=== PATIENT | female | born 1950 | race Caucasian/White ===

== ENCOUNTER → 2021-04-01 12:15 | Outpatient (BNVA) | payer MEDICARE, SELFPAY | PROVIDERS: PCP Pediatrics; Referring Provider Pediatrics; Visit Provider Internal Medicine | DX: I10 Essential (primary) hypertension (principal); I49.3 Ventricular premature depolarization; F17.200 Nicotine dependence, unspecified, uncomplicated | CPT/HCPCS: 93005; 99202 ==

== ENCOUNTER → 2021-05-06 08:03 | Outpatient (REF) | payer MEDICARE, SELFPAY ==
--- NOTE | ~2021-05-06 | NM_ITS ---
Myocardial perfusion study Indication: Cardiac arrhythmias to evaluate for myocardial ischemia Technique: The patient was brought in for a Lexiscan perfusion study on 05/06/2021. Patient performed low-level exercise and was injected 0.4 mg of Lexiscan intravenously. Within a minute of injection, 25 mCi of sestamibi was given intravenously. Images were obtained using the SPECT gamma camera interlaced with the gating device. Images were obtained in supine position. Resting perfusion study was performed on 05/07/2021. Patient was administered 25 mCi of sestamibi intravenously at rest. Images were then obtained in supine position. Images obtained with and without CT attenuation. Total DLP 98 mGy-cm. Images were processed with the software and compared side to side in short axis, horizontal long axis and vertical long axis views. Findings: The stress perfusion study showed nonattenuated images show normal uptake of radiotracer in all segments of LV myocardium. Images show mildly reduced uptake in the distal anterior and apex of the LV myocardium. The gated study shows normal LV systolic function with calculated LVEF of 65%. LV cavity is normal in size. The gated study shows normal systolic wall thickening and contraction of segments. Resting study shows no change in perfusion pattern compared to stress perfusion study. Gating at rest reveals normal systolic wall motion with ejection fraction at 63%. The findings are consistent with normal myocardial perfusion. NM/NM haris perf SPECT rest & str Impression: 1. Myocardial perfusion imaging study shows normal myocardial perfusion 2. Gated LVEF is 65% 3. Transient ischemic dilatation not present EKG is nondiagnostic for ischemia
--- NOTE | 2021-05-06 08:11 | CA_ITS ---
Transthoracic Echocardiogram Patient (Last, First, Middle): Lauren Houston, Gender: Female Date of : 1950 Age: 71 Procedure Date: 05/06/2021 Procedure Type: Transthoracic Echocardiogram Location: OP Height: 172.72 cm Weight: 77.57 kg BSA: 1.91 m2 Heart Rate: bpm BP: 162 / 80 mmHg Streetcar Starter: MADELINE Referring MD: Lex Burk MD Symptoms: I10 - Essential (primary) hypertension Study Quality: Fair ECG Rhythm: Sinus Conclusions: - The left ventricular systolic function is normal. The calculated ejection fraction is 58% by biplane method. - Grade 1-2 diastolic dysfunction. - There is moderate mitral annular calcification. There is mild mitral valve regurgitation. - There is mild to moderate tricuspid valve regurgitation. - Mild pulmonary hypertension is present. - Small plaque is seen in the sinuses of Valsalva. Findings Left Ventricle Normal left ventricular cavity size. There is mildly increased left ventricular wall thickness. The left ventricular systolic function is normal. The calculated ejection fraction is 58% by biplane method. E/E prime ratio is >15, consistent with elevated filling pressures. Grade 1-2 diastolic dysfunction. Right Ventricle Normal right ventricular cavity size and systolic function. Atria Both atria are normal in size. Aortic Valve There is a normal trileaflet aortic valve. There is no aortic valve stenosis. There is no aortic valve regurgitation. Mitral Valve There is moderate mitral annular calcification. There is mild mitral valve regurgitation. There is no mitral valve stenosis. Pulmonic Valve The pulmonic valve was not well visualized. Tricuspid Valve Normal tricuspid valve structure. There is mild to moderate tricuspid valve regurgitation. The right ventricular systolic pressure is 38 mmHg. Mild pulmonary hypertension is present. Great Vessels The aortic annulus, sinuses of valsalva, and asc aorta are normal in size. Small plaque is seen in the sinuses of Valsalva. Venous The inferior vena cava is normal in size and collapses greater than 50% with inspiration. Pericardium/Pleural There is no evidence of pericardial effusion. Prior Study Comparison No significant change compared to prior study dated: 10/28/2018. Measurements 2D Linear Measurements IVSd: 1.14 0.6-0.9/0.6-1.0 cm LVIDd: 4.74 3.9-5.3/4.2-5.9 cm LVIDd Index: 2.48 2.4-3.2/2.2-3.1 cm/m2 LVIDs: 3.31 2.0-3.6 cm LVPWd: 1.26 0.7-1.1 cm Ao Root: 2.20 2.1-3.5 cm LA Diam: 5.10 2.7-3.8/3.0-4.0 cm LAIDs Index: 2.67 1.5-2.3 cm/m2 LV Mass: 267.80 67-162/88-224 g LV Mass Index: 140.21 43-95/49-115 g/m2 LVOT Diam: 1.90 3.0+(-)1.3 cm 2D Systolic Function EF 4C: 58.50 >55% EF 2C: 53.10 >55% EF BiP: 58.20 >55% Mitral Valve MV Pk E: 1.33 MV PK A: 1.40 MV Decel Time: 187.00 E/A: 1.00 E'Lateral: 5.66 E'Medial: 6.20 E/E' Med: 21.50 E/E' Lat: 23.50 PHT: 55.00 MVA PHT: 4.00 Decel Garvin: 7.12 Aortic Valve AoV Pk Vik: 1.68 AoV Pk Grad: 11.00 LVOT LVOT Pk Vik: 1.12 LVOT Mn Vik: 0.75 LVOT VTI: 0.25 LVOT Pk Grad: 5.00 LVOT Mn Grad: 3.00 LVOT Diam: 1.90 LVOT Area: 2.84 Diastolic Function MV Pk E: 1.33 MV Pk A: 1.40 E/A: 1.00 E'Medial: 6.20 E/E' Med: 21.50 E' Laterial: 5.66 E/E' Lat: 23.50 Right Ventricle TAPSE (mm): 2.17 Tricuspid Valve TR Pk Vik: 2.97 TR Pk Grad: 35.00 RA Press: 3.00 RVSP: 38.00 Great Vessels Aorta Ao Root-2D: 2.20 2.0-3.7 cm Ao Asc: 3.10 2.1-3.4 cm Updated in Other Vendor System with Status of Final Lex Burk MD electronically signed on 05/06/2021 12:06:31 PM with status of Final
--- NOTE | 2021-05-06 08:11 | CA_ITS ---
Acquisition Time: 2021-05-06 09:35:53 Total Exercise Time: 00:02:00 Test Indications: PVC'S Medications: SEE CHART Protocol: LEXISCAN Max HR: 102 BPM 68% of Pred: 148 BPM Max BP: 182/078 mmHG Max Work Load: 1.0 METS Pharmacological stress test with Lexiscan injection, while sitting and kicking her legs, without anginal symptoms, with frequent isolated PVC and one ventricular cuplet, with elevated BP at baseline and further elevation post Lexiscan to peak 182/78, with nondiagnostic EKG for ischemia. In recovery she reported feeling strange . She was treated with aminophylline 75mg IVP with resolution of symptom. BP at test end 176/76, asymptomatic. Pt reports taking all of her BP meds this am.Nuclear images pending. Test reviewed with Dr Burk. Referred By: Lex Burk Overread By: KANDIS CANTU
== END ==
LOC: HO.CARD 08:03
PROVIDERS: PCP Pediatrics; Visit Provider Internal Medicine
DX: I10 Essential (primary) hypertension (principal)
CPT/HCPCS: 78452; 93017; 93306; A9500; J0280; J2785

== ENCOUNTER → 2021-05-20 13:53 | Outpatient (BNVA) | payer MEDICARE, SELFPAY | PROVIDERS: PCP Pediatrics; Referring Provider Pediatrics; Visit Provider Nurse Practitioner Family | DX: I10 Essential (primary) hypertension (principal); F17.200 Nicotine dependence, unspecified, uncomplicated | CPT/HCPCS: 99212 ==

== ENCOUNTER 2021-06-18 07:51 | Outpatient (REF) | payer MEDICARE, SELFPAY ==
--- NOTE | ~2021-06-18 | US_ITS ---
EXAMINATION: RENAL ULTRASOUND AND RENAL DOPPLER EXAM CLINICAL INFORMATION: Essential primary hypertension. COMPARISON: None. Images from CT of the abdomen and pelvis January 2012 are not available at this time. TECHNIQUE: Grayscale color and Doppler imaging of the kidneys including waveform spectral analysis of the renal arteries and renal veins. Exam is limited. FINDINGS: The kidneys are normal in contour and symmetric in size with the right kidney measuring 12.4 x 4.1 x 5.2 cm the left kidney measuring 11.9 x 6.1 x 5.4 cm. Renal cortical thickness and echogenicity is normal. There is a 6 x 6 x 5 mm echogenic density in the cortex of the upper pole of the left kidney. Appearance is questionable for cortical calcification, stone or angiomyolipoma. Unfortunately, comparison CT from 2011 is not available. There is a 4 mm echogenic density with twinkle artifact in the upper pole suggestive of a stone. Vascular: The visualized abdominal aorta is normal in caliber. Peak systolic velocity in the midabdominal aorta is elevated measuring 116 cm/s. This makes calculation of renal artery to aorta ratio inaccurate. The right proximal and mid renal artery is visualized. Right proximal renal artery peak systolic velocity measures 88 cm/s and mid 197 cm/s. The distal right renal artery is not visualized. Resistive indices in the right kidney measuring 0.7. The right renal vein is patent. Left renal artery peak systolic velocities measure 88 cm/s proximally, 128 cm/s the midportion and 54 cm/s distally. Left renal resistive indices are slightly elevated measuring 0.8. The bilateral renal veins are patent. US/US renal doppler IMPRESSION: Very limited exam. Normal-appearing right kidney. Probable left upper pole renal stone. Echogenic 6 mm cortical density in the upper pole the left kidney questionable for cortical calcification, stone or angiomyolipoma. Renal Doppler exam is very limited. The right distal renal artery is not visualized. There is increased peak systolic velocity in the right mid renal artery questionable for stenosis. Left renal artery velocities are normal.
== END 2021-06-18 07:52 | disposition home or self-care (01) ==
LOC: HO.US 07:51
PROVIDERS: PCP Pediatrics; Visit Provider Nurse Practitioner Family
DX: I10 Essential (primary) hypertension (principal); F17.200 Nicotine dependence, unspecified, uncomplicated
CPT/HCPCS: 93975

== ENCOUNTER → 2021-07-01 10:07 | Outpatient (BNVA) | payer MEDICARE, SELFPAY | PROVIDERS: PCP Pediatrics; Referring Provider Pediatrics; Visit Provider Internal Medicine | DX: I10 Essential (primary) hypertension (principal); I49.3 Ventricular premature depolarization; I70.1 Atherosclerosis of renal artery; F17.210 Nicotine dependence, cigarettes, uncomplicated | CPT/HCPCS: 99212 ==

== ENCOUNTER 2021-08-06 10:33 | Outpatient (REF) | payer MEDICARE, SELFPAY ==
[2021-08-06 13:07] LABS: Anion Gap 8 (12-20); Carbon Dioxide 29 mmol/L (22-29); Chloride 108 mmol/L (96-108); Cholesterol 152 mg/dL; Estimated Glomerular Filt Rate > 60; Glucose Random 110 mg/dL (60-115); HDL Cholesterol 35 mg/dL; LDL Cholesterol Calculated 81 mg/dl; Potassium 4.3 mmol/L (3.3-5.1); Sodium 141 mmol/L (135-145); Triglycerides 181 mg/dL
[2021-08-06 15:45] LABS: Blood Urea Nitrogen 18 mg/dL (9-16); Calcium 8.7 mg/dL (8.4-10.2)
== END 2021-08-06 10:34 | disposition home or self-care (01) ==
LOC: HO.LAB 10:33
PROVIDERS: PCP Pediatrics; Visit Provider Nurse Practitioner Family
DX: I10 Essential (primary) hypertension (principal); F17.200 Nicotine dependence, unspecified, uncomplicated
CPT/HCPCS: 36415; 80048; 80061

== ENCOUNTER 2021-08-08 10:26 | Outpatient (REF) | payer MEDICARE, SELFPAY ==
--- NOTE | ~2021-08-08 | CT_ITS ---
STUDY PERFORMED: CTA ABDOMEN WITHOUT AND WITH CONTRAST HISTORY: Atherosclerosis renal artery. DESCRIPTION: Routine abdomen CTA protocol with contrast was performed. 80 mL of Omnipaque 350 was administered. 3D POSTPROCESSING: Multiple MIPS in multiple projections were processed from the initial data set by the tomography technologist at the modality workstation under concurrent physician supervision. DOSE LOWERING TECHNIQUES: This CT examination was performed using dose optimization techniques as appropriate, variously including the following: - Automated exposure control - Adjustment of mA and/or kV according to patient size (this includes techniques or standardized protocols for targeted exams where dose is matched to indication/reason for exam; i.e. extremities or head) - Use of iterative reconstruction technique DLP: 333 mGycm. COMPARISON: Renal ultrasound 06/18/2021, CT abdomen pelvis 02/16/2012. FINDINGS: VASCULAR: ABDOMINAL AORTA: Minimal atherosclerotic plaque without evidence of aneurysm, dissection or flow-limiting stenosis. RIGHT LOWER EXTREMITY: The visualized right iliac vessels are patent and unremarkable. LEFT LOWER EXTREMITY: The visualized left iliac vessels are patent and unremarkable. CELIOMESENTERIC ARTERIES: The celiac axis is widely patent. Noncalcified narrowing at the origin of the superior mesenteric artery with a 70% stenosis approximated. The branches of the superior mesenteric artery maintain normal contrast opacification. The inferior mesenteric artery is patent. RENAL ARTERIES: There are 2 right renal arteries present, both of which are widely patent. There is a single widely patent left renal artery. The arteries are smooth without luminal irregularity. Symmetric nephrograms and symmetric renal size. NONVASCULAR: Lung Bases: Motion degrades the images. Cardiomegaly. Bibasilar atelectasis. Liver, Gallbladder and Biliary Tree: Cirrhotic nodular surface contour of the liver. Coarse calcifications at the hepatic dome and other punctate calcifications are also seen. Relative hypertrophy of the left hepatic lobe with respect to the right. Limited assessment of the hepatic parenchyma on arterial phase imaging only. No definite focal liver lesions are seen. No intrahepatic biliary dilatation. The gallbladder is unremarkable with no evidence of radiopaque gallstones, gallbladder wall thickening, or obvious pericholecystic inflammatory changes. Pancreas: Unremarkable. Spleen: Unremarkable. Adrenal Glands: Unremarkable. Kidneys and Ureters: There is a vague area of hypodensity involving the anterior cortex of the interpolar right kidney measuring approximately 1.5 cm, not seen on the prior study from 2011 nor on the ultrasound from May 2021. No evidence of hydronephrosis or perinephric stranding bilaterally. The kidneys are normal in size and shape. Ureters unremarkable as far as they are visualized. Gastrointestinal Tract: The partially imaged colon and small bowel show no signs of obstruction. Appendix unremarkable. Abdominal Wall: No significant abdominal wall hernia. Lymph Nodes: No lymphadenopathy within the abdomen or pelvis by CT criteria. Osseous Structures: No acute or suspicious osseous abnormality. Bilateral pars defects at L5 with spondylolisthesis L5 on S1. CT/CT angio abdomen IMPRESSION: 1. The renal arteries are patent without evidence of renal artery stenosis or luminal irregularity to suggest a vasculitis. Note is made of 2 right-sided renal arteries with a smaller, inferior pole accessory artery. 2. Liver cirrhosis. 3. Indeterminate hypodensity involving the interpolar right kidney cortex. Suggest targeted renal ultrasound for further assessment, reserving MRI for problem solving. 4. 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
[2021-08-08] MEDS: iohexoL 350 MG/ML 100 ML INFUS..BTL IV (12:00)
== END 2021-08-08 10:27 | disposition home or self-care (01) ==
LOC: HO.CT 10:26
PROVIDERS: Visit Provider Internal Medicine
DX: I70.1 Atherosclerosis of renal artery (principal)
CPT/HCPCS: 74175; Q9967

== ENCOUNTER → 2021-08-26 10:34 | Outpatient (BNVA) | payer MEDICARE, SELFPAY | PROVIDERS: PCP Pediatrics; Visit Provider Internal Medicine | DX: J44.9 Chronic obstructive pulmonary disease, unspecified (principal); F17.210 Nicotine dependence, cigarettes, uncomplicated; Z71.6 Tobacco abuse counseling | CPT/HCPCS: 99212 ==

== ENCOUNTER → 2021-08-28 08:00 | Outpatient (BNVA) | payer MEDICARE, SELFPAY | PROVIDERS: PCP Pediatrics; Referring Provider Pediatrics; Visit Provider Internal Medicine | DX: I49.3 Ventricular premature depolarization (principal); I10 Essential (primary) hypertension; K74.60 Unspecified cirrhosis of liver; F17.210 Nicotine dependence, cigarettes, uncomplicated | CPT/HCPCS: 99212 ==

== ENCOUNTER 2021-10-27 09:49 | Outpatient (REF) | payer OTHER, SELFPAY ==
--- NOTE | 2021-10-27 11:43 | PFT_ITS ---
FLOWS: FEV1 61% of predicted at 1.25 L. FVC 56% of predicted at 1.49 L. FEV1 to FVC ratio of 0.84. No bronchodilator response. LUNG VOLUMES: Total lung capacity 62% of predicted at 2.97 L. Residual volume 72% of predicted at 1.55 L. Slow vital capacity 54% of predicted at 1.42 L. Expiratory reserve volume 18% of predicted at 0.10 L. Diffusion capacity is moderately decreased, diffusion capacity corrects to normal after adjustment for alveolar ventilation. In comparison to pulmonary function test performed in August of 2018, TLC and ERV have been without significant changes; FEV1 has decreased by 0.19 L; FVC has decreased by 0.7 L; residual volume has increased by 0.21 L; slow vital capacity has decreased by 0.31 L; diffusion capacity has increased by 0.49 mL/minute per mmHg. IMPRESSION: Moderate restrictive ventilatory defect with no bronchodilator response. Decreased expiratory reserve volume suggests extrathoracic restriction, likely secondary to abdominal obesity. MD CARLEY [place]/[facility] / [id number]
== END 2021-10-27 09:50 | disposition home or self-care (01) ==
LOC: HO.RESP 09:49
PROVIDERS: PCP Pediatrics; Visit Provider Internal Medicine
DX: J44.9 Chronic obstructive pulmonary disease, unspecified (principal); R06.00 Dyspnea, unspecified; F17.210 Nicotine dependence, cigarettes, uncomplicated; Z79.899 Other long term (current) drug therapy
CPT/HCPCS: 94060; 94727; 94729

== ENCOUNTER → 2021-11-12 10:50 | Outpatient (BNVA) | payer OTHER, SELFPAY | PROVIDERS: PCP Pediatrics; Visit Provider Internal Medicine | DX: J98.4 Other disorders of lung (principal); J45.909 Unspecified asthma, uncomplicated; R06.00 Dyspnea, unspecified; F17.210 Nicotine dependence, cigarettes, uncomplicated | CPT/HCPCS: 99212 ==

== ENCOUNTER → 2022-03-05 10:09 | Outpatient (BNVA) | payer OTHER, SELFPAY | PROVIDERS: PCP Pediatrics; Referring Provider Pediatrics; Visit Provider Internal Medicine | DX: I10 Essential (primary) hypertension (principal); I49.3 Ventricular premature depolarization; K74.60 Unspecified cirrhosis of liver; F17.210 Nicotine dependence, cigarettes, uncomplicated; Z79.899 Other long term (current) drug therapy | CPT/HCPCS: 93005; 99212 ==

== ENCOUNTER 2022-03-30 09:49 | Outpatient (REF) | payer OTHER, SELFPAY ==
[2022-03-30 12:04] LABS: INTERNATIONAL NORM RATIO 1.1 (0.9-1.1); Prothrombin Time 12.6 SEC (10.0-13.1)
[2022-03-30 12:16] LABS: Estimated Average Glucose 105 mg/dL; Hemoglobin A1c % 5.3 %
[2022-03-30 12:40] LABS: Alanine Aminotransferase 26 U/L (0-31); Albumin Level 2.7 g/dL (3.5-5.0); Alkaline Phosphatase 149 U/L (39-117); Anion Gap 11 (12-20); Aspartate Amino Transferase 35 U/L (5-31); Bilirubin Total 0.8 mg/dL (0.0-1.0); Blood Urea Nitrogen 21 mg/dL (9-16); Calcium 8.6 mg/dL (8.4-10.2); Carbon Dioxide 27 mmol/L (22-29); Chloride 107 mmol/L (96-108); Cholesterol 166 mg/dL; Estimated Glomerular Filt Rate > 60; Glucose Random 87 mg/dL (60-115); HDL Cholesterol 39 mg/dL; LDL Cholesterol Calculated 89 mg/dl; Sodium 141 mmol/L (135-145); Total Protein 7.6 g/dL (6.5-8.0); Triglycerides 194 mg/dL
[2022-03-31 09:51] LABS: HBS Num1 1.18 mIU/mL (0-7.99); HBc Num1 0.13 S/CO (0.00-0.79); HBsAGNum1 0.17 S/CO (0.00-0.99); Hepatitis B Core Antibody Nonreactive (Nonreactive); Hepatitis B Surface Antigen Negative (Negative); ~HepC Num1 0.42 S/CO (0.00-0.79); ~Hepatitis B Surface Antibody NONREACTIVE (Nonreactive); ~Hepatitis C Antibody Nonreactive (Nonreactive)
[2022-04-01 08:15] LABS: Hepatitis A Antibody IgG REACTIVE (Nonreactive); ~Hepatitis A Antibody IgG 6.45 S/CO (0.00-0.99)
== END 2022-03-30 09:50 | disposition home or self-care (01) ==
LOC: HO.LAB 09:49
PROVIDERS: PCP Pediatrics; Visit Provider Internal Medicine
DX: K74.60 Unspecified cirrhosis of liver (principal)
CPT/HCPCS: 36415; 80053; 80061; 83036; 85610; 86704; 86706; 86708; 86803; 87340; 99202

== ENCOUNTER 2022-05-01 10:30 | Outpatient (REF) | payer OTHER, SELFPAY ==
--- NOTE | ~2022-05-01 | US_ITS ---
EXAMINATION: US ABDOMEN COMPLETE CLINICAL INFORMATION: Unspecified cirrhosis of liver. COMPARISON: CTA abdomen 08/08/2021. Ultrasound renal Doppler 06/18/2021. Ultrasound abdomen 11/20/2015. TECHNIQUE: Real-time imaging of the abdominal viscera. FINDINGS: PANCREAS: The head and the body the pancreas is homogeneous in echotexture. The tail is obscured by overlying gas. ABDOMINAL AORTA: The proximal and mid abdominal aorta is of normal caliber. The distal segment is not visualized. INFERIOR VENA CAVA: Visualized portions are normal. LIVER: The liver is normal size with lobulated contour and slight increased density. Findings are suspicious for cirrhotic appearance. No focal hepatic lesion. There is no intrahepatic biliary duct dilatation seen. GALLBLADDER: Gallbladder wall thickness is 0.3 cm. The gallbladder is physiologically distended without evidence of stones, sludge or pericholecystic fluid. COMMON BILE DUCT: Normal in caliber measuring 0.3 cm in diameter. RIGHT KIDNEY: Normal. No hydronephrosis. No renal calculi or focal parenchymal lesions. The kidney measures 13.0 cm in maximum dimension. LEFT KIDNEY: There is an echogenic lesion in the upper pole measuring 0.7 x 0.4 x 0.4 cm. No hydronephrosis or renal calculi. The kidney measures 11.9 cm in maximum dimension. SPLEEN: Normal. The spleen measures 11.0 cm in maximum dimension. FREE FLUID: None. US/US abdomen complete IMPRESSION: 1. Cirrhotic liver without focal lesion. 2. Small echogenic lesion upper pole left kidney, likely angiomyolipoma. 3. Rest of the abdominal ultrasound is unremarkable.
== END 2022-05-01 10:31 | disposition home or self-care (01) ==
LOC: HO.US 10:30
PROVIDERS: Visit Provider Internal Medicine
DX: K74.60 Unspecified cirrhosis of liver (principal)
CPT/HCPCS: 76700

== ENCOUNTER → 2022-05-13 09:44 | Outpatient (BNVA) | payer OTHER, SELFPAY | PROVIDERS: PCP Pediatrics; Visit Provider Internal Medicine | DX: J98.4 Other disorders of lung (principal); J45.909 Unspecified asthma, uncomplicated; F17.210 Nicotine dependence, cigarettes, uncomplicated | CPT/HCPCS: 99212 ==

== ENCOUNTER 2022-06-09 10:06 | Inpatient (IN) | payer OTHER, SELFPAY ==
[2022-06-09] VITALS (10 sets, daily range): BP systolic 129–211; BP diastolic 56–92; PULSE 62–100; RESP 16–20; TEMP 36.5–36.9; O2SAT 94–96; BMI 32.9
--- NOTE | ~2022-06-09 | XR_ITS ---
EXAMINATION: XR CHEST CLINICAL INFORMATION: Encephalopathy. COMPARISON: Chest 06/09/2022. TECHNIQUE: Frontal view of the chest was obtained. FINDINGS: The lungs are well-expanded without acute pneumonic process. There is elevation of left hemidiaphragm new since 06/09/2022. Heart size and pulmonary vascularity is normal. No gross bony abnormality seen except for mild DJD bilateral AC joints. XR/XR chest 1V IMPRESSION: 1. No acute cardiopulmonary process seen. 2. There is elevation of left hemidiaphragm new since 06/09/2022.
--- NOTE | ~2022-06-09 | XR_ITS ---
EXAMINATION: XR CHEST CLINICAL INFORMATION: Shortness of breath COMPARISON: Previous chest x-ray most recent May 2015 TECHNIQUE: 2 views of the chest were obtained. FINDINGS: The cardiac silhouette is enlarged. There is pulmonary venous redistribution and. Bronchial cuffing. Findings are questionable for mild pulmonary edema versus airways disease. There is subsegmental atelectasis at the right lung base. The lungs are otherwise clear. There is no pleural effusion or pneumothorax. There are degenerative changes of the spine. XR/XR chest 2V IMPRESSION: Enlarged cardiac silhouette. Increased central hilar markings questionable for pulmonary venous redistribution/mild pulmonary edema versus airways disease. Clinical correlation recommended. Subsegmental atelectasis at the right lung base.
--- NOTE | ~2022-06-09 | CT_ITS ---
EXAMINATION: CT HEAD WITHOUT CONTRAST CLINICAL INFORMATION: Encephalopathy COMPARISON: None TECHNIQUE: Contiguous axial imaging was performed from the skull base to vertex without intravenous administration of contrast. This CT examination was performed using dose optimization techniques as appropriate, variously including the following: *Automated exposure control *Adjustment of mA and/or kV according to patient size (this includes techniques or standardized protocols for targeted exams where dose is matched to indication/reason for exam; i.e. extremities or head) *Use of iterative reconstruction technique DLP: 549 mGy-cm FINDINGS: There is no evidence of acute intracranial hemorrhage or territorial infarction. No abnormal mass effect or midline shift is seen. Méndez to white matter differentiation is well preserved. No extra-axial fluid collections are identified. No significant volume loss. No hydrocephalus. Patchy periventricular and subcortical white matter hypodensity is seen consistent with chronic microvascular white matter ischemic changes. The osseous structures and soft tissues are normal. The mastoid air cells and visualized portions of the paranasal sinuses are well aerated. CT/CT head/brain wo IV con IMPRESSION: No acute intracranial pathology.
--- NOTE | 2022-06-09 10:13 | ECG_ITS ---
Test Reason : SOB Blood Pressure : / mmHG Vent. Rate : 090 BPM Atrial Rate : 090 BPM P-R Int : 160 ms QRS Dur : 082 ms QT Int : 348 ms P-R-T Axes : 072 -01 114 degrees QTc Int : 425 ms Sinus rhythm with occasional Premature ventricular complexes ST & T wave abnormality, consider lateral ischemia Abnormal ECG When compared to the previous EKG of 17 jun 2015, Premature ventricular complexes present Referred By: Generic ED Physician Electronically Signed By:AKILAH HARMON
[2022-06-09 10:51] LABS: Basophils Absolute Auto 0.1 X10*3/uL (0.0-0.2); Basophils Percent Auto 0.9 % (0-2); Eosinophils Absolute Auto 0.1 X10*3/uL (0.0-0.4); Eosinophils Percent Auto 1.9 % (0-4); Hematocrit 43.1 % (37.0-47.0); Hemoglobin 13.9 g/dl (12.0-16.0); Imm Gran Abs Auto 0.02 X10*3/uL (0.00-0.03); Imm Gran Pct Auto 0.3 % (0.0-0.4); Lymphocytes Percent Auto 17.1 % (20-40); MANUAL DIFF FLAG SCAN; Mean Corpuscular HGB Conc 32.3 g/dl (31.0-35.0); Mean Corpuscular Hemoglobin 32.8 pg (27.0-33.0); Mean Corpuscular Volume 101.7 fL (80.0-98.0); Mean Platelet Volume 13.8 fL (9.4-12.3); Monocytes Absolute Auto 0.7 X10*3/uL (0.1-1.2); Monocytes Percent Auto 11.7 % (2-11); Neutrophils Absolute Auto 3.9 x10*3/uL (2.0-8.3); Neutrophils Percent Auto 68.1 % (45-73); PLT CLUMP 1; Red Blood Count 4.24 X10*6/uL (4.20-5.50); Red Cell Distribution Width 15.7 % (11.0-16.0); SCAN SMEAR FLAG 1
[2022-06-09 10:52] LABS: Platelet Count 60 X10*3/uL (160-400); White Blood Count 5.8 X10*3/uL (4.8-10.8)
[2022-06-09 11:11] LABS: Anion Gap 9 (12-20); Blood Urea Nitrogen 18 mg/dL (9-16); Calcium 8.1 mg/dL (8.4-10.2); Carbon Dioxide 27 mmol/L (22-29); Chloride 108 mmol/L (96-108); Creatinine Clr Calc Pharmacy 67.9; Estimated Glomerular Filt Rate > 60; Glucose Random 100 mg/dL (60-115); Potassium 4.3 mmol/L (3.3-5.1); Sodium 140 mmol/L (135-145)
[2022-06-09 11:14] LABS: COVID-19 Test Negative (Negative); IDNOW Serial# 16C4AD1C
[2022-06-09 11:38] LABS: SLIDE REVIEW VERIFIED
--- NOTE | 2022-06-09 11:45 | ED.URI ---
HPI - URI/Sore Throat General Chief Complaint: Upper Respiratory Symptoms Stated Complaint: Diff Breathing Time Seen by Provider: 06/09/22 11:04 Source: patient Mode of arrival: ambulatory History of Present Illness HPI Narrative: 72-year-old female with a past medical history of asthma, COPD, restrictive lung disease, diabetes, presenting to the ED complaining of productive cough, SOB, chest discomfort when coughing, and left shoulder pain worsening over the past couple weeks. Also reports chronic pedal edema. Has been using inhaler and neb machine without relief. Denies fever, chills, abdominal pain, nausea, vomiting, recent travel, sick contacts. Denies taking her blood pressure medications this morning MD elicited complaint: cough Pertinent past history: COPD and asthma Related Data Home Medications Medication Instructions Recorded Confirmed albuterol sulfate 90 mcg/actuation 2 puff inhalation Q6H PRN 04/01/21 06/09/22 aerosol inhaler (ProAir HFA) Shortness Of Breath Or Wheezing ammonium lactate 12 % topical cream 1 appl topical DAILY PRN Dry Skin 04/01/21 06/09/22 atorvastatin 20 mg tablet (Lipitor) 20 mg PO DAILY 04/01/21 06/09/22 cholecalciferol (vitamin D3) 50 50 mcg PO DAILY 04/01/21 06/09/22 mcg (2,000 unit) capsule citalopram 40 mg tablet 40 mg PO DAILY 04/01/21 06/09/22 hydralazine 100 mg tablet 100 mg PO TID 04/01/21 06/09/22 hydrochlorothiazide 50 mg tablet 50 mg PO DAILY 04/01/21 06/09/22 irbesartan 300 mg tablet 300 mg PO DAILY 04/01/21 06/09/22 lidocaine-prilocaine 2.5 %-2.5 % topical 04/01/21 03/30/22 topical cream meloxicam 7.5 mg tablet 7.5 mg PO DAILY PRN Pain, Moderate 04/01/21 06/09/22 trazodone 150 mg tablet 150 mg PO DAILY 04/01/21 06/09/22 clonidine HCl 0.2 mg tablet 1 tab PO BEDTIME 06/09/22 06/09/22 metformin 1,000 mg tablet 1 tab PO BID 06/09/22 06/09/22 Previous Rx's Medication Instructions Recorded carvedilol 3.125 mg tablet 3.125 mg PO BID #180 tabs 01/22/22 felodipine 10 mg tablet,extended 10 mg PO DAILY #30 tabs 03/06/22 release 24 hr spironolactone 25 mg tablet 25 mg PO DAILY #30 tabs 05/14/22 Allergies Allergy/AdvReac Type Severity Reaction Status Date / Time aspirin [ASPIRIN] Allergy Intermediate HIVES/ANXIE Verified 05/13/22 10:26 TY enalapril Allergy Unknown unknown Verified 05/13/22 10:26 verapamil Allergy Unknown unknown Verified 05/13/22 10:26 acetaminophen [From Percocet] AdvReac low blood Verified 05/13/22 10:26 pressure oxycodone [From Percocet] AdvReac low blood Verified 05/13/22 10:26 pressure Review of Systems Review of Systems: Constitutional: No Fever, No Chills, No Fatigue, No Malaise ENT/Mouth: No Ear Pain, No Nasal Congestion, No sore throat, No Rhinorrhea, No Swallowing Difficulty Eyes: No Eye Pain, No Swelling, No Redness, No Vision Changes Cardiovascular: + Chest Pain, + SOB, No Dyspnea on Exertion, No Orthopnea, + Edema, No Palpitations Respiratory: + Cough, + Sputum, + Wheezing, + Dyspnea Gastrointestinal: No Nausea, No Vomiting, No Diarrhea, No Constipation, No Abdominal pain Genitourinary: No Dysuria, No Urinary Frequency, No Hematuria, No Urinary Incontinence/retention,No Flank Pain Musculoskeletal: No joint pain, No Myalgias, No Joint Swelling Skin: No Skin Lesions, No rash Neuro: No Weakness, No Dizziness, No Headache Yes all other systems are reviewed and are negative Constitutional: Constitutional: Reports as per [facility] Past Medical History Attestation statement: The following information was validated with the patient. Medical History Asthma COPD (chronic obstructive pulmonary disease) Dyspnea on exertion Restrictive lung disease Smoking Type 2 diabetes mellitus with unspecified complications Uncontrolled hypertension Surgical History H/O colonoscopy Hx of abdominoplasty Family History Family History Mother HTN (hypertension) Diabetes Throat cancer Father Throat cancer Sister Blind Breast cancer Brother Blind Lung cancer Son Blind Daughter Lupus Father Throat cancer Social History Social History Alcohol intake: never Patient Tobacco Use Status: Current everyday Tobacco user Cigarettes Per Day: 4 Years Smoked: 40 +/- Smoked in Last 30 Days: Yes Use of substances other than those prescribed or required for medical reasons: No Advance Directives: No Physical Exam Vital Signs: Vital Signs: Last Vital Signs Temp 97.7 F 06/09/22 16:00 Pulse 76 06/09/22 16:00 Resp 18 06/09/22 16:00 BP 162/75 H 06/09/22 16:00 Pulse Ox 96 06/09/22 16:00 O2 Del Method 06/09/22 16:00 BMI result Body Mass Index 32.9 Const: General: cooperative, healthy appearing and no acute distress Orientation/consciousness: patient oriented x3 Limitations: no limitations HEENT: Head: Yes normal to inspection and Yes atraumatic Ears: hearing grossly normal bilaterally General nose exam: Normal external nose present Face and sinus: Yes normal facial exam Eyes: General: appearance normal, both eyes and all related structures EOM: EOMs intact bilaterally Neck: Neck: Yes normal visual inspection and Yes no meningeal signs Resp: Effort & Inspection: normal respiratory effort and no respiratory distress Auscultation: wheezes expiratory wheezes and throughout and diminished lung sounds diffuse Cardio: Rate: regular rate Heart sounds: S1 normal heart sound present and S2 normal heart sound present GI: Inspection: Yes normal to inspection Palpation (GI): Soft to palpation, nontender, no guarding and not rigid : General: Yes no CVA tenderness Back/Spine/Pelvis: Back: no CVA tenderness Skin: Rashes: no rashes Wounds: no wounds Neuro: General: patient oriented x3, tone normal and no meningeal signs Gait exam (Neuro): Normal gait present Extrem: Other: + bilateral LE pitting edema. No calf tenderness General: Yes normal to inspection and Yes edema Course Course Course Narrative: -no leukocytosis. Bilirubin mildly elevated, AST chronically elevated, alk-phos chronically elevated. Chronic hypoalbuminemia. Labs otherwise reassuring -initial troponin 15 > will obtain 3 hour repeat XR chest 2V IMPRESSION: Enlarged cardiac silhouette. Increased central hilar markings questionable for pulmonary venous redistribution/mild pulmonary edema versus airways disease. Clinical correlation recommended. Subsegmental atelectasis at the right lung base. >> IV Lasix ordered -BNP elevated to 797 -1410--on re-evaluation patient is still with diffuse extra daniel wheeze and diminished lung sounds. Will give magnesium, additional DuoNeb and plan for admission Medications Administered Generic Name Dose Route Start Last Admin Trade Name Freq PRN Reason Stop Dose Admin Albuterol/Ipratropium 3 ml 06/09/22 16:00 06/09/22 16:01 Albuterol/Iprat 2.5/0.5mg 3 Ml Ampul.Neb INHALE Not Given RQ4H WHILE AWAKE ANGELINA Sodium Chloride 3 ml 06/09/22 16:00 06/09/22 16:25 0.9 % Sodium Chloride Flush 3 Ml Syringe IVFLUSH 3 ml QSHIFT ANGELINA Administration Discontinued Medications Generic Name Dose Route Start Last Admin Trade Name Freq PRN Reason Stop Dose Admin Albuterol Sulfate 5 mg/ 7.5 mg 06/09/22 12:01 06/09/22 12:25 Albuterol Sulfate 2.5 mg INHALE 06/09/22 12:02 7.5 mg ONCE ONE Administration Albuterol Sulfate 2.5 mg/ 5 mg 06/09/22 14:09 06/09/22 15:02 Albuterol Sulfate 2.5 mg INHALE 06/09/22 14:10 5 mg ONCE ONE Administration Albuterol/Ipratropium 3 ml 06/09/22 12:01 06/09/22 12:26 Albuterol/Iprat 2.5/0.5mg 3 Ml Ampul.Neb INHALE 06/09/22 12:02 3 ml ONCE ONE Administration Albuterol/Ipratropium 3 ml 06/09/22 13:28 06/09/22 13:39 Albuterol/Iprat 2.5/0.5mg 3 Ml Ampul.Neb INHALE 06/09/22 13:29 3 ml ONCE ONE Administration Carvedilol 3.125 mg 06/09/22 12:12 06/09/22 12:37 Carvedilol 3.125 Mg Tablet PO 06/09/22 12:13 3.125 mg ONCE ONE Administration Protocol Furosemide 40 mg 06/09/22 12:12 06/09/22 12:37 Furosemide 40 Mg/4 Ml Vial IVPUSH 06/09/22 12:13 40 mg STAT STA Administration Protocol Hydralazine HCl 100 mg 06/09/22 12:14 06/09/22 12:37 Hydralazine Hcl 50 Mg Tablet PO 06/09/22 12:15 100 mg ONCE ONE Administration Protocol Hydrochlorothiazide 50 mg 06/09/22 12:12 06/09/22 13:24 Hydrochlorothiazide 50 Mg Tablet PO 06/09/22 12:13 50 mg ONCE ONE Administration Protocol Magnesium Sulfate 2 gm in 50 mls @ 25 mls/hr 06/09/22 14:09 06/09/22 15:41 Magnesium Sulfate/H2o IV 06/09/22 16:08 Infused ONCE ONE Infusion Methylprednisolone Sodium Succinate 125 mg 06/09/22 12:01 06/09/22 12:37 Methylprednisolone Sod Succ 125 Mg/2 Ml Vial IVPUSH 06/09/22 12:02 125 mg ONCE ONE Administration Medical Decision Making Medical Decision Making [facility] Narrative: 72-year-old female with a past medical history of asthma, COPD, restrictive lung disease, diabetes, presenting to the ED complaining of productive cough, SOB, chest discomfort when coughing, and left shoulder pain worsening over the past couple weeks. On exam hypertensive, satting 94% on RA, diffuse expiratory wheeze and decreased lung sounds throughout. Bilateral LE pitting edema. Concern for COPD/asthma exacerbation vs CHF vs viral illness or pneumonia. Lower suspicion for ACS/PE Plan: EKG, labs, CXR, COVID 19/influenza/RSV testing, IV Solu-Medrol, DuoNebs Differential Diagnosis Differential Diagnoses: The differential diagnosis associated with the presentation includes Admission/Observation Consideration of admission/observation: Escalation of care including admission/observation considered Lab Data [facility] Lab Attestation statement: I reviewed the patient's lab results. Result Diagrams: 06/09/22 10:32 06/09/22 10:32 Labs: Lab Results 06/09/22 06/09/22 06/09/22 Range/Units 10:32 10:32 10:32 WBC 5.8 (4.8-10.8) X10*3/uL RBC 4.24 (4.20-5.50) X10*6/uL Hgb 13.9 (12.0-16.0) g/dl Hct 43.1 (37.0-47.0) % MCV 101.7 H (80.0-98.0) fL MCH 32.8 (27.0-33.0) pg MCHC 32.3 (31.0-35.0) g/dl RDW 15.7 (11.0-16.0) % Plt Count 60 L (160-400) X10*3/uL MPV 13.8 H (9.4-12.3) fL Immature Gran % (Auto) 0.3 (0.0-0.4) % Neut % (Auto) 68.1 (45-73) % Lymph % (Auto) 17.1 L (20-40) % Rock % (Auto) 11.7 H (2-11) % Eos % (Auto) 1.9 (0-4) % Baso % (Auto) 0.9 (0-2) % Lymph # (Auto) 1.0 L (1.2-4.9) X10*3/uL Rock # (Auto) 0.7 (0.1-1.2) X10*3/uL Eos # (Auto) 0.1 (0.0-0.4) X10*3/uL Baso # (Auto) 0.1 (0.0-0.2) X10*3/uL Abs Immat Gran (auto) 0.02 (0.00-0.03) X10*3/uL Absolute Neuts (auto) 3.9 (2.0-8.3) x10*3/uL Absolute Nucleated RBC 0.000 (0.0-0.012) X10*3/uL Nucleated RBC % (auto) 0.0 (0.0-0.2) /100WBC Smear Tech's Comments VERIFIED Sodium 140 (135-145) mmol/L Potassium 4.3 (3.3-5.1) mmol/L Chloride 108 (96-108) mmol/L Carbon Dioxide 27 (22-29) mmol/L Anion Gap 9 L (12-20) BUN 18 H (9-16) mg/dL Creatinine 0.73 (0.5-1.4) mg/dL Estim Creat Clear Calc 67.9 Estimated GFR > 60 Random Glucose 100 (60-115) mg/dL Calcium 8.1 L (8.4-10.2) mg/dL Magnesium 1.6 (1.6-2.6) mg/dL Total Bilirubin 1.8 H (0.0-1.0) mg/dL Direct Bilirubin 0.8 H (0.0-0.5) mg/dL AST 40 H (5-31) U/L ALT 24 (0-31) U/L Alkaline Phosphatase 142 H (39-117) U/L Troponin I High Sens 15.0 (<3.5-17.0) ng/L B-Natriuretic Peptide (<100) pg/mL Total Protein 7.3 (6.5-8.0) g/dL Albumin 2.4 L (3.5-5.0) g/dL Vitamin B12 (200-900) pg/mL Folate (> or = 4.0) ng/mL COVID-19 (NATE) (Negative) COVID-19 Clin Com Influenza Type A (PCR) (Negative) Influenza Type B (PCR) (Negative) RSV RNA Qual (PCR) (Negative) SARS-CoV-2 RNA (RT-PCR) (Negative) 06/09/22 06/09/22 06/09/22 Range/Units 10:32 10:32 10:32 WBC (4.8-10.8) X10*3/uL RBC (4.20-5.50) X10*6/uL Hgb (12.0-16.0) g/dl Hct (37.0-47.0) % MCV (80.0-98.0) fL MCH (27.0-33.0) pg MCHC (31.0-35.0) g/dl RDW (11.0-16.0) % Plt Count (160-400) X10*3/uL MPV (9.4-12.3) fL Immature Gran % (Auto) (0.0-0.4) % Neut % (Auto) (45-73) % Lymph % (Auto) (20-40) % Rock % (Auto) (2-11) % Eos % (Auto) (0-4) % Baso % (Auto) (0-2) % Lymph # (Auto) (1.2-4.9) X10*3/uL Rock # (Auto) (0.1-1.2) X10*3/uL Eos # (Auto) (0.0-0.4) X10*3/uL Baso # (Auto) (0.0-0.2) X10*3/uL Abs Immat Gran (auto) (0.00-0.03) X10*3/uL Absolute Neuts (auto) (2.0-8.3) x10*3/uL Absolute Nucleated RBC (0.0-0.012) X10*3/uL Nucleated RBC % (auto) (0.0-0.2) /100WBC Smear Tech's Comments Sodium (135-145) mmol/L Potassium (3.3-5.1) mmol/L Chloride (96-108) mmol/L Carbon Dioxide (22-29) mmol/L Anion Gap (12-20) BUN (9-16) mg/dL Creatinine (0.5-1.4) mg/dL Estim Creat Clear Calc Estimated GFR Random Glucose (60-115) mg/dL Calcium (8.4-10.2) mg/dL Magnesium (1.6-2.6) mg/dL Total Bilirubin (0.0-1.0) mg/dL Direct Bilirubin (0.0-0.5) mg/dL AST (5-31) U/L ALT (0-31) U/L Alkaline Phosphatase (39-117) U/L Troponin I High Sens (<3.5-17.0) ng/L B-Natriuretic Peptide 797 H (<100) pg/mL Total Protein (6.5-8.0) g/dL Albumin (3.5-5.0) g/dL Vitamin B12 901 H (200-900) pg/mL Folate 18.7 (> or = 4.0) ng/mL COVID-19 (NATE) Negative (Negative) COVID-19 Clin Com See Note Influenza Type A (PCR) (Negative) Influenza Type B (PCR) (Negative) RSV RNA Qual (PCR) (Negative) SARS-CoV-2 RNA (RT-PCR) (Negative) 06/09/22 Range/Units 11:58 WBC (4.8-10.8) X10*3/uL RBC (4.20-5.50) X10*6/uL Hgb (12.0-16.0) g/dl Hct (37.0-47.0) % MCV (80.0-98.0) fL MCH (27.0-33.0) pg MCHC (31.0-35.0) g/dl RDW (11.0-16.0) % Plt Count (160-400) X10*3/uL MPV (9.4-12.3) fL Immature Gran % (Auto) (0.0-0.4) % Neut % (Auto) (45-73) % Lymph % (Auto) (20-40) % Rock % (Auto) (2-11) % Eos % (Auto) (0-4) % Baso % (Auto) (0-2) % Lymph # (Auto) (1.2-4.9) X10*3/uL Rock # (Auto) (0.1-1.2) X10*3/uL Eos # (Auto) (0.0-0.4) X10*3/uL Baso # (Auto) (0.0-0.2) X10*3/uL Abs Immat Gran (auto) (0.00-0.03) X10*3/uL Absolute Neuts (auto) (2.0-8.3) x10*3/uL Absolute Nucleated RBC (0.0-0.012) X10*3/uL Nucleated RBC % (auto) (0.0-0.2) /100WBC Smear Tech's Comments Sodium (135-145) mmol/L Potassium (3.3-5.1) mmol/L Chloride (96-108) mmol/L Carbon Dioxide (22-29) mmol/L Anion Gap (12-20) BUN (9-16) mg/dL Creatinine (0.5-1.4) mg/dL Estim Creat Clear Calc Estimated GFR Random Glucose (60-115) mg/dL Calcium (8.4-10.2) mg/dL Magnesium (1.6-2.6) mg/dL Total Bilirubin (0.0-1.0) mg/dL Direct Bilirubin (0.0-0.5) mg/dL AST (5-31) U/L ALT (0-31) U/L Alkaline Phosphatase (39-117) U/L Troponin I High Sens (<3.5-17.0) ng/L B-Natriuretic Peptide (<100) pg/mL Total Protein (6.5-8.0) g/dL Albumin (3.5-5.0) g/dL Vitamin B12 (200-900) pg/mL Folate (> or = 4.0) ng/mL COVID-19 (NATE) (Negative) COVID-19 Clin Com Influenza Type A (PCR) NEGATIVE (Negative) Influenza Type B (PCR) NEGATIVE (Negative) RSV RNA Qual (PCR) NEGATIVE (Negative) SARS-CoV-2 RNA (RT-PCR) NEGATIVE (Negative) Independent Interpretation I performed an independent interpretation of an: EKG and Plain X-Ray Radiology Impression Discussion of test interpretation with radiology: I have reviewed the radiologist's reading. Independent Historian Clinical information obtained from an independent historian. History obtained from or confirmed by: Other (family) External Record Review External record reviewed: Office record, Outpatient record, Prior outpatient labs, Prior outpatient radiology and Primary care record Discharge Plan Discharge Clinical Impression: Congestive heart failure, COPD (chronic obstructive pulmonary disease)
--- NOTE | 2022-06-09 11:48 | PC.NURSE ---
pt a&ox3, hypertensive - pt reports that she did not take her medication this morning, other vss, pt denies any pain at this time.
[2022-06-09 12:22] LABS: Alanine Aminotransferase 24 U/L (0-31); Albumin Level 2.4 g/dL (3.5-5.0); Alkaline Phosphatase 142 U/L (39-117); Aspartate Amino Transferase 40 U/L (5-31); Bilirubin Direct 0.8 mg/dL (0.0-0.5); Bilirubin Total 1.8 mg/dL (0.0-1.0); Magnesium 1.6 mg/dL (1.6-2.6); Total Protein 7.3 g/dL (6.5-8.0)
[2022-06-09] MEDS: Albuterol Sulfate 5 MG, Albuterol Sulfate (0.083%) 2.5 MG 7.5 MG INHALE (12:25)
[2022-06-09] MEDS: Albuterol/Iprat 2.5/0.5MG 3 ML AMPUL.NEB INHALE ×3 (12:26→20:02)
[2022-06-09] MEDS: methylPREDNISolone Sod Succ 125 MG/2 ML VIAL IVPUSH (12:37)
[2022-06-09] MEDS: carvediloL 3.125 MG TABLET PO ×2 (12:37→21:06)
[2022-06-09] MEDS: hydrALAZINE HCl 50 MG TABLET 100 MG PO ×2 (12:37→21:06)
[2022-06-09] MEDS: Furosemide 40 MG/4 ML VIAL IVPUSH ×2 (12:37→18:17)
--- NOTE | 2022-06-09 12:44 | PC.NURSE ---
pt medicated per provider order, pharmacy contacted for remaining medication not loaded in pyxis.
[2022-06-09 13:04] LABS: Influenza A PCR NEGATIVE (Negative); Influenza B PCR NEGATIVE (Negative); Resp Syncy Virus RNA Qual PCR NEGATIVE (Negative); SARS COV2 PCR INHOUSE NEGATIVE (Negative)
[2022-06-09] MEDS: hydroCHLOROthiazide 50 MG TABLET PO (13:24)
--- NOTE | 2022-06-09 13:24 | PC.NURSE ---
pt medicated per provider order.
[2022-06-09 14:06] LABS: B Type Natriuretic Peptide 797 pg/mL (<100)
--- NOTE | 2022-06-09 14:18 | P.HPHOSP_ITS ---
History of Present Illness Date of Service: 06/09/22 Attending physician on admission: Armen Wright Chief Complaint: SOB, dyspnea Pt is a 72-year-old female with a PMH significant for asthma, COPD, restrictive lung disease, ljg-cbzuyed-hrneagoze diabetes, HTN, HLD, and cirrhosis who presen ts to the ED today for 2 weeks of worsening SOB, productive cough, and edema. During this time patient has had progressively difficult time with walking until today when she could barely walk to the bathroom without having to rest. Patient also notes that she has had to sleep with more pillows behind her back. Patient has had chronic lower leg edema but notes that it has grown much worse over the past few weeks and now includes her knees, thighs, and belly. Patient also complains of cough, productive of thick yellow and dark brown phlegm. Patient also complains of right shoulder pain, particularly when breathing. In the ED patient was given multiple DuoNebs, Mag sulfate, and Solu-Medrol with some relief. Labs were significant for an MCV of 101.7, mild hypocalcemia of 8.1, and no leukocytosis. Chronic hyperbilirubinemia of 1.8, direct bilirubin of 0.8, AST 40, and alk phos of 142, all likely secondary to chirrosis. BNP was elevated at 797, and chronic hypoalbuminemia at 2.4. Chest x-ray showed increased central hilar markings questionable for pulmonary venous redistribution/mild pulmonary edema versus airways disease. Of note patient had an echocardiogram on 05/06/2021 that showed an EF of 50% with diastolic dysfunction, mitral annular calcification, mitral and tricuspid valve regurgitation. Patient be admitted the hospital for treatment for COPD and CHF. Review of Systems Review of Systems: Shortness of breath at rest and with exertion Worsening leg and thigh edema bilaterally Productive cough No chest pain or discomfort Yes all other systems are reviewed and are negative [facility] Medical History Asthma COPD (chronic obstructive pulmonary disease) Dyspnea on exertion Restrictive lung disease Smoking Type 2 diabetes mellitus with unspecified complications Uncontrolled hypertension Family History Mother HTN (hypertension) Diabetes Throat cancer Father Throat cancer Sister Blind Breast cancer Brother Blind Lung cancer Son Blind Daughter Lupus Father Throat cancer Surgical History H/O colonoscopy Hx of abdominoplasty Social History Alcohol intake: never Patient Tobacco Use Status: Current everyday Tobacco user Cigarettes Per Day: 4 Years Smoked: 40 +/- Smoked in Last 30 Days: Yes Use of substances other than those prescribed or required for medical reasons: No Advance Directives: No Meds Allergies Allergy/AdvReac Type Severity Reaction Status Date / Time aspirin [ASPIRIN] Allergy Intermediate HIVES/ANXIE Verified 05/13/22 10:26 TY enalapril Allergy Unknown unknown Verified 05/13/22 10:26 verapamil Allergy Unknown unknown Verified 05/13/22 10:26 acetaminophen [From Percocet] AdvReac low blood Verified 05/13/22 10:26 pressure oxycodone [From Percocet] AdvReac low blood Verified 05/13/22 10:26 pressure Active Medications: Current Medications Magnesium Sulfate (Magnesium Sulfate/H2o) 2 gm in 50 mls @ 25 mls/hr IV ONCE ONE Stop: 06/09/22 16:08 Home Medications Medication Instructions Recorded Confirmed Last Taken Type albuterol sulfate 90 mcg/actuation 2 puff inhalation Q6H PRN 04/01/21 06/09/22 Unknown History aerosol inhaler (ProAir HFA) Shortness Of Breath Or Wheezing ammonium lactate 12 % topical cream 1 appl topical DAILY PRN Dry Skin 04/01/21 06/09/22 Unknown History atorvastatin 20 mg tablet (Lipitor) 20 mg PO DAILY 04/01/21 06/09/22 Unknown History cholecalciferol (vitamin D3) 50 50 mcg PO DAILY 04/01/21 06/09/22 Unknown History mcg (2,000 unit) capsule citalopram 40 mg tablet 40 mg PO DAILY 04/01/21 06/09/22 Unknown History hydralazine 100 mg tablet 100 mg PO TID 04/01/21 06/09/22 Unknown History hydrochlorothiazide 50 mg tablet 50 mg PO DAILY 04/01/21 06/09/22 Unknown History irbesartan 300 mg tablet 300 mg PO DAILY 04/01/21 06/09/22 Unknown History lidocaine-prilocaine 2.5 %-2.5 % topical 04/01/21 03/30/22 Unknown History topical cream meloxicam 7.5 mg tablet 7.5 mg PO DAILY PRN Pain, Moderate 04/01/21 06/09/22 Unknown History trazodone 150 mg tablet 150 mg PO DAILY 04/01/21 06/09/22 Unknown History clonidine HCl 0.2 mg tablet 1 tab PO BEDTIME 06/09/22 06/09/22 Unknown History metformin 1,000 mg tablet 1 tab PO BID 06/09/22 06/09/22 Unknown History Physical Exam Vital Signs and Narrative: Vital Signs: Last Vital Signs Temp 98.0 F 06/09/22 14:04 Pulse 79 06/09/22 14:04 Resp 18 06/09/22 14:04 BP 129/57 L 06/09/22 14:04 Pulse Ox 94 06/09/22 14:04 O2 Del Method 06/09/22 14:04 BMI result Body Mass Index 32.9 Constitutional: Alert, in no acute distress. Mental Status: Oriented to person, place and time. Eyes: Pupils are equal, round, and reactive to light. Ear, Nose, and Throat: Oropharynx clear, mucous membranes moist. Ears and nose without deformities. Trachea midline. Respiratory: Diffuse expiratory wheezing, diminished lung sounds at bases. Cardiovascular: S1, S2 regular. 2/6 holosystolic systolic murmur heard best at sternal border Gastrointestinal: Abdomen soft, non-tender, non-distended. NOrmal bowel sounds. Neurologic: Cranial nerves II-XI are grossly intact. NO focal neurological deficits. Moves all extremities spontaneously. Skin: No rashes of lesions. Musculoskeletal: No cyanosis or clubbing. Extremities: 2+ pitting edema bilaterally. Psychiatric: Normal mood and affect. Results Labs CBC and Chem 7: 06/09/22 10:32 06/09/22 10:32 Labs: Laboratory Results - last 24 hr 06/09/22 06/09/22 06/09/22 10:32 10:32 10:32 MCV 101.7 H MCH 32.8 MCHC 32.3 RDW 15.7 Plt Count 60 L MPV 13.8 H Immature Gran % (Auto) 0.3 Neut % (Auto) 68.1 Lymph % (Auto) 17.1 L Meagher % (Auto) 11.7 H Eos % (Auto) 1.9 Baso % (Auto) 0.9 Lymph # (Auto) 1.0 L Meagher # (Auto) 0.7 Eos # (Auto) 0.1 Baso # (Auto) 0.1 Abs Immat Gran (auto) 0.02 Absolute Neuts (auto) 3.9 Absolute Nucleated RBC 0.000 Nucleated RBC % (auto) 0.0 Smear Tech's Comments VERIFIED Anion Gap 9 L Estim Creat Clear Calc 67.9 Estimated GFR > 60 Random Glucose 100 Calcium 8.1 L Magnesium 1.6 Total Bilirubin 1.8 H Direct Bilirubin 0.8 H AST 40 H ALT 24 Alkaline Phosphatase 142 H Troponin I High Sens 15.0 B-Natriuretic Peptide Total Protein 7.3 Albumin 2.4 L COVID-19 (NATE) COVID-19 Clin Com Influenza Type A (PCR) Influenza Type B (PCR) RSV RNA Qual (PCR) SARS-CoV-2 RNA (RT-PCR) 06/09/22 06/09/22 06/09/22 10:32 10:32 11:58 MCV MCH MCHC RDW Plt Count MPV Immature Gran % (Auto) Neut % (Auto) Lymph % (Auto) Meagher % (Auto) Eos % (Auto) Baso % (Auto) Lymph # (Auto) Meagher # (Auto) Eos # (Auto) Baso # (Auto) Abs Immat Gran (auto) Absolute Neuts (auto) Absolute Nucleated RBC Nucleated RBC % (auto) Smear Tech's Comments Anion Gap Estim Creat Clear Calc Estimated GFR Random Glucose Calcium Magnesium Total Bilirubin Direct Bilirubin AST ALT Alkaline Phosphatase Troponin I High Sens B-Natriuretic Peptide 797 H Total Protein Albumin COVID-19 (NATE) Negative COVID-19 Clin Com See Note Influenza Type A (PCR) NEGATIVE Influenza Type B (PCR) NEGATIVE RSV RNA Qual (PCR) NEGATIVE SARS-CoV-2 RNA (RT-PCR) NEGATIVE Imaging Radiologist's Impressions: Impressions Chest X-Ray 06/09/22 10:38 IMPRESSION: Enlarged cardiac silhouette. Increased central hilar markings questionable for pulmonary venous redistribution/mild pulmonary edema versus airways disease. Clinical correlation recommended. Subsegmental atelectasis at the right lung base. Assessment and Plan (1) Congestive heart failure: Status: Acute (2) COPD (chronic obstructive pulmonary disease): Status: Acute Plan Pt is a 72-year-old female with a PMH significant for asthma, COPD, restrictive lung disease, llk-sfvrurp-cqazikeaf diabetes, HTN, HLD, and cirrhosis who presents to the ED today for 2 weeks of worsening SOB, productive cough, and edema. Pt was admitted to the hospital for treatment of COPD and CHF. # CHF -- etiology unclear, possibly secondary to COPD exacerbation -- worsening peripheral and central edema for the past 2 weeks -- CXR shows possible pulmonary venous redistribution/mild pulmonary edema -- furosemide 40 mg IV b.i.d. -- continue spironolactone -- follow lytes, mg, I/O -- echocargiogram -- cardiology consult # COPD exacerbation -- no clear infectious source, no leukocytosis -- patient given Solu-Medrol and DuoNebs with some relief of SOB -- Solu-Medrol IV 40 mg q8 -- DuoNeb 3ml q4h while awake and prn -- continue home maintenance inhalers # macrocytic anemia -- MCV elevated 101.7 -- check folate, B12 # non-insulin diabetes -- hold metformin -- ssi # HTN -- continue home meds # HLD -- continue home meds Full code Attending: Dr. Wright DVT prophylaxis: Lovenox Due to the pt's need for COPD treatment and IV lasix for CHF, pt will require a hospital stay of at least two nights. Time Spent With Patient Time: Total time managing care of this patient today ____ minutes. Quality Stroke Does the patient have a stroke diagnosis?: No VTE Prior VTE?: No VTE Risk Level:: Medical - moderate - high VTE Device Contraindication: Treatment Not Indicated VTE Drug Contraindication: N/A - Med Ordered
[2022-06-09] MEDS: Magnesium Sulfate/H2O 2 GM/50 ML PIGGYBACK IV (14:23)
[2022-06-09] MEDS: Albuterol Sulfate 2.5 MG, Albuterol Sulfate (0.083%) 2.5 MG 5 MG INHALE (15:02)
[2022-06-09] MEDS: 0.9 % Sodium Chloride Flush 3 ML SYRINGE IVFLUSH (16:25)
[2022-06-09 17:27] LABS: Folate 18.7 ng/mL (> or = 4.0); Vitamin B12 901 pg/mL (200-900)
[2022-06-09] MEDS: Enoxaparin Sodium 40 MG/0.4 ML SYRINGE SUBCUT (18:17)
[2022-06-09 18:24] LABS: Glucose, Whole Blood 132 mg/dL (60-115)
--- NOTE | 2022-06-09 20:12 | PC.NURSE ---
nursing report give to Jen GILES at [facility] [place]
[2022-06-09 20:40] LABS: Glucose, Whole Blood 366 mg/dL (60-115)
[2022-06-09] MEDS: methylPREDNISolone Sod Succ 125 MG/2 ML VIAL 40 MG IVPUSH (21:05)
[2022-06-09] MEDS: cloNIDine HCL 0.2 MG TABLET PO (21:06)
[2022-06-09] MEDS: Insulin Lispro 100 UNIT/ML 3 ML VIAL SUBCUT (21:07)
[2022-06-10] VITALS (11 sets, daily range): BP systolic 107–163; BP diastolic 44–97; PULSE 61–88; RESP 15–20; TEMP 36.5–37.1; O2SAT 92–96; BMI 34.4
[2022-06-10] MEDS: 0.9 % Sodium Chloride Flush 3 ML SYRINGE IVFLUSH ×3 (00:03→18:05)
[2022-06-10] MEDS: methylPREDNISolone Sod Succ 125 MG/2 ML VIAL 40 MG IVPUSH ×3 (03:28→19:51)
--- NOTE | 2022-06-10 07:00 | CA_ITS ---
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 The calculated ejection fraction is 65% by biplane method. - Evidence suggests grade II (moderate) diastolic dysfunction. - Mildly increased right ventricular cavity size. - Severe biatrial enlargement. - There is mild mitral valve regurgitation. - There is moderate to severe tricuspid valve regurgitation. - Moderate pulmonary hypertension is present. Findings Left Ventricle Normal left ventricular cavity size. There is normal left ventricular wall thickness. The left ventricular systolic function is normal. The calculated ejection fraction is 65% by biplane method. There is no evidence of regional wall motion abnormalities. E/E prime ratio is >15, consistent with elevated filling pressures. Evidence suggests grade II (moderate) diastolic dysfunction. Right Ventricle Mildly increased right ventricular cavity size. There is normal right ventricular systolic function. Atria Severe biatrial enlargement. Aortic Valve There is a normal trileaflet aortic valve. There is mild aortic valve stenosis. There is no aortic valve regurgitation. Mitral Valve There is moderate mitral annular calcification. There is mild mitral valve regurgitation. There is no mitral valve stenosis. Pulmonic Valve The pulmonic valve is likely normal. Tricuspid Valve There is moderate to severe tricuspid valve regurgitation. The right ventricular systolic pressure is 56 mmHg. Moderate pulmonary hypertension is present. Possible septal leaflet restriction. Great Vessels The asc aorta is normal in size. Venous The inferior vena cava is mildly dilated and collapses greater than 50% with inspiration. Pericardium/Pleural There is no evidence of pericardial effusion. Prior Study Comparison Changes noted compared to prior study dated: 05/12/2021. Progression of tricuspid regurgitation and pulmonary hypertension. Measurements 2D Linear Measurements IVSd: 0.97 0.6-0.9/0.6-1.0 cm LVIDd: 5.37 3.9-5.3/4.2-5.9 cm LVIDd Index: 2.93 2.4-3.2/2.2-3.1 cm/m2 LVIDs: 3.01 2.0-3.6 cm LVPWd: 1.15 0.7-1.1 cm Ao Root: 2.30 2.1-3.5 cm LA Diam: 5.00 2.7-3.8/3.0-4.0 cm LAIDs Index: 2.73 1.5-2.3 cm/m2 LV Mass: 275.95 67-162/88-224 g LV Mass Index: 150.79 43-95/49-115 g/m2 LVOT Diam: 2.00 3.0+(-)1.3 cm 2D Systolic Function EF 4C: 62.00 >55% EF 2C: 67.20 >55% EF BiP: 64.60 >55% Mitral Valve MV Pk E: 1.16 MV PK A: 0.80 MV Decel Time: 371.00 E/A: 1.40 E'Lateral: 10.20 E'Medial: 5.33 E/E' Med: 21.80 E/E' Lat: 11.40 PHT: 109.00 MVA PHT: 2.02 Decel Campbell: 3.13 Aortic Valve AoV Pk Vik: 2.18 AoV Mn Vik: 1.48 AoV VTI: 0.54 AoV Pk Grad: 19.00 Aov Mn Grad: 10.00 BRENDA Cont.VTI: 1.75 LVOT LVOT Pk Vik: 1.25 LVOT Mn Vik: 0.79 LVOT VTI: 0.30 LVOT Pk Grad: 6.00 LVOT Mn Grad: 3.00 LVOT Diam: 2.00 LVOT Area: 3.14 Diastolic Function MV Pk E: 1.16 MV Pk A: 0.80 E/A: 1.40 E'Medial: 5.33 E/E' Med: 21.80 E' Laterial: 10.20 E/E' Lat: 11.40 Right Ventricle TAPSE (mm): 32.00 Tricuspid Valve TR Pk Vik: 3.21 TR Pk Grad: 41.00 RA Press: 15.00 RVSP: 56.00 Great Vessels Aorta Ao Root-2D: 2.30 2.0-3.7 cm Ao Asc: 2.70 2.1-3.4 cm Pulmonary Valve PV Pk Vik: 1.40 Peak PV Grad: 8.00 Updated in Other Vendor System with Status of Final Lex Burk MD electronically signed on 06/11/2022 9:07:44 AM with status of Final
[2022-06-10 07:09] LABS: Hematocrit 35.7 % (37.0-47.0); Hemoglobin 12.1 g/dl (12.0-16.0); Mean Corpuscular HGB Conc 33.9 g/dl (31.0-35.0); Mean Corpuscular Hemoglobin 33.2 pg (27.0-33.0); Mean Corpuscular Volume 98.1 fL (80.0-98.0); PLT CLUMP 1; Red Blood Count 3.64 X10*6/uL (4.20-5.50); Red Cell Distribution Width 15.5 % (11.0-16.0)
[2022-06-10 07:11] LABS: White Blood Count 6.5 X10*3/uL (4.8-10.8)
[2022-06-10 07:14] LABS: Glucose, Whole Blood 119 mg/dL (60-115)
[2022-06-10] MEDS: Valsartan 160 MG TABLET PO (07:33)
[2022-06-10] MEDS: hydrALAZINE HCl 50 MG TABLET 100 MG PO ×3 (07:34→20:04)
[2022-06-10] MEDS: Atorvastatin Calcium 20 MG TABLET PO (07:34)
[2022-06-10] MEDS: carvediloL 3.125 MG TABLET PO ×2 (07:34→20:04)
[2022-06-10] MEDS: Cholecalciferol (Vitamin D3) 25 MCG TABLET 50 MCG PO (07:34)
[2022-06-10] MEDS: Albuterol/Iprat 2.5/0.5MG 3 ML AMPUL.NEB INHALE ×4 (07:34→20:21)
[2022-06-10] MEDS: traZODone HCL 50 MG TABLET 150 MG PO (07:35)
[2022-06-10] MEDS: Escitalopram Oxalate 20 MG TABLET PO (07:35)
[2022-06-10] MEDS: Spironolactone 25 MG TABLET PO (07:36)
[2022-06-10 07:37] LABS: Anion Gap 12 (12-20); Blood Urea Nitrogen 27 mg/dL (9-16); Calcium 7.5 mg/dL (8.4-10.2); Carbon Dioxide 24 mmol/L (22-29); Chloride 106 mmol/L (96-108); Creatinine Clr Calc Pharmacy 56.4; Estimated Glomerular Filt Rate > 60; Glucose Random 115 mg/dL (60-115); Potassium 3.5 mmol/L (3.3-5.1); Sodium 138 mmol/L (135-145)
[2022-06-10 07:53] LABS: Platelet Count 83 X10*3/uL (160-400)
[2022-06-10 07:54] LABS: Mean Platelet Volume 13.4 fL (9.4-12.3)
[2022-06-10] MEDS: Furosemide 40 MG/4 ML VIAL IVPUSH ×2 (07:58→18:11)
[2022-06-10] MEDS: amLODIPine Besylate 10 MG TABLET PO (07:58)
--- NOTE | 2022-06-10 09:41 | P.CDIC_ITS ---
CDI Concurrent Query Documentation Clarification: PHYSICIAN'S DOCUMENTATION REQUEST Date of Query: 06/10/22 0941 Patient Name: Lauren Houston Admit Date: 06/09/22 Dear Doctor, A review of the medical record indicates additional documentation may be needed. Please review below and update the documentation accordingly. Clinical Indicators: Risk Factors/Clinical Indicators/Treatments Non-Insulin dependent Diabetes LABS: POC glucose - 132 366 H 119 Hold Insulin Please clarify the following regarding Diabetes Mellitus (DM): * Hyperglycemia, Resolved, poa etc. * No complications of DM * Other complication ? please specify * Unable to determine Use of terms such as suspected, likely, concern for, or probable (associated with a specific diagnosis that is being evaluated, monitored, or treated as if it exists) are acceptable and can be coded in the inpatient setting, when documented at the time of discharge. Thank you, Isabel Kendall [facility], CDIS Extension: [phone] Please use your independent medical judgment in providing your response. THIS QUERY IS PART OF THE PERMANENT MEDICAL RECORD Provider Response: Other (Hyperglycemia, resolved) Other Diagnosis: Hyperglycemia, resolved
--- NOTE | 2022-06-10 09:42 | HO.PM.IMPN ---
Subjective Subjective Date of Service: 06/10/22 <RAMAN Galarza - Last Filed: 06/10/22 10:02> 06/24/22 <Toribio Nichols MD - Last Filed: 06/24/22 11:17> Interval History: Pt seen for f/u for COPD exacerbation and new onset CHF Interval history: Patient does not report any acute concerns overnight. Patient reports she is feeling better than yesterday, less SOB, edema, and cough. Patient has been out of bed and ambulating on her own without issue. No dizziness or lightheadedness. Denies chest pain/pressure, palpitations. Patient does note that she has had muscle cramps in her fingers for the past few weeks where her fingers lock up she cannot move them, can last for 20 or more minutes at a time. She has not experienced symptoms since she has been admitted. <RAMAN Galarza - Last Filed: 06/10/22 10:02> Review of Systems SOB, improved since yesterday Productive cough, improved since yesterday Lower leg edema bilaterally, improved since yesterday Denies chest pain/pressure No abdominal pain <RAMAN Galarza - Last Filed: 06/10/22 10:02> Review of Systems: Yes all other systems are reviewed and are negative <RAMAN Galarza - Last Filed: 06/10/22 10:02> Physical Exam Vital Signs: Vital Signs: Last Vital Signs Temp 98.8 F 06/10/22 06:00 Pulse 82 06/10/22 07:36 Resp 18 06/10/22 07:36 BP 163/97 H 06/10/22 07:25 Pulse Ox 92 06/10/22 07:25 O2 Del Method 06/10/22 07:25 BMI result Body Mass Index 32.9 <RAMAN Galarza - Last Filed: 06/10/22 10:02> General: AOx3, no acute distress Resp: Diffuse expiratory wheezes bilaterally CVS: S1, S2, RRR GI: +BS, NT, no distention Skin: No rash Extremities: 1+ pitting LLE bilaterally, improved since yesterday Neuro: Motor grossly intact Psych: Appropriate affect <RAMAN Galarza Last Filed: 06/10/22 10:02> Objective Data Active Medications Albuterol/Ipratropium (Albuterol/Iprat 2.5/0.5mg 3 Ml Ampul.Neb) 3 ml INHALE RQ4H WHILE AWAKE [facility] Last Admin: 06/10/22 07:34 Dose: 3 ml Documented By: SALOME Albuterol/Ipratropium (Albuterol/Iprat 2.5/0.5mg 3 Ml Ampul.Neb) 3 ml INHALE Q4H PRN PRN Reason: Shortness of Breath Amlodipine Besylate (Amlodipine Besylate 10 Mg Tablet) 10 mg PO DAILY [facility] Last Admin: 06/10/22 07:58 Dose: 10 mg Documented By: LUCAS Atorvastatin Calcium (Atorvastatin Calcium 20 Mg Tablet) 20 mg PO DAILY [facility] Last Admin: 06/10/22 07:34 Dose: 20 mg Documented By: LUCAS Carvedilol (Carvedilol 3.125 Mg Tablet) 3.125 mg PO BID [facility]; Protocol Last Admin: 06/10/22 07:34 Dose: 3.125 mg Documented By: LUCAS Clonidine HCl (Clonidine Hcl 0.2 Mg Tablet) 0.2 mg PO BEDTIME [facility]; Protocol Last Admin: 06/09/22 21:06 Dose: 0.2 mg Documented By: OMAR Dextrose (Dextrose 50 % 25 Gm/50 Ml Syringe) 25 gm IVPUSH Q15M PRN; Protocol PRN Reason: per Hypoglycemia Standing Ord. Docusate Sodium (Docusate Sodium 100 Mg Capsule) 100 mg PO DAILY PRN PRN Reason: Constipation Enoxaparin Sodium (Enoxaparin Sodium 40 Mg/0.4 Ml Syringe) 40 mg SUBCUT Q24H [facility] Last Admin: 06/09/22 18:17 Dose: 40 mg Documented By: KAREN Escitalopram Oxalate (Escitalopram Oxalate 20 Mg Tablet) 20 mg PO DAILY [facility] Last Admin: 06/10/22 07:35 Dose: 20 mg Documented By: LUCAS Furosemide (Furosemide 40 Mg/4 Ml Vial) 40 mg IVPUSH BID@0900,1800 [facility]; Protocol Last Admin: 06/10/22 07:58 Dose: 40 mg Documented By: LUCAS Glucose (Glucose Gel 15 Gm Gel..Gram.) 15 gm PO Q15M PRN; Protocol PRN Reason: per Hypoglycemia Standing Ord. Hydralazine HCl (Hydralazine Hcl 50 Mg Tablet) 100 mg PO TID [facility]; Protocol Last Admin: 06/10/22 07:34 Dose: 100 mg Documented By: LUCAS Insulin Human Lispro (Insulin Lispro 100 Unit/Ml 3 Ml Vial) 0 unit SUBCUT QIDACHS [facility]; Protocol Last Admin: 06/10/22 07:24 Dose: Not Given Documented By: ULCAS Non-Admin Reason: No Insulin Coverage Methylprednisolone Sodium Succinate (Methylprednisolone Sod Succ 125 Mg/2 Ml Vial) 40 mg IVPUSH Q8H [facility] Last Admin: 06/10/22 03:28 Dose: 40 mg Documented By: UMA Pharmacy Consult (Consult Rx Perform Med Rec) 1 each MISCELLANE ONCE PRN PRN Reason: Consult order Sodium Chloride (0.9 % Sodium Chloride Flush 3 Ml Syringe) 3 ml IVFLUSH QSHIFT [facility] Last Admin: 06/10/22 07:44 Dose: 3 ml Documented By: LUCAS Spironolactone (Spironolactone 25 Mg Tablet) 25 mg PO DAILY [facility]; Protocol Last Admin: 06/10/22 07:36 Dose: 25 mg Documented By: LUCAS Trazodone HCl (Trazodone Hcl 50 Mg Tablet) 150 mg PO DAILY [facility] Last Admin: 06/10/22 07:35 Dose: 150 mg Documented By: LUCAS Valsartan (Valsartan 160 Mg Tablet) 160 mg PO DAILY [facility] Last Admin: 06/10/22 07:33 Dose: 160 mg Documented By: LUCAS Vitamin D (Cholecalciferol (Vitamin D3) 25 Mcg Tablet) 50 mcg PO DAILY [facility] Last Admin: 06/10/22 07:34 Dose: 50 mcg Documented By: LUCAS <RAMAN Galarza - Last Filed: 06/10/22 10:02> Labs CBC & Chem 7: : 06/24/22 05:54 06/24/22 05:54 <RAMAN Galarza - Last Filed: 06/10/22 10:02> Labs: Laboratory Results - last 24 hr 06/09/22 06/09/22 06/09/22 10:32 10:32 10:32 MCV 101.7 H MCH 32.8 MCHC 32.3 RDW 15.7 Plt Count 60 L MPV 13.8 H Immature Gran % (Auto) 0.3 Neut % (Auto) 68.1 Lymph % (Auto) 17.1 L Wallace % (Auto) 11.7 H Eos % (Auto) 1.9 Baso % (Auto) 0.9 Lymph # (Auto) 1.0 L Wallace # (Auto) 0.7 Eos # (Auto) 0.1 Baso # (Auto) 0.1 Abs Immat Gran (auto) 0.02 Absolute Neuts (auto) 3.9 Absolute Nucleated RBC 0.000 Nucleated RBC % (auto) 0.0 Smear Tech's Comments VERIFIED Anion Gap 9 L Estim Creat Clear Calc 67.9 Estimated GFR > 60 POC Glucose Random Glucose 100 Calcium 8.1 L Magnesium 1.6 Total Bilirubin 1.8 H Direct Bilirubin 0.8 H AST 40 H ALT 24 Alkaline Phosphatase 142 H Troponin I High Sens 15.0 B-Natriuretic Peptide Total Protein 7.3 Albumin 2.4 L Vitamin B12 Folate COVID-19 (NATE) COVID-19 Clin Com Influenza Type A (PCR) Influenza Type B (PCR) RSV RNA Qual (PCR) SARS-CoV-2 RNA (RT-PCR) 06/09/22 06/09/22 06/09/22 10:32 10:32 10:32 MCV MCH MCHC RDW Plt Count MPV Immature Gran % (Auto) Neut % (Auto) Lymph % (Auto) Wallace % (Auto) Eos % (Auto) Baso % (Auto) Lymph # (Auto) Wallace # (Auto) Eos # (Auto) Baso # (Auto) Abs Immat Gran (auto) Absolute Neuts (auto) Absolute Nucleated RBC Nucleated RBC % (auto) Smear Tech's Comments Anion Gap Estim Creat Clear Calc Estimated GFR POC Glucose Random Glucose Calcium Magnesium Total Bilirubin Direct Bilirubin AST ALT Alkaline Phosphatase Troponin I High Sens B-Natriuretic Peptide 797 H Total Protein Albumin Vitamin B12 901 H Folate 18.7 COVID-19 (NATE) Negative COVID-19 Clin Com See Note Influenza Type A (PCR) Influenza Type B (PCR) RSV RNA Qual (PCR) SARS-CoV-2 RNA (RT-PCR) 06/09/22 06/09/22 06/09/22 11:58 18:15 20:35 MCV MCH MCHC RDW Plt Count MPV Immature Gran % (Auto) Neut % (Auto) Lymph % (Auto) Wallace % (Auto) Eos % (Auto) Baso % (Auto) Lymph # (Auto) Wallace # (Auto) Eos # (Auto) Baso # (Auto) Abs Immat Gran (auto) Absolute Neuts (auto) Absolute Nucleated RBC Nucleated RBC % (auto) Smear Tech's Comments Anion Gap Estim Creat Clear Calc Estimated GFR POC Glucose 132 H 366 H* Random Glucose Calcium Magnesium Total Bilirubin Direct Bilirubin AST ALT Alkaline Phosphatase Troponin I High Sens B-Natriuretic Peptide Total Protein Albumin Vitamin B12 Folate COVID-19 (NATE) COVID-19 Clin Com Influenza Type A (PCR) NEGATIVE Influenza Type B (PCR) NEGATIVE RSV RNA Qual (PCR) NEGATIVE SARS-CoV-2 RNA (RT-PCR) NEGATIVE 06/10/22 06/10/22 06/10/22 05:46 05:46 07:08 MCV 98.1 H MCH 33.2 H MCHC 33.9 RDW 15.5 Plt Count 83 L D MPV 13.4 H Immature Gran % (Auto) Neut % (Auto) Lymph % (Auto) Wallace % (Auto) Eos % (Auto) Baso % (Auto) Lymph # (Auto) Wallace # (Auto) Eos # (Auto) Baso # (Auto) Abs Immat Gran (auto) Absolute Neuts (auto) Absolute Nucleated RBC 0.000 Nucleated RBC % (auto) 0.0 Smear Tech's Comments Anion Gap 12 Estim Creat Clear Calc 56.4 Estimated GFR > 60 POC Glucose 119 H Random Glucose 115 Calcium 7.5 L D Magnesium Total Bilirubin Direct Bilirubin AST ALT Alkaline Phosphatase Troponin I High Sens B-Natriuretic Peptide Total Protein Albumin Vitamin B12 Folate COVID-19 (NATE) COVID-19 Clin Com Influenza Type A (PCR) Influenza Type B (PCR) RSV RNA Qual (PCR) SARS-CoV-2 RNA (RT-PCR) <RAMAN Galarza - Last Filed: 06/10/22 10:02> Assessment and Plan (1) Congestive heart failure: Status: Acute <RAMAN Galarza - Last Filed: 06/10/22 10:02> (2) COPD (chronic obstructive pulmonary disease): Status: Acute <RAMAN Galarza - Last Filed: 06/10/22 10:02> Assessment and Plan: Pt is a 72-year-old female with a PMH significant for asthma, COPD, restrictive lung disease, [id number] diabetes, HTN, HLD, and cirrhosis who presents to the ED today for 2 weeks of worsening SOB, productive cough, and edema. Pt was admitted to the hospital for treatment of COPD and new onset CHF. # CHF -- etiology unclear, possibly secondary to COPD exacerbation -- worsening peripheral and central edema for the past 2 weeks -- CXR shows possible pulmonary venous redistribution/mild pulmonary edema -- patient feeling better today, less SOB, edema -- furosemide 40 mg IV b.i.d. -- continue spironolactone -- follow lytes, mg, I/O -- echocargiogram -- cardiology consult # COPD exacerbation -- no clear infectious source, no leukocytosis -- patient continues to get relief from nebulizer treatments -- Solu-Medrol IV 40 mg q8 -- DuoNeb 3ml q4h while awake and prn -- continue home maintenance inhalers # macrocytic anemia -- MCV elevated 101.7, repeat 98.1 -- folate, B12 WNL # non-insulin diabetes -- hold metformin -- ssi # calcium -- labs show low calcium of 7.4, but corrected calcium is 8.8 and WNL # tetany of hands -- magnesium 1.6 at admission -- follow Mg -- consider Mg supplementation at discharge # HTN -- continue home meds # HLD -- continue home meds Full code Attending: Dr. Wright DVT prophylaxis: Lovenox Due to the pt's need for COPD treatment and IV lasix for CHF, pt will require continued hospitalization <RAMAN Galarza - Last Filed: 06/10/22 10:02> Time Spent With Patient Time: Total time managing care of this patient today ____ minutes. <RAMAN Galarza - Last Filed: 06/10/22 10:02> Quality Stroke Does the patient have a stroke diagnosis?: No <RAMAN Galarza - Last Filed: 06/10/22 10:02> VTE Prior VTE?: No <RAMAN Galarza - Last Filed: 06/10/22 10:02> VTE Risk Level:: Medical - moderate - high <RAMAN Galarza - Last Filed: 06/10/22 10:02> VTE Device Contraindication: Treatment Not Indicated <RAMAN Galarza - Last Filed: 06/10/22 10:02> VTE Drug Contraindication: N/A - Med Ordered <RAMAN Galarza - Last Filed: 06/10/22 10:02>
[2022-06-10 10:06] LABS: Magnesium 1.8 mg/dL (1.6-2.6)
--- NOTE | 2022-06-10 11:27 | MHC.CM.PN ---
This writer producer meet with patient and hotel desk clerk at bedside. 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 Uses a cane and walker @ baseline. Vax'd and boosted for covid. HCP completed with patient. Open to [facility] if needed. D/C plan- home no services. Family to transport home.
[2022-06-10 12:36] LABS: Glucose, Whole Blood 134 mg/dL (60-115)
--- NOTE | 2022-06-10 16:59 | P.CONCA_ITS ---
History of Present Illness History of Present Illness Date of Service: 06/10/22 Chief complaint: Diff Breathing Narrative: This is a cardiology consultation regarding congestive heart failure. Patient is seen in the clinic regarding uncontrolled hypertension. Current admission is regarding symptoms of shortness of breath for the last few weeks. Some cough. Leg swelling. She is being treated for COPD exacerbation as well as congestive heart failure. Additionally, she also has a history of cirrhosis. We have been asked to see her for further evaluation. She has a long history of smoking and continues to smoke. Otherwise, no clear anginal-type symptoms. Shortness of breath and cough is the main issue. Patient was evaluated using clinical trainer. Review of Systems Review of Systems: Yes all other systems are reviewed and are negative Constitutional: Constitutional: Reports as per HPI Eyes: Eyes: Reports as per HPI ENT: Reports as per HPI Cardiovascular: Cardiovascular: Reports as per HPI, Denies acrocyanosis, Denies cool extremities, Denies chest pain, Reports leg edema, Denies lightheadedness, Denies palpitations, Reports dyspnea and Reports dyspnea on exertion Respiratory: Respiratory: Reports as per HPI, Reports no additional respir atory complaints, Reports cough, Reports dyspnea and Reports dyspnea on exertion Gastrointestinal: Gastrointestinal: Reports as per HPI and Reports no additional gastrointestinal complaints Genitourinary: Genitourinary: Reports as per HPI Musculoskeletal: Musculoskeletal: Reports no additional musculoskeletal complaints and Reports as per HPI Integumentary/Breasts: Skin/Breast: Reports system reviewed and no additional complaints, except as docu Neurologic: Reports system reviewed and no additional complaints, except as documented and Reports as per HPI Psychiatric: Psychiatric: Reports no additional psychiatric complaints and Reports as per HPI Endocrine: Endocrine: Reports no additional endocrine complaints, Reports as per HPI and Denies palpitations Hematologic/Lymphatic: Hematologic/Lymphatic: Reports no additional hematologic/lymphatic complaints and Reports as per HPI Allergic/Immunologic: Allergic/Immunologic: Reports no additional allergic/immunologic complaints and Reports as per HPI [facility] Past Medical History Medical History Asthma COPD (chronic obstructive pulmonary disease) Dyspnea on exertion Restrictive lung disease Smoking Type 2 diabetes mellitus with unspecified complications Uncontrolled hypertension Family History Family History Mother HTN (hypertension) Diabetes Throat cancer Father Throat cancer Sister Blind Breast cancer Brother Blind Lung cancer Son Blind Daughter Lupus Father Throat cancer Surgical History Surgical History H/O colonoscopy Hx of abdominoplasty Social History Social History Alcohol intake: never Patient Tobacco Use Status: Current everyday Tobacco user Cigarettes Per Day: 4 Years Smoked: 40 +/- Smoked in Last 30 Days: Yes Use of substances other than those prescribed or required for medical reasons: No Advance Directives: No service: No Current occupational status: retired [employer] Allergies Allergy/AdvReac Type Severity Reaction Status Date / Time aspirin [ASPIRIN] Allergy Intermediate HIVES/ANXIE Verified 05/13/22 10:26 TY enalapril Allergy Unknown unknown Verified 05/13/22 10:26 verapamil Allergy Unknown unknown Verified 05/13/22 10:26 acetaminophen [From Percocet] AdvReac low blood Verified 05/13/22 10:26 pressure oxycodone [From Percocet] AdvReac low blood Verified 05/13/22 10:26 pressure Active Medications: Current Medications Albuterol/Ipratropium (Albuterol/Iprat 2.5/0.5mg 3 Ml Ampul.Neb) 3 ml INHALE RQ4H WHILE AWAKE [facility] Last Admin: 06/10/22 14:41 Dose: 3 ml Albuterol/Ipratropium (Albuterol/Iprat 2.5/0.5mg 3 Ml Ampul.Neb) 3 ml INHALE Q4H PRN PRN Reason: Shortness of Breath Amlodipine Besylate (Amlodipine Besylate 10 Mg Tablet) 10 mg PO DAILY [facility] Last Admin: 06/10/22 07:58 Dose: 10 mg Atorvastatin Calcium (Atorvastatin Calcium 20 Mg Tablet) 20 mg PO DAILY [facility] Last Admin: 06/10/22 07:34 Dose: 20 mg Carvedilol (Carvedilol 3.125 Mg Tablet) 3.125 mg PO BID [facility]; Protocol Last Admin: 06/10/22 07:34 Dose: 3.125 mg Clonidine HCl (Clonidine Hcl 0.2 Mg Tablet) 0.2 mg PO BEDTIME [facility]; Protocol Last Admin: 06/09/22 21:06 Dose: 0.2 mg Dextrose (Dextrose 50 % 25 Gm/50 Ml Syringe) 25 gm IVPUSH Q15M PRN; Protocol PRN Reason: per Hypoglycemia Standing Ord. Docusate Sodium (Docusate Sodium 100 Mg Capsule) 100 mg PO DAILY PRN PRN Reason: Constipation Enoxaparin Sodium (Enoxaparin Sodium 40 Mg/0.4 Ml Syringe) 40 mg SUBCUT Q24H [facility] Last Admin: 06/09/22 18:17 Dose: 40 mg Escitalopram Oxalate (Escitalopram Oxalate 20 Mg Tablet) 20 mg PO DAILY [facility] Last Admin: 06/10/22 07:35 Dose: 20 mg Furosemide (Furosemide 40 Mg/4 Ml Vial) 40 mg IVPUSH BID@0900,1800 [facility]; Protocol Last Admin: 06/10/22 07:58 Dose: 40 mg Glucose (Glucose Gel 15 Gm Gel..Gram.) 15 gm PO Q15M PRN; Protocol PRN Reason: per Hypoglycemia Standing Ord. Hydralazine HCl (Hydralazine Hcl 50 Mg Tablet) 100 mg PO TID [facility]; Protocol Last Admin: 06/10/22 15:32 Dose: 100 mg Insulin Human Lispro (Insulin Lispro 100 Unit/Ml 3 Ml Vial) 0 unit SUBCUT QIDACHS [facility]; Protocol Last Admin: 06/10/22 14:24 Dose: Not Given Methylprednisolone Sodium Succinate (Methylprednisolone Sod Succ 125 Mg/2 Ml Vial) 40 mg IVPUSH Q8H [facility] Last Admin: 06/10/22 14:06 Dose: 40 mg Pharmacy Consult (Consult Rx Perform Med Rec) 1 each MISCELLANE ONCE PRN PRN Reason: Consult order Sodium Chloride (0.9 % Sodium Chloride Flush 3 Ml Syringe) 3 ml IVFLUSH QSHIFT [facility] Last Admin: 06/10/22 07:44 Dose: 3 ml Spironolactone (Spironolactone 25 Mg Tablet) 25 mg PO DAILY [facility]; Protocol Last Admin: 06/10/22 07:36 Dose: 25 mg Trazodone HCl (Trazodone Hcl 50 Mg Tablet) 150 mg PO DAILY [facility] Last Admin: 06/10/22 07:35 Dose: 150 mg Valsartan (Valsartan 160 Mg Tablet) 160 mg PO DAILY [facility] Last Admin: 06/10/22 07:33 Dose: 160 mg Vitamin D (Cholecalciferol (Vitamin D3) 25 Mcg Tablet) 50 mcg PO DAILY [facility] Last Admin: 06/10/22 07:34 Dose: 50 mcg Home Medications Medication Instructions Recorded Confirmed Last Taken Type albuterol sulfate 90 mcg/actuation 2 puff inhalation Q6H PRN 04/01/21 06/09/22 Unknown History aerosol inhaler (ProAir HFA) Shortness Of Breath Or Wheezing ammonium lactate 12 % topical cream 1 appl topical DAILY PRN Dry Skin 04/01/21 06/09/22 Unknown History atorvastatin 20 mg tablet (Lipitor) 20 mg PO DAILY 04/01/21 06/09/22 Unknown History cholecalciferol (vitamin D3) 50 50 mcg PO DAILY 04/01/21 06/09/22 Unknown History mcg (2,000 unit) capsule citalopram 40 mg tablet 40 mg PO DAILY 04/01/21 06/09/22 Unknown History hydralazine 100 mg tablet 100 mg PO TID 04/01/21 06/09/22 Unknown History hydrochlorothiazide 50 mg tablet 50 mg PO DAILY 04/01/21 06/09/22 Unknown History irbesartan 300 mg tablet 300 mg PO DAILY 04/01/21 06/09/22 Unknown History lidocaine-prilocaine 2.5 %-2.5 % topical 04/01/21 03/30/22 Unknown History topical cream meloxicam 7.5 mg tablet 7.5 mg PO DAILY PRN Pain, Moderate 04/01/21 06/09/22 Unknown History trazodone 150 mg tablet 150 mg PO DAILY 04/01/21 06/09/22 Unknown History clonidine HCl 0.2 mg tablet 1 tab PO BEDTIME 06/09/22 06/09/22 Unknown History metformin 1,000 mg tablet 1 tab PO BID 06/09/22 06/09/22 Unknown History Physical Exam Vital Signs: Vital Signs: Last Vital Signs Temp 98.0 F 06/10/22 16:00 Pulse 61 06/10/22 16:00 Resp 15 06/10/22 16:00 BP 110/44 L 06/10/22 16:00 Pulse Ox 93 06/10/22 16:00 O2 Del Method 06/10/22 16:00 BMI result Body Mass Index 32.9 Const: General: comfortable and no acute distress Orientatio n/consciousness: patient oriented x3 HEENT: Other: Unremarkable Head: Yes normal to inspection Neck: Neck: Yes normal visual inspection Chest: Chest palpation & inspection: normal inspection of the chest Resp: Auscultation: wheezes and diminished lung sounds Cardio: Palpation: normal PMI Heart sounds: S1 normal heart sound present, S2 normal heart sound present, no gallops, no murmurs and no rubs GI: Palpation (GI): Soft to palpation Back/Spine/Pelvis: Other: unremarkable Skin: General skin exam: no rashes or lesions noted Neuro: General: patient oriented x3 Extrem: General: Yes pedal edema (1-2+) Psych: Mental Status: mental status grossly normal Objective Labs and Meds Result diagrams: 06/10/22 05:46 06/10/22 05:46 Lab results: Laboratory Results - last 24 hr 06/09/22 06/09/22 06/09/22 10:32 18:15 20:35 WBC RBC Hgb Hct MCV MCH MCHC RDW Plt Count MPV Absolute Nucleated RBC Nucleated RBC % (auto) Sodium Potassium Chloride Carbon Dioxide Anion Gap BUN Creatinine Estim Creat Clear Calc Estimated GFR POC Glucose 132 H 366 H* Random Glucose Calcium Magnesium Vitamin B12 901 H Folate 18.7 06/10/22 06/10/22 06/10/22 05:46 05:46 07:08 WBC 6.5 RBC 3.64 L Hgb 12.1 Hct 35.7 L MCV 98.1 H MCH 33.2 H MCHC 33.9 RDW 15.5 Plt Count 83 L D MPV 13.4 H Absolute Nucleated RBC 0.000 Nucleated RBC % (auto) 0.0 Sodium 138 Potassium 3.5 Chloride 106 Carbon Dioxide 24 Anion Gap 12 BUN 27 H Creatinine 0.88 Estim Creat Clear Calc 56.4 Estimated GFR > 60 POC Glucose 119 H Random Glucose 115 Calcium 7.5 L D Magnesium 1.8 Vitamin B12 Folate 06/10/22 12:33 WBC RBC Hgb Hct MCV MCH MCHC RDW Plt Count MPV Absolute Nucleated RBC Nucleated RBC % (auto) Sodium Potassium Chloride Carbon Dioxide Anion Gap BUN Creatinine Estim Creat Clear Calc Estimated GFR POC Glucose 134 H Random Glucose Calcium Magnesium Vitamin B12 Folate ECG Interpretation: EKG with sinus rhythm at 90/Min; premature ventricular complexes; nonspecific changes lateral leads Assessment and Plan (1) Acute on chronic right heart failure: Status: Acute (2) COPD (chronic obstructive pulmonary disease): Status: Acute (3) Cirrhosis: Status: Acute (4) Uncontrolled hypertension: Status: Acute Plan Overall, she does appear volume overloaded. Could be related to cor pulmonale from chronic lung issues. She unfortunately continues to smoke. At this time, continue IV diuretics as you already are doing. Some of the leg swelling could also be from cirrhosis as albumin is only 2.4. Otherwise, with regard to blood pressure, as much as 211/92 mm Hg but currently on the lower side at 110/44 mm Hg. Resume all home medications and we will up titrate accordingly. There is a prior history of intolerance to higher dose of Coreg. Other meds from last office note include irbesartan, spironolactone and possibly felodipine. Time Spent With Patient Time: Total time managing care of this patient today ____ minutes. Procedures Date of Service Date of Service: 06/10/22
[2022-06-10 17:56] LABS: Glucose, Whole Blood 129 mg/dL (60-115)
[2022-06-10] MEDS: Enoxaparin Sodium 40 MG/0.4 ML SYRINGE SUBCUT (18:08)
[2022-06-10 19:37] LABS: Glucose, Whole Blood 231 mg/dL (60-115)
[2022-06-10] MEDS: cloNIDine HCL 0.2 MG TABLET PO (20:04)
[2022-06-10 21:44] LABS: Glucose, Whole Blood 141 mg/dL (60-115)
[2022-06-11] VITALS (8 sets, daily range): BP systolic 104–144; BP diastolic 45–56; PULSE 61–70; RESP 16–18; TEMP 20.4–36.6; O2SAT 91–95
[2022-06-11] MEDS: 0.9 % Sodium Chloride Flush 3 ML SYRINGE IVFLUSH ×3 (01:08→21:55)
[2022-06-11] MEDS: methylPREDNISolone Sod Succ 125 MG/2 ML VIAL 40 MG IVPUSH ×3 (04:30→21:59)
[2022-06-11 06:24] LABS: Anion Gap 13 (12-20); Blood Urea Nitrogen 42 mg/dL (9-16); Calcium 7.8 mg/dL (8.4-10.2); Carbon Dioxide 26 mmol/L (22-29); Chloride 102 mmol/L (96-108); Creatinine Clr Calc Pharmacy 47.4; Estimated Glomerular Filt Rate 50; Glucose Random 128 mg/dL (60-115); Potassium 3.7 mmol/L (3.3-5.1); Sodium 137 mmol/L (135-145)
[2022-06-11 07:47] LABS: Glucose, Whole Blood 126 mg/dL (60-115)
[2022-06-11] MEDS: Albuterol/Iprat 2.5/0.5MG 3 ML AMPUL.NEB INHALE ×4 (08:00→19:41)
[2022-06-11] MEDS: carvediloL 3.125 MG TABLET PO ×2 (08:52→21:54)
[2022-06-11] MEDS: Furosemide 40 MG/4 ML VIAL IVPUSH (08:52)
[2022-06-11] MEDS: Valsartan 160 MG TABLET PO (08:52)
[2022-06-11] MEDS: traZODone HCL 50 MG TABLET 150 MG PO (08:53)
[2022-06-11] MEDS: Spironolactone 25 MG TABLET PO (08:53)
[2022-06-11] MEDS: hydrALAZINE HCl 50 MG TABLET 100 MG PO ×3 (08:53→21:53)
[2022-06-11] MEDS: Escitalopram Oxalate 20 MG TABLET PO (08:53)
[2022-06-11] MEDS: Cholecalciferol (Vitamin D3) 25 MCG TABLET 50 MCG PO (08:53)
[2022-06-11] MEDS: Atorvastatin Calcium 20 MG TABLET PO (08:53)
[2022-06-11] MEDS: amLODIPine Besylate 10 MG TABLET PO (08:53)
[2022-06-11 11:31] LABS: Glucose, Whole Blood 137 mg/dL (60-115)
--- NOTE | 2022-06-11 12:26 | MHC.CLN ---
NUTRITION DIET CHANGED FROM REGULAR TO CARDIAC DUE TO CHF AND TAKES DIURETIC.
--- NOTE | 2022-06-11 13:22 | P.PNCA_ITS ---
Subjective Subjective Date of Service: 06/11/22 Interval history: She states she is feeling better. Leg swelling seems improved. Shortness of breath still present but improved. Evaluated patient using medical accounts receivable specialist. Review of Systems Review of Systems Yes all other systems are reviewed and are negative Constitutional: Reports as per HPI Eyes: Reports as per HPI Reports as per HPI Cardiovascular: Reports as per HPI, Denies acrocyanosis, Denies cool extremities, Denies chest pain, Reports leg edema, Denies lightheadedness, Denies palpitations, Reports dyspnea and Reports dyspnea on exertion Respiratory: Reports as per HPI, Reports no additional respiratory complaints, Reports cough, Reports dyspnea and Reports dyspnea on exertion Gastrointestinal: Reports as per HPI and Reports no additional gastrointestinal complaints Musculoskeletal: Reports no additional musculoskeletal complaints and Reports as per HPI Skin/Breast: Reports system reviewed and no additional complaints, except as docu Reports system reviewed and no additional complaints, except as documented and Reports as per HPI Psychiatric: Reports no additional psychiatric complaints and Reports as per HPI Endocrine: Reports no additional endocrine complaints, Reports as per HPI and Denies palpitations Hematologic/Lymphatic: Reports no additional hematologic/lymphatic complaints and Reports as per HPI Allergic/Immunologic: Reports no additional allergic/immunologic complaints and Reports as per HPI Physical Exam Vital Signs: Last Vital Signs Temp 97.3 F 06/11/22 07:41 Pulse 63 06/11/22 11:25 Resp 18 06/11/22 11:25 BP 144/53 H 06/11/22 07:41 Pulse Ox 95 06/11/22 07:41 O2 Del Method 06/11/22 07:41 BMI result Body Mass Index 34.4 Const General: comfortable and no acute distress Orientation/consciousness: patient oriented x3 HEENT Other: Unremarkable Head: Yes normal to inspection Neck Neck: Yes normal visual inspection Chest Chest palpation & inspection: normal inspection of the chest Resp Auscultation: wheezes and diminished lung sounds Cardio Palpation: normal PMI Heart sounds: S1 normal heart sound present, S2 normal heart sound present, no gallops, no murmurs and no rubs GI Palpation (GI): Soft to palpation Back/Spine/Pelvis Other: unremarkable Skin General skin exam: no rashes or lesions noted Neuro General: patient oriented x3 Extrem General: Yes pedal edema (1+) Psych Mental Status: mental status grossly normal Objective Labs and Meds Result diagrams: 06/10/22 05:46 06/11/22 05:20 Lab results: Laboratory Results - last 24 hr 06/10/22 06/10/22 06/10/22 17:53 19:32 21:40 Sodium Potassium Chloride Carbon Dioxide Anion Gap BUN Creatinine Estim Creat Clear Calc Estimated GFR POC Glucose 129 H 231 H 141 H Random Glucose Calcium Magnesium 06/11/22 06/11/22 06/11/22 05:20 07:40 11:25 Sodium 137 Potassium 3.7 Chloride 102 Carbon Dioxide 26 Anion Gap 13 BUN 42 H Creatinine 1.07 Estim Creat Clear Calc 47.4 Estimated GFR 50 POC Glucose 126 H 137 H Random Glucose 128 H Calcium 7.8 L Magnesium 2.0 Progress Note: A&P Assessment and plan (1) Acute on chronic right heart failure: Status: Acute (2) Nonrheumatic tricuspid (valve) insufficiency: Status: Acute (3) Pulmonary hypertension: Status: Acute (4) COPD (chronic obstructive pulmonary disease): Status: Acute (5) Cirrhosis: Status: Acute (6) Uncontrolled hypertension: Status: Acute Plan Echocardiogram reviewed. Shows preserved LVEF and moderate diastolic dysfunction. There is significant biatrial enlargement. Moderate to severe tricuspid regurgitation and evidence of moderate pulmonary hypertension. Clinically, she is still volume overloaded but seems improved from the previous day. Can switch from IV to oral diuretics another day or so. Otherwise, cirrhosis also plays a role in her edema as the albumin level is quite low. With regard to blood pressures, seem better than before. It had been as much as 211/92 mm Hg but currently much better. Continue all the home medications. Also discussed implications of continued smoking-including myocardial infarction, stroke, . She states she will try to quit. Discussed with son at the bedside. Time Spent With Patient Time: Total time managing care of this patient today 35 minutes. Progress Note: Quality Stroke Does the patient have a stroke diagnosis?: No Procedures Date of Service Date of Service: 06/11/22
--- NOTE | 2022-06-11 13:57 | HO.PM.IMPN ---
Subjective Subjective Date of Service: 06/11/22 Interval History: chf execerebation Review of Systems sob somewhat imprving,still sob with minimum excersion Denies any chest pain or abdominal pain or nausea or vomiting. Physical Exam Vital Signs: Vital Signs: Last Vital Signs Temp 97.3 F 06/11/22 07:41 Pulse 63 06/11/22 11:25 Resp 18 06/11/22 11:25 BP 144/53 H 06/11/22 07:41 Pulse Ox 95 06/11/22 07:41 O2 Del Method 06/11/22 07:41 BMI result Body Mass Index 34.4 Appearance: Alert.? Oriented X3.? cvs: rrr, [id number] , no murmur res: air entry diminshed at bases ,has wheezin abd: no rebound or guarding ,nt, bs present. ext pulses present , no cyanosis,edema 1+ neuro: axo3 , nonfocal. Objective Data Active Medications Albuterol/Ipratropium (Albuterol/Iprat 2.5/0.5mg 3 Ml Ampul.Neb) 3 ml INHALE RQ4H WHILE AWAKE [facility] Last Admin: 06/11/22 11:23 Dose: 3 ml Documented By: KETAN Albuterol/Ipratropium (Albuterol/Iprat 2.5/0.5mg 3 Ml Ampul.Neb) 3 ml INHALE Q4H PRN PRN Reason: Shortness of Breath Amlodipine Besylate (Amlodipine Besylate 10 Mg Tablet) 10 mg PO DAILY [facility] Last Admin: 06/11/22 08:53 Dose: 10 mg Documented By: CLARISSA Atorvastatin Calcium (Atorvastatin Calcium 20 Mg Tablet) 20 mg PO DAILY [facility] Last Admin: 06/11/22 08:53 Dose: 20 mg Documented By: CLARISSA Carvedilol (Carvedilol 3.125 Mg Tablet) 3.125 mg PO BID [facility]; Protocol Last Admin: 06/11/22 08:52 Dose: 3.125 mg Documented By: CLARISSA Clonidine HCl (Clonidine Hcl 0.2 Mg Tablet) 0.2 mg PO BEDTIME [facility]; Protocol Last Admin: 06/10/22 20:04 Dose: 0.2 mg Documented By: MALIHA Dextrose (Dextrose 50 % 25 Gm/50 Ml Syringe) 25 gm IVPUSH Q15M PRN; Protocol PRN Reason: per Hypoglycemia Standing Ord. Docusate Sodium (Docusate Sodium 100 Mg Capsule) 100 mg PO DAILY PRN PRN Reason: Constipation Enoxaparin Sodium (Enoxaparin Sodium 40 Mg/0.4 Ml Syringe) 40 mg SUBCUT Q24H [facility] Last Admin: 06/10/22 18:08 Dose: 40 mg Documented By: FRANCISCA Escitalopram Oxalate (Escitalopram Oxalate 20 Mg Tablet) 20 mg PO DAILY [facility] Last Admin: 06/11/22 08:53 Dose: 20 mg Documented By: CLARISSA Furosemide (Furosemide 40 Mg/4 Ml Vial) 40 mg IVPUSH BID@0900,1800 [facility]; Protocol Last Admin: 06/11/22 08:52 Dose: 40 mg Documented By: CLARISSA Glucose (Glucose Gel 15 Gm Gel..Gram.) 15 gm PO Q15M PRN; Protocol PRN Reason: per Hypoglycemia Standing Ord. Hydralazine HCl (Hydralazine Hcl 50 Mg Tablet) 100 mg PO TID [facility]; Protocol Last Admin: 06/11/22 08:53 Dose: 100 mg Documented By: CLARISSA Insulin Human Lispro (Insulin Lispro 100 Unit/Ml 3 Ml Vial) 0 unit SUBCUT QIDACHS [facility]; Protocol Last Admin: 06/11/22 11:34 Dose: Not Given Documented By: CLARISSA Non-Admin Reason: No Insulin Coverage Methylprednisolone Sodium Succinate (Methylprednisolone Sod Succ 125 Mg/2 Ml Vial) 40 mg IVPUSH BID [facility] Last Admin: 06/11/22 08:52 Dose: 40 mg Documented By: CLARISSA Pharmacy Consult (Consult Rx Perform Med Rec) 1 each MISCELLANE ONCE PRN PRN Reason: Consult order Sodium Chloride (0.9 % Sodium Chloride Flush 3 Ml Syringe) 3 ml IVFLUSH QSHIFT [facility] Last Admin: 06/11/22 08:53 Dose: 3 ml Documented By: CLARISSA Spironolactone (Spironolactone 25 Mg Tablet) 25 mg PO DAILY [facility]; Protocol Last Admin: 06/11/22 08:53 Dose: 25 mg Documented By: CLARISSA Trazodone HCl (Trazodone Hcl 50 Mg Tablet) 150 mg PO DAILY [facility] Last Admin: 06/11/22 08:53 Dose: 150 mg Documented By: CLARISSA Valsartan (Valsartan 160 Mg Tablet) 160 mg PO DAILY [facility] Last Admin: 06/11/22 08:52 Dose: 160 mg Documented By: CLARISSA Vitamin D (Cholecalciferol (Vitamin D3) 25 Mcg Tablet) 50 mcg PO DAILY [facility] Last Admin: 06/11/22 08:53 Dose: 50 mcg Documented By: CLARISSA Labs CBC & Chem 7: 06/10/22 05:46 06/11/22 05:20 Labs: Laboratory Results - last 24 hr 06/10/22 06/10/22 06/10/22 17:53 19:32 21:40 Anion Gap Estim Creat Clear Calc Estimated GFR POC Glucose 129 H 231 H 141 H Random Glucose Calcium Magnesium 06/11/22 06/11/22 06/11/22 05:20 07:40 11:25 Anion Gap 13 Estim Creat Clear Calc 47.4 Estimated GFR 50 POC Glucose 126 H 137 H Random Glucose 128 H Calcium 7.8 L Magnesium 2.0 Assessment and Plan (1) Acute on chronic right heart failure: Status: Acute (2) Pulmonary hypertension: Status: Acute (3) Cirrhosis: Status: Acute (4) COPD (chronic obstructive pulmonary disease): Status: Acute Plan 72-year-old female with a PMH significant for asthma, COPD, restrictive lung disease, [id number]-ohowzbfap diabetes, HTN, HLD, and cirrhosis who presents to the ED today for 2 weeks of worsening SOB, productive cough, and edema. Pt was admitted to the hospital for treatment of COPD and new onset CHF. # CHF-- etiology unclear, possibly secondary to COPD exacerbation worsening peripheral and central edema for the past 2 weeks CXR shows possible pulmonary venous redistribution/mild pulmonary edema patient feeling better today, less SOB, edema cardiology consultnoted-Echocardiogram reviewed.? Shows preserved LVEF and moderate diastolic dysfunction continue furosemide 40 mg IV b.i.d.,spironolactone. follow lytes, mg, I/O. # COPD exacerbation -- no clear infectious source, no leukocytosis -- patient continues to get relief from nebulizer treatments -- Solu-Medrol IV 40 mg q12 -- DuoNeb 3ml q4h while awake and prn -- continue home maintenance inhalers # macrocytic anemia -- MCV elevated 101.7, repeat 98.1 -- folate, B12 WNL # non-insulin diabetes -- hold metformin -- ssi Unspecified cirrhosis of liver: mild elevated lft's ,low albumin added albumin # HTN-- continue home meds # HLD-- continue home meds Full code Attending: Dr. Wright DVT prophylaxis: Lovenox inpatient need: COPD treatment and IV lasix for CHF-moniter tele, renal function/electrolytes Time Spent With Patient Time: Total time managing care of this patient today ____ minutes. Quality Stroke Does the patient have a stroke diagnosis?: No VTE Prior VTE?: No VTE Risk Level:: Medical - moderate - high VTE Device Contraindication: Treatment Not Indicated VTE Drug Contraindication: N/A - Med Ordered
[2022-06-11 14:56] LABS: Alanine Aminotransferase 23 U/L (0-31); Albumin Level 2.2 g/dL (3.5-5.0); Alkaline Phosphatase 111 U/L (39-117); Aspartate Amino Transferase 36 U/L (5-31); Bilirubin Total 0.6 mg/dL (0.0-1.0); Total Protein 6.6 g/dL (6.5-8.0)
[2022-06-11 15:32] LABS: Bilirubin Direct 0.3 mg/dL (0.0-0.5)
[2022-06-11] MEDS: Albumin Human 25 % 50 ML 100 ML IV ×4 (15:56→17:50)
[2022-06-11 16:25] LABS: Glucose, Whole Blood 154 mg/dL (60-115)
[2022-06-11] MEDS: Insulin Lispro 100 UNIT/ML 3 ML VIAL SUBCUT ×2 (16:39→21:55)
[2022-06-11] MEDS: Enoxaparin Sodium 40 MG/0.4 ML SYRINGE SUBCUT (16:39)
[2022-06-11 20:30] LABS: Glucose, Whole Blood 183 mg/dL (60-115)
[2022-06-11] MEDS: cloNIDine HCL 0.2 MG TABLET PO (21:54)
[2022-06-12] VITALS (9 sets, daily range): BP systolic 107–149; BP diastolic 51–62; PULSE 61–83; RESP 16–18; TEMP 36.2–37.4; O2SAT 92–96
[2022-06-12 07:30] LABS: Anion Gap 14 (12-20); Blood Urea Nitrogen 78 mg/dL (9-16); Calcium 7.5 mg/dL (8.4-10.2); Carbon Dioxide 26 mmol/L (22-29); Chloride 102 mmol/L (96-108); Creatinine Clr Calc Pharmacy 40.6; Estimated Glomerular Filt Rate 42; Glucose Random 144 mg/dL (60-115); Potassium 3.7 mmol/L (3.3-5.1); Sodium 138 mmol/L (135-145)
[2022-06-12] MEDS: Albuterol/Iprat 2.5/0.5MG 3 ML AMPUL.NEB INHALE ×4 (07:42→19:38)
[2022-06-12 07:47] LABS: Glucose, Whole Blood 133 mg/dL (60-115)
[2022-06-12] MEDS: traZODone HCL 50 MG TABLET 150 MG PO (09:34)
[2022-06-12] MEDS: methylPREDNISolone Sod Succ 125 MG/2 ML VIAL 40 MG IVPUSH ×2 (09:34→20:39)
[2022-06-12] MEDS: hydrALAZINE HCl 50 MG TABLET 100 MG PO ×3 (09:34→20:40)
[2022-06-12] MEDS: amLODIPine Besylate 10 MG TABLET PO (09:35)
[2022-06-12] MEDS: carvediloL 3.125 MG TABLET PO ×2 (09:35→20:39)
[2022-06-12] MEDS: Cholecalciferol (Vitamin D3) 25 MCG TABLET 50 MCG PO (09:35)
[2022-06-12] MEDS: Spironolactone 25 MG TABLET PO (09:35)
[2022-06-12] MEDS: Atorvastatin Calcium 20 MG TABLET PO (09:35)
[2022-06-12] MEDS: Escitalopram Oxalate 20 MG TABLET PO (09:35)
[2022-06-12] MEDS: Furosemide 40 MG TABLET PO (09:35)
[2022-06-12] MEDS: 0.9 % Sodium Chloride Flush 3 ML SYRINGE IVFLUSH ×3 (09:38→20:39)
[2022-06-12 11:38] LABS: Glucose, Whole Blood 221 mg/dL (60-115)
[2022-06-12] MEDS: Insulin Lispro 100 UNIT/ML 3 ML VIAL SUBCUT ×3 (12:24→20:39)
--- NOTE | 2022-06-12 12:49 | P.PNIM_ITS ---
Subjective Subjective Date of Service: 06/12/22 Interval History: chf execerebation Review of Systems sob somewhat imprving,still sob with minimum excersion Denies any chest pain or abdominal pain or nausea or vomiting. Physical Exam Vital Signs: Vital Signs: Last Vital Signs Temp 99.3 F 06/12/22 07:17 Pulse 83 06/12/22 11:13 Resp 18 06/12/22 11:13 BP 116/56 L 06/12/22 07:17 Pulse Ox 92 06/12/22 07:17 O2 Del Method 06/12/22 07:17 BMI result Body Mass Index 34.4 Appearance: Alert.? Oriented X3.? cvs: rrr, [id number] , no murmur res: air entry diminshed at bases ,has wheezin abd: no rebound or guarding ,nt, bs present. ext pulses present , no cyanosis,edema 1+ neuro: axo3 , nonfocal. Objective Data Active Medications Albuterol/Ipratropium (Albuterol/Iprat 2.5/0.5mg 3 Ml Ampul.Neb) 3 ml INHALE RQ4H WHILE AWAKE [facility] Last Admin: 06/12/22 11:12 Dose: 3 ml Documented By: TIM Albuterol/Ipratropium (Albuterol/Iprat 2.5/0.5mg 3 Ml Ampul.Neb) 3 ml INHALE Q4H PRN PRN Reason: Shortness of Breath Amlodipine Besylate (Amlodipine Besylate 10 Mg Tablet) 10 mg PO DAILY [facility] Last Admin: 06/12/22 09:35 Dose: 10 mg Documented By: TRACY Atorvastatin Calcium (Atorvastatin Calcium 20 Mg Tablet) 20 mg PO DAILY [facility] Last Admin: 06/12/22 09:35 Dose: 20 mg Documented By: TRACY Carvedilol (Carvedilol 3.125 Mg Tablet) 3.125 mg PO BID [facility]; Protocol Last Admin: 06/12/22 09:35 Dose: 3.125 mg Documented By: TRACY Clonidine HCl (Clonidine Hcl 0.2 Mg Tablet) 0.2 mg PO BEDTIME [facility]; Protocol Last Admin: 06/11/22 21:54 Dose: 0.2 mg Documented By: FREDRINJaneth Dextrose (Dextrose 50 % 25 Gm/50 Ml Syringe) 25 gm IVPUSH Q15M PRN; Protocol PRN Reason: per Hypoglycemia Standing Ord. Docusate Sodium (Docusate Sodium 100 Mg Capsule) 100 mg PO DAILY PRN PRN Reason: Constipation Enoxaparin Sodium (Enoxaparin Sodium 40 Mg/0.4 Ml Syringe) 40 mg SUBCUT Q24H [facility] Last Admin: 06/11/22 16:39 Dose: 40 mg Documented By: CLARISSA Escitalopram Oxalate (Escitalopram Oxalate 20 Mg Tablet) 20 mg PO DAILY [facility] Last Admin: 06/12/22 09:35 Dose: 20 mg Documented By: TRACY Furosemide (Furosemide 40 Mg Tablet) 40 mg PO DAILY [facility]; Protocol Last Admin: 06/12/22 09:35 Dose: 40 mg Documented By: TRACY Glucose (Glucose Gel 15 Gm Gel..Gram.) 15 gm PO Q15M PRN; Protocol PRN Reason: per Hypoglycemia Standing Ord. Hydralazine HCl (Hydralazine Hcl 50 Mg Tablet) 100 mg PO TID [facility]; Protocol Last Admin: 06/12/22 09:34 Dose: 100 mg Documented By: TRACY Insulin Human Lispro (Insulin Lispro 100 Unit/Ml 3 Ml Vial) 0 unit SUBCUT QIDACHS [facility]; Protocol Last Admin: 06/12/22 12:24 Dose: 4 unit Documented By: CLARISSA Methylprednisolone Sodium Succinate (Methylprednisolone Sod Succ 125 Mg/2 Ml Vial) 40 mg IVPUSH BID [facility] Last Admin: 06/12/22 09:34 Dose: 40 mg Documented By: TRACY Pharmacy Consult (Consult Rx Perform Med Rec) 1 each MISCELLANE ONCE PRN PRN Reason: Consult order Sodium Chloride (0.9 % Sodium Chloride Flush 3 Ml Syringe) 3 ml IVFLUSH QSHIFT [facility] Last Admin: 06/12/22 09:38 Dose: 3 ml Documented By: TRACY Spironolactone (Spironolactone 25 Mg Tablet) 25 mg PO DAILY [facility]; Protocol Last Admin: 06/12/22 09:35 Dose: 25 mg Documented By: TRACY Trazodone HCl (Trazodone Hcl 50 Mg Tablet) 150 mg PO DAILY [facility] Last Admin: 06/12/22 09:34 Dose: 150 mg Documented By: TRACY Valsartan (Valsartan 160 Mg Tablet) 160 mg PO DAILY [facility] Last Admin: 06/11/22 08:52 Dose: 160 mg Documented By: CLARISSA Vitamin D (Cholecalciferol (Vitamin D3) 25 Mcg Tablet) 50 mcg PO DAILY [facility] Last Admin: 06/12/22 09:35 Dose: 50 mcg Documented By: TRACY Labs CBC & Chem 7: 06/10/22 05:46 06/12/22 05:42 Labs: Laboratory Results - last 24 hr 06/11/22 06/11/22 06/11/22 05:20 16:20 20:23 Anion Gap Estim Creat Clear Calc Estimated GFR POC Glucose 154 H 183 H Random Glucose Calcium Total Bilirubin 0.6 Direct Bilirubin 0.3 AST 36 H ALT 23 Alkaline Phosphatase 111 Total Protein 6.6 Albumin 2.2 L 06/12/22 06/12/22 06/12/22 05:42 07:21 11:31 Anion Gap 14 Estim Creat Clear Calc 40.6 Estimated GFR 42 POC Glucose 133 H 221 H Random Glucose 144 H Calcium 7.5 L Total Bilirubin Direct Bilirubin AST ALT Alkaline Phosphatase Total Protein Albumin Assessment and Plan (1) Acute on chronic right heart failure: Status: Acute (2) Pulmonary hypertension: Status: Acute (3) Cirrhosis: Status: Acute (4) COPD (chronic obstructive pulmonary disease): Status: Acute Plan 72-year-old female with a PMH significant for asthma, COPD, restrictive lung disease, iop-[id number] diabetes, HTN, HLD, and cirrhosis who presents to the ED today for 2 weeks of worsening SOB, productive cough, and edema. Pt was admitted to the hospital for treatment of COPD and new onset CHF. # CHF-- etiology unclear, possibly secondary to COPD exacerbation worsening peripheral and central edema for the past 2 weeks CXR shows possible pulmonary venous redistribution/mild pulmonary edema patient feeling better today, less SOB, edema cardiology consultnoted-Echocardiogram reviewed.? Shows preserved LVEF and moderate diastolic dysfunction continue furosemide 40 mg IV b.i.d.,spironolactone. follow lytes, mg, I/O. # COPD exacerbation -- no clear infectious source, no leukocytosis -- patient continues to get relief from nebulizer treatments -- Solu-Medrol IV 40 mg q12 -- DuoNeb 3ml q4h while awake and prn -- continue home maintenance inhalers # macrocytic anemia -- MCV elevated 101.7, repeat 98.1 -- folate, B12 WNL # non-insulin diabetes -- hold metformin -- ssi Unspecified cirrhosis of liver: mild elevated lft's ,low albumin added albumin # HTN-- continue home meds # HLD-- continue home meds Full code Attending: Dr. Wright DVT prophylaxis: Lovenox inpatient need: COPD treatment and IV lasix for CHF-moniter tele, renal f unction/electrolytes Time Spent With Patient Time: Total time managing care of this patient today ____ minutes. Quality Stroke Does the patient have a stroke diagnosis?: No VTE Prior VTE?: No VTE Risk Level:: Medical - moderate - high VTE Device Contraindication: Treatment Not Indicated VTE Drug Contraindication: N/A - Med Ordered
--- NOTE | 2022-06-12 13:02 | MHC.CM.PN ---
Per MD rounds no dc today. A PT eval was performed today. PT recommends home with services. Met with patient and her son for discharge planning. Homecare preference obtained. A referral has been sent to [facility]. [facility] home with services SN and PT. Family will provide transportation home.
[2022-06-12 15:42] LABS: Glucose, Whole Blood 185 mg/dL (60-115)
[2022-06-12] MEDS: Enoxaparin Sodium 40 MG/0.4 ML SYRINGE SUBCUT (16:55)
[2022-06-12 20:31] LABS: Glucose, Whole Blood 171 mg/dL (60-115)
[2022-06-12] MEDS: cloNIDine HCL 0.2 MG TABLET PO (20:40)
[2022-06-13] VITALS (8 sets, daily range): BP systolic 110–122; BP diastolic 52–60; PULSE 61–85; RESP 16–20; TEMP 36.7–37.1; O2SAT 91–96
[2022-06-13 07:27] LABS: Glucose, Whole Blood 152 mg/dL (60-115)
[2022-06-13] MEDS: 0.9 % Sodium Chloride Flush 3 ML SYRINGE IVFLUSH ×3 (07:38→20:14)
[2022-06-13] MEDS: Insulin Lispro 100 UNIT/ML 3 ML VIAL SUBCUT ×4 (07:38→20:15)
[2022-06-13] MEDS: methylPREDNISolone Sod Succ 125 MG/2 ML VIAL 40 MG IVPUSH (07:38)
[2022-06-13] MEDS: traZODone HCL 50 MG TABLET 150 MG PO (07:39)
[2022-06-13] MEDS: hydrALAZINE HCl 50 MG TABLET 100 MG PO ×3 (07:39→20:12)
[2022-06-13] MEDS: Cholecalciferol (Vitamin D3) 25 MCG TABLET 50 MCG PO (07:39)
[2022-06-13] MEDS: amLODIPine Besylate 10 MG TABLET PO (07:39)
[2022-06-13] MEDS: carvediloL 3.125 MG TABLET PO ×2 (07:39→20:13)
[2022-06-13] MEDS: Escitalopram Oxalate 20 MG TABLET PO (07:40)
[2022-06-13] MEDS: Spironolactone 25 MG TABLET PO (07:40)
[2022-06-13] MEDS: Furosemide 40 MG TABLET PO (07:40)
[2022-06-13] MEDS: Atorvastatin Calcium 20 MG TABLET PO (07:40)
[2022-06-13] MEDS: Albuterol/Iprat 2.5/0.5MG 3 ML AMPUL.NEB INHALE ×4 (07:58→19:41)
--- NOTE | 2022-06-13 10:46 | HO.PM.IMPN ---
Subjective Subjective Date of Service: 06/13/22 Interval History: chf,copd Review of Systems renal function somewhat worsen sob seems improved denies any chest pain or abd pain Physical Exam Vital Signs: Vital Signs: Last Vital Signs Temp 98.3 F 06/13/22 07:10 Pulse 79 06/13/22 07:58 Resp 18 06/13/22 07:58 BP 110/56 L 06/13/22 07:10 Pulse Ox 95 06/13/22 07:10 O2 Del Method 06/13/22 07:10 BMI result Body Mass Index 34.4 Appearance: Alert.? Oriented X3.? cvs: rrr, [id number] , no murmur res: air entry diminshed at bases ,has wheezin abd: no rebound or guarding ,nt, bs present. ext pulses present , no cyanosis,edema trace. neuro: axo3 , nonfocal. Objective Data Active Medications Albuterol/Ipratropium (Albuterol/Iprat 2.5/0.5mg 3 Ml Ampul.Neb) 3 ml INHALE RQ4H WHILE AWAKE [facility] Last Admin: 06/13/22 07:58 Dose: 3 ml Documented By: SALOME Albuterol/Ipratropium (Albuterol/Iprat 2.5/0.5mg 3 Ml Ampul.Neb) 3 ml INHALE Q4H PRN PRN Reason: Shortness of Breath Amlodipine Besylate (Amlodipine Besylate 10 Mg Tablet) 10 mg PO DAILY [facility] Last Admin: 06/13/22 07:39 Dose: 10 mg Documented By: KYRA Atorvastatin Calcium (Atorvastatin Calcium 20 Mg Tablet) 20 mg PO DAILY [facility] Last Admin: 06/13/22 07:40 Dose: 20 mg Documented By: KYRA Carvedilol (Carvedilol 3.125 Mg Tablet) 3.125 mg PO BID [facility]; Protocol Last Admin: 06/13/22 07:39 Dose: 3.125 mg Documented By: KYRA Clonidine HCl (Clonidine Hcl 0.2 Mg Tablet) 0.2 mg PO BEDTIME [facility]; Protocol Last Admin: 06/12/22 20:40 Dose: 0.2 mg Documented By: CAITLYN Comments: BP 149/62 H 69 Dextrose (Dextrose 50 % 25 Gm/50 Ml Syringe) 25 gm IVPUSH Q15M PRN; Protocol PRN Reason: per Hypoglycemia Standing Ord. Docusate Sodium (Docusate Sodium 100 Mg Capsule) 100 mg PO DAILY PRN PRN Reason: Constipation Enoxaparin Sodium (Enoxaparin Sodium 40 Mg/0.4 Ml Syringe) 40 mg SUBCUT Q24H [facility] Last Admin: 06/12/22 16:55 Dose: 40 mg Documented By: CLARISSA Escitalopram Oxalate (Escitalopram Oxalate 20 Mg Tablet) 20 mg PO DAILY [facility] Last Admin: 06/13/22 07:40 Dose: 20 mg Documented By: COTHARIKA Furosemide (Furosemide 40 Mg Tablet) 40 mg PO DAILY [facility]; Protocol Last Admin: 06/13/22 07:40 Dose: 40 mg Documented By: SONAMEMA Glucose (Glucose Gel 15 Gm Gel..Gram.) 15 gm PO Q15M PRN; Protocol PRN Reason: per Hypoglycemia Standing Ord. Hydralazine HCl (Hydralazine Hcl 50 Mg Tablet) 100 mg PO TID [facility]; Protocol Last Admin: 06/13/22 07:39 Dose: 100 mg Documented By: KYRA Insulin Human Lispro (Insulin Lispro 100 Unit/Ml 3 Ml Vial) 0 unit SUBCUT QIDACHS [facility]; Protocol Last Admin: 06/13/22 07:38 Dose: 2 unit Documented By: KYRA Pharmacy Consult (Consult Rx Perform Med Rec) 1 each MISCELLANE ONCE PRN PRN Reason: Consult order Prednisone (Prednisone 20 Mg Tablet) 40 mg PO DAILY [facility] Last Admin: 06/13/22 07:51 Dose: Not Given Documented By: KYRA Non-Admin Reason: Previously Administered Sodium Chloride (0.9 % Sodium Chloride Flush 3 Ml Syringe) 3 ml IVFLUSH QSHIFT [facility] Last Admin: 06/13/22 07:38 Dose: 3 ml Documented By: KYRA Spironolactone (Spironolactone 25 Mg Tablet) 25 mg PO DAILY [facility]; Protocol Last Admin: 06/13/22 07:40 Dose: 25 mg Documented By: SONAMEMA Trazodone HCl (Trazodone Hcl 50 Mg Tablet) 150 mg PO DAILY [facility] Last Admin: 06/13/22 07:39 Dose: 150 mg Documented By: SONAMEMA Valsartan (Valsartan 160 Mg Tablet) 160 mg PO DAILY [facility] Last Admin: 06/11/22 08:52 Dose: 160 mg Documented By: CLARISSA Vitamin D (Cholecalciferol (Vitamin D3) 25 Mcg Tablet) 50 mcg PO DAILY [facility] Last Admin: 06/13/22 07:39 Dose: 50 mcg Documented By: KYRA Labs CBC & Chem 7: 06/10/22 05:46 06/12/22 05:42 Labs: Laboratory Results - last 24 hr 06/12/22 06/12/22 06/12/22 11:31 15:24 20:16 POC Glucose 221 H 185 H 171 H 06/13/22 07:17 POC Glucose 152 H Assessment and Plan (1) Acute on chronic right heart failure: Status: Acute (2) Pulmonary hypertension: Status: Acute (3) Cirrhosis: Status: Acute (4) COPD (chronic obstructive pulmonary disease): Status: Acute (5) HOANG (acute kidney injury): Status: Acute Plan 72-year-old female with a PMH significant for asthma, COPD, restrictive lung disease, pac-xqumwsy-sbgnwpxdw diabetes, HTN, HLD, and cirrhosis who presents to the ED today for 2 weeks of worsening SOB, productive cough, and edema. Pt was admitted to the hospital for treatment of COPD and new onset CHF. # CHF-- etiology unclear, possibly secondary to COPD exacerbation worsening peripheral and central edema for the past 2 weeks CXR shows possible pulmonary venous redistribution/mild pulmonary edema patient feeling better today, less SOB, edema cardiology consultnoted-Echocardiogram reviewed.? Shows preserved LVEF and moderate diastolic dysfunction continue furosemide 40 mg IV b.i.d.,spironolactone. follow lytes, mg, I/O. # COPD exacerbation -- no clear infectious source, no leukocytosis -- patient continues to get relief from nebulizer treatments -- Solu-Medrol IV 40 mg q12 -- DuoNeb 3ml q4h while awake and prn -- continue home maintenance inhalers # macrocytic anemia -- MCV elevated 101.7, repeat 98.1 -- folate, B12 WNL # non-insulin diabetes -- hold metformin -- ssi Unspecified cirrhosis of liver: mild elevated lft's ,low albumin added albumin # HTN-- continue home meds # HLD-- continue home meds Prerenal azotemia vs mild hoang-Due to overdiursis/steriods taper steriods,hold lasix moniter bmp overweight: encouraged to lose weight. Full code Attending: Dr. Wright DVT prophylaxis: Lovenox inpatient need: COPD treatment and IV lasix for CHF,Prerenal azotemia vs mild hoang off lasix now -Due to overdiursis/steriods-moniter tele, renal function/electrolytes Time Spent With Patient Time: Total time managing care of this patient today ____ minutes. Quality Stroke Does the patient have a stroke diagnosis?: No VTE Prior VTE?: No VTE Risk Level:: Medical - moderate - high VTE Device Contraindication: Treatment Not Indicated VTE Drug Contraindication: N/A - Med Ordered
[2022-06-13 11:16] LABS: Glucose, Whole Blood 167 mg/dL (60-115)
[2022-06-13 15:47] LABS: Glucose, Whole Blood 186 mg/dL (60-115)
[2022-06-13] MEDS: Enoxaparin Sodium 40 MG/0.4 ML SYRINGE SUBCUT (17:21)
[2022-06-13 19:46] LABS: Glucose, Whole Blood 158 mg/dL (60-115)
[2022-06-13] MEDS: cloNIDine HCL 0.2 MG TABLET PO (20:13)
[2022-06-14] VITALS (13 sets, daily range): BP systolic 99–155; BP diastolic 35–67; PULSE 61–82; RESP 12–20; TEMP 36–37; O2SAT 91–97
--- NOTE | 2022-06-14 04:49 | PC.NURSE ---
Pt was in the [place] when she had sudden bouts of bright red vomiting in moderate amount, and also she had a black BM, vitals are WNL, pt reports being dizzy after, assisted pt back to bed, Dr. Payne was updated.
--- NOTE | 2022-06-14 05:42 | PM.EVENT ---
Event Note Date of Service: 06/14/22 Event Note: pt had an episode of hematemesis and back tarry stool will obtain stat cbc. will start on pantoprazole and obtain gi consult Time Spent With Patient Time: Total time managing care of this patient today ____ minutes.
[2022-06-14] MEDS: Pantoprazole Sodium 40 MG/10 ML VIAL IVPUSH (05:50)
[2022-06-14 06:13] LABS: Basophils Percent Auto 0.1 % (0-2); Eosinophils Percent Auto 0.1 % (0-4); Hematocrit 25.3 % (37.0-47.0); Hemoglobin 8.2 g/dl (12.0-16.0); Imm Gran Abs Auto 0.09 X10*3/uL (0.00-0.03); Imm Gran Pct Auto 0.8 % (0.0-0.4); Lymphocytes Absolute Auto 1.5 X10*3/uL (1.2-4.9); Lymphocytes Percent Auto 13.9 % (20-40); MANUAL DIFF FLAG SCAN; Mean Corpuscular HGB Conc 32.4 g/dl (31.0-35.0); Mean Corpuscular Hemoglobin 32.7 pg (27.0-33.0); Mean Corpuscular Volume 100.8 fL (80.0-98.0); Mean Platelet Volume 13.4 fL (9.4-12.3); Monocytes Absolute Auto 1.7 X10*3/uL (0.1-1.2); Monocytes Percent Auto 15.2 % (2-11); Neutrophils Absolute Auto 7.6 x10*3/uL (2.0-8.3); Neutrophils Percent Auto 69.9 % (45-73); Platelet Count 93 X10*3/uL (160-400); Red Blood Count 2.51 X10*6/uL (4.20-5.50); Red Cell Distribution Width 15.5 % (11.0-16.0); SCAN SMEAR FLAG 1; White Blood Count 10.9 X10*3/uL (4.8-10.8)
[2022-06-14 06:35] LABS: SLIDE REVIEW VERIFIED
--- NOTE | 2022-06-14 06:43 | P.CNGI_ITS ---
History of Present Illness Data of Consult Service Date: 06/14/22 Requesting physician: Luis Antonio Slade Primary Care Provider: Sherry Lucas MD HPI Reason for consult: melena/coffee ground emesis 72-year-old female with past medical history of diabetes, resistant hypertension, obesity, diastolic heart failure, mild pulmonary hypertension, who I am seeing for assessment for melena and hematemesis She was initially admitted 06/09/22 with 2 weeks of SOB, cough, and sputum with exertional dyspnea and worsening lower leg edema. She was treated as CHF and COPD exacerbation. She seemed to be making slow progress and was being treated with diuretics, duo nebs and solu medrol Today at around 4 AM she had an episode of coffee ground emesis and then another one at around 10 AM. She also had dark tarry stools and noted incontinence. She denies abdominal pain, or chest pain, just feels miserable. Not been taking aspirin or nsaids. HGB: dropped from 12 g/dl to 8 g/dl. plts low, no recent INR available. 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 .? Review of Systems Review of Systems: Constitutional : No Weight loss, No Fever, No Chills ENT/Mouth : No sore throat, No Rhinorrhea Eyes: No Swelling, No Redness Cardiovascular : No Chest Pain, + SOB, + Edema Respiratory : + Cough, + Sputum, No Wheezing Gastrointestinal : see HPI Genitourinary : NO Dysuria, No Urinary Frequency, No Hematuria, No Urgency Musculoskeletal : No joint pain, No Myalgias, No Joint Swelling Skin : No Skin Lesions, No rash Neuro : + Weakness, No Numbness, No Dizziness, No Headache Psych : No Anxiety/Panic, No Depression Heme/Lymph: No Bruising, No Lymphadenopathy Endocrine : No Polyuria, No Polydipsia All other systems reviewed and are negative. [facility] Past Medical History Medical History Asthma COPD (chronic obstructive pulmonary disease) Dyspnea on exertion Restrictive lung disease Smoking Type 2 diabetes mellitus with unspecified complications Uncontrolled hypertension Family History Family History Mother HTN (hypertension) Diabetes Throat cancer Father Throat cancer Sister Blind Breast cancer Brother Blind Lung cancer Son Blind Daughter Lupus Father Throat cancer Surgical History Surgical History H/O colonoscopy Hx of abdominoplasty Social History Social History Household Members: None Housing: Apartment Do you presently have visiting nurse or other home services: Yes ([employer] FOR 15 HOURS A WEEK) Alcohol intake: never Patient Tobacco Use Status: Former Tobacco user Quit Date: PT STATED 5 YEARS AGO Tobacco use type: Cigarette Cigarettes Per Day: 4 Years Smoked: 40 +/- Second Hand Smoke Exposure: No service: No Current occupational status: retired [employer] Allergies Allergy/AdvReac Type Severity Reaction Status Date / Time aspirin [ASPIRIN] Allergy Intermediate HIVES/ANXIE Verified 05/13/22 10:26 TY enalapril Allergy Unknown unknown Verified 05/13/22 10:26 verapamil Allergy Unknown unknown Verified 05/13/22 10:26 acetaminophen [From Percocet] AdvReac low blood Verified 05/13/22 10:26 pressure oxycodone [From Percocet] AdvReac low blood Verified 05/13/22 10:26 pressure Active Medications: Current Medications Albuterol/Ipratropium (Albuterol/Iprat 2.5/0.5mg 3 Ml Ampul.Neb) 3 ml INHALE RQ4H WHILE AWAKE [facility] Last Admin: 06/13/22 19:41 Dose: 3 ml Albuterol/Ipratropium (Albuterol/Iprat 2.5/0.5mg 3 Ml Ampul.Neb) 3 ml INHALE Q4H PRN PRN Reason: Shortness of Breath Amlodipine Besylate (Amlodipine Besylate 10 Mg Tablet) 10 mg PO DAILY [facility] Last Admin: 06/13/22 07:39 Dose: 10 mg Atorvastatin Calcium (Atorvastatin Calcium 20 Mg Tablet) 20 mg PO DAILY [facility] Last Admin: 06/13/22 07:40 Dose: 20 mg Carvedilol (Carvedilol 3.125 Mg Tablet) 3.125 mg PO BID [facility]; Protocol Last Admin: 06/13/22 20:13 Dose: 3.125 mg Clonidine HCl (Clonidine Hcl 0.2 Mg Tablet) 0.2 mg PO BEDTIME [facility]; Protocol Last Admin: 06/13/22 20:13 Dose: 0.2 mg Dextrose (Dextrose 50 % 25 Gm/50 Ml Syringe) 25 gm IVPUSH Q15M PRN; Protocol PRN Reason: per Hypoglycemia Standing Ord. Docusate Sodium (Docusate Sodium 100 Mg Capsule) 100 mg PO DAILY PRN PRN Reason: Constipation Escitalopram Oxalate (Escitalopram Oxalate 20 Mg Tablet) 20 mg PO DAILY [facility] Last Admin: 06/13/22 07:40 Dose: 20 mg Furosemide (Furosemide 40 Mg Tablet) 40 mg PO DAILY [facility]; Protocol Last Admin: 06/13/22 07:40 Dose: 40 mg Glucose (Glucose Gel 15 Gm Gel..Gram.) 15 gm PO Q15M PRN; Protocol PRN Reason: per Hypoglycemia Standing Ord. Hydralazine HCl (Hydralazine Hcl 50 Mg Tablet) 100 mg PO TID [facility]; Protocol Last Admin: 06/13/22 20:12 Dose: 100 mg Insulin Human Lispro (Insulin Lispro 100 Unit/Ml 3 Ml Vial) 0 unit SUBCUT QIDACHS [facility]; Protocol Last Admin: 06/13/22 20:15 Dose: 2 unit Pantoprazole Sodium (Pantoprazole Sodium 40 Mg/10 Ml Vial) 40 mg IVPUSH BID@0630,1630 [facility] Last Admin: 06/14/22 05:50 Dose: 40 mg Pharmacy Consult (Consult Rx Perform Med Rec) 1 each MISCELLANE ONCE PRN PRN Reason: Consult order Prednisone (Prednisone 20 Mg Tablet) 20 mg PO DAILY [facility] Sodium Chloride (0.9 % Sodium Chloride Flush 3 Ml Syringe) 3 ml IVFLUSH QSHIFT [facility] Last Admin: 06/13/22 20:14 Dose: 3 ml Spironolactone (Spironolactone 25 Mg Tablet) 25 mg PO DAILY [facility]; Protocol Last Admin: 06/13/22 07:40 Dose: 25 mg Trazodone HCl (Trazodone Hcl 50 Mg Tablet) 150 mg PO DAILY [facility] Last Admin: 06/13/22 07:39 Dose: 150 mg Valsartan (Valsartan 160 Mg Tablet) 160 mg PO DAILY [facility] Last Admin: 06/11/22 08:52 Dose: 160 mg Vitamin D (Cholecalciferol (Vitamin D3) 25 Mcg Tablet) 50 mcg PO DAILY [facility] Last Admin: 06/13/22 07:39 Dose: 50 mcg Home Medications Medication Instructions Recorded Confirmed Last Taken Type albuterol sulfate 90 mcg/actuation 2 puff inhalation Q6H PRN 04/01/21 06/09/22 Unknown History aerosol inhaler (ProAir HFA) Shortness Of Breath Or Wheezing ammonium lactate 12 % topical cream 1 appl topical DAILY PRN Dry Skin 04/01/21 06/09/22 Unknown History atorvastatin 20 mg tablet (Lipitor) 20 mg PO DAILY 04/01/21 06/09/22 Unknown History cholecalciferol (vitamin D3) 50 50 mcg PO DAILY 04/01/21 06/09/22 Unknown History mcg (2,000 unit) capsule citalopram 40 mg tablet 40 mg PO DAILY 04/01/21 06/09/22 Unknown History hydralazine 100 mg tablet 100 mg PO TID 04/01/21 06/09/22 Unknown History hydrochlorothiazide 50 mg tablet 50 mg PO DAILY 04/01/21 06/09/22 Unknown History irbesartan 300 mg tablet 300 mg PO DAILY 04/01/21 06/09/22 Unknown History lidocaine-prilocaine 2.5 %-2.5 % topical 04/01/21 03/30/22 Unknown History topical cream meloxicam 7.5 mg tablet 7.5 mg PO DAILY PRN Pain, Moderate 04/01/21 06/09/22 Unknown History trazodone 150 mg tablet 150 mg PO DAILY 04/01/21 06/09/22 Unknown History clonidine HCl 0.2 mg tablet 1 tab PO BEDTIME 06/09/22 06/09/22 Unknown History metformin 1,000 mg tablet 1 tab PO BID 06/09/22 06/09/22 Unknown History Physical Exam Vital Signs: Vital Signs: Last Vital Signs Temp 97.3 F 06/14/22 04:00 Pulse 73 06/14/22 04:00 Resp 18 06/14/22 04:00 BP 133/60 06/14/22 04:00 Pulse Ox 95 06/14/22 04:00 O2 Del Method 06/14/22 04:00 BMI result Body Mass Index 34.4 EXAM: GENERAL: The patient is frail appearing, she vomited few blood clots during the exam VITAL SIGNS:see workflow HEENT: Nonicteric sclerae, PERRLA, EOMI. Oropharynx clear. Moist mucous membranes. Conjunctivae appear pale. No thyroid mass. CHEST: Chest wall is nontender. HEART: Regular rate and rhythm without murmurs. LUNGS: Crackles at bases, with reduced BS b/l ABDOMEN: Soft, positive bowel sounds, nontender, no organomegaly.no flank tenderness SKIN: No rash, no excessive bruising, petechiae, or purpura. NEUROLOGIC: Cranial nerves II-XII intact without motor/sensory deficit. MS: normal Results Labs CBC & Chem 7: 06/14/22 07:50 06/14/22 05:19 Labs: Short CBC 06/14/22 Range/Units 06:03 WBC 10.9 H (4.8-10.8) X10*3/uL Hgb 8.2 L D (12.0-16.0) g/dl Hct 25.3 L D (37.0-47.0) % Plt Count 93 L (160-400) X10*3/uL Assessment and Plan (1) Acute on chronic blood loss anemia: Status: Acute Plan 1/ Acute blood loss anemia, ddx: variceal bleed, stress ulceration, or gastritis, esophagitis, dieulafoy PLAN: 1/ NPO 2/ x 2 large bore IV access 3/ transfuse aiming for HGB 9 g/dl due to cardiac issues 4/ IV PPI and octreotide 5/ ceftriaxone 1 g for bacterial prophylaxis due to high risk of bacterial translocation 6/ possible EGD today for further assessment, also will order erythromycin 500 mg IV Time Spent With Patient Time: Total time managing care of this patient today ____ minutes. Procedures Date of Service Date of Service: 06/14/22
[2022-06-14 06:46] LABS: Anion Gap 14 (12-20); Blood Urea Nitrogen 101 mg/dL (9-16); Calcium 7.3 mg/dL (8.4-10.2); Carbon Dioxide 27 mmol/L (22-29); Chloride 108 mmol/L (96-108); Creatinine Clr Calc Pharmacy 36.3; Estimated Glomerular Filt Rate 37; Glucose Random 167 mg/dL (60-115); Potassium 3.8 mmol/L (3.3-5.1); Sodium 145 mmol/L (135-145)
[2022-06-14 07:29] LABS: Glucose, Whole Blood 146 mg/dL (60-115)
[2022-06-14] MEDS: 0.9 % Sodium Chloride Flush 3 ML SYRINGE IVFLUSH ×2 (07:57→18:13)
[2022-06-14] MEDS: Atorvastatin Calcium 20 MG TABLET PO (07:58)
[2022-06-14] MEDS: Escitalopram Oxalate 20 MG TABLET PO (07:58)
[2022-06-14] MEDS: traZODone HCL 50 MG TABLET 150 MG PO (07:58)
[2022-06-14] MEDS: amLODIPine Besylate 10 MG TABLET PO (07:58)
[2022-06-14] MEDS: Cholecalciferol (Vitamin D3) 25 MCG TABLET 50 MCG PO (07:58)
[2022-06-14] MEDS: carvediloL 3.125 MG TABLET PO (07:58)
[2022-06-14 08:04] LABS: Hematocrit 25.4 % (37.0-47.0); Hemoglobin 8.3 g/dl (12.0-16.0)
[2022-06-14 10:21] LABS: Alanine Aminotransferase 19 U/L (0-31); Albumin Level 2.1 g/dL (3.5-5.0); Alkaline Phosphatase 60 U/L (39-117); Aspartate Amino Transferase 18 U/L (5-31); Bilirubin Direct 0.3 mg/dL (0.0-0.5); Bilirubin Total 0.6 mg/dL (0.0-1.0); Total Protein 4.7 g/dL (6.5-8.0)
[2022-06-14] MEDS: Phytonadione (Vit K1) 10 MG in 0.9 % Sodium Chloride 50 ML 51 MG IV (11:00)
[2022-06-14] MEDS: Octreotide Acetate 500 MCG in 0.9 % Sodium Chloride 500 ML 50.1 MCG IVCONT ×2 (11:02→21:43)
[2022-06-14 11:24] LABS: Glucose, Whole Blood 173 mg/dL (60-115)
--- NOTE | 2022-06-14 12:09 | MHC.SHP ---
Pre-Procedural Eval Section A Date of Service: 06/14/22 The patient is an INPATIENT: Yes The History & Physical has been completed within 30 days and I have reviewed it.: Yes Section B Chief Complaint: Diff Breathing Allergies: Allergies Allergy/AdvReac Type Severity Reaction Status Date / Time aspirin [ASPIRIN] Allergy Intermediate HIVES/ANXIE Verified 05/13/22 10:26 TY enalapril Allergy Unknown unknown Verified 05/13/22 10:26 verapamil Allergy Unknown unknown Verified 05/13/22 10:26 acetaminophen [From Percocet] AdvReac low blood Verified 05/13/22 10:26 pressure oxycodone [From Percocet] AdvReac low blood Verified 05/13/22 10:26 pressure Plan Diagnosis/Plan: Unchanged I have reviewed the history and physical and performed a pertinent physical examination on my patient. No changes have occurred unless specified. Time Spent With Patient Time: Total time managing care of this patient today ____ minutes.
--- NOTE | 2022-06-14 12:39 | P.CONAN_ITS ---
HPI - Anesthesia Eval Consult details Narrative: acute on chronic anemia [facility] Active Problems Active Problems: All Active Problems (Updated 06/14/22 @ 11:55 by Amberly Aguilar MD) Acute on chronic blood loss anemia (Acute) HOANG (acute kidney injury) (Acute) Pulmonary hypertension (Acute) Nonrheumatic tricuspid (valve) insufficiency (Acute) Acute on chronic right heart failure (Acute) Congestive heart failure (Acute) COPD (chronic obstructive pulmonary disease) (Acute) Asthma (Acute) Restrictive lung disease (Acute) Dyspnea on exertion (Acute) Cirrhosis (Acute) COPD (chronic obstructive pulmonary disease) (Acute) Renal artery stenosis (Acute) Smoking (Acute) PVC (premature ventricular contraction) (Acute) Uncontrolled hypertension (Acute) Past Medical History Medical History Asthma COPD (chronic obstructive pulmonary disease) Dyspnea on exertion Restrictive lung disease Smoking Type 2 diabetes mellitus with unspecified complications Uncontrolled hypertension Family History Family History Mother HTN (hypertension) Diabetes Throat cancer Father Throat cancer Sister Blind Breast cancer Brother Blind Lung cancer Son Blind Daughter Lupus Father Throat cancer Family history of problems with anesthesia: No Surgical History Surgical History H/O colonoscopy Hx of abdominoplasty History of Problems with Anesthesia: No Social History Social History Household Members: None Housing: Apartment Do you presently have visiting nurse or other home services: Yes ([employer] FOR 15 HOURS A WEEK) Alcohol intake: never Patient Tobacco Use Status: Former Tobacco user Quit Date: PT STATED 5 YEARS AGO Tobacco use type: Cigarette Cigarettes Per Day: 4 Years Smoked: 40 +/- Second Hand Smoke Exposure: No service: No Current occupational status: retired Meds Allergies Allergy/AdvReac Type Severity Reaction Status Date / Time aspirin [ASPIRIN] Allergy Intermediate HIVES/ANXIE Verified 05/13/22 10:26 TY enalapril Allergy Unknown unknown Verified 05/13/22 10:26 verapamil Allergy Unknown unknown Verified 05/13/22 10:26 acetaminophen [From Percocet] AdvReac low blood Verified 05/13/22 10:26 pressure oxycodone [From Percocet] AdvReac low blood Verified 05/13/22 10:26 pressure Active Medications: Current Medications Albuterol/Ipratropium (Albuterol/Iprat 2.5/0.5mg 3 Ml Ampul.Neb) 3 ml INHALE RQ4H WHILE AWAKE [facility] Last Admin: 06/14/22 12:18 Dose: Not Given Albuterol/Ipratropium (Albuterol/Iprat 2.5/0.5mg 3 Ml Ampul.Neb) 3 ml INHALE Q4H PRN PRN Reason: Shortness of Breath Amlodipine Besylate (Amlodipine Besylate 10 Mg Tablet) 10 mg PO DAILY [facility] Last Admin: 06/14/22 07:58 Dose: 10 mg Atorvastatin Calcium (Atorvastatin Calcium 20 Mg Tablet) 20 mg PO DAILY [facility] Last Admin: 06/14/22 07:58 Dose: 20 mg Carvedilol (Carvedilol 3.125 Mg Tablet) 3.125 mg PO BID [facility]; Protocol Last Admin: 06/14/22 07:58 Dose: 3.125 mg Clonidine HCl (Clonidine Hcl 0.2 Mg Tablet) 0.2 mg PO BEDTIME [facility]; Protocol Last Admin: 06/13/22 20:13 Dose: 0.2 mg Dextrose (Dextrose 50 % 25 Gm/50 Ml Syringe) 25 gm IVPUSH Q15M PRN; Protocol PRN Reason: per Hypoglycemia Standing Ord. Docusate Sodium (Docusate Sodium 100 Mg Capsule) 100 mg PO DAILY PRN PRN Reason: Constipation Escitalopram Oxalate (Escitalopram Oxalate 20 Mg Tablet) 20 mg PO DAILY [facility] Last Admin: 06/14/22 07:58 Dose: 20 mg Furosemide (Furosemide 40 Mg Tablet) 40 mg PO DAILY [facility]; Protocol Last Admin: 06/13/22 07:40 Dose: 40 mg Glucose (Glucose Gel 15 Gm Gel..Gram.) 15 gm PO Q15M PRN; Protocol PRN Reason: per Hypoglycemia Standing Ord. Hydralazine HCl (Hydralazine Hcl 50 Mg Tablet) 100 mg PO TID [facility]GELINA; Protocol Last Admin: 06/13/22 20:12 Dose: 100 mg Octreotide Acetate 500 mcg/ (Sodium Chloride) 501 mls @ 50.1 mls/hr IVCONT .Q10H [facility] Last Admin: 06/14/22 11:02 Dose: 50 mcg/hr, 50.1 mls/hr Pantoprazole Sodium 80 mg/ (Sodium Chloride) 100 mls @ 10 mls/hr IV .Q10H [facility] Erythromycin Lactobionate 500 (mg/ Sodium Chloride) 100 mls @ 100 mls/hr IV ONCE ONE Stop: 06/14/22 13:08 Insulin Human Lispro (Insulin Lispro 100 Unit/Ml 3 Ml Vial) 0 unit SUBCUT QIDACHS [facility]; Protocol Last Admin: 06/14/22 07:31 Dose: Not Given Ondansetron HCl (Ondansetron Hcl 4 Mg/2 Ml Vial) 4 mg IVPUSH Q6H PRN PRN Reason: Nausea and Vomiting Pharmacy Consult (Consult Rx Perform Med Rec) 1 each MISCELLANE ONCE PRN PRN Reason: Consult order Sodium Chloride (0.9 % Sodium Chloride Flush 3 Ml Syringe) 3 ml IVFLUSH QSHIFT [facility] Last Admin: 06/14/22 07:57 Dose: 3 ml Spironolactone (Spironolactone 25 Mg Tablet) 25 mg PO DAILY [facility]; Protocol Last Admin: 06/13/22 07:40 Dose: 25 mg Trazodone HCl (Trazodone Hcl 50 Mg Tablet) 150 mg PO DAILY [facility] Last Admin: 06/14/22 07:58 Dose: 150 mg Valsartan (Valsartan 160 Mg Tablet) 160 mg PO DAILY [facility] Last Admin: 06/11/22 08:52 Dose: 160 mg Vitamin D (Cholecalciferol (Vitamin D3) 25 Mcg Tablet) 50 mcg PO DAILY [facility] Last Admin: 06/14/22 07:58 Dose: 50 mcg Home Medications Medication Instructions Recorded Confirmed Last Taken Type albuterol sulfate 90 mcg/actuation 2 puff inhalation Q6H PRN 04/01/21 06/09/22 Unknown History aerosol inhaler (ProAir HFA) Shortness Of Breath Or Wheezing ammonium lactate 12 % topical cream 1 appl topical DAILY PRN Dry Skin 04/01/21 06/09/22 Unknown History atorvastatin 20 mg tablet (Lipitor) 20 mg PO DAILY 04/01/21 06/09/22 Unknown History cholecalciferol (vitamin D3) 50 50 mcg PO DAILY 04/01/21 06/09/22 Unknown History mcg (2,000 unit) capsule citalopram 40 mg tablet 40 mg PO DAILY 04/01/21 06/09/22 Unknown History hydralazine 100 mg tablet 100 mg PO TID 04/01/21 06/09/22 Unknown History hydrochlorothiazide 50 mg tablet 50 mg PO DAILY 04/01/21 06/09/22 Unknown History irbesartan 300 mg tablet 300 mg PO DAILY 04/01/21 06/09/22 Unknown History lidocaine-prilocaine 2.5 %-2.5 % topical 04/01/21 03/30/22 Unknown History topical cream meloxicam 7.5 mg tablet 7.5 mg PO DAILY PRN Pain, Moderate 04/01/21 06/09/22 Unknown History trazodone 150 mg tablet 150 mg PO DAILY 04/01/21 06/09/22 Unknown History clonidine HCl 0.2 mg tablet 1 tab PO BEDTIME 06/09/22 06/09/22 Unknown History metformin 1,000 mg tablet 1 tab PO BID 06/09/22 06/09/22 Unknown History Exam Exam Date and Time: June 14, 2022 1239 Height,Weight and Vital Signs: Height 5 ft 2 in Weight 85.5 kg Last Vital Signs Temp 98.2 F 06/14/22 11:23 Pulse 67 06/14/22 11:23 Resp 20 06/14/22 11:23 BP 130/60 06/14/22 11:23 Pulse Ox 97 06/14/22 11:23 O2 Del Method 06/14/22 11:23 O2 Flow Rate 2 06/14/22 11:23 Pertinent Lab Results Pertinent Lab Results: Laboratory Tests 06/09/22 06/09/22 06/09/22 10:32 10:32 10:32 WBC 5.8 RBC 4.24 Hgb 13.9 Hct 43.1 MCV 101.7 H MCH 32.8 MCHC 32.3 RDW 15.7 Plt Count 60 L MPV 13.8 H Immature Gran % (Auto) 0.3 Neut % (Auto) 68.1 Lymph % (Auto) 17.1 L [place] % (Auto) 11.7 H Eos % (Auto) 1.9 Baso % (Auto) 0.9 Lymph # (Auto) 1.0 L [place] # (Auto) 0.7 Eos # (Auto) 0.1 Baso # (Auto) 0.1 Abs Immat Gran (auto) 0.02 Absolute Neuts (auto) 3.9 Absolute Nucleated RBC 0.000 Nucleated RBC % (auto) 0.0 Smear Tech's Comments VERIFIED Sodium 140 Potassium 4.3 Chloride 108 Carbon Dioxide 27 Anion Gap 9 L BUN 18 H Creatinine 0.73 Estim Creat Clear Calc 67.9 Estimated GFR > 60 POC Glucose Random Glucose 100 Calcium 8.1 L Magnesium 1.6 Total Bilirubin 1.8 H Direct Bilirubin 0.8 H AST 40 H ALT 24 Alkaline Phosphatase 142 H Troponin I High Sens 15.0 B-Natriuretic Peptide Total Protein 7.3 Albumin 2.4 L Vitamin B12 Folate COVID-19 (NATE) COVID-19 Clin Com Influenza Type A (PCR) Influenza Type B (PCR) RSV RNA Qual (PCR) SARS-CoV-2 RNA (RT-PCR) Blood Type Antibody Screen 06/09/22 06/09/22 06/09/22 10:32 10:32 10:32 WBC RBC Hgb Hct MCV MCH MCHC RDW Plt Count MPV Immature Gran % (Auto) Neut % (Auto) Lymph % (Auto) [place] % (Auto) Eos % (Auto) Baso % (Auto) Lymph # (Auto) [place] # (Auto) Eos # (Auto) Baso # (Auto) Abs Immat Gran (auto) Absolute Neuts (auto) Absolute Nucleated RBC Nucleated RBC % (auto) Smear Tech's Comments Sodium Potassium Chloride Carbon Dioxide Anion Gap BUN Creatinine Estim Creat Clear Calc Estimated GFR POC Glucose Random Glucose Calcium Magnesium Total Bilirubin Direct Bilirubin AST ALT Alkaline Phosphatase Troponin I High Sens B-Natriuretic Peptide 797 H Total Protein Albumin Vitamin B12 901 H Folate 18.7 COVID-19 (NATE) Negative COVID-19 Clin Com See Note Influenza Type A (PCR) Influenza Type B (PCR) RSV RNA Qual (PCR) SARS-CoV-2 RNA (RT-PCR) Blood Type Antibody Screen 06/09/22 06/09/22 06/09/22 11:58 18:15 20:35 WBC RBC Hgb Hct MCV MCH MCHC RDW Plt Count MPV Immature Gran % (Auto) Neut % (Auto) Lymph % (Auto) [place] % (Auto) Eos % (Auto) Baso % (Auto) Lymph # (Auto) [place] # (Auto) Eos # (Auto) Baso # (Auto) Abs Immat Gran (auto) Absolute Neuts (auto) Absolute Nucleated RBC Nucleated RBC % (auto) Smear Tech's Comments Sodium Potassium Chloride Carbon Dioxide Anion Gap BUN Creatinine Estim Creat Clear Calc Estimated GFR POC Glucose 132 H 366 H* Random Glucose Calcium Magnesium Total Bilirubin Direct Bilirubin AST ALT Alkaline Phosphatase Troponin I High Sens B-Natriuretic Peptide Total Protein Albumin Vitamin B12 Folate COVID-19 (NATE) COVID-19 Clin Com Influenza Type A (PCR) NEGATIVE Influenza Type B (PCR) NEGATIVE RSV RNA Qual (PCR) NEGATIVE SARS-CoV-2 RNA (RT-PCR) NEGATIVE Blood Type Antibody Screen 06/10/22 06/10/22 06/10/22 05:46 05:46 07:08 WBC 6.5 RBC 3.64 L Hgb 12.1 Hct 35.7 L MCV 98.1 H MCH 33.2 H MCHC 33.9 RDW 15.5 Plt Count 83 L D MPV 13.4 H Immature Gran % (Auto) Neut % (Auto) Lymph % (Auto) [place] % (Auto) Eos % (Auto) Baso % (Auto) Lymph # (Auto) [place] # (Auto) Eos # (Auto) Baso # (Auto) Abs Immat Gran (auto) Absolute Neuts (auto) Absolute Nucleated RBC 0.000 Nucleated RBC % (auto) 0.0 Smear Tech's Comments Sodium 138 Potassium 3.5 Chloride 106 Carbon Dioxide 24 Anion Gap 12 BUN 27 H Creatinine 0.88 Estim Creat Clear Calc 56.4 Estimated GFR > 60 POC Glucose 119 H Random Glucose 115 Calcium 7.5 L D Magnesium 1.8 Total Bilirubin Direct Bilirubin AST ALT Alkaline Phosphatase Troponin I High Sens B-Natriuretic Peptide Total Protein Albumin Vitamin B12 Folate COVID-19 (NATE) COVID-19 Clin Com Influenza Type A (PCR) Influenza Type B (PCR) RSV RNA Qual (PCR) SARS-CoV-2 RNA (RT-PCR) Blood Type Antibody Screen 06/10/22 06/10/22 06/10/22 12:33 17:53 19:32 WBC RBC Hgb Hct MCV MCH MCHC RDW Plt Count MPV Immature Gran % (Auto) Neut % (Auto) Lymph % (Auto) [place] % (Auto) Eos % (Auto) Baso % (Auto) Lymph # (Auto) [place] # (Auto) Eos # (Auto) Baso # (Auto) Abs Immat Gran (auto) Absolute Neuts (auto) Absolute Nucleated RBC Nucleated RBC % (auto) Smear Tech's Comments Sodium Potassium Chloride Carbon Dioxide Anion Gap BUN Creatinine Estim Creat Clear Calc Estimated GFR POC Glucose 134 H 129 H 231 H Random Glucose Calcium Magnesium Total Bilirubin Direct Bilirubin AST ALT Alkaline Phosphatase Troponin I High Sens B-Natriuretic Peptide Total Protein Albumin Vitamin B12 Folate COVID-19 (NATE) COVID-19 Clin Com Influenza Type A (PCR) Influenza Type B (PCR) RSV RNA Qual (PCR) SARS-CoV-2 RNA (RT-PCR) Blood Type Antibody Screen 06/10/22 06/11/22 06/11/22 21:40 05:20 07:40 WBC RBC Hgb Hct MCV MCH MCHC RDW Plt Count MPV Immature Gran % (Auto) Neut % (Auto) Lymph % (Auto) [place] % (Auto) Eos % (Auto) Baso % (Auto) Lymph # (Auto) [place] # (Auto) Eos # (Auto) Baso # (Auto) Abs Immat Gran (auto) Absolute Neuts (auto) Absolute Nucleated RBC Nucleated RBC % (auto) Smear Tech's Comments Sodium 137 Potassium 3.7 Chloride 102 Carbon Dioxide 26 Anion Gap 13 BUN 42 H Creatinine 1.07 Estim Creat Clear Calc 47.4 Estimated GFR 50 POC Glucose 141 H 126 H Random Glucose 128 H Calcium 7.8 L Magnesium 2.0 Total Bilirubin 0.6 Direct Bilirubin 0.3 AST 36 H ALT 23 Alkaline Phosphatase 111 Troponin I High Sens B-Natriuretic Peptide Total Protein 6.6 Albumin 2.2 L Vitamin B12 Folate COVID-19 (NATE) COVID-19 Clin Com Influenza Type A (PCR) Influenza Type B (PCR) RSV RNA Qual (PCR) SARS-CoV-2 RNA (RT-PCR) Blood Type Antibody Screen 06/11/22 06/11/22 06/11/22 11:25 16:20 20:23 WBC RBC Hgb Hct MCV MCH MCHC RDW Plt Count MPV Immature Gran % (Auto) Neut % (Auto) Lymph % (Auto) [place] % (Auto) Eos % (Auto) Baso % (Auto) Lymph # (Auto) [place] # (Auto) Eos # (Auto) Baso # (Auto) Abs Immat Gran (auto) Absolute Neuts (auto) Absolute Nucleated RBC Nucleated RBC % (auto) Smear Tech's Comments Sodium Potassium Chloride Carbon Dioxide Anion Gap BUN Creatinine Estim Creat Clear Calc Estimated GFR POC Glucose 137 H 154 H 183 H Random Glucose Calcium Magnesium Total Bilirubin Direct Bilirubin AST ALT Alkaline Phosphatase Troponin I High Sens B-Natriuretic Peptide Total Protein Albumin Vitamin B12 Folate COVID-19 (NATE) COVID-19 Clin Com Influenza Type A (PCR) Influenza Type B (PCR) RSV RNA Qual (PCR) SARS-CoV-2 RNA (RT-PCR) Blood Type Antibody Screen 06/12/22 06/12/22 06/12/22 05:42 07:21 11:31 WBC RBC Hgb Hct MCV MCH MCHC RDW Plt Count MPV Immature Gran % (Auto) Neut % (Auto) Lymph % (Auto) [place] % (Auto) Eos % (Auto) Baso % (Auto) Lymph # (Auto) [place] # (Auto) Eos # (Auto) Baso # (Auto) Abs Immat Gran (auto) Absolute Neuts (auto) Absolute Nucleated RBC Nucleated RBC % (auto) Smear Tech's Comments Sodium 138 Potassium 3.7 Chloride 102 Carbon Dioxide 26 Anion Gap 14 BUN 78 H Creatinine 1.25 Estim Creat Clear Calc 40.6 Estimated GFR 42 POC Glucose 133 H 221 H Random Glucose 144 H Calcium 7.5 L Magnesium Total Bilirubin Direct Bilirubin AST ALT Alkaline Phosphatase Troponin I High Sens B-Natriuretic Peptide Total Protein Albumin Vitamin B12 Folate COVID-19 (NATE) COVID-19 Clin Com Influenza Type A (PCR) Influenza Type B (PCR) RSV RNA Qual (PCR) SARS-CoV-2 RNA (RT-PCR) Blood Type Antibody Screen 06/12/22 06/12/22 06/13/22 15:24 20:16 07:17 WBC RBC Hgb Hct MCV MCH MCHC RDW Plt Count MPV Immature Gran % (Auto) Neut % (Auto) Lymph % (Auto) [place] % (Auto) Eos % (Auto) Baso % (Auto) Lymph # (Auto) [place] # (Auto) Eos # (Auto) Baso # (Auto) Abs Immat Gran (auto) Absolute Neuts (auto) Absolute Nucleated RBC Nucleated RBC % (auto) Smear Tech's Comments Sodium Potassium Chloride Carbon Dioxide Anion Gap BUN Creatinine Estim Creat Clear Calc Estimated GFR POC Glucose 185 H 171 H 152 H Random Glucose Calcium Magnesium Total Bilirubin Direct Bilirubin AST ALT Alkaline Phosphatase Troponin I High Sens B-Natriuretic Peptide Total Protein Albumin Vitamin B12 Folate COVID-19 (NATE) COVID-19 Clin Com Influenza Type A (PCR) Influenza Type B (PCR) RSV RNA Qual (PCR) SARS-CoV-2 RNA (RT-PCR) Blood Type Antibody Screen 06/13/22 06/13/22 06/13/22 11:10 15:39 19:18 WBC RBC Hgb Hct MCV MCH MCHC RDW Plt Count MPV Immature Gran % (Auto) Neut % (Auto) Lymph % (Auto) [place] % (Auto) Eos % (Auto) Baso % (Auto) Lymph # (Auto) [place] # (Auto) Eos # (Auto) Baso # (Auto) Abs Immat Gran (auto) Absolute Neuts (auto) Absolute Nucleated RBC Nucleated RBC % (auto) Smear Tech's Comments Sodium Potassium Chloride Carbon Dioxide Anion Gap BUN Creatinine Estim Creat Clear Calc Estimated GFR POC Glucose 167 H 186 H 158 H Random Glucose Calcium Magnesium Total Bilirubin Direct Bilirubin AST ALT Alkaline Phosphatase Troponin I High Sens B-Natriuretic Peptide Total Protein Albumin Vitamin B12 Folate COVID-19 (NATE) COVID-19 Clin Com Influenza Type A (PCR) Influenza Type B (PCR) RSV RNA Qual (PCR) SARS-CoV-2 RNA (RT-PCR) Blood Type Antibody Screen 06/14/22 06/14/22 06/14/22 05:19 06:03 07:20 WBC 10.9 H RBC 2.51 L D Hgb 8.2 L D Hct 25.3 L D MCV 100.8 H MCH 32.7 MCHC 32.4 RDW 15.5 Plt Count 93 L MPV 13.4 H Immature Gran % (Auto) 0.8 H Neut % (Auto) 69.9 Lymph % (Auto) 13.9 L [place] % (Auto) 15.2 H Eos % (Auto) 0.1 Baso % (Auto) 0.1 Lymph # (Auto) 1.5 [place] # (Auto) 1.7 H Eos # (Auto) 0.0 Baso # (Auto) 0.0 Abs Immat Gran (auto) 0.09 H Absolute Neuts (auto) 7.6 Absolute Nucleated RBC 0.000 Nucleated RBC % (auto) 0.0 Smear Tech's Comments VERIFIED Sodium 145 Potassium 3.8 Chloride 108 Carbon Dioxide 27 Anion Gap 14 BUN 101 H Creatinine 1.40 Estim Creat Clear Calc 36.3 Estimated GFR 37 POC Glucose 146 H Random Glucose 167 H Calcium 7.3 L Magnesium Total Bilirubin 0.6 Direct Bilirubin 0.3 AST 18 ALT 19 Alkaline Phosphatase 60 Troponin I High Sens B-Natriuretic Peptide Total Protein 4.7 L Albumin 2.1 L Vitamin B12 Folate COVID-19 (NATE) COVID-19 Clin Com Influenza Type A (PCR) Influenza Type B (PCR) RSV RNA Qual (PCR) SARS-CoV-2 RNA (RT-PCR) Blood Type Antibody Screen 06/14/22 06/14/22 06/14/22 07:50 07:50 11:20 WBC RBC Hgb 8.3 L Hct 25.4 L MCV MCH MCHC RDW Plt Count MPV Immature Gran % (Auto) Neut % (Auto) Lymph % (Auto) [place] % (Auto) Eos % (Auto) Baso % (Auto) Lymph # (Auto) [place] # (Auto) Eos # (Auto) Baso # (Auto) Abs Immat Gran (auto) Absolute Neuts (auto) Absolute Nucleated RBC Nucleated RBC % (auto) Smear Tech's Comments Sodium Potassium Chloride Carbon Dioxide Anion Gap BUN Creatinine Estim Creat Clear Calc Estimated GFR POC Glucose 173 H Random Glucose Calcium Magnesium Total Bilirubin Direct Bilirubin AST ALT Alkaline Phosphatase Troponin I High Sens B-Natriuretic Peptide Total Protein Albumin Vitamin B12 Folate COVID-19 (NATE) COVID-19 Clin Com Influenza Type A (PCR) Influenza Type B (PCR) RSV RNA Qual (PCR) SARS-CoV-2 RNA (RT-PCR) Blood Type A Positive Antibody Screen NEGATIVE Airway Mallampati Class: II TM Dist: >3cm Neck ROM: Full Loose/Missing/Broken Teeth: No Heart: RRR Lungs: CTA Assessment and Plan Assessment Anesthesia Assessment: Anesthesia Plan Discussed and Chart Reviewed Final Anesthetic Review Family History of Problems with Anesthesia: No History of Problems with Anesthesia: No NPO: Yes ASA Class: III and Emergency Final Preanesthetic Review: No Changes in Pt Med Stat, Meds/Allgs Chart Reviewed, Consent Obtained/Reviewed and Anes Risks/Benef Reviewed Patient Risk: High Procedure Risk: Low Anesthetic Plan Anesthetic Plan: MAC: Disposition: Standard PACU
[2022-06-14 12:53] LABS: Hematocrit 24.2 % (37.0-47.0); Hemoglobin 7.9 g/dl (12.0-16.0)
[2022-06-14 12:59] LABS: INTERNATIONAL NORM RATIO 1.6 (0.9-1.1); Prothrombin Time 18.7 SEC (10.0-13.1)
--- NOTE | 2022-06-14 13:11 | P.PNIM_ITS ---
Subjective Subjective Date of Service: 06/14/22 Interval History: Vomited coffee-ground last night, so this morning, also passed a dark bowel movement Review of Systems Denies any chest pain or shortness of breath but feel nauseated and had vomiting as above. Physical Exam Vital Signs: Vital Signs: Last Vital Signs Temp 98.2 F 06/14/22 11:23 Pulse 67 06/14/22 11:23 Resp 20 06/14/22 11:23 BP 130/60 06/14/22 11:23 Pulse Ox 97 06/14/22 11:23 O2 Del Method 06/14/22 11:23 O2 Flow Rate 2 06/14/22 11:23 BMI result Body Mass Index 34.4 ? Appearance: Alert.? Oriented X3.? cvs: rrr, [id number] , no murmur res: air entry improving ,few rhonchii,no rales abd: no rebound or guarding ,nt, bs present. ext pulses present , no cyanosis,edema trace. neuro: axo3 , nonfocal. Objective Data Active Medications Albuterol/Ipratropium (Albuterol/Iprat 2.5/0.5mg 3 Ml Ampul.Neb) 3 ml INHALE RQ4H WHILE AWAKE [facility] Last Admin: 06/14/22 12:18 Dose: Not Given Documented By: SALOME Non-Admin Reason: pt asleep Albuterol/Ipratropium (Albuterol/Iprat 2.5/0.5mg 3 Ml Ampul.Neb) 3 ml INHALE Q4H PRN PRN Reason: Shortness of Breath Amlodipine Besylate (Amlodipine Besylate 10 Mg Tablet) 10 mg PO DAILY [facility] Last Admin: 06/14/22 07:58 Dose: 10 mg Documented By: COTHARIKA Atorvastatin Calcium (Atorvastatin Calcium 20 Mg Tablet) 20 mg PO DAILY [facility] Last Admin: 06/14/22 07:58 Dose: 20 mg Documented By: COTEMA Carvedilol (Carvedilol 3.125 Mg Tablet) 3.125 mg PO BID [facility]; Protocol Last Admin: 06/14/22 07:58 Dose: 3.125 mg Documented By: COTEMA Clonidine HCl (Clonidine Hcl 0.2 Mg Tablet) 0.2 mg PO BEDTIME [facility]; Protocol Last Admin: 06/13/22 20:13 Dose: 0.2 mg Documented By: CAITLYN Comments: bp 122/60 h 64 Dextrose (Dextrose 50 % 25 Gm/50 Ml Syringe) 25 gm IVPUSH Q15M PRN; Protocol PRN Reason: per Hypoglycemia Standing Ord. Docusate Sodium (Docusate Sodium 100 Mg Capsule) 100 mg PO DAILY PRN PRN Reason: Constipation Escitalopram Oxalate (Escitalopram Oxalate 20 Mg Tablet) 20 mg PO DAILY [facility] Last Admin: 06/14/22 07:58 Dose: 20 mg Documented By: COTEMA Furosemide (Furosemide 40 Mg Tablet) 40 mg PO DAILY [facility]; Protocol Last Admin: 06/13/22 07:40 Dose: 40 mg Documented By: COTEMA Glucose (Glucose Gel 15 Gm Gel..Gram.) 15 gm PO Q15M PRN; Protocol PRN Reason: per Hypoglycemia Standing Ord. Hydralazine HCl (Hydralazine Hcl 50 Mg Tablet) 100 mg PO TID [facility]; Protocol Last Admin: 06/13/22 20:12 Dose: 100 mg Documented By: CAITLYN Comments: bp 122/60 h 61 Octreotide Acetate 500 mcg/ (Sodium Chloride) 501 mls @ 50.1 mls/hr IVCONT .Q10H [facility] Last Admin: 06/14/22 11:02 Dose: 50 mcg/hr, 50.1 mls/hr Documented By: KYRA Pantoprazole Sodium 80 mg/ (Sodium Chloride) 100 mls @ 10 mls/hr IV .Q10H [facility] Insulin Human Lispro (Insulin Lispro 100 Unit/Ml 3 Ml Vial) 0 unit SUBCUT Q IDACHS [facility]; Protocol Last Admin: 06/14/22 07:31 Dose: Not Given Documented By: KYRA Non-Admin Reason: No Insulin Coverage Ondansetron HCl (Ondansetron Hcl 4 Mg/2 Ml Vial) 4 mg IVPUSH Q6H PRN PRN Reason: Nausea and Vomiting Pharmacy Consult (Consult Rx Perform Med Rec) 1 each MISCELLANE ONCE PRN PRN Reason: Consult order Sodium Chloride (0.9 % Sodium Chloride Flush 3 Ml Syringe) 3 ml IVFLUSH QSHIFT [facility] Last Admin: 06/14/22 07:57 Dose: 3 ml Documented By: KYAR Spironolactone (Spironolactone 25 Mg Tablet) 25 mg PO DAILY [facility]; Protocol Last Admin: 06/13/22 07:40 Dose: 25 mg Documented By: KYRA Trazodone HCl (Trazodone Hcl 50 Mg Tablet) 150 mg PO DAILY [facility] Last Admin: 06/14/22 07:58 Dose: 150 mg Documented By: KYRA Valsartan (Valsartan 160 Mg Tablet) 160 mg PO DAILY [facility] Last Admin: 06/11/22 08:52 Dose: 160 mg Documented By: CLARISSA Vitamin D (Cholecalciferol (Vitamin D3) 25 Mcg Tablet) 50 mcg PO DAILY [facility] Last Admin: 06/14/22 07:58 Dose: 50 mcg Documented By: KYRA Labs CBC & Chem 7: 06/14/22 12:01 06/14/22 05:19 Labs: Laboratory Results - last 24 hr 06/13/22 06/13/22 06/14/22 15:39 19:18 05:19 MCV MCH MCHC RDW Plt Count MPV Immature Gran % (Auto) Neut % (Auto) Lymph % (Auto) Zapata % (Auto) Eos % (Auto) Baso % (Auto) Lymph # (Auto) Zapata # (Auto) Eos # (Auto) Baso # (Auto) Abs Immat Gran (auto) Absolute Neuts (auto) Absolute Nucleated RBC Nucleated RBC % (auto) Smear Tech's Comments PT INR Anion Gap 14 Estim Creat Clear Calc 36.3 Estimated GFR 37 POC Glucose 186 H 158 H Random Glucose 167 H Calcium 7.3 L Total Bilirubin 0.6 Direct Bilirubin 0.3 AST 18 ALT 19 Alkaline Phosphatase 60 Total Protein 4.7 L Albumin 2.1 L Blood Type Antibody Screen 06/14/22 06/14/22 06/14/22 06:03 07:20 07:50 MCV 100.8 H MCH 32.7 MCHC 32.4 RDW 15.5 Plt Count 93 L MPV 13.4 H Immature Gran % (Auto) 0.8 H Neut % (Auto) 69.9 Lymph % (Auto) 13.9 L Zapata % (Auto) 15.2 H Eos % (Auto) 0.1 Baso % (Auto) 0.1 Lymph # (Auto) 1.5 Zapata # (Auto) 1.7 H Eos # (Auto) 0.0 Baso # (Auto) 0.0 Abs Immat Gran (auto) 0.09 H Absolute Neuts (auto) 7.6 Absolute Nucleated RBC 0.000 Nucleated RBC % (auto) 0.0 Smear Tech's Comments VERIFIED PT INR Anion Gap Estim Creat Clear Calc Estimated GFR POC Glucose 146 H Random Glucose Calcium Total Bilirubin Direct Bilirubin AST ALT Alkaline Phosphatase Total Protein Albumin Blood Type A Positive Antibody Screen NEGATIVE 06/14/22 06/14/22 11:20 12:01 MCV MCH MCHC RDW Plt Count MPV Immature Gran % (Auto) Neut % (Auto) Lymph % (Auto) Zapata % (Auto) Eos % (Auto) Baso % (Auto) Lymph # (Auto) Zapata # (Auto) Eos # (Auto) Baso # (Auto) Abs Immat Gran (auto) Absolute Neuts (auto) Absolute Nucleated RBC Nucleated RBC % (auto) Smear Tech's Comments PT 18.7 H INR 1.6 H Anion Gap Estim Creat Clear Calc Estimated GFR POC Glucose 173 H Random Glucose Calcium Total Bilirubin Direct Bilirubin AST ALT Alkaline Phosphatase Total Protein Albumin Blood Type Antibody Screen Assessment and Plan (1) Acute on chronic right heart failure: Status: Acute (2) Pulmonary hypertension: Status: Acute (3) Cirrhosis: Status: Acute (4) COPD (chronic obstructive pulmonary disease): Status: Acute (5) HOANG (acute kidney injury): Status: Acute Plan 72-year-old female with a PMH significant for asthma, COPD, restrictive lung disease, [id number] diabetes, HTN, HLD, and cirrhosis who presents to the ED today for 2 weeks of worsening SOB, productive cough, and edema. Pt was admitted to the hospital for treatment of COPD and new onset CHF. # CHF-Echocardiogram reviewed.? Shows preserved LVEF and moderate diastolic dysfunction possibly secondary to COPD exacerbation worsening peripheral and central edema for the past 2 weeks CXR shows possible pulmonary venous redistribution/mild pulmonary edema sob seems improved,off oxygen , cardiology consulted -on polasix /sprinolactone(placed on hold due to nausea /vomitin-losing fluids ) follow lytes, mg, I/O. # COPD exacerbation -- no clear infectious source, no leukocytosis -- patient continues to get relief from nebulizer treatments off steriods due to possible Gib -- DuoNeb 3ml q4h while awake and prn -- continue home maintenance inhalers acute blood loss anemia on ch marcocytic anemia: hx of cirrosis,mild elevated lft's h/h drop to 8.3,inr 1.6 ppi,octreotide ,vitmink iv, jose and cross,moniter h/h closely d/w Gi-plan for EGD today # non-insulin diabetes -- hold metformin npo ,continue adjusted ssi. # HTN-- continue home meds # HLD-- continue home meds Prerenal azotemia vs mild hoang-Due to overdiursis/steriods/gib hold steriods,hold lasix moniter bmp overweight: encouraged to lose weight. Full code DVT prophylaxis: Lovenox inpatient need: possible Gib -going for egd ,also need h/h moniterin Time Spent With Patient Time: Total time managing care of this patient today ____ minutes. Quality Stroke Does the patient have a stroke diagnosis?: No VTE Prior VTE?: No VTE Risk Level:: Medical - moderate - high VTE Device Contraindication: Treatment Not Indicated VTE Drug Contraindication: N/A - Med Ordered
[2022-06-14] MEDS: Pantoprazole Sodium 80 MG in 0.9 % Sodium Chloride 80 ML 10 MG IV ×2 (13:14→21:47)
--- NOTE | 2022-06-14 13:56 | P.OP_ITS ---
Operative Note Operative Note Date of Service: 06/14/22 Narrative: Procedure Description: EGD Indication: acute blood loss anemia, hematemesis, melena Anesthesia: GA FLEXIBLE TRANSORAL UPPER GASTROINTESTINAL ENDOSCOPY UPPER ENDOSCOPY Consent: Indications for the procedure and potential complications of bleeding, perforation, reaction to medications and missed diagnosis were discussed with the patient and informed consent was obtained. Instrument: Olympus GIF H 190 J mid size upper endoscope Monitoring: Vital signs and clinical assessment, continuous EKG monitoring, Pulse oximetry, Carbon Dioxide monitoring and blood pressure monitoring were done throughout the procedure. Procedure: The patient was placed in the left lateral decubitis position and pre-procedure medications were administered and a bite block was placed. The endoscope was inserted into the mouth and advanced under direct vision to the third part of duodenum. A careful inspection was made as the upper endoscope was withdrawn including a retroflexed examination of the proximal stomach; Findings and interventions are described below. Findings: Larynx:normal Esophagus: GE junction at 35 cm, diaphragm hiatus at 35 cm, Grade I varices no debi x 3 columns (BP was low so likely underestimate), x 5 bands were applied to the GEJ area Stomach: Pallor noted Grade 2 flap valve on retroflexed examination of the cardia. non bleeding gastric varices noted, with continuation into the lower esophagus consistent with GOV type 1. Visability was reduced due to old bleed, but no active bleeding seen Duodenum: Normal bulb and descending duodenum, Intervention: gastro esophageal varices type I-- esophageal; band ligation Impression/Findings: gastro esophageal varices PLAN: 1/ cont octreotide for 48-72 hrs 2/ cont with PPI 3/ Can add sucralfate 1 g QID for 2 weeks to prevent post banding ulceration 4/NPO today and allow clears tomorrow and advance thereafter 5/ If evidence of re bleeding then transfer to larger center for TIPS
[2022-06-14 15:33] LABS: Glucose, Whole Blood 147 mg/dL (60-115)
[2022-06-14 16:00] LABS: VBG Base Excess 10.7 mmol/L; VBG HCO3 35 mmol/L (22-26); VBG pCO2 52 mmHg; VBG pH 7.44 (7.32-7.43); VBG pO2 188 mmHg
[2022-06-14 16:01] LABS: Venous Blood Gas Refer to POC result
[2022-06-14 17:08] LABS: Glucose, Whole Blood 184 mg/dL (60-115)
[2022-06-14] MEDS: cefTRIAXone sodium 1 GM in 0.9 % Sodium Chloride 50 ML IV (17:55)
[2022-06-14 18:24] LABS: Hematocrit 25.7 % (37.0-47.0); Hemoglobin 8.3 g/dl (12.0-16.0)
[2022-06-14 18:32] LABS: INTERNATIONAL NORM RATIO 1.5 (0.9-1.1); Prothrombin Time 17.7 SEC (10.0-13.1)
[2022-06-14] MEDS: Albuterol/Iprat 2.5/0.5MG 3 ML AMPUL.NEB INHALE (20:01)
[2022-06-14 22:21] LABS: Hematocrit 24.8 % (37.0-47.0); Hemoglobin 8.1 g/dl (12.0-16.0)
[2022-06-14 22:23] LABS: Glucose, Whole Blood 155 mg/dL (60-115)
[2022-06-15] VITALS (10 sets, daily range): BP systolic 120–181; BP diastolic 65–81; PULSE 59–77; RESP 16–20; TEMP 36.6–37.6; O2SAT 90–97
[2022-06-15] MEDS: Octreotide Acetate 500 MCG in 0.9 % Sodium Chloride 500 ML 50.1 MCG IVCONT ×2 (05:56→18:32)
[2022-06-15 06:31] LABS: Hematocrit 28.7 % (37.0-47.0); Hemoglobin 9.2 g/dl (12.0-16.0); Mean Corpuscular HGB Conc 32.1 g/dl (31.0-35.0); Mean Corpuscular Volume 102.9 fL (80.0-98.0); NRBC Pct Auto 0.3 /100WBC (0.0-0.2); Red Blood Count 2.79 X10*6/uL (4.20-5.50); Red Cell Distribution Width 15.7 % (11.0-16.0); White Blood Count 15.9 X10*3/uL (4.8-10.8)
[2022-06-15 07:33] LABS: Platelet Count 80 X10*3/uL (160-400)
[2022-06-15 07:46] LABS: INTERNATIONAL NORM RATIO 1.3 (0.9-1.1); Prothrombin Time 14.7 SEC (10.0-13.1)
--- NOTE | 2022-06-15 07:56 | HO.POSTANES ---
Post Anesthesia Evaluation Post Anesthesia Evaluation Vital Signs: Vital Signs Temp Pulse Resp BP Pulse Ox O2 Del Method O2 Flow Rate 06/15/22 04:00 98.8 F 75 20 164/70 H 95 Nasal Cannula 2 06/14/22 20:00 97.7 F 71 20 155/67 H 95 Nasal Cannula 2 06/14/22 20:04 63 12 Anesthesia: General Endotracheal-GETA Mental Status: Awake Pain Control: Satisfactory Nausea/Vomiting: None Hydration: Adequate Anesthesia-Related Issues: No Anes. Related Issues
[2022-06-15] MEDS: Albuterol/Iprat 2.5/0.5MG 3 ML AMPUL.NEB INHALE ×3 (07:58→19:41)
[2022-06-15 08:10] LABS: Glucose, Whole Blood 136 mg/dL (60-115)
[2022-06-15] MEDS: Pantoprazole Sodium 80 MG in 0.9 % Sodium Chloride 80 ML 10 MG IV ×2 (09:33→19:26)
[2022-06-15] MEDS: Sucralfate Oral Suspension 1 GM/10 ML ORAL.SUSP PO ×4 (09:39→20:57)
[2022-06-15] MEDS: 0.9 % Sodium Chloride Flush 3 ML SYRINGE IVFLUSH (09:39)
[2022-06-15] MEDS: Albuterol Sulfate 7.5 MG, Albuterol Sulfate (0.083%) 2.5 MG 10 MG INHALE (10:46)
[2022-06-15 11:46] LABS: Venous Blood Gas Refer to POC result
[2022-06-15 11:47] LABS: VBG Base Excess 3.2 mmol/L; VBG HCO3 27 mmol/L (22-26); VBG pCO2 39 mmHg; VBG pH 7.44 (7.32-7.43); VBG pO2 68 mmHg
--- NOTE | 2022-06-15 11:49 | HO.PM.IMPN ---
Subjective Subjective Date of Service: 06/15/22 Interval History: chf,copd,GIB Review of Systems seems sleepy but easily aurosable answers most of questions denies any chest pain or abdominal pain or nausea or vomiting or any new GI bleed overnight Has somewhat sob. Physical Exam Vital Signs: Vital Signs: Last Vital Signs Temp 98.2 F 06/15/22 08:00 Pulse 64 06/15/22 10:51 Resp 16 06/15/22 10:51 BP 181/81 H 06/15/22 08:00 Pulse Ox 97 06/15/22 08:00 O2 Del Method 06/15/22 08:00 O2 Flow Rate 1.5 06/15/22 08:00 BMI result Body Mass Index 34.4 Appearance: Alert.? Oriented X3.? cvs: rrr, [id number] , no murmur res: air entry diminshed at bases ,has fe wheezes , no rales. abd: no rebound or guarding ,nt, bs present. ext pulses present , no cyanosis,edema trace. neuro: axo3 , nonfocal. Objective Data Active Medications Albuterol/Ipratropium (Albuterol/Iprat 2.5/0.5mg 3 Ml Ampul.Neb) 3 ml INHALE RQ4H WHILE AWAKE [facility] Last Admin: 06/15/22 10:52 Dose: Not Given Documented By: KETAN Non-Admin Reason: See Note Albuterol/Ipratropium (Albuterol/Iprat 2.5/0.5mg 3 Ml Ampul.Neb) 3 ml INHALE Q4H PRN PRN Reason: Shortness of Breath Amlodipine Besylate (Amlodipine Besylate 10 Mg Tablet) 10 mg PO DAILY [facility] Last Admin: 06/14/22 07:58 Dose: 10 mg Documented By: COTEMA Atorvastatin Calcium (Atorvastatin Calcium 20 Mg Tablet) 20 mg PO DAILY [facility] Last Admin: 06/14/22 07:58 Dose: 20 mg Documented By: COTEMA Carvedilol (Carvedilol 3.125 Mg Tablet) 3.125 mg PO BID [facility]; Protocol Last Admin: 06/14/22 07:58 Dose: 3.125 mg Documented By: COTEMA Clonidine HCl (Clonidine Hcl 0.2 Mg Tablet) 0.2 mg PO BEDTIME [facility]; Protocol Last Admin: 06/13/22 20:13 Dose: 0.2 mg Documented By: CAITLYN Comments: bp 122/60 h 64 Dextrose (Dextrose 50 % 25 Gm/50 Ml Syringe) 25 gm IVPUSH Q15M PRN; Protocol PRN Reason: per Hypoglycemia Standing Ord. Docusate Sodium (Docusate Sodium 100 Mg Capsule) 100 mg PO DAILY PRN PRN Reason: Constipation Escitalopram Oxalate (Escitalopram Oxalate 20 Mg Tablet) 20 mg PO DAILY [facility] Last Admin: 06/14/22 07:58 Dose: 20 mg Documented By: COTEMA Furosemide (Furosemide 40 Mg Tablet) 40 mg PO DAILY [facility]; Protocol Last Admin: 06/13/22 07:40 Dose: 40 mg Documented By: SONAMEMA Glucose (Glucose Gel 15 Gm Gel..Gram.) 15 gm PO Q15M PRN; Protocol PRN Reason: per Hypoglycemia Standing Ord. Hydralazine HCl (Hydralazine Hcl 50 Mg Tablet) 100 mg PO TID [facility]; Protocol Last Admin: 06/13/22 20:12 Dose: 100 mg Documented By: CAITLYN Comments: bp 122/60 h 61 Octreotide Acetate 500 mcg/ (Sodium Chloride) 501 mls @ 50.1 mls/hr IVCONT .Q10H [facility] Last Admin: 06/15/22 05:56 Dose: 50 mcg/hr, 50.1 mls/hr Documented By: ZENAIDA Pantoprazole Sodium 80 mg/ (Sodium Chloride) 100 mls @ 10 mls/hr IV .Q10H [facility] Last Admin: 06/15/22 09:33 Dose: 8 mg/hr, 10 mls/hr Documented By: LEROY Ceftriaxone Sodium 1 gm/ (Sodium Chloride) 50 mls @ 100 mls/hr IV Q24H [facility] Last Infusion: 06/14/22 18:41 Dose: 0 mls/hr Documented By: MURIEL Insulin Human Lispro (Insulin Lispro 100 Unit/Ml 3 Ml Vial) 0 unit SUBCUT QIDACHS [facility]; Protocol Last Admin: 06/15/22 09:18 Dose: Not Given Documented By: LEROY Non-Admin Reason: No Insulin Coverage Ondansetron HCl (Ondansetron Hcl 4 Mg/2 Ml Vial) 4 mg IVPUSH Q6H PRN PRN Reason: Nausea and Vomiting Pharmacy Consult (Consult Rx Perform Med Rec) 1 each MISCELLANE ONCE PRN PRN Reason: Consult order Sodium Chloride (0.9 % Sodium Chloride Flush 3 Ml Syringe) 3 ml IVFLUSH QSHIFT [facility] Last Admin: 06/15/22 09:39 Dose: 3 ml Documented By: LEROY Spironolactone (Spironolactone 25 Mg Tablet) 25 mg PO DAILY [facility]; Protocol Last Admin: 06/13/22 07:40 Dose: 25 mg Documented By: KYRA Sucralfate (Sucralfate Oral Suspension 1 Gm/10 Ml Oral.Susp) 1 gm PO QIDACHS [facility] Last Admin: 06/15/22 09:39 Dose: 1 gm Documented By: LEROY Trazodone HCl (Trazodone Hcl 50 Mg Tablet) 150 mg PO DAILY [facility] Last Admin: 06/14/22 07:58 Dose: 150 mg Documented By: KYRA Valsartan (Valsartan 160 Mg Tablet) 160 mg PO DAILY [facility] Last Admin: 06/11/22 08:52 Dose: 160 mg Documented By: CLARISSA Vitamin D (Cholecalciferol (Vitamin D3) 25 Mcg Tablet) 50 mcg PO DAILY [facility] Last Admin: 06/14/22 07:58 Dose: 50 mcg Documented By: KYRA Labs CBC & Chem 7: 06/15/22 06:08 06/15/22 11:38 Labs: Laboratory Results - last 24 hr 06/14/22 06/14/22 06/14/22 12:01 15:27 15:54 MCV MCH MCHC RDW Plt Count MPV Absolute Nucleated RBC Nucleated RBC % (auto) PT 18.7 H INR 1.6 H VBG pH 7.44 H VBG pCO2 52 VBG pO2 188 VBG HCO3 35 H VBG O2 Saturation 99.0 VBG Base Excess 10.7 POC Glucose 147 H 06/14/22 06/14/22 06/14/22 17:04 18:17 22:20 MCV MCH MCHC RDW Plt Count MPV Absolute Nucleated RBC Nucleated RBC % (auto) PT 17.7 H INR 1.5 H VBG pH VBG pCO2 VBG pO2 VBG HCO3 VBG O2 Saturation VBG Base Excess POC Glucose 184 H 155 H 1206/15/22 06/15/22 06:08 07:28 08:04 MCV 102.9 H MCH 33.0 MCHC 32.1 RDW 15.7 Plt Count 80 L MPV TNP Absolute Nucleated RBC 0.040 H Nucleated RBC % (auto) 0.3 H PT 14.7 H INR 1.3 H VBG pH VBG pCO2 VBG pO2 VBG HCO3 VBG O2 Saturation VBG Base Excess POC Glucose 136 H 06/15/22 11:42 MCV MCH MCHC RDW Plt Count MPV Absolute Nucleated RBC Nucleated RBC % (auto) PT INR VBG pH 7.44 H VBG pCO2 39 VBG pO2 68 VBG HCO3 27 H VBG O2 Saturation 93.0 VBG Base Excess 3.2 POC Glucose Assessment and Plan (1) Acute on chronic blood loss anemia: Status: Acute (2) HOANG (acute kidney injury): Status: Acute (3) Congestive heart failure: Status: Acute (4) COPD (chronic obstructive pulmonary disease): Status: Acute Assessment and Plan: 72-year-old female with a PMH significant for asthma, COPD, restrictive lung disease, isi-dzgbgay-ffablslpy diabetes, HTN, HLD, and cirrhosis who presents to the ED today for 2 weeks of worsening SOB, productive cough, and edema. Pt was admitted to the hospital for treatment of COPD and new onset CHF. # CHF-- etiology unclear, possibly secondary to COPD exacerbation worsening peripheral and central edema for the past 2 weeks ?CXR shows possible pulmonary venous redistribution/mild pulmonary edema patient feeling better today, less SOB, edema cardiology consultnoted-Echocardiogram reviewed.? Shows preserved LVEF and moderate diastolic dysfunction hold lasix spironolactone for today due to gib blood loss ,also decreased po intake and overdiuresis. ?follow lytes, mg, I/O. # COPD exacerbation still somewhat sob -- no clear infectious source, no leukocytosis -- patient continues to get relief from nebulizer treatments -- DuoNeb 3ml q4h while awake and prn-given extra nebs ,magnesium vbg noted -seems fine ,cxr pending -- continue home maintenance inhalers acute blood loss anemia on ch marcocytic anemia: hx of cirrosis,mild elevated lft's h/h drop to 8.3,inr 1.6 ppi,octreotide ,vitmink iv, jose and cross,moniter h/h closely d/w Gi-has egd:no active bleeding,varices banding placed ,sucralfate started. moniter h/h dialy now since no bleed overnigtht. # non-insulin diabetes -- hold metformin -- ssi Unspecified cirrhosis of liver: somewhat sleepy will check lft's ,ammonia ,ct head mild elevated lft's ,low albumin added albumin # HTN-- continue home meds # HLD-- continue home meds Prerenal azotemia vs mild hoang-Due to overdiursis/steriods taper steriods,hold lasix moniter bmp overweight: encouraged to lose weight. Full code DVT prophylaxis: mech devices due to gib inpatient need: COPD treatment -continue nebs ,sats and respiratory monitering Time Spent With Patient Time: Total time managing care of this patient today ____ minutes. Quality Stroke Does the patient have a stroke diagnosis?: No VTE Prior VTE?: No VTE Risk Level:: Medical - moderate - high VTE Device Contraindication: Treatment Not Indicated VTE Drug Contraindication: N/A - Med Ordered
[2022-06-15 11:57] LABS: Ammonia 55 umol/L (13-55)
[2022-06-15 12:05] LABS: Alanine Aminotransferase 23 U/L (0-31); Albumin Level 2.6 g/dL (3.5-5.0); Alkaline Phosphatase 74 U/L (39-117); Anion Gap 11 (12-20); Aspartate Amino Transferase 23 U/L (5-31); Bilirubin Direct 0.4 mg/dL (0.0-0.5); Bilirubin Total 0.9 mg/dL (0.0-1.0); Blood Urea Nitrogen 82 mg/dL (9-16); Calcium 7.7 mg/dL (8.4-10.2); Carbon Dioxide 29 mmol/L (22-29); Chloride 116 mmol/L (96-108); Creatinine Clr Calc Pharmacy 38.2; Estimated Glomerular Filt Rate 39; Glucose Random 153 mg/dL (60-115); Potassium 4.1 mmol/L (3.3-5.1); Sodium 152 mmol/L (135-145); Total Protein 5.6 g/dL (6.5-8.0)
[2022-06-15 12:18] LABS: Glucose, Whole Blood 145 mg/dL (60-115)
[2022-06-15] MEDS: Magnesium Sulfate/D5W 1 GM/100 ML PIGGYBACK IV (13:20)
[2022-06-15 13:29] LABS: B Type Natriuretic Peptide 205 pg/mL (<100)
[2022-06-15] MEDS: Dextrose 5 % 1,000 ML 50 ML IVCONT (14:44)
--- NOTE | 2022-06-15 15:21 | MHC.CM.PN ---
per rounds pt not ready for dc will be ready in 1 to 2,days
[2022-06-15 16:28] LABS: Glucose, Whole Blood 151 mg/dL (60-115)
[2022-06-15] MEDS: cefTRIAXone sodium 1 GM in 0.9 % Sodium Chloride 50 ML IV (17:00)
[2022-06-15 19:43] LABS: Sodium 152 mmol/L (135-145)
[2022-06-15 20:41] LABS: Glucose, Whole Blood 145 mg/dL (60-115)
[2022-06-16] VITALS (7 sets, daily range): BP systolic 141–149; BP diastolic 52–72; PULSE 69–82; RESP 14–20; TEMP 36.6–36.9; O2SAT 89–95
[2022-06-16] MEDS: Octreotide Acetate 500 MCG in 0.9 % Sodium Chloride 500 ML 50.1 MCG IVCONT ×3 (02:25→22:33)
[2022-06-16] MEDS: Pantoprazole Sodium 80 MG in 0.9 % Sodium Chloride 80 ML 10 MG IV ×3 (04:06→22:33)
[2022-06-16] MEDS: Albuterol/Iprat 2.5/0.5MG 3 ML AMPUL.NEB INHALE ×2 (07:54→11:45)
[2022-06-16 07:58] LABS: Glucose, Whole Blood 123 mg/dL (60-115)
[2022-06-16] MEDS: Sucralfate Oral Suspension 1 GM/10 ML ORAL.SUSP PO ×4 (08:13→20:20)
[2022-06-16 11:45] LABS: Glucose, Whole Blood 147 mg/dL (60-115)
--- NOTE | 2022-06-16 15:34 | HO.PM.IMPN ---
Subjective Subjective Date of Service: 06/17/22 Interval History: tolerating clear liquid diet offers no acute complaints, no nausea, no vomiting, no abdominal pain, no recurrent hematemesis or melena, no acute events overnight, no fevers no chills, complaining of cough, no headache, no dizziness. is Review of Systems Review of Systems: Yes all other systems are reviewed and are negative Physical Exam Vital Signs: Vital Signs: Last Vital Signs Temp 98.4 F 06/16/22 07:52 Pulse 69 06/16/22 11:46 Resp 18 06/16/22 11:46 BP 146/72 H 06/16/22 07:52 Pulse Ox 91 L 06/16/22 07:52 O2 Del Method 06/16/22 03:33 O2 Flow Rate 2 06/16/22 07:52 BMI result Body Mass Index 34.4 Const: Other: General resting comfortably in no acute distress. Neck supple no JVD. CVS regular rate rhythm, Respiratory lungs clear to auscultation, no respiratory distress, no wheeze, no rhonchi. Gastrointestinal abdomen soft, nontender, bowel sounds audible, no guarding , no rigidity. Extremities no edema. Neuro nonfocal , speech clear. Skin no rash psych appropriate affect Objective Data Active Medications Albuterol/Ipratropium (Albuterol/Iprat 2.5/0.5mg 3 Ml Ampul.Neb) 3 ml INHALE RQ4H WHILE AWAKE [facility] Last Admin: 06/16/22 11:45 Dose: 3 ml Documented By: FATUMA Albuterol/Ipratropium (Albuterol/Iprat 2.5/0.5mg 3 Ml Ampul.Neb) 3 ml INHALE Q4H PRN PRN Reason: Shortness of Breath Last Admin: 06/16/22 07:54 Dose: 3 ml Documented By: FATUMA Amlodipine Besylate (Amlodipine Besylate 10 Mg Tablet) 10 mg PO DAILY [facility] Last Admin: 06/14/22 07:58 Dose: 10 mg Documented By: COTHARIKA Atorvastatin Calcium (Atorvastatin Calcium 20 Mg Tablet) 20 mg PO DAILY [facility] Last Admin: 06/14/22 07:58 Dose: 20 mg Documented By: COTHARIKA Carvedilol (Carvedilol 3.125 Mg Tablet) 3.125 mg PO BID [facility]; Protocol Last Admin: 06/14/22 07:58 Dose: 3.125 mg Documented By: COTEMA Clonidine HCl (Clonidine Hcl 0.2 Mg Tablet) 0.2 mg PO BEDTIME [facility]; Protocol Last Admin: 06/13/22 20:13 Dose: 0.2 mg Documented By: CAITLYN Comments: bp 122/60 h 64 Dextrose (Dextrose 50 % 25 Gm/50 Ml Syringe) 25 gm IVPUSH Q15M PRN; Protocol PRN Reason: per Hypoglycemia Standing Ord. Docusate Sodium (Docusate Sodium 100 Mg Capsule) 100 mg PO DAILY PRN PRN Reason: Constipation Escitalopram Oxalate (Escitalopram Oxalate 20 Mg Tablet) 20 mg PO DAILY [facility] Last Admin: 06/14/22 07:58 Dose: 20 mg Documented By: COTEMA Furosemide (Furosemide 40 Mg Tablet) 40 mg PO DAILY [facility]; Protocol Last Admin: 06/13/22 07:40 Dose: 40 mg Documented By: COTEMA Glucose (Glucose Gel 15 Gm Gel..Gram.) 15 gm PO Q15M PRN; Protocol PRN Reason: per Hypoglycemia Standing Ord. Hydralazine HCl (Hydralazine Hcl 50 Mg Tablet) 100 mg PO TID [facility]; Protocol Last Admin: 06/13/22 20:12 Dose: 100 mg Documented By: CAITLYN Comments: bp 122/60 h 61 Octreotide Acetate 500 mcg/ (Sodium Chloride) 501 mls @ 50.1 mls/hr IVCONT .Q10H [facility] Last Admin: 06/16/22 11:59 Dose: 50 mcg/hr, 50.1 mls/hr Documented By: REMIGIO-DEJONFA Pantoprazole Sodium 80 mg/ (Sodium Chloride) 100 mls @ 10 mls/hr IV .Q10H [facility] Last Admin: 06/16/22 14:07 Dose: 8 mg/hr, 10 mls/hr Documented By: REMIGIO-ZEYAD Ceftriaxone Sodium 1 gm/ (Sodium Chloride) 50 mls @ 100 mls/hr IV Q24H [facility] Last Infusion: 06/15/22 18:35 Dose: 0 mls/hr Documented By: LEROY Insulin Human Lispro (Insulin Lispro 100 Unit/Ml 3 Ml Vial) 0 unit SUBCUT QIDACHS [facility]; Protocol Last Admin: 06/16/22 11:52 Dose: Not Given Documented By: LINDA Non-Admin Reason: See Note Ondansetron HCl (Ondansetron Hcl 4 Mg/2 Ml Vial) 4 mg IVPUSH Q6H PRN PRN Reason: Nausea and Vomiting Pharmacy Consult (Consult Rx Perform Med Rec) 1 each MISCELLANE ONCE PRN PRN Reason: Consult order Sodium Chloride (0.9 % Sodium Chloride Flush 3 Ml Syringe) 3 ml IVFLUSH QSHIFT [facility] Last Admin: 06/16/22 14:30 Dose: Not Given Documented By: LINDA Non-Admin Reason: See Note Spironolactone (Spironolactone 25 Mg Tablet) 25 mg PO DAILY [facility]; Protocol Last Admin: 06/13/22 07:40 Dose: 25 mg Documented By: KYRA Sucralfate (Sucralfate Oral Suspension 1 Gm/10 Ml Oral.Susp) 1 gm PO QIDACHS [facility] Last Admin: 06/16/22 11:59 Dose: 1 gm Documented By: LINDA Trazodone HCl (Trazodone Hcl 50 Mg Tablet) 150 mg PO DAILY [facility] Last Admin: 06/14/22 07:58 Dose: 150 mg Documented By: KYRA Valsartan (Valsartan 160 Mg Tablet) 160 mg PO DAILY [facility] Last Admin: 06/11/22 08:52 Dose: 160 mg Documented By: CLARISSA Vitamin D (Cholecalciferol (Vitamin D3) 25 Mcg Tablet) 50 mcg PO DAILY [facility] Last Admin: 06/14/22 07:58 Dose: 50 mcg Documented By: KYRA Labs CBC & Chem 7: 06/17/22 08:56 06/17/22 08:56 Labs: Laboratory Results - last 24 hr 06/15/22 06/15/22 06/16/22 15:35 20:36 07:55 POC Glucose 151 H 145 H 123 H 06/16/22 11:28 POC Glucose 147 H Assessment and Plan (1) Acute on chronic blood loss anemia: Status: Acute (2) HOANG (acute kidney injury): Status: Acute (3) Congestive heart failure: Status: Acute (4) COPD (chronic obstructive pulmonary disease): Status: Acute Assessment and Plan: 72-year-old female with a PMH significant for asthma, COPD, restrictive lung disease, [id number] diabetes, HTN, HLD, and cirrhosis who presents to the ED today for 2 weeks of worsening SOB, productive cough, and edema. Pt was admitted to the hospital for treatment of COPD and new onset CHF. # acute CHF with preserved EF no shortness of breath edema resolved, echo showed preserved EF with moderate diastolic dysfunction lasix and spironolactone on hold since appear euvolemic ? follow lytes, mg, I/O. 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 for 2 weeks tolerating clear liquids will advance to regular diet # non-insulin diabetes -- stable blood sugars continue insulin sliding scale, metformin on hold # Unspecified cirrhosis of liver: patient awake alert ammonia within normal range, CT head unremarkable, normal LFTs # HTN-- home meds on hold, will resume Coreg, follow blood pressure and gradually resume other antihypertensives # HLD-- resume statins # overweight: encouraged to lose weight. Full code DVT prophylaxis: mech devices due to gib inpatient need: on clear liquid diet due to acute blood loss anemia will advance diet follow BMP on IV fluid due to mild hypernatremia Time Spent With Patient Time: Total time managing care of this patient today ____ minutes. Quality Stroke Does the patient have a stroke diagnosis?: No VTE Prior VTE?: No VTE Risk Level:: Medical - moderate - high VTE Device Contraindication: Treatment Not Indicated VTE Drug Contraindication: N/A - Med Ordered
[2022-06-16] MEDS: cefTRIAXone sodium 1 GM in 0.9 % Sodium Chloride 50 ML IV (15:57)
[2022-06-16 16:13] LABS: Glucose, Whole Blood 126 mg/dL (60-115)
[2022-06-16] MEDS: Dextrose 5 % 1,000 ML 80 ML IVCONT (16:14)
[2022-06-16] MEDS: carvediloL 3.125 MG TABLET PO (20:20)
[2022-06-16 22:21] LABS: Glucose, Whole Blood 137 mg/dL (60-115)
[2022-06-17 03:53] VITALS: BP 165/77; PULSE 78; RESP 20; TEMP 37.4; O2SAT 95
[2022-06-17 07:14] LABS: Glucose, Whole Blood 119 mg/dL (60-115)
[2022-06-17 07:15] VITALS: BP 143/63; PULSE 72; RESP 20; TEMP 37.6; O2SAT 92
[2022-06-17] MEDS: Sucralfate Oral Suspension 1 GM/10 ML ORAL.SUSP PO ×4 (08:51→21:20)
[2022-06-17] MEDS: carvediloL 3.125 MG TABLET PO ×2 (08:51→21:19)
[2022-06-17] MEDS: Pantoprazole Sodium 80 MG in 0.9 % Sodium Chloride 80 ML 10 MG IV (08:51)
[2022-06-17] MEDS: Atorvastatin Calcium 20 MG TABLET PO (08:51)
[2022-06-17] MEDS: Octreotide Acetate 500 MCG in 0.9 % Sodium Chloride 500 ML 50.1 MCG IVCONT (08:52)
[2022-06-17 09:34] LABS: Hematocrit 25.5 % (37.0-47.0); Hemoglobin 7.7 g/dl (12.0-16.0); Mean Corpuscular HGB Conc 30.2 g/dl (31.0-35.0); Mean Corpuscular Hemoglobin 32.6 pg (27.0-33.0); Mean Corpuscular Volume 108.1 fL (80.0-98.0); Mean Platelet Volume 12.5 fL (9.4-12.3); NRBC Pct Auto 0.4 /100WBC (0.0-0.2); Platelet Count 58 X10*3/uL (160-400); Red Blood Count 2.36 X10*6/uL (4.20-5.50); Red Cell Distribution Width 16.7 % (11.0-16.0); White Blood Count 11.7 X10*3/uL (4.8-10.8)
[2022-06-17 10:05] LABS: Anion Gap 8 (12-20); Blood Urea Nitrogen 29 mg/dL (9-16); Calcium 7.2 mg/dL (8.4-10.2); Carbon Dioxide 28 mmol/L (22-29); Chloride 125 mmol/L (96-108); Creatinine Clr Calc Pharmacy 55.8; Estimated Glomerular Filt Rate > 60; Glucose Random 116 mg/dL (60-115); Potassium 3.9 mmol/L (3.3-5.1); Sodium 157 mmol/L (135-145)
[2022-06-17 11:22] LABS: Glucose, Whole Blood 155 mg/dL (60-115)
--- NOTE | 2022-06-17 11:45 | HO.PM.IMPN ---
Subjective Subjective Date of Service: 06/17/22 Interval History: history obtained via interpreter, daughter at bedside informed the patient is noncompliant with her home medication has been depressed since the of her daughter in 2018, was smoking heavily in the past currently smoking 3-4 cigarettes a day, patient offers no acute complaints this morning except for dry cough, denies nausea vomiting abdominal pain no recurrent hematemesis or melena tolerating diet denies chest pain or palpitation, no PND, no orthopnea, no shortness of breath finger oximetry 92% on room air. Review of Systems Review of Systems: Yes all other systems are reviewed and are negative Physical Exam Vital Signs: Vital Signs: Last Vital Signs Temp 99.6 F 06/17/22 07:15 Pulse 72 06/17/22 07:15 Resp 20 06/17/22 07:15 BP 143/63 H 06/17/22 07:15 Pulse Ox 92 06/17/22 07:15 O2 Del Method 06/17/22 07:15 O2 Flow Rate 2 06/16/22 07:52 BMI result Body Mass Index 34.4 Const: Other: General resting co mfortably , awake alert x3, in no ac nikolai distress.? Nec k supple no JVD. C VS? regular rate r hythm, Respiratory lungs clear to au scultation, no res piratory distress, no wheeze, no rho nchi. Gastrointest inal abdomen soft, nontender, bowel sounds audible,? n o guarding , no ri gidity. Extremitie s no? edema. Neuro nonfocal , speech clear. Skin no ra sh, discoloration right lower extrem ity psych appropri ate affect Objective Data Active Medications Amlodipine Besylate (Amlodipine Besylate 10 Mg Tablet) 10 mg PO DAILY [facility] Last Admin: 06/14/22 07:58 Dose: 10 mg Documented By: COTEMA Atorvastatin Calcium (Atorvastatin Calcium 20 Mg Tablet) 20 mg PO DAILY [facility] Last Admin: 06/17/22 08:51 Dose: 20 mg Documented By: REMIGIO-ZEYAD Carvedilol (Carvedilol 3.125 Mg Tablet) 3.125 mg PO BID [facility]; Protocol Last Admin: 06/17/22 08:51 Dose: 3.125 mg Documented By: REMIGIO-ZEYAD Clonidine HCl (Clonidine Hcl 0.2 Mg Tablet) 0.2 mg PO BEDTIME [facility]; Protocol Last Admin: 06/13/22 20:13 Dose: 0.2 mg Documented By: CAITLYN Comments: bp 122/60 h 64 Dextrose (Dextrose 50 % 25 Gm/50 Ml Syringe) 25 gm IVPUSH Q15M PRN; Protocol PRN Reason: per Hypoglycemia Standing Ord. Docusate Sodium (Docusate Sodium 100 Mg Capsule) 100 mg PO DAILY PRN PRN Reason: Constipation Escitalopram Oxalate (Escitalopram Oxalate 20 Mg Tablet) 20 mg PO DAILY [facility] Last Admin: 06/14/22 07:58 Dose: 20 mg Documented By: COTEMA Furosemide (Furosemide 40 Mg Tablet) 40 mg PO DAILY [facility]; Protocol Last Admin: 06/13/22 07:40 Dose: 40 mg Documented By: COTEMA Glucose (Glucose Gel 15 Gm Gel..Gram.) 15 gm PO Q15M PRN; Protocol PRN Reason: per Hypoglycemia Standing Ord. Hydralazine HCl (Hydralazine Hcl 50 Mg Tablet) 100 mg PO TID [facility]; Protocol Last Admin: 06/13/22 20:12 Dose: 100 mg Documented By: CAITLYN Comments: bp 122/60 h 61 Insulin Human Lispro (Insulin Lispro 100 Unit/Ml 3 Ml Vial) 0 unit SUBCUT QIDACHS [facility]; Protocol Last Admin: 06/17/22 11:23 Dose: Not Given Documented By: LINDA Non-Admin Reason: See Note Omeprazole (Omeprazole 20 Mg Capsule.) 20 mg PO BID@0630,1630 [facility] Ondansetron HCl (Ondansetron Hcl 4 Mg/2 Ml Vial) 4 mg IVPUSH Q6H PRN PRN Reason: Nausea and Vomiting Pharmacy Consult (Consult Rx Perform Med Rec) 1 each MISCELLANE ONCE PRN PRN Reason: Consult order Sodium Chloride (0.9 % Sodium Chloride Flush 3 Ml Syringe) 3 ml IVFLUSH QSHIFT [facility] Last Admin: 06/17/22 07:10 Dose: Not Given Documented By: LINDA Non-Admin Reason: See Note Spironolactone (Spironolactone 25 Mg Tablet) 25 mg PO DAILY [facility]; Protocol Last Admin: 06/13/22 07:40 Dose: 25 mg Documented By: COTEMA Sucralfate (Sucralfate Oral Suspension 1 Gm/10 Ml Oral.Susp) 1 gm PO QIDACHS [facility] Last Admin: 06/17/22 11:33 Dose: 1 gm Documented By: REMIGIO-SOFFA Trazodone HCl (Trazodone Hcl 50 Mg Tablet) 150 mg PO DAILY [facility] Last Admin: 06/14/22 07:58 Dose: 150 mg Documented By: KYRA Valsartan (Valsartan 160 Mg Tablet) 160 mg PO DAILY [facility] Last Admin: 06/11/22 08:52 Dose: 160 mg Documented By: CLARISSA Vitamin D (Cholecalciferol (Vitamin D3) 25 Mcg Tablet) 50 mcg PO DAILY [facility] Last Admin: 06/14/22 07:58 Dose: 50 mcg Documented By: KYRA Labs CBC & Chem 7: 06/17/22 08:56 06/17/22 08:56 Labs: Laboratory Results - last 24 hr 06/16/22 06/16/22 06/16/22 11:28 16:10 22:18 MCV MCH MCHC RDW Plt Count MPV Absolute Nucleated RBC Nucleated RBC % (auto) Anion Gap Estim Creat Clear Calc Estimated GFR POC Glucose 147 H 126 H 137 H Random Glucose Calcium 06/17/22 06/17/22 06/17/22 07:08 08:56 08:56 MCV 108.1 H D MCH 32.6 MCHC 30.2 L RDW 16.7 H Plt Count 58 L D MPV 12.5 H Absolute Nucleated RBC 0.050 H Nucleated RBC % (auto) 0.4 H Anion Gap 8 L Estim Creat Clear Calc 55.8 Estimated GFR > 60 POC Glucose 119 H Random Glucose 116 H Calcium 7.2 L D 06/17/22 11:09 MCV MCH MCHC RDW Plt Count MPV Absolute Nucleated RBC Nucleated RBC % (auto) Anion Gap Estim Creat Clear Calc Estimated GFR POC Glucose 155 H Random Glucose Calcium Assessment and Plan (1) Acute on chronic blood loss anemia: Status: Acute (2) HOANG (acute kidney injury): Status: Acute (3) Congestive heart failure: Status: Acute (4) COPD (chronic obstructive pulmonary disease): Status: Acute Assessment and Plan: 72-year-old female with a PMH significant for asthma, COPD, restrictive lung disease, [id number]-cshmxiuxu diabetes, HTN, HLD, and cirrhosis who presents to the ED today for 2 weeks of worsening SOB, productive cough, and edema. Pt was admitted to the hospital for treatment of COPD and new onset CHF. # acute CHF with preserved EF no shortness of breath, edema resolved, echo showed preserved EF with moderate diastolic dysfunction lasix and spironolactone on hold due to over diuresis, ? follow lytes, mg, I/O. # hypernatremia with hyper chlorimia continue to hold diuretics as above will give IV D5W repeat labs # COPD exacerbation, no acute infection on DuoNeb 3ml q4h while awake and prn, will change to DuoNeb t.i.d.,continue home maintenance inhalers, DC IV ceftriaxone # tobacco use disorder smoking 3-4 cigarettes a day strongly recommend to completely abstains from smoking # acute blood loss anemia with underlying ch marcocytic anemia: hx of cirrosis noted on ultrasound 05/17/2022 family not aware of diagnosis of cirrhosis,mild elevated lft's h/h improved from 8.3/ 25.7 to 9.2/28.7, but dropped today to 7.7/25 no recurrent hematemesis or black tarry stools noted. 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, will DC octreotide drip day 3, will continue IV Protonix for 1 more day due to drop in hematocrit,continue sucralfate 1 g q.i.d. for 2 weeks tolerating regular diet # non-insulin diabetes -- stable blood sugars, continue insulin sliding scale, metformin on hold # Unspecified cirrhosis of liver: patient awake alert ammonia within normal range, CT head unremarkable, normal LFTs as per daughter socially drink alcohol family not aware of cirrhosis, recommend outpatient GI follow-up # HTN-- home meds on hold, as per daughter patient is noncompliant with home medication, patient is on multiple blood pressure medications including hydralazine, clonidine, hydrochlorothiazide , felodipine, irbesartan, Aldactone and hydrochlorothiazide and Coreg will resume Coreg and Norvasc 5 mg avoid 10 mg Norvasc due to leg edema, follow blood pressure closely will DC clonidine, hydrochlorothiazide and irbesartan if blood pressure does not allow, was noted to have significant swelling on admission will need Aldactone if electrolytes allow # HLD-- resume statins # overweight: encouraged to lose weight. # mood disorder on citalopram 40 mg and trazodone 150 mg family requesting to reduce dose of home medications since patient is somnolent at home and not taking her other regular medications Full code DVT prophylaxis: mech devices due to gib inpatient need: noted to have drop in hematocrit, also hypernatremia on IV fluids and need close follow-up on CBC Time Spent With Patient Time: Total time managing care of this patient today ____ minutes. Quality Stroke Does the patient have a stroke diagnosis?: No VTE Prior VTE?: No VTE Risk Level:: Medical - moderate - high VTE Device Contraindication: Treatment Not Indicated VTE Drug Contraindication: N/A - Med Ordered
--- NOTE | 2022-06-17 12:10 | MHC.CM.PN ---
per rounds ppt not ready for dc today as her hct is low and sodium is high physical therapy receommending home with home physical therpy
--- NOTE | 2022-06-17 12:39 | MHC.CM.PN ---
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
[2022-06-17] MEDS: Dextrose 5 % 1,000 ML 80 ML IVCONT (12:48)
[2022-06-17] MEDS: guaiFENesin DM 100/10/5 ML 5 ML SYRUP 10 ML PO (14:34)
[2022-06-17 15:14] LABS: Hematocrit 25.9 % (37.0-47.0); Hemoglobin 7.9 g/dl (12.0-16.0); Mean Corpuscular HGB Conc 30.5 g/dl (31.0-35.0); Mean Corpuscular Hemoglobin 33.2 pg (27.0-33.0); Mean Corpuscular Volume 108.8 fL (80.0-98.0); NRBC Pct Auto 0.4 /100WBC (0.0-0.2); Red Blood Count 2.38 X10*6/uL (4.20-5.50); Red Cell Distribution Width 16.7 % (11.0-16.0)
[2022-06-17 15:23] LABS: Platelet Count 55 X10*3/uL (160-400)
[2022-06-17] MEDS: Pantoprazole Sodium 40 MG/10 ML VIAL IVPUSH (15:30)
[2022-06-17 15:36] LABS: Glucose, Whole Blood 149 mg/dL (60-115)
[2022-06-17 15:46] VITALS: BP 132/61; PULSE 66; RESP 17; TEMP 37; O2SAT 96
[2022-06-17 19:30] VITALS: BP 151/69; PULSE 66; RESP 18; TEMP 37.1; O2SAT 97
[2022-06-17 19:42] LABS: Glucose, Whole Blood 159 mg/dL (60-115)
--- NOTE | 2022-06-17 20:12 | PM.GIPN ---
Subjective Subjective Date of Service: 06/17/22 Interval History: patient more alert and awake even though NA is high prob due to free wate deficit she had one tiny clot, black in color, but this is fisrt stool after her acute gi bleed appetite is good HGb down a little but BUN is way down passing urine, no abdominal pain Critical Care Time (minutes): 0 Physical Exam Vital Signs: Vital Signs: Last Vital Signs Temp 98.7 F 06/17/22 19:30 Pulse 66 06/17/22 19:30 Resp 18 06/17/22 19:30 BP 151/69 H 06/17/22 19:30 Pulse Ox 97 06/17/22 19:30 O2 Del Method 06/17/22 19:30 O2 Flow Rate 2 06/16/22 07:52 BMI result Body Mass Index 34.4 EXAM: GENERAL: The patient is relaxed VITAL SIGNS:see workflow HEENT: Nonicteric sclerae, PERRLA, EOMI. Oropharynx clear. Moist mucous membranes. Conjunctivae appear well perfused. No thyroid mass. CHEST: Chest wall is nontender. HEART: Regular rate and rhythm with parasternal murmur LUNGS: Clear to auscultation bilaterally. ABDOMEN: Soft, positive bowel sounds, nontender, no organomegaly.no flank tenderness SKIN: No rash, no excessive bruising, petechiae, or purpura. NEUROLOGIC: Cranial nerves II-XII intact without motor/sensory deficit Psych: Appearance: grossly normal Objective Data Labs CBC & Chem 7: 06/17/22 15:07 06/17/22 08:56 Labs: Laboratory Results - last 24 hr 06/16/22 06/17/22 06/17/22 22:18 07:08 08:56 WBC 11.7 H RBC 2.36 L Hgb 7.7 L Hct 25.5 L MCV 108.1 H D MCH 32.6 MCHC 30.2 L RDW 16.7 H Plt Count 58 L D MPV 12.5 H Absolute Nucleated RBC 0.050 H Nucleated RBC % (auto) 0.4 H Sodium Potassium Chloride Carbon Dioxide Anion Gap BUN Creatinine Estim Creat Clear Calc Estimated GFR POC Glucose 137 H 119 H Random Glucose Calcium 06/17/22 06/17/22 06/17/22 08:56 11:09 15:07 WBC 14.0 H RBC 2.38 L Hgb 7.9 L Hct 25.9 L MCV 108.8 H MCH 33.2 H MCHC 30.5 L RDW 16.7 H Plt Count 55 L MPV 13.0 H Absolute Nucleated RBC 0.060 H Nucleated RBC % (auto) 0.4 H Sodium 157 H Potassium 3.9 Chloride 125 H Carbon Dioxide 28 Anion Gap 8 L BUN 29 H Creatinine 0.91 Estim Creat Clear Calc 55.8 Estimated GFR > 60 POC Glucose 155 H Random Glucose 116 H Calcium 7.2 L D 06/17/22 06/17/22 15:31 19:18 WBC RBC Hgb Hct MCV MCH MCHC RDW Plt Count MPV Absolute Nucleated RBC Nucleated RBC % (auto) Sodium Potassium Chloride Carbon Dioxide Anion Gap BUN Creatinine Estim Creat Clear Calc Estimated GFR POC Glucose 149 H 159 H Random Glucose Calcium Procedures Date of Service Date of Service: 06/17/22 Progress Note: A&P Assessment and plan (1) Acute on chronic blood loss anemia: Status: Acute (2) Cirrhosis: Status: Acute (3) Dehydration with hypernatremia: Status: Acute Plan 1/ She seems improved since her banding, one small clot passed today, but vitals are stable, probably old blood 2/ Hypernatremia prob from diuresis and free water deficit, further hydration likely to drive HGB down further PLAN: 1/ Trend HGB, if further down trending and or signs of acute bleeding then EGD tomorrow 2/ allow clears for meantime, NPO after midnight 3/ did discuss referral for TIPS with family, not too keen on it due to higher risk of encephalopathy and possible cardiac decompensation, will re eval if needed depending on clinical situation 4/ f stabilizes will need rept EGD in 3-4 weeks or so, if BP allows then can titrate up carvedilol, make sure she is on a statin as reduces portal pressure, will need doppler at some point and triple phase CT Time Spent With Patient Time: Total time managing care of this patient today ____ minutes. Quality Stroke Does the patient have a stroke diagnosis?: No VTE Prior VTE?: No VTE Risk Level:: Medical - moderate - high VTE Device Contraindication: Treatment Not Indicated VTE Drug Contraindication: N/A - Med Ordered
[2022-06-17] MEDS: 0.9 % Sodium Chloride Flush 3 ML SYRINGE IVFLUSH (21:22)
[2022-06-18 03:26] VITALS: BP 158/76; PULSE 69; RESP 20; TEMP 37; O2SAT 95
[2022-06-18] MEDS: Pantoprazole Sodium 40 MG/10 ML VIAL IVPUSH ×2 (05:59→16:07)
[2022-06-18 07:11] VITALS: BP 146/65; PULSE 68; RESP 16; TEMP 37.7; O2SAT 93
[2022-06-18 07:26] LABS: Glucose, Whole Blood 119 mg/dL (60-115)
[2022-06-18 07:34] LABS: Hematocrit 23.3 % (37.0-47.0); Hemoglobin 7.2 g/dl (12.0-16.0); Mean Corpuscular HGB Conc 30.9 g/dl (31.0-35.0); Mean Corpuscular Hemoglobin 33.5 pg (27.0-33.0); Mean Corpuscular Volume 108.4 fL (80.0-98.0); Mean Platelet Volume 13.7 fL (9.4-12.3); NRBC Pct Auto 0.3 /100WBC (0.0-0.2); Red Blood Count 2.15 X10*6/uL (4.20-5.50); Red Cell Distribution Width 16.6 % (11.0-16.0); White Blood Count 12.3 X10*3/uL (4.8-10.8)
[2022-06-18 07:36] LABS: Platelet Count 52 X10*3/uL (160-400)
[2022-06-18 07:59] LABS: Anion Gap 6 (12-20); Blood Urea Nitrogen 22 mg/dL (9-16); Calcium 6.9 mg/dL (8.4-10.2); Carbon Dioxide 30 mmol/L (22-29); Chloride 124 mmol/L (96-108); Creatinine Clr Calc Pharmacy 62.7; Estimated Glomerular Filt Rate > 60; Glucose Random 130 mg/dL (60-115); Potassium 3.9 mmol/L (3.3-5.1); Sodium 156 mmol/L (135-145)
[2022-06-18] MEDS: Atorvastatin Calcium 20 MG TABLET PO (08:05)
[2022-06-18] MEDS: carvediloL 3.125 MG TABLET PO ×2 (08:05→20:14)
[2022-06-18] MEDS: Cholecalciferol (Vitamin D3) 25 MCG TABLET 50 MCG PO (08:05)
[2022-06-18] MEDS: Sucralfate Oral Suspension 1 GM/10 ML ORAL.SUSP PO ×3 (08:05→20:14)
[2022-06-18] MEDS: Dextrose 5 % 1,000 ML 125 ML IVCONT ×2 (08:55→20:13)
[2022-06-18 11:08] LABS: Glucose, Whole Blood 103 mg/dL (60-115)
[2022-06-18 12:15] VITALS: BP 140/60; PULSE 86; O2SAT 96
--- NOTE | 2022-06-18 13:01 | P.PNIM_ITS ---
Subjective Subjective Date of Service: 06/18/22 Interval History: cc: hematemesis interval history: no complaints ENT Ears, Nose, Mouth, and Throat: Reports system reviewed and no additional complaints, except as documented Cardiovascular Cardiovascular: Reports no additional cardiovascular complaints Physical Exam Vital Signs: Vital Signs: Last Vital Signs Temp 99.8 F 06/18/22 07:11 Pulse 86 06/18/22 12:15 Resp 16 06/18/22 07:11 BP 140/60 H 06/18/22 12:15 Pulse Ox 96 06/18/22 12:15 O2 Del Method 06/18/22 12:15 O2 Flow Rate 2 06/16/22 07:52 BMI result Body Mass Index 34.4 Const: Other: General resting co mfortably , awake alert x3, in no ac jay distress.? Nec k supple no JVD. C VS? regular rate r hythm, Respiratory lungs clear to au scultation, no res piratory distress, no wheeze, no rho nchi. Gastrointest inal abdomen soft, nontender, bowel sounds audible,? n o guarding , no ri gidity. Extremitie s no? edema. Neuro nonfocal , speech clear. Skin no ra sh, discoloration right lower extrem ity psych appropri ate affect Objective Data Active Medications Amlodipine Besylate (Amlodipine Besylate 10 Mg Tablet) 10 mg PO DAILY [facility] Last Admin: 06/14/22 07:58 Dose: 10 mg Documented By: COTEMA Atorvastatin Calcium (Atorvastatin Calcium 20 Mg Tablet) 20 mg PO DAILY [facility] Last Admin: 06/18/22 08:05 Dose: 20 mg Documented By: LINDA Carvedilol (Carvedilol 3.125 Mg Tablet) 3.125 mg PO BID [facility]; Protocol Last Admin: 06/18/22 08:05 Dose: 3.125 mg Documented By: LINDA Clonidine HCl (Clonidine Hcl 0.2 Mg Tablet) 0.2 mg PO BEDTIME [facility]; Protocol Last Admin: 06/13/22 20:13 Dose: 0.2 mg Documented By: CAITLYN Comments: bp 122/60 h 64 Dextrose (Dextrose 50 % 25 Gm/50 Ml Syringe) 25 gm IVPUSH Q15M PRN; Protocol PRN Reason: per Hypoglycemia Standing Ord. Docusate Sodium (Docusate Sodium 100 Mg Capsule) 100 mg PO DAILY PRN PRN Reason: Constipation Escitalopram Oxalate (Escitalopram Oxalate 20 Mg Tablet) 20 mg PO BEDTIME [facility] Furosemide (Furosemide 40 Mg Tablet) 40 mg PO DAILY [facility]; Protocol Last Admin: 06/13/22 07:40 Dose: 40 mg Documented By: SONAMEMA Glucose (Glucose Gel 15 Gm Gel..Gram.) 15 gm PO Q15M PRN; Protocol PRN Reason: per Hypoglycemia Standing Ord. Hydralazine HCl (Hydralazine Hcl 50 Mg Tablet) 100 mg PO TID [facility]; Protocol Last Admin: 06/13/22 20:12 Dose: 100 mg Documented By: CAITLYN Comments: bp 122/60 h 61 Dextrose (D5w) 1,000 mls @ 125 mls/hr IVCONT .Q8H [facility] Last Admin: 06/18/22 08:55 Dose: 125 mls/hr Documented By: LINDA Insulin Human Lispro (Insulin Lispro 100 Unit/Ml 3 Ml Vial) 0 unit SUBCUT QIDAS [facility]; Protocol Last Admin: 06/18/22 11:11 Dose: Not Given Documented By: LINDA Non-Admin Reason: See Note Ondansetron HCl (Ondansetron Hcl 4 Mg/2 Ml Vial) 4 mg IVPUSH Q6H PRN PRN Reason: Nausea and Vomiting Pantoprazole Sodium (Pantoprazole Sodium 40 Mg/10 Ml Vial) 40 mg IVPUSH BID@0630,1630 [facility] Last Admin: 06/18/22 05:59 Dose: 40 mg Documented By: SAMARA Pharmacy Consult (Consult Rx Perform Med Rec) 1 each MISCELLANE ONCE PRN PRN Reason: Consult order Sodium Chloride (0.9 % Sodium Chloride Flush 3 Ml Syringe) 3 ml IVFLUSH QSHIFT [facility] Last Admin: 06/18/22 07:01 Dose: Not Given Documented By: LINDA Non-Admin Reason: See Note Spironolactone (Spironolactone 25 Mg Tablet) 25 mg PO DAILY [facility]; Protocol Last Admin: 06/13/22 07:40 Dose: 25 mg Documented By: KYRA Sucralfate (Sucralfate Oral Suspension 1 Gm/10 Ml Oral.Susp) 1 gm PO QIDACHS [facility] Last Admin: 06/18/22 11:13 Dose: Not Given Documented By: LINDA Non-Admin Reason: pt [facility] for procedure Trazodone HCl (Trazodone Hcl 50 Mg Tablet) 150 mg PO DAILY [facility] Last Admin: 06/14/22 07:58 Dose: 150 mg Documented By: KYRA Valsartan (Valsartan 160 Mg Tablet) 160 mg PO DAILY [facility] Last Admin: 06/11/22 08:52 Dose: 160 mg Documented By: CLARISSA Vitamin D (Cholecalciferol (Vitamin D3) 25 Mcg Tablet) 50 mcg PO DAILY [facility] Last Admin: 06/18/22 08:05 Dose: 50 mcg Documented By: LINDA Labs CBC & Chem 7: 06/18/22 07:09 06/18/22 07:09 Labs: Laboratory Results - last 24 hr 06/17/22 06/17/22 06/17/22 15:07 15:31 19:18 MCV 108.8 H MCH 33.2 H MCHC 30.5 L RDW 16.7 H Plt Count 55 L MPV 13.0 H Absolute Nucleated RBC 0.060 H Nucleated RBC % (auto) 0.4 H Anion Gap Estim Creat Clear Calc Estimated GFR POC Glucose 149 H 159 H Random Glucose Calcium 06/18/22 06/18/22 06/18/22 07:07 07:09 07:09 MCV 108.4 H MCH 33.5 H MCHC 30.9 L RDW 16.6 H Plt Count 52 L MPV 13.7 H Absolute Nucleated RBC 0.040 H Nucleated RBC % (auto) 0.3 H Anion Gap 6 L Estim Creat Clear Calc 62.7 Estimated GFR > 60 POC Glucose 119 H Random Glucose 130 H Calcium 6.9 L 06/18/22 10:56 MCV MCH MCHC RDW Plt Count MPV Absolute Nucleated RBC Nucleated RBC % (auto) Anion Gap Estim Creat Clear Calc Estimated GFR POC Glucose 103 Random Glucose Calcium Assessment and Plan (1) Acute on chronic blood loss anemia: Status: Acute (2) HOANG (acute kidney injury): Status: Acute (3) Congestive heart failure: Status: Acute (4) COPD (chronic obstructive pulmonary disease): Status: Acute Assessment and Plan: 72-year-old female with a PMH significant for asthma, COPD, restrictive lung disease, [id number] diabetes, HTN, HLD, and cirrhosis who presents to the ED today for 2 weeks of worsening SOB, productive cough, and edema. Pt was admitted to the hospital for treatment of COPD and new onset CHF. acute CHF with preserved EF no shortness of breath, edema resolved, echo showed preserved EF with moderate diastolic dysfunction lasix and spironolactone on hold due to over diuresis, ? follow lytes, mg, I/O. hypernatremia d5W, monitor bmp COPD exacerbation, no acute infection nebs tobacco use disorder smoking 3-4 cigarettes a day strongly recommend to completely abstains from smoking acute blood loss anemia with underlying ch marcocytic anemia: hx of cirrosis noted on ultrasound 05/17/2022 family not aware of diagnosis of cirrhosis,mild elevated lft's no recurrent hematemesis or black tarry stools noted. 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 Quality Stroke Does the patient have a stroke diagnosis?: No VTE Prior VTE?: No VTE Risk Level:: Medical - moderate - high VTE Device Contraindication: Treatment Not Indicated VTE Drug Contraindication: N/A - Med Ordered
[2022-06-18 15:25] VITALS: BP 157/72; PULSE 74; RESP 18; TEMP 36.6; O2SAT 98
[2022-06-18 19:16] VITALS: BP 161/67; PULSE 64; RESP 17; TEMP 36.1; O2SAT 95
[2022-06-18] MEDS: 0.9 % Sodium Chloride Flush 3 ML SYRINGE IVFLUSH (20:14)
--- NOTE | 2022-06-18 20:14 | PM.GIPN ---
Subjective Subjective Date of Service: 06/18/22 Interval History: remains alert in spite of hypernatremia EGD cancelled due to the high Na but she had one bowel motion today with brown stool, and no blood \ she feels hungry denies abdominal pain no nausea or vomiting no hematemesis she is passing gas no fever Critical Care Time (minutes): 0 Physical Exam Vital Signs: Vital Signs: Last Vital Signs Temp 97.0 F 06/18/22 19:16 Pulse 64 06/18/22 19:16 Resp 17 06/18/22 19:16 BP 161/67 H 06/18/22 19:16 Pulse Ox 95 06/18/22 19:16 O2 Del Method 06/18/22 19:16 O2 Flow Rate 2 06/16/22 07:52 BMI result Body Mass Index 34.4 EXAM: GENERAL: The patient is well developed and nontoxic. VITAL SIGNS:see workflow HEENT: Nonicteric sclerae, PERRLA, EOMI. Oropharynx clear. Moist mucous membranes. Conjunctivae appear pale. No thyroid mass. CHEST: Chest wall is nontender. HEART: Regular rate and rhythm with PSM at sternal edge LUNGS: Clear to auscultation bilaterally. ABDOMEN: Soft, positive bowel sounds, nontender, no organomegaly.no flank tenderness SKIN: No rash, no excessive bruising, petechiae, or purpura. NEUROLOGIC: Cranial nerves II-XII intact without motor/sensory deficit. No flapping tremor psych- nml affect Objective Data Labs CBC & Chem 7: 06/18/22 07:09 06/18/22 07:09 Labs: Laboratory Results - last 24 hr 06/18/22 06/18/22 06/18/22 07:07 07:09 07:09 WBC 12.3 H RBC 2.15 L Hgb 7.2 L Hct 23.3 L MCV 108.4 H MCH 33.5 H MCHC 30.9 L RDW 16.6 H Plt Count 52 L MPV 13.7 H Absolute Nucleated RBC 0.040 H Nucleated RBC % (auto) 0.3 H Sodium 156 H Potassium 3.9 Chloride 124 H Carbon Dioxide 30 H Anion Gap 6 L BUN 22 H Creatinine 0.81 Estim Creat Clear Calc 62.7 Estimated GFR > 60 POC Glucose 119 H Random Glucose 130 H Calcium 6.9 L 06/18/22 06/18/22 06/18/22 10:56 15:33 19:26 WBC RBC Hgb Hct MCV MCH MCHC RDW Plt Count MPV Absolute Nucleated RBC Nucleated RBC % (auto) Sodium Potassium Chloride Carbon Dioxide Anion Gap BUN Creatinine Estim Creat Clear Calc Estimated GFR POC Glucose 103 176 H 170 H Random Glucose Calcium Procedures Date of Service Date of Service: 06/18/22 Progress Note: A&P Assessment and plan (1) Dehydration with hypernatremia: Status: Acute (2) Acute on chronic blood loss anemia: Status: Acute (3) Cirrhosis: Status: Acute Plan 1/ 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 3/ cont with carvedilol and cont statin--advised on compliance (per daughter, mum had not been taking any of her prescribed cardiac meds at home prior to admission) 4/ duplex of portal vein Time Spent With Patient Time: Total time managing care of this patient today ____ minutes. Quality Stroke Does the patient have a stroke diagnosis?: No VTE Prior VTE?: No VTE Risk Level:: Medical - moderate - high VTE Device Contraindication: Treatment Not Indicated VTE Drug Contraindication: N/A - Med Ordered
[2022-06-18] MEDS: Escitalopram Oxalate 20 MG TABLET PO (20:15)
[2022-06-19] VITALS (10 sets, daily range): BP systolic 120–175; BP diastolic 45–75; PULSE 62–70; RESP 16–97; TEMP 36.8–37.6; O2SAT 96–99
[2022-06-19] MEDS: Dextrose 5 % 1,000 ML 125 ML IVCONT ×2 (03:25→10:41)
[2022-06-19] MEDS: Pantoprazole Sodium 40 MG/10 ML VIAL IVPUSH ×2 (05:37→15:55)
[2022-06-19 06:46] LABS: Hematocrit 21.9 % (37.0-47.0); Mean Corpuscular HGB Conc 31.1 g/dl (31.0-35.0); Mean Corpuscular Hemoglobin 33.3 pg (27.0-33.0); Mean Corpuscular Volume 107.4 fL (80.0-98.0); Mean Platelet Volume 13.7 fL (9.4-12.3); NRBC Pct Auto 0.3 /100WBC (0.0-0.2); Red Blood Count 2.04 X10*6/uL (4.20-5.50); Red Cell Distribution Width 16.1 % (11.0-16.0); White Blood Count 11.4 X10*3/uL (4.8-10.8)
[2022-06-19 07:00] LABS: Anion Gap 6 (12-20); Blood Urea Nitrogen 17 mg/dL (9-16); Calcium 6.8 mg/dL (8.4-10.2); Carbon Dioxide 28 mmol/L (22-29); Chloride 117 mmol/L (96-108); Creatinine Clr Calc Pharmacy 66.8; Estimated Glomerular Filt Rate > 60; Glucose Fasting 194 mg/dL (60-99); Potassium 3.4 mmol/L (3.3-5.1); Sodium 148 mmol/L (135-145)
[2022-06-19 07:35] LABS: Hemoglobin 6.8 g/dl (12.0-16.0); Platelet Count 48 X10*3/uL (160-400)
[2022-06-19] MEDS: Atorvastatin Calcium 20 MG TABLET PO (08:10)
[2022-06-19] MEDS: 0.9 % Sodium Chloride Flush 3 ML SYRINGE IVFLUSH ×2 (08:10→14:46)
[2022-06-19] MEDS: carvediloL 3.125 MG TABLET PO ×2 (08:10→22:27)
[2022-06-19] MEDS: Cholecalciferol (Vitamin D3) 25 MCG TABLET 50 MCG PO (08:10)
--- NOTE | 2022-06-19 11:36 | MHC.CM.PN ---
Per ROUNDS discussion, Patient is not yet medically cleared for dc (Hemoglobin is low/Transfusion today); home with services is the goal and CM will continue to follow.
--- NOTE | 2022-06-19 11:42 | HO.PM.IMPN ---
Subjective Subjective Date of Service: 06/19/22 Interval History: cc: hematemesis interval history: no complaints ENT Ears, Nose, Mouth, and Throat: Reports system reviewed and no additional complaints, except as documented Cardiovascular Cardiovascular: Reports no additional cardiovascular complaints Physical Exam Vital Signs: Vital Signs: Last Vital Signs Temp 99.6 F 06/19/22 10:45 Pulse 64 06/19/22 10:45 Resp 18 06/19/22 10:45 BP 140/50 H 06/19/22 10:45 Pulse Ox 96 06/19/22 07:16 O2 Del Method 06/19/22 07:16 O2 Flow Rate 2 06/16/22 07:52 BMI result Body Mass Index 34.4 Const: Other: General resting co mfortably , awake alert x3, in no ac jay distress.? Nec k supple no JVD. C VS? regular rate r hythm, Respiratory lungs clear to au scultation, no res piratory distress, no wheeze, no rho nchi. Gastrointest inal abdomen soft, nontender, bowel sounds audible,? n o guarding , no ri gidity. Extremitie s no? edema. Neuro nonfocal , speech clear. Skin no ra sh, discoloration right lower extrem ity psych appropri ate affect Objective Data Active Medications Amlodipine Besylate (Amlodipine Besylate 10 Mg Tablet) 10 mg PO DAILY [facility] Last Admin: 06/14/22 07:58 Dose: 10 mg Documented By: KYRA Atorvastatin Calcium (Atorvastatin Calcium 20 Mg Tablet) 20 mg PO DAILY [facility] Last Admin: 06/19/22 08:10 Dose: 20 mg Documented By: ANOOP Carvedilol (Carvedilol 3.125 Mg Tablet) 3.125 mg PO BID [facility]; Protocol Last Admin: 06/19/22 08:10 Dose: 3.125 mg Documented By: ANOOP Clonidine HCl (Clonidine Hcl 0.2 Mg Tablet) 0.2 mg PO BEDTIME [facility]; Protocol Last Admin: 06/13/22 20:13 Dose: 0.2 mg Documented By: CAITLYN Comments: bp 122/60 h 64 Dextrose (Dextrose 50 % 25 Gm/50 Ml Syringe) 25 gm IVPUSH Q15M PRN; Protocol PRN Reason: per Hypoglycemia Standing Ord. Docusate Sodium (Docusate Sodium 100 Mg Capsule) 100 mg PO DAILY PRN PRN Reason: Constipation Escitalopram Oxalate (Escitalopram Oxalate 20 Mg Tablet) 20 mg PO BEDTIME [facility] Last Admin: 06/18/22 20:15 Dose: 20 mg Documented By: SAMARA Furosemide (Furosemide 40 Mg Tablet) 40 mg PO DAILY [facility]; Protocol Last Admin: 06/13/22 07:40 Dose: 40 mg Documented By: KYRA Glucose (Glucose Gel 15 Gm Gel..Gram.) 15 gm PO Q15M PRN; Protocol PRN Reason: per Hypoglycemia Standing Ord. Hydralazine HCl (Hydralazine Hcl 50 Mg Tablet) 100 mg PO TID [facility]; Protocol Last Admin: 06/13/22 20:12 Dose: 100 mg Documented By: CAITLYN Comments: bp 122/60 h 61 Dextrose (D5w) 1,000 mls @ 125 mls/hr IVCONT .Q8H [facility] Last Admin: 06/19/22 10:41 Dose: 125 mls/hr Documented By: ANOOP Insulin Human Lispro (Insulin Lispro 100 Unit/Ml 3 Ml Vial) 0 unit SUBCUT QIDACHS [facility]; Protocol Last Admin: 06/19/22 11:37 Dose: Not Given Documented By: ANOOP Non-Admin Reason: No Insulin Coverage Ondansetron HCl (Ondansetron Hcl 4 Mg/2 Ml Vial) 4 mg IVPUSH Q6H PRN PRN Reason: Nausea and Vomiting Pantoprazole Sodium (Pantoprazole Sodium 40 Mg/10 Ml Vial) 40 mg IVPUSH BID@0630,1630 [facility] Last Admin: 06/19/22 05:37 Dose: 40 mg Documented By: SAMARA Pharmacy Consult (Consult Rx Perform Med Rec) 1 each MISCELLANE ONCE PRN PRN Reason: Consult order Sodium Chloride (0.9 % Sodium Chloride Flush 3 Ml Syringe) 3 ml IVFLUSH QSHIFT [facility] Last Admin: 06/19/22 08:10 Dose: 3 ml Documented By: ANOOP Spironolactone (Spironolactone 25 Mg Tablet) 25 mg PO DAILY [facility]; Protocol Last Admin: 06/13/22 07:40 Dose: 25 mg Documented By: KYRA Sucralfate (Sucralfate Oral Suspension 1 Gm/10 Ml Oral.Susp) 1 gm PO QIDACHS [facility] Last Admin: 06/19/22 10:38 Dose: Not Given Documented By: ANOOP Non-Admin Reason: Patient Refused Trazodone HCl (Trazodone Hcl 50 Mg Tablet) 150 mg PO DAILY [facility] Last Admin: 06/14/22 07:58 Dose: 150 mg Documented By: KYRA Valsartan (Valsartan 160 Mg Tablet) 160 mg PO DAILY [facility] Last Admin: 06/11/22 08:52 Dose: 160 mg Documented By: CLARISSA Vitamin D (Cholecalciferol (Vitamin D3) 25 Mcg Tablet) 50 mcg PO DAILY [facility] Last Admin: 06/19/22 08:10 Dose: 50 mcg Documented By: ANOOP Labs CBC & Chem 7: 06/19/22 06:25 06/19/22 06:25 Labs: Laboratory Results - last 24 hr 06/18/22 06/18/22 06/19/22 15:33 19:26 06:25 MCV 107.4 H MCH 33.3 H MCHC 31.1 RDW 16.1 H Plt Count 48 L MPV 13.7 H Absolute Nucleated RBC 0.030 H Nucleated RBC % (auto) 0.3 H Anion Gap Estim Creat Clear Calc Estimated GFR POC Glucose 176 H 170 H Fasting Glucose Calcium Blood Type Antibody Screen Crossmatch 06/19/22 06/19/22 06/19/22 06:25 07:12 08:39 MCV MCH MCHC RDW Plt Count MPV Absolute Nucleated RBC Nucleated RBC % (auto) Anion Gap 6 L Estim Creat Clear Calc 66.8 Estimated GFR > 60 POC Glucose 182 H Fasting Glucose 194 H Calcium 6.8 L Blood Type A Positive Antibody Screen NEGATIVE Crossmatch See Detail 06/19/22 11:24 MCV MCH MCHC RDW Plt Count MPV Absolute Nucleated RBC Nucleated RBC % (auto) Anion Gap Estim Creat Clear Calc Estimated GFR POC Glucose 123 H Fasting Glucose Calcium Blood Type Antibody Screen Crossmatch Assessment and Plan (1) Acute on chronic blood loss anemia: Status: Acute (2) HOANG (acute kidney injury): Status: Acute (3) Congestive heart failure: Status: Acute (4) COPD (chronic obstructive pulmonary disease): Status: Acute Assessment and Plan: 72-year-old female with a PMH significant for asthma, COPD, restrictive lung disease, fug-[id number] diabetes, HTN, HLD, and cirrhosis who presents to the ED today for 2 weeks of worsening SOB, productive cough, and edema. Pt was admitted to the hospital for treatment of COPD and new onset CHF. acute CHF with preserved EF no shortness of breath, edema resolved, echo showed preserved EF with moderate diastolic dysfunction lasix and spironolactone on hold due to over diuresis, ? follow lytes, mg, I/O. hypernatremia d5W, monitor bmp, improving COPD exacerbation, no acute infection nebs tobacco use disorder smoking 3-4 cigarettes a day strongly recommend to completely abstains from smoking acute blood loss anemia with underlying ch marcocytic anemia: hx of cirrosis noted on ultrasound 05/17/2022 no recurrent hematemesis or black tarry stools noted. 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 Quality Stroke Does the patient have a stroke diagnosis?: No VTE Prior VTE?: No VTE Risk Level:: Medical - moderate - high VTE Device Contraindication: Treatment Not Indicated VTE Drug Contraindication: N/A - Med Ordered
[2022-06-19] MEDS: Sucralfate Oral Suspension 1 GM/10 ML ORAL.SUSP PO ×3 (12:44→22:27)
--- NOTE | 2022-06-19 14:50 | PM.GIPN ---
Subjective Subjective Date of Service: 06/19/22 Interval History: pt had darkish stool today has some epigastric discomfort and pain on swallowing Na came down, got 3 L of fluid overnight, mild decrease in HGB passing gas, no nausea Critical Care Time (minutes): 0 Physical Exam Vital Signs: Vital Signs: Last Vital Signs Temp 98.4 F 06/19/22 13:06 Pulse 62 06/19/22 13:06 Resp 97 H 06/19/22 13:06 BP 165/73 H 06/19/22 13:06 Pulse Ox 96 06/19/22 07:16 O2 Del Method 06/19/22 07:16 O2 Flow Rate 2 06/16/22 07:52 BMI result Body Mass Index 34.4 EXAM: GENERAL: The patient is alert VITAL SIGNS:see workflow HEENT: Nonicteric sclerae, PERRLA, EOMI. Oropharynx clear. Moist mucous membranes. Conjunctivae appear well perfused. No thyroid mass. CHEST: Chest wall is nontender. HEART: Regular rate and rhythm with PSm at sternal edge LUNGS: Clear to auscultation bilaterally. ABDOMEN: Soft, positive bowel sounds, nontender, no organomegaly.no flank tenderness RECTAL: dark brown stool, not smelly SKIN: No rash, no excessive bruising, petechiae, or purpura. NEUROLOGIC: Cranial nerves II-XII intact without motor/sensory deficit. Objective Data Labs CBC & Chem 7: 06/19/22 06:25 06/19/22 06:25 Labs: Laboratory Results - last 24 hr 06/18/22 06/18/22 06/19/22 15:33 19:26 06:25 WBC 11.4 H RBC 2.04 L Hgb 6.8 L* Hct 21.9 L MCV 107.4 H MCH 33.3 H MCHC 31.1 RDW 16.1 H Plt Count 48 L MPV 13.7 H Absolute Nucleated RBC 0.030 H Nucleated RBC % (auto) 0.3 H Sodium Potassium Chloride Carbon Dioxide Anion Gap BUN Creatinine Estim Creat Clear Calc Estimated GFR POC Glucose 176 H 170 H Fasting Glucose Calcium Blood Type Antibody Screen Crossmatch 06/19/22 06/19/22 06/19/22 06:25 07:12 08:39 WBC RBC Hgb Hct MCV MCH MCHC RDW Plt Count MPV Absolute Nucleated RBC Nucleated RBC % (auto) Sodium 148 H Potassium 3.4 Chloride 117 H Carbon Dioxide 28 Anion Gap 6 L BUN 17 H Creatinine 0.76 Estim Creat Clear Calc 66.8 Estimated GFR > 60 POC Glucose 182 H Fasting Glucose 194 H Calcium 6.8 L Blood Type A Positive Antibody Screen NEGATIVE Crossmatch See Detail 06/19/22 11:24 WBC RBC Hgb Hct MCV MCH MCHC RDW Plt Count MPV Absolute Nucleated RBC Nucleated RBC % (auto) Sodium Potassium Chloride Carbon Dioxide Anion Gap BUN Creatinine Estim Creat Clear Calc Estimated GFR POC Glucose 123 H Fasting Glucose Calcium Blood Type Antibody Screen Crossmatch Procedures Date of Service Date of Service: 06/19/22 Progress Note: A&P Assessment and plan (1) Acute on chronic blood loss anemia: Status: Acute (2) Cirrhosis: Status: Acute Plan 1/ Variceal bleed with acute blood loss anemia, HGB drifting down but on face of IV fluids for hypenatremia. She also has down trending BUN. Her discomfort may be from postbanding ulceration. Vitals are stable PLAN: 1/ cont to monitor clinically, can transfuse one unit 2/ if ongoing anemia or concern for bleeding then rept EGD, would also cont with carafate and PPI, cn alternate carafate with magic mouthwash if needed 3/ signed out to Dr Reeder Time Spent With Patient Time: Total time managing care of this patient today ____ minutes. Quality Stroke Does the patient have a stroke diagnosis?: No VTE Prior VTE?: No VTE Risk Level:: Medical - moderate - high VTE Device Contraindication: Treatment Not Indicated VTE Drug Contraindication: N/A - Med Ordered
[2022-06-19] MEDS: Escitalopram Oxalate 20 MG TABLET PO (22:27)
[2022-06-20] MEDS: 0.9 % Sodium Chloride Flush 3 ML SYRINGE IVFLUSH ×3 (01:13→17:01)
[2022-06-20 03:35] VITALS: BP 124/68; PULSE 67; RESP 16; TEMP 37.1; O2SAT 97
[2022-06-20] MEDS: Pantoprazole Sodium 40 MG/10 ML VIAL IVPUSH (06:12)
[2022-06-20 08:00] VITALS: BP 190/79; PULSE 65; RESP 16; TEMP 36.7; O2SAT 96
[2022-06-20 08:31] LABS: Hematocrit 32.2 % (37.0-47.0); Hemoglobin 10.3 g/dl (12.0-16.0); Mean Corpuscular Hemoglobin 31.6 pg (27.0-33.0); Mean Corpuscular Volume 98.8 fL (80.0-98.0); Mean Platelet Volume 13.7 fL (9.4-12.3); NRBC Pct Auto 0.2 /100WBC (0.0-0.2); Red Blood Count 3.26 X10*6/uL (4.20-5.50); Red Cell Distribution Width 18.4 % (11.0-16.0); White Blood Count 12.7 X10*3/uL (4.8-10.8)
[2022-06-20 08:32] LABS: Platelet Count 55 X10*3/uL (160-400)
[2022-06-20] MEDS: Cholecalciferol (Vitamin D3) 25 MCG TABLET 50 MCG PO (09:06)
[2022-06-20] MEDS: Sucralfate Oral Suspension 1 GM/10 ML ORAL.SUSP PO ×4 (09:06→20:39)
[2022-06-20] MEDS: Atorvastatin Calcium 20 MG TABLET PO (09:07)
[2022-06-20] MEDS: carvediloL 3.125 MG TABLET PO ×2 (09:07→20:39)
[2022-06-20] MEDS: Dextrose 5 % 1,000 ML 125 ML IVCONT ×3 (09:12→22:48)
[2022-06-20 09:18] LABS: Anion Gap 8 (12-20); Blood Urea Nitrogen 15 mg/dL (9-16); Carbon Dioxide 28 mmol/L (22-29); Chloride 115 mmol/L (96-108); Potassium 3.7 mmol/L (3.3-5.1); Sodium 147 mmol/L (135-145)
[2022-06-20 09:19] VITALS: BP 142/64
[2022-06-20 09:19] LABS: Calcium 6.9 mg/dL (8.4-10.2); Creatinine Clr Calc Pharmacy 71.6; Estimated Glomerular Filt Rate > 60; Glucose Fasting 87 mg/dL (60-99)
--- NOTE | 2022-06-20 09:32 | HO.PM.IMPN ---
Subjective Subjective Date of Service: 06/20/22 Interval History: cc: hematemesis interval history: no complaints ENT Ears, Nose, Mouth, and Throat: Reports system reviewed and no additional complaints, except as documented Cardiovascular Cardiovascular: Reports no additional cardiovascular complaints Physical Exam Vital Signs: Vital Signs: Last Vital Signs Temp 98.0 F 06/20/22 08:00 Pulse 65 06/20/22 08:00 Resp 16 06/20/22 08:00 BP 142/64 H 06/20/22 09:19 Pulse Ox 96 06/20/22 08:00 O2 Del Method 06/20/22 08:00 O2 Flow Rate 2 06/16/22 07:52 BMI result Body Mass Index 34.4 Const: Other: General resting co mfortably , awake alert x3, in no ac jay distress.? Nec k supple no JVD. C VS? regular rate r hythm, Respiratory lungs clear to au scultation, no res piratory distress, no wheeze, no rho nchi. Gastrointest inal abdomen soft, nontender, bowel sounds audible,? n o guarding , no ri gidity. Extremitie s no? edema. Neuro nonfocal , speech clear. Skin no ra sh, discoloration right lower extrem ity psych appropri ate affect Objective Data Active Medications Amlodipine Besylate (Amlodipine Besylate 10 Mg Tablet) 10 mg PO DAILY [facility] Last Admin: 06/14/22 07:58 Dose: 10 mg Documented By: KYRA Atorvastatin Calcium (Atorvastatin Calcium 20 Mg Tablet) 20 mg PO DAILY [facility] Last Admin: 06/20/22 09:07 Dose: 20 mg Documented By: CHERI Carvedilol (Carvedilol 3.125 Mg Tablet) 3.125 mg PO BID [facility]; Protocol Last Admin: 06/20/22 09:07 Dose: 3.125 mg Documented By: CHERI Clonidine HCl (Clonidine Hcl 0.2 Mg Tablet) 0.2 mg PO BEDTIME [facility]; Protocol Last Admin: 06/13/22 20:13 Dose: 0.2 mg Documented By: CAITLYN Comments: bp 122/60 h 64 Dextrose (Dextrose 50 % 25 Gm/50 Ml Syringe) 25 gm IVPUSH Q15M PRN; Protocol PRN Reason: per Hypoglycemia Standing Ord. Docusate Sodium (Docusate Sodium 100 Mg Capsule) 100 mg PO DAILY PRN PRN Reason: Constipation Escitalopram Oxalate (Escitalopram Oxalate 20 Mg Tablet) 20 mg PO BEDTIME [facility] Last Admin: 06/19/22 22:27 Dose: 20 mg Documented By: YULIETASY Furosemide (Furosemide 40 Mg Tablet) 40 mg PO DAILY [facility]; Protocol Last Admin: 06/13/22 07:40 Dose: 40 mg Documented By: SONAMEMA Glucose (Glucose Gel 15 Gm Gel..Gram.) 15 gm PO Q15M PRN; Protocol PRN Reason: per Hypoglycemia Standing Ord. Hydralazine HCl (Hydralazine Hcl 50 Mg Tablet) 100 mg PO TID [facility]; Protocol Last Admin: 06/13/22 20:12 Dose: 100 mg Documented By: CAITLYN Comments: bp 122/60 h 61 Dextrose (D5w) 1,000 mls @ 150 mls/hr IVCONT .Q6H40M [facility] Last Admin: 06/20/22 09:12 Dose: 125 mls/hr Documented By: CHERI Insulin Human Lispro (Insulin Lispro 100 Unit/Ml 3 Ml Vial) 0 unit SUBCUT QIDACHS [facility]; Protocol Last Admin: 06/20/22 08:41 Dose: Not Given Documented By: CHERI Non-Admin Reason: No Insulin Coverage Ondansetron HCl (Ondansetron Hcl 4 Mg/2 Ml Vial) 4 mg IVPUSH Q6H PRN PRN Reason: Nausea and Vomiting Pantoprazole Sodium (Pantoprazole Sodium 40 Mg/10 Ml Vial) 40 mg IVPUSH BID@0630,1630 [facility] Last Admin: 06/20/22 06:12 Dose: 40 mg Documented By: ARNOLD Pharmacy Consult (Consult Rx Perform Med Rec) 1 each MISCELLANE ONCE PRN PRN Reason: Consult order Sodium Chloride (0.9 % Sodium Chloride Flush 3 Ml Sy[facility]) [facility] Admin: 06/20/22 09:07 Dose: 3 ml Documented By: CHERI Spironolactone (Spironolactone 25 Mg Tablet) 25 mg PO DAILY [facility]; Protocol Last Admin: 06/13/22 07:40 Dose: 25 mg Documented By: KYRA Sucralfate (Sucralfate Oral Suspension 1 Gm/10 Ml Oral.Susp) 1 gm PO QIDACHS [facility] Last Admin: 06/20/22 09:06 Dose: 1 gm Documented By: CHERI Trazodone HCl (Trazodone Hcl 50 Mg Tablet) 150 mg PO DAILY [facility] Last Admin: 06/14/22 07:58 Dose: 150 mg Documented By: KYRA Valsartan (Valsartan 160 Mg Tablet) 160 mg PO DAILY [facility] Last Admin: 06/11/22 08:52 Dose: 160 mg Documented By: CLARISSA Vitamin D (Cholecalciferol (Vitamin D3) 25 Mcg Tablet) 50 mcg PO DAILY [facility] Last Admin: 06/20/22 09:06 Dose: 50 mcg Documented By: CHERI Labs CBC & Chem 7: 06/20/22 07:29 06/20/22 07:29 Labs: Laboratory Results - last 24 hr 06/19/22 06/19/22 06/19/22 08:39 11:24 15:11 MCV MCH MCHC RDW Plt Count MPV Absolute Nucleated RBC Nucleated RBC % (auto) Anion Gap Estim Creat Clear Calc Estimated GFR POC Glucose 123 H 136 H Fasting Glucose Calcium Blood Type A Positive Antibody Screen NEGATIVE Crossmatch See Detail 06/19/22 06/19/22 06/20/22 15:53 20:17 07:29 MCV 98.8 H D MCH 31.6 MCHC 32.0 RDW 18.4 H Plt Count 55 L MPV 13.7 H Absolute Nucleated RBC 0.020 H Nucleated RBC % (auto) 0.2 Anion Gap Estim Creat Clear Calc Estimated GFR POC Glucose 189 H 116 H Fasting Glucose Calcium Blood Type Antibody Screen Crossmatch 06/20/22 06/20/22 07:29 08:16 MCV MCH MCHC RDW Plt Count MPV Absolute Nucleated RBC Nucleated RBC % (auto) Anion Gap 8 L Estim Creat Clear Calc 71.6 Estimated GFR > 60 POC Glucose 95 Fasting Glucose 87 Calcium 6.9 L Blood Type Antibody Screen Crossmatch Assessment and Plan (1) Acute on chronic blood loss anemia: Status: Acute (2) HOANG (acute kidney injury): Status: Acute (3) Congestive heart failure: Status: Acute (4) COPD (chronic obstructive pulmonary disease): Status: Acute Assessment and Plan: 72-year-old female with a PMH significant for asthma, COPD, restrictive lung disease, wgf-iozougc-veqvgtxau diabetes, HTN, HLD, and cirrhosis who presents to the ED today for 2 weeks of worsening SOB, productive cough, and edema. Pt was admitted to the hospital for treatment of COPD and new onset CHF. acute CHF with preserved EF no shortness of breath, edema resolved, echo showed preserved EF with moderate diastolic dysfunction lasix and spironolactone on hold due to over diuresis, ? follow lytes, mg, I/O. hypernatremia d5W increased to 150cc/hr, monitor bmp, improving slowly check urine osm and sodium COPD exacerbation, no acute infection nebs tobacco use disorder smoking 3-4 cigarettes a day strongly recommend to completely abstains from smoking acute blood loss anemia with underlying ch marcocytic anemia: hx of cirrosis noted on ultrasound 05/17/2022 no recurrent hematemesis or black tarry stools noted. 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 Quality Stroke Does the patient have a stroke diagnosis?: No VTE Prior VTE?: No VTE Risk Level:: Medical - moderate - high VTE Device Contraindication: Treatment Not Indicated VTE Drug Contraindication: N/A - Med Ordered
[2022-06-20 15:28] VITALS: BP 170/71; PULSE 66; RESP 16; TEMP 36.9; O2SAT 98
[2022-06-20 16:06] LABS: Osmolality Urine 606 mosm/kg (373-1093)
[2022-06-20 20:00] VITALS: BP 178/80; PULSE 65; RESP 17; TEMP 37.3; O2SAT 97
[2022-06-20] MEDS: Escitalopram Oxalate 20 MG TABLET PO (20:39)
[2022-06-21 00:50] VITALS: BP 168/75; PULSE 70; RESP 18; TEMP 36.7; O2SAT 96
[2022-06-21 04:00] VITALS: BP 130/57; PULSE 67; RESP 18; TEMP 36.7; O2SAT 97
[2022-06-21] MEDS: Dextrose 5 % 1,000 ML 125 ML IVCONT (05:28)
[2022-06-21 05:32] VITALS: BMI 36.1
[2022-06-21 05:37] VITALS: BMI 36.1
[2022-06-21 06:52] LABS: Hematocrit 31.7 % (37.0-47.0); Hemoglobin 10.3 g/dl (12.0-16.0); Mean Corpuscular HGB Conc 32.5 g/dl (31.0-35.0); Mean Corpuscular Hemoglobin 31.8 pg (27.0-33.0); Mean Corpuscular Volume 97.8 fL (80.0-98.0); Mean Platelet Volume 12.7 fL (9.4-12.3); Red Blood Count 3.24 X10*6/uL (4.20-5.50); Red Cell Distribution Width 17.2 % (11.0-16.0); White Blood Count 13.2 X10*3/uL (4.8-10.8)
[2022-06-21 06:53] LABS: Platelet Count 44 X10*3/uL (160-400)
[2022-06-21 07:12] LABS: Anion Gap 8 (12-20); Blood Urea Nitrogen 9 mg/dL (9-16); Calcium 6.6 mg/dL (8.4-10.2); Carbon Dioxide 24 mmol/L (22-29); Chloride 109 mmol/L (96-108); Creatinine Clr Calc Pharmacy 85.4; Estimated Glomerular Filt Rate > 60; Glucose Fasting 121 mg/dL (60-99); Potassium 3.1 mmol/L (3.3-5.1); Sodium 138 mmol/L (135-145)
[2022-06-21 08:00] VITALS: BP 140/67; PULSE 87; RESP 12; TEMP 36.7; O2SAT 95
--- NOTE | 2022-06-21 09:36 | HO.PM.IMPN ---
Subjective Subjective Date of Service: 06/21/22 Interval History: cc: hematemesis interval history: epigastric pain and gas ENT Ears, Nose, Mouth, and Throat: Reports system reviewed and no additional complaints, except as documented Cardiovascular Cardiovascular: Reports no additional cardiovascular complaints Physical Exam Vital Signs: Vital Signs: Last Vital Signs Temp 98.0 F 06/21/22 04:00 Pulse 67 06/21/22 04:00 Resp 18 06/21/22 04:00 BP 130/57 L 06/21/22 04:00 Pulse Ox 97 06/21/22 04:00 O2 Del Method 06/21/22 04:00 O2 Flow Rate 2 06/16/22 07:52 BMI result Body Mass Index 36.1 Const: Other: General resting co mfortably , awake alert x3, in no ac [place] distress.? Nec k supple no JVD. C VS? regular rate r hythm, Respiratory lungs clear to au scultation, no res piratory distress, no wheeze, no rho nchi. Gastrointest inal abdomen soft, nontender, bowel sounds audible,? n o guarding , no ri gidity. Extremitie s no? edema. Neuro nonfocal , speech clear. Skin no ra sh, discoloration right lower extrem ity psych appropri ate affect Objective Data Active Medications Amlodipine Besylate (Amlodipine Besylate 10 Mg Tablet) 10 mg PO DAILY [facility] Last Admin: 06/14/22 07:58 Dose: 10 mg Documented By: COTHARIKA Atorvastatin Calcium (Atorvastatin Calcium 20 Mg Tablet) 20 mg PO DAILY [facility] Last Admin: 06/20/22 09:07 Dose: 20 mg Documented By: CHERI Carvedilol (Carvedilol 3.125 Mg Tablet) 3.125 mg PO BID [facility]; Protocol Last Admin: 06/20/22 20:39 Dose: 3.125 mg Documented By: FARIDA Clonidine HCl (Clonidine Hcl 0.2 Mg Tablet) 0.2 mg PO BEDTIME [facility]; Protocol Last Admin: 06/13/22 20:13 Dose: 0.2 mg Documented By: CAITLYN Comments: bp 122/60 h 64 Dextrose (Dextrose 50 % 25 Gm/50 Ml Syringe) 25 gm IVPUSH Q15M PRN; Protocol PRN Reason: per Hypoglycemia Standing Ord. Docusate Sodium (Docusate Sodium 100 Mg Capsule) 100 mg PO DAILY PRN PRN Reason: Constipation Escitalopram Oxalate (Escitalopram Oxalate 20 Mg Tablet) 20 mg PO BEDTIME [facility] Last Admin: 06/20/22 20:39 Dose: 20 mg Documented By: FARIDA Furosemide (Furosemide 40 Mg Tablet) 40 mg PO DAILY [facility]; Protocol Last Admin: 06/13/22 07:40 Dose: 40 mg Documented By: KYRA Glucose (Glucose Gel 15 Gm Gel..Gram.) 15 gm PO Q15M PRN; Protocol PRN Reason: per Hypoglycemia Standing Ord. Hydralazine HCl (Hydralazine Hcl 50 Mg Tablet) 100 mg PO TID [facility]; Protocol Last Admin: 06/13/22 20:12 Dose: 100 mg Documented By: CAITLYN Comments: bp 122/60 h 61 Insulin Human Lispro (Insulin Lispro 100 Unit/Ml 3 Ml Vial) 0 unit SUBCUT QIDACHS [facility]; Protocol Last Admin: 06/21/22 07:25 Dose: Not Given Documented By: MEGHNA Non-Admin Reason: No Insulin Coverage Ondansetron HCl (Ondansetron Hcl 4 Mg/2 Ml Vial) 4 mg IVPUSH Q6H PRN PRN Reason: Nausea and Vomiting Pharmacy Consult (Consult Rx Perform Med Rec) 1 each MISCELLANE ONCE PRN PRN Reason: Consult order Sodium Chloride (0.9 % Sodium Chloride Flush 3 Ml Syringe) 3 ml IVFLUSH QSHIFT [facility] Last Admin: 06/21/22 00:27 Dose: Not Given Documented By: MARTELL Non-Admin Reason: IV Running Spironolactone (Spironolactone 25 Mg Tablet) 25 mg PO DAILY [facility]; Protocol Last Admin: 06/13/22 07:40 Dose: 25 mg Documented By: KYRA Sucralfate (Sucralfate Oral Suspension 1 Gm/10 Ml Oral.Susp) 1 gm PO QIDACHS [facility] Last Admin: 06/20/22 20:39 Dose: 1 gm Documented By: FARIDA Trazodone HCl (Trazodone Hcl 50 Mg Tablet) 150 mg PO DAILY [facility] Last Admin: 06/14/22 07:58 Dose: 150 mg Documented By: KYRA Valsartan (Valsartan 160 Mg Tablet) 160 mg PO DAILY [facility] Last Admin: 06/11/22 08:52 Dose: 160 mg Documented By: CLARISSA Vitamin D (Cholecalciferol (Vitamin D3) 25 Mcg Tablet) 50 mcg PO DAILY [facility] Last Admin: 06/20/22 09:06 Dose: 50 mcg Documented By: CHERI Labs CBC & Chem 7: 06/21/22 06:30 06/21/22 06:30 Labs: Laboratory Results - last 24 hr 06/20/22 06/20/22 06/20/22 10:55 13:30 13:30 MCV MCH MCHC RDW Plt Count MPV Absolute Nucleated RBC Nucleated RBC % (auto) Anion Gap Estim Creat Clear Calc Estimated GFR POC Glucose 181 H Fasting Glucose Calcium Urine Osmolality 606 Ur Random Sodium 26.0 06/20/22 06/20/22 06/21/22 16:54 20:36 06:30 MCV 97.8 MCH 31.8 MCHC 32.5 RDW 17.2 H Plt Count 44 L MPV 12.7 H Absolute Nucleated RBC 0.000 Nucleated RBC % (auto) 0.0 Anion Gap Estim Creat Clear Calc Estimated GFR POC Glucose 89 141 H Fasting Glucose Calcium Urine Osmolality Ur Random Sodium 06/21/22 06/21/22 06:30 07:14 MCV MCH MCHC RDW Plt Count MPV Absolute Nucleated RBC Nucleated RBC % (auto) Anion Gap 8 L Estim Creat Clear Calc 85.4 Estimated GFR > 60 POC Glucose 133 H Fasting Glucose 121 H Calcium 6.6 L Urine Osmolality Ur Random Sodium Assessment and Plan (1) Acute on chronic blood loss anemia: Status: Acute (2) HOANG (acute kidney injury): Status: Acute (3) Congestive heart failure: Status: Acute (4) COPD (chronic obstructive pulmonary disease): Status: Acute Assessment and Plan: 72-year-old female with a PMH significant for asthma, COPD, restrictive lung disease, [id number] diabetes, HTN, HLD, and cirrhosis who presents to the ED today for 2 weeks of worsening SOB, productive cough, and edema. Pt was admitted to the hospital for treatment of COPD and new onset CHF. acute CHF with preserved EF no shortness of breath, edema resolved, echo showed preserved EF with moderate diastolic dysfunction lasix and spironolactone on hold due to over diuresis, ? follow lytes, mg, I/O. hypernatremia now resolved, monitor off d5w COPD exacerbation, no acute infection nebs tobacco use disorder smoking 3-4 cigarettes a day strongly recommend to completely abstains from smoking acute blood loss anemia with underlying ch marcocytic anemia: hx of cirrosis noted on ultrasound 05/17/2022 no recurrent hematemesis or black tarry stools noted. 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, completed octreotide 3 days, will continue IV Protonix carafate, transfused another 2 units 06/19/22, hgb improved 6.8 to 10.3, now stable 24hrs advance diet non-insulin diabetes -- stable blood sugars, continue insulin sliding scale, metformin on hold Unspecified cirrhosis of liver: rule out portal vein thrombosis - us negative HTN-- home meds on hold HLD-- resume statins obesity weight loss mood disorder lexapro Full code DVT prophylaxis: mech devices due to gib inpatient need: awaiting tolerance of po, monitor for bleed, gi upset Time Spent With Patient Time: Total time managing care of this patient today ____ minutes. Quality Stroke Does the patient have a stroke diagnosis?: No VTE Prior VTE?: No VTE Risk Level:: Medical - moderate - high VTE Device Contraindication: Treatment Not Indicated VTE Drug Contraindication: N/A - Med Ordered
[2022-06-21] MEDS: 0.9 % Sodium Chloride Flush 3 ML SYRINGE IVFLUSH ×3 (10:27→21:30)
[2022-06-21] MEDS: carvediloL 3.125 MG TABLET PO ×2 (10:28→21:30)
[2022-06-21] MEDS: Omeprazole 40 MG CAPSULE.DR PO ×2 (10:28→17:16)
[2022-06-21] MEDS: Atorvastatin Calcium 20 MG TABLET PO (10:28)
[2022-06-21] MEDS: Cholecalciferol (Vitamin D3) 25 MCG TABLET 50 MCG PO (10:28)
[2022-06-21] MEDS: Sucralfate Oral Suspension 1 GM/10 ML ORAL.SUSP PO ×4 (10:42→21:30)
[2022-06-21 11:03] LABS: Glucose, Whole Blood 119 mg/dL (60-115)
[2022-06-21 11:07] VITALS: BP 147/60; PULSE 72; RESP 16; TEMP 36.6; O2SAT 96
--- NOTE | 2022-06-21 11:35 | PM.GIPN ---
Subjective Subjective Date of Service: 06/21/22 Interval History: Patient seen and evaluated at bedside. Multiple family members present as well. Reports no complaints at this time, except that she would like her diet to be advanced. Epigastric discomfort on swallowing has improved Critical Care Time (minutes): 0 Physical Exam Vital Signs: Vital Signs: Last Vital Signs Temp 97.8 F 06/21/22 11:07 Pulse 72 06/21/22 11:07 Resp 16 06/21/22 11:07 BP 147/60 H 06/21/22 11:07 Pulse Ox 96 06/21/22 11:07 O2 Del Method 06/21/22 08:00 O2 Flow Rate 2 06/16/22 07:52 BMI result Body Mass Index 36.1 General appearance: No acute distress, sitting up in the chair Abdomen: Soft, mildly distended, nontender Objective Data Labs CBC & Chem 7: 06/21/22 06:30 06/21/22 06:30 Labs: Laboratory Results - last 24 hr 06/20/22 06/20/22 06/20/22 13:30 13:30 16:54 WBC RBC Hgb Hct MCV MCH MCHC RDW Plt Count MPV Absolute Nucleated RBC Nucleated RBC % (auto) Sodium Potassium Chloride Carbon Dioxide Anion Gap BUN Creatinine Estim Creat Clear Calc Estimated GFR POC Glucose 89 Fasting Glucose Calcium Urine Osmolality 606 Ur Random Sodium 26.0 06/20/22 06/21/22 06/21/22 20:36 06:30 06:30 WBC 13.2 H RBC 3.24 L Hgb 10.3 L Hct 31.7 L MCV 97.8 MCH 31.8 MCHC 32.5 RDW 17.2 H Plt Count 44 L MPV 12.7 H Absolute Nucleated RBC 0.000 Nucleated RBC % (auto) 0.0 Sodium 138 Potassium 3.1 L Chloride 109 H Carbon Dioxide 24 Anion Gap 8 L BUN 9 Creatinine 0.61 Estim Creat Clear Calc 85.4 Estimated GFR > 60 POC Glucose 141 H Fasting Glucose 121 H Calcium 6.6 L Urine Osmolality Ur Random Sodium 06/21/22 06/21/22 07:14 10:54 WBC RBC Hgb Hct MCV MCH MCHC RDW Plt Count MPV Absolute Nucleated RBC Nucleated RBC % (auto) Sodium Potassium Chloride Carbon Dioxide Anion Gap BUN Creatinine Estim Creat Clear Calc Estimated GFR POC Glucose 133 H 119 H Fasting Glucose Calcium Urine Osmolality Ur Random Sodium Procedures Date of Service Date of Service: 06/21/22 Progress Note: A&P Assessment and plan (1) Acute on chronic blood loss anemia: Status: Acute (2) Cirrhosis: Status: Acute Plan 1/ Variceal bleed with acute blood loss anemia H&H has remained stable over the last 2 days since transfusion. Patient also reports soft but formed brown stools. PLAN: 1/advance diet as tolerated 2/ continue Carafate for least 2 weeks 3/ consider viscous lidocaine /magic mouthwash (swish and SWALLOW) 3-4 times/day x 2-3 days to help with post banding discomfort Time Spent With Patient Time: Total time managing care of this patient today ____ minutes. Quality Stroke Does the patient have a stroke diagnosis?: No VTE Prior VTE?: No VTE Risk Level:: Medical - moderate - high VTE Device Contraindication: Treatment Not Indicated VTE Drug Contraindication: N/A - Med Ordered
[2022-06-21 12:13] LABS: Alanine Aminotransferase 17 U/L (0-31); Alkaline Phosphatase 87 U/L (39-117); Aspartate Amino Transferase 24 U/L (5-31); Bilirubin Direct 0.6 mg/dL (0.0-0.5); Bilirubin Total 1.6 mg/dL (0.0-1.0); Total Protein 4.9 g/dL (6.5-8.0)
[2022-06-21 16:00] VITALS: BP 134/60; PULSE 69; RESP 16; TEMP 37.1; O2SAT 98
[2022-06-21 20:00] VITALS: BP 188/61; PULSE 78; RESP 16; TEMP 36.7; O2SAT 99
[2022-06-21] MEDS: Escitalopram Oxalate 20 MG TABLET PO (21:30)
[2022-06-22] VITALS (7 sets, daily range): BP systolic 130–177; BP diastolic 60–80; PULSE 67–80; RESP 16–20; TEMP 35.6–36.9; O2SAT 95–98; BMI 36.9
[2022-06-22] MEDS: Omeprazole 40 MG CAPSULE.DR PO ×2 (06:03→16:58)
[2022-06-22 07:26] LABS: Mean Corpuscular Volume 97.7 fL (80.0-98.0)
[2022-06-22 07:27] LABS: Hematocrit 29.7 % (37.0-47.0); Hemoglobin 9.9 g/dl (12.0-16.0); Mean Corpuscular HGB Conc 33.3 g/dl (31.0-35.0); Mean Corpuscular Hemoglobin 32.6 pg (27.0-33.0); Red Blood Count 3.04 X10*6/uL (4.20-5.50); White Blood Count 13.1 X10*3/uL (4.8-10.8)
[2022-06-22 07:28] LABS: Platelet Count 56 X10*3/uL (160-400)
[2022-06-22 07:29] LABS: PLT ABN DIST 1
[2022-06-22] MEDS: Cholecalciferol (Vitamin D3) 25 MCG TABLET 50 MCG PO (08:56)
[2022-06-22] MEDS: Sucralfate Oral Suspension 1 GM/10 ML ORAL.SUSP PO ×4 (08:56→20:47)
[2022-06-22] MEDS: Atorvastatin Calcium 20 MG TABLET PO (08:57)
[2022-06-22] MEDS: 0.9 % Sodium Chloride Flush 3 ML SYRINGE IVFLUSH ×3 (08:57→20:47)
[2022-06-22] MEDS: carvediloL 3.125 MG TABLET PO ×2 (08:57→20:45)
[2022-06-22 09:09] LABS: Alanine Aminotransferase 22 U/L (0-31); Albumin Level 1.9 g/dL (3.5-5.0); Alkaline Phosphatase 104 U/L (39-117); Anion Gap 8 (12-20); Aspartate Amino Transferase 28 U/L (5-31); Blood Urea Nitrogen 9 mg/dL (9-16); Calcium 6.8 mg/dL (8.4-10.2); Carbon Dioxide 26 mmol/L (22-29); Chloride 109 mmol/L (96-108); Creatinine Clr Calc Pharmacy 71.2; Estimated Glomerular Filt Rate > 60; Glucose Fasting 78 mg/dL (60-99); Magnesium 1.5 mg/dL (1.6-2.6); Potassium 3.8 mmol/L (3.3-5.1); Sodium 139 mmol/L (135-145); Total Protein 4.6 g/dL (6.5-8.0)
--- NOTE | 2022-06-22 09:16 | HO.PM.IMPN ---
Subjective Subjective Date of Service: 06/22/22 Interval History: cc: hematemesis interval history: epigastric pain and gas improved ENT Ears, Nose, Mouth, and Throat: Reports system reviewed and no additional complaints, except as documented Cardiovascular Cardiovascular: Reports no additional cardiovascular complaints Physical Exam Vital Signs: Vital Signs: Last Vital Signs Temp 98 F 06/22/22 07:54 Pulse 78 06/22/22 07:54 Resp 18 06/22/22 07:54 BP 140/80 H 06/22/22 07:54 Pulse Ox 96 06/22/22 07:54 O2 Del Method 06/22/22 07:54 O2 Flow Rate 2 06/16/22 07:52 BMI result Body Mass Index 36.9 General appearance: No acute distress, sitting up in the chair Abdomen: Soft, mildly distended, nontender Objective Data Active Medications Amlodipine Besylate (Amlodipine Besylate 10 Mg Tablet) 10 mg PO DAILY [facility] Last Admin: 06/14/22 07:58 Dose: 10 mg Documented By: KYRA Atorvastatin Calcium (Atorvastatin Calcium 20 Mg Tablet) 20 mg PO DAILY [facility] Last Admin: 06/22/22 08:57 Dose: 20 mg Documented By: ZARA Carvedilol (Carvedilol 3.125 Mg Tablet) 3.125 mg PO BID [facility]; Protocol Last Admin: 06/22/22 08:57 Dose: 3.125 mg Documented By: ZARA Clonidine HCl (Clonidine Hcl 0.2 Mg Tablet) 0.2 mg PO BEDTIME [facility]; Protocol Last Admin: 06/13/22 20:13 Dose: 0.2 mg Documented By: CAITLYN Comments: bp 122/60 h 64 Dextrose (Dextrose 50 % 25 Gm/50 Ml Syringe) 25 gm IVPUSH Q15M PRN; Protocol PRN Reason: per Hypoglycemia Standing Ord. Docusate Sodium (Docusate Sodium 100 Mg Capsule) 100 mg PO DAILY PRN PRN Reason: Constipation Escitalopram Oxalate (Escitalopram Oxalate 20 Mg Tablet) 20 mg PO BEDTIME [facility] Last Admin: 06/21/22 21:30 Dose: 20 mg Documented By: UMA Furosemide (Furosemide 40 Mg Tablet) 40 mg PO DAILY [facility]; Protocol Last Admin: 06/13/22 07:40 Dose: 40 mg Documented By: KYRA Glucose (Glucose Gel 15 Gm Gel..Gram.) 15 gm PO Q15M PRN; Protocol PRN Reason: per Hypoglycemia Standing Ord. Hydralazine HCl (Hydralazine Hcl 50 Mg Tablet) 100 mg PO TID [facility]; Protocol Last Admin: 06/13/22 20:12 Dose: 100 mg Documented By: CAITLYN Comments: bp 122/60 h 61 Insulin Human Lispro (Insulin Lispro 100 Unit/Ml 3 Ml Vial) 0 unit SUBCUT QIDACHS [facility]; Protocol Last Admin: 06/22/22 09:00 Dose: Not Given Documented By: ZARA Non-Admin Reason: No Insulin Coverage Omeprazole (Omeprazole 40 Mg Capsule.) 40 mg PO BID@0630,1630 [facility] Last Admin: 06/22/22 06:03 Dose: 40 mg Documented By: UMA Ondansetron HCl (Ondansetron Hcl 4 Mg/2 Ml Vial) 4 mg IVPUSH Q6H PRN PRN Reason: Nausea and Vomiting Pharmacy Consult (Consult Rx Perform Med Rec) 1 each MISCELLANE ONCE PRN PRN Reason: Consult order Sodium Chloride (0.9 % Sodium Chloride Flush 3 Ml Syringe) [facility] Last Admin: 06/22/22 08:57 Dose: 3 ml Documented By: ZARA Spironolactone (Spironolactone 25 Mg Tablet) 25 mg PO DAILY [facility]; Protocol Last Admin: 06/13/22 07:40 Dose: 25 mg Documented By: KYRA Sucralfate (Sucralfate Oral Suspension 1 Gm/10 Ml Oral.Susp) 1 gm PO QIDACHS [facility] Last Admin: 06/22/22 08:56 Dose: 1 gm Documented By: ZARA Trazodone HCl (Trazodone Hcl 50 Mg Tablet) 150 mg PO DAILY [facility] Last Admin: 06/14/22 07:58 Dose: 150 mg Documented By: KYRA Valsartan (Valsartan 160 Mg Tablet) 160 mg PO DAILY [facility] Last Admin: 06/11/22 08:52 Dose: 160 mg Documented By: CLARISSA Vitamin D (Cholecalciferol (Vitamin D3) 25 Mcg Tablet) 50 mcg PO DAILY [facility] Last Admin: 06/22/22 08:56 Dose: 50 mcg Documented By: ZARA Labs CBC & Chem 7: 06/22/22 07:13 06/22/22 07:13 Labs: Laboratory Results - last 24 hr 06/21/22 06/21/22 06/21/22 06:30 10:54 16:29 MCV MCH MCHC RDW Plt Count MPV Absolute Nucleated RBC Nucleated RBC % (auto) Anion Gap Estim Creat Clear Calc Estimated GFR POC Glucose 119 H 125 H Fasting Glucose Calcium Magnesium Total Bilirubin 1.6 H Direct Bilirubin 0.6 H AST 24 ALT 17 Alkaline Phosphatase 87 Total Protein 4.9 L Albumin 2.0 L 06/21/22 06/22/22 06/22/22 21:27 07:13 07:13 MCV 97.7 MCH 32.6 MCHC 33.3 RDW 17.0 H Plt Count 56 L D MPV Not Reportable Absolute Nucleated RBC 0.000 Nucleated RBC % (auto) 0.0 Anion Gap 8 L Estim Creat Clear Calc 71.2 Estimated GFR > 60 POC Glucose 120 H Fasting Glucose 78 Calcium 6.8 L Magnesium 1.5 L Total Bilirubin 2.0 H Direct Bilirubin 1.0 H AST 28 ALT 22 Alkaline Phosphatase 104 Total Protein 4.6 L Albumin 1.9 L 06/22/22 07:26 MCV MCH MCHC RDW Plt Count MPV Absolute Nucleated RBC Nucleated RBC % (auto) Anion Gap Estim Creat Clear Calc Estimated GFR POC Glucose 86 Fasting Glucose Calcium Magnesium Total Bilirubin Direct Bilirubin AST ALT Alkaline Phosphatase Total Protein Albumin Assessment and Plan (1) Acute on chronic blood loss anemia: Status: Acute (2) HOANG (acute kidney injury): Status: Acute (3) Congestive heart failure: Status: Acute (4) COPD (chronic obstructive pulmonary disease): Status: Acute Assessment and Plan: 72-year-old female with a PMH significant for asthma, COPD, restrictive lung disease, ply-[id number] diabetes, HTN, HLD, and cirrhosis who presents to the ED today for 2 weeks of worsening SOB, productive cough, and edema. Pt was admitted to the hospital for treatment of COPD and new onset CHF. acute CHF with preserved EF no shortness of breath, edema resolved, echo showed preserved EF with moderate diastolic dysfunction lasix and spironolactone on hold due to over diuresis, ? follow lytes, mg, I/O. hypernatremia now resolved, monitor off d5w COPD exacerbation, no acute infection nebs tobacco use disorder smoking 3-4 cigarettes a day strongly recommend to completely abstains from smoking acute blood loss anemia with underlying ch marcocytic anemia: hx of cirrosis noted on ultrasound 05/17/2022 no recurrent hematemesis or black tarry stools noted. 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, completed octreotide 3 days, will continue IV Protonix carafate, transfused another 2 units 06/19/22, hgb improved 6.8 to 10.3, now stable 48hrs advance diet non-insulin diabetes -- stable blood sugars, continue insulin sliding scale, metformin on hold Unspecified cirrhosis of liver: rule out portal vein thrombosis - us negative HTN-- home meds on hold HLD-- resume statins obesity weight loss mood disorder lexapro Full code DVT prophylaxis: mech devices due to gib inpatient need: awaiting tolerance of po, monitor for bleed Time Spent With Patient Time: Total time managing care of this patient today ____ minutes. Quality Stroke Does the patient have a stroke diagnosis?: No VTE Prior VTE?: No VTE Risk Level:: Medical - moderate - high VTE Device Contraindication: Treatment Not Indicated VTE Drug Contraindication: N/A - Med Ordered
[2022-06-22] MEDS: Escitalopram Oxalate 20 MG TABLET PO (20:46)
[2022-06-23 03:20] VITALS: BP 165/74; PULSE 71; RESP 16; TEMP 37.1; O2SAT 98
[2022-06-23] MEDS: Omeprazole 40 MG CAPSULE.DR PO ×2 (04:57→17:35)
--- NOTE | 2022-06-23 05:06 | PC.NURSE ---
06/22/2022 2237: Patient having episodes of watery diarrhea notified . ordered C diff stool sample. Collected at 0450 watery yellow stool sent to lab. 06/23/2022 0500:Notified by lab priority message the sample appears to be urine. Reponded the sample was very watery yellow diarrhea stool; [employer] acknowledged.
[2022-06-23 05:50] LABS: CDiff Gene PCR NEGATIVE (Negative)
[2022-06-23 06:46] VITALS: BMI 36.3
[2022-06-23 07:19] VITALS: BP 141/65; PULSE 76; RESP 20; TEMP 37.1; O2SAT 96
[2022-06-23 07:30] LABS: Glucose, Whole Blood 83 mg/dL (60-115)
[2022-06-23 07:31] LABS: Anion Gap 10 (12-20); Blood Urea Nitrogen 9 mg/dL (9-16); Calcium 6.9 mg/dL (8.4-10.2); Carbon Dioxide 22 mmol/L (22-29); Chloride 111 mmol/L (96-108); Creatinine Clr Calc Pharmacy 74.6; Estimated Glomerular Filt Rate > 60; Glucose Fasting 72 mg/dL (60-99); Potassium 3.6 mmol/L (3.3-5.1); Sodium 139 mmol/L (135-145)
[2022-06-23 08:26] LABS: PLT CLUMP 1
[2022-06-23 08:27] LABS: Hematocrit 30.8 % (37.0-47.0); Hemoglobin 9.9 g/dl (12.0-16.0); Mean Corpuscular HGB Conc 32.1 g/dl (31.0-35.0); Mean Corpuscular Hemoglobin 31.6 pg (27.0-33.0); Mean Corpuscular Volume 98.4 fL (80.0-98.0); Red Blood Count 3.13 X10*6/uL (4.20-5.50); Red Cell Distribution Width 16.8 % (11.0-16.0)
[2022-06-23 08:28] LABS: PLT ABN DIST 1; Platelet Count 57 X10*3/uL (160-400); White Blood Count 11.4 X10*3/uL (4.8-10.8)
--- NOTE | 2022-06-23 09:00 | HO.PM.IMPN ---
Subjective Subjective Date of Service: 06/23/22 Interval History: cc: hematemesis interval history: abd pain and diarrhea ENT Ears, Nose, Mouth, and Throat: Reports system reviewed and no additional complaints, except as documented Cardiovascular Cardiovascular: Reports no additional cardiovascular complaints Physical Exam Vital Signs: Vital Signs: Last Vital Signs Temp 98.8 F 06/23/22 07:19 Pulse 76 06/23/22 07:19 Resp 20 06/23/22 07:19 BP 141/65 H 06/23/22 07:19 Pulse Ox 96 06/23/22 07:19 O2 Del Method 06/23/22 07:19 O2 Flow Rate 2 06/16/22 07:52 BMI result Body Mass Index 36.3 General appearance: No acute distress, sitting up in the chair Abdomen: Soft, mildly distended, nontender Objective Data Active Medications Amlodipine Besylate (Amlodipine Besylate 10 Mg Tablet) 10 mg PO DAILY [facility] Last Admin: 06/14/22 07:58 Dose: 10 mg Documented By: KYRA Atorvastatin Calcium (Atorvastatin Calcium 20 Mg Tablet) 20 mg PO DAILY [facility] Last Admin: 06/22/22 08:57 Dose: 20 mg Documented By: ZARA Carvedilol (Carvedilol 3.125 Mg Tablet) 3.125 mg PO BID ANGELINA; Protocol Last Admin: 06/22/22 20:45 Dose: 3.125 mg Documented By: AMAN Clonidine HCl (Clonidine Hcl 0.2 Mg Tablet) 0.2 mg PO BEDTIME ANGELINA; Protocol Last Admin: 06/13/22 20:13 Dose: 0.2 mg Documented By: CAITLYN Comments: bp 122/60 h 64 Dextrose (Dextrose 50 % 25 Gm/50 Ml Syringe) 25 gm IVPUSH Q15M PRN; Protocol PRN Reason: per Hypoglycemia Standing Ord. Docusate Sodium (Docusate Sodium 100 Mg Capsule) 100 mg PO DAILY PRN PRN Reason: Constipation Escitalopram Oxalate (Escitalopram Oxalate 20 Mg Tablet) 20 mg PO BEDTIME ANGELINA Last Admin: 06/22/22 20:46 Dose: 20 mg Documented By: AMAN Furosemide (Furosemide 40 Mg Tablet) 40 mg PO DAILY ANGELINA; Protocol Last Admin: 06/13/22 07:40 Dose: 40 mg Documented By: KYRA Glucose (Glucose Gel 15 Gm Gel..Gram.) 15 gm PO Q15M PRN; Protocol PRN Reason: per Hypoglycemia Standing Ord. Hydralazine HCl (Hydralazine Hcl 50 Mg Tablet) 100 mg PO TID [facility]; Protocol Last Admin: 06/13/22 20:12 Dose: 100 mg Documented By: CAITLYN Comments: bp 122/60 h 61 Insulin Human Lispro (Insulin Lispro 100 Unit/Ml 3 Ml Vial) 0 unit SUBCUT QIDACHS [facility]; Protocol Last Admin: 06/22/22 20:43 Dose: Not Given Documented By: AMAN Non-Admin Reason: No Insulin Coverage Loperamide HCl (Loperamide Hcl 2 Mg Capsule) 2 mg PO Q4H PRN PRN Reason: Diarrhea Omeprazole (Omeprazole 40 Mg Capsule.Dr) 40 mg PO BID@0630,1630 [facility] Last Admin: 06/23/22 04:57 Dose: 40 mg Documented By: AMAN Ondansetron HCl (Ondansetron Hcl 4 Mg/2 Ml Vial) 4 mg IVPUSH Q6H PRN PRN Reason: Nausea and Vomiting Pharmacy Consult (Consult Rx Perform Med Rec) 1 each MISCELLANE ONCE PRN PRN Reason: Consult order Sodium Chloride (0.9 % Sodium Chloride Flush 3 Ml Syringe) [facility] Admin: 06/22/22 20:47 Dose: 3 ml Documented By: AMAN Spironolactone (Spironolactone 25 Mg Tablet) 25 mg PO DAILY [facility]; Protocol Last Admin: 06/13/22 07:40 Dose: 25 mg Documented By: KYRA Sucralfate (Sucralfate Oral Suspension 1 Gm/10 Ml Oral.Susp) 1 gm PO QIDAS [facility] Last Admin: 06/22/22 20:47 Dose: 1 gm Documented By: AMAN Trazodone HCl (Trazodone Hcl 50 Mg Tablet) 150 mg PO DAILY [facility] Last Admin: 06/14/22 07:58 Dose: 150 mg Documented By: KYRA Valsartan (Valsartan 160 Mg Tablet) 160 mg PO DAILY [facility] Last Admin: 06/11/22 08:52 Dose: 160 mg Documented By: CLARISSA Vitamin D (Cholecalciferol (Vitamin D3) 25 Mcg Tablet) 50 mcg PO DAILY [facility] Last Admin: 06/22/22 08:56 Dose: 50 mcg Documented By: ZARA Labs CBC & Chem 7: 06/23/22 07:51 06/23/22 06:01 Labs: Laboratory Results - last 24 hr 06/22/22 06/22/22 06/22/22 07:13 11:24 15:48 MCV MCH MCHC RDW Plt Count MPV Absolute Nucleated RBC Nucleated RBC % (auto) Anion Gap 8 L Estim Creat Clear Calc 71.2 Estimated GFR > 60 POC Glucose 114 88 Fasting Glucose 78 Calcium 6.8 L Magnesium 1.5 L Total Bilirubin 2.0 H Direct Bilirubin 1.0 H AST 28 ALT 22 Alkaline Phosphatase 104 Total Protein 4.6 L Albumin 1.9 L C. difficile Tox B Gene 06/22/22 06/23/22 06/23/22 19:42 04:50 06:01 MCV MCH MCHC RDW Plt Count MPV Absolute Nucleated RBC Nucleated RBC % (auto) Anion Gap 10 L Estim Creat Clear Calc 74.6 Estimated GFR > 60 POC Glucose 106 Fasting Glucose 72 Calcium 6.9 L Magnesium Total Bilirubin Direct Bilirubin AST ALT Alkaline Phosphatase Total Protein Albumin C. difficile Tox B Gene NEGATIVE 06/23/22 06/23/22 07:23 07:51 MCV 98.4 H MCH 31.6 MCHC 32.1 RDW 16.8 H Plt Count 57 L MPV Not Reportable Absolute Nucleated RBC 0.000 Nucleated RBC % (auto) 0.0 Anion Gap Estim Creat Clear Calc Estimated GFR POC Glucose 83 Fasting Glucose Calcium Magnesium Total Bilirubin Direct Bilirubin AST ALT Alkaline Phosphatase Total Protein Albumin C. difficile Tox B Gene Assessment and Plan (1) Acute on chronic blood loss anemia: Status: Acute (2) HOANG (acute kidney injury): Status: Acute (3) Congestive heart failure: Status: Acute (4) COPD (chronic obstructive pulmonary disease): Status: Acute Assessment and Plan: 72-year-old female with a PMH significant for asthma, COPD, restrictive lung disease, lit-xxasrxm-tyfppzrad diabetes, HTN, HLD, and cirrhosis who presents to the ED today for 2 weeks of worsening SOB, productive cough, and edema. Pt was admitted to the hospital for treatment of COPD and new onset CHF. acute diarrhea with abd pain cdif negative check stool pcr imodium prn acute CHF with preserved EF no shortness of breath, edema resolved, echo showed preserved EF with moderate diastolic dysfunction lasix and spironolactone on hold due to over diuresis, ? follow lytes, mg, I/O. hypernatremia now resolved COPD exacerbation, no acute infection nebs tobacco use disorder smoking 3-4 cigarettes a day strongly recommend to completely abstains from smoking acute blood loss anemia with underlying ch marcocytic anemia: hx of cirrosis noted on ultrasound 05/17/2022 no recurrent hematemesis or black tarry stools noted. 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 Quality Stroke Does the patient have a stroke diagnosis?: No VTE Prior VTE?: No VTE Risk Level:: Medical - moderate - high VTE Device Contraindication: Treatment Not Indicated VTE Drug Contraindication: N/A - Med Ordered
[2022-06-23] MEDS: Sucralfate Oral Suspension 1 GM/10 ML ORAL.SUSP PO ×4 (09:06→20:39)
[2022-06-23] MEDS: carvediloL 3.125 MG TABLET PO ×2 (09:06→20:39)
[2022-06-23] MEDS: Atorvastatin Calcium 20 MG TABLET PO (09:06)
[2022-06-23] MEDS: Cholecalciferol (Vitamin D3) 25 MCG TABLET 50 MCG PO (09:06)
[2022-06-23] MEDS: Loperamide HCl 2 MG CAPSULE PO (09:06)
[2022-06-23] MEDS: 0.9 % Sodium Chloride Flush 3 ML SYRINGE IVFLUSH ×3 (09:07→20:41)
[2022-06-23 11:08] VITALS: BP 135/78; PULSE 74; RESP 20; TEMP 36.9; O2SAT 96
[2022-06-23 11:20] LABS: Glucose, Whole Blood 109 mg/dL (60-115)
[2022-06-23 16:00] VITALS: BP 161/75; PULSE 75; RESP 18; TEMP 37.1; O2SAT 95
[2022-06-23 16:04] LABS: Glucose, Whole Blood 98 mg/dL (60-115)
[2022-06-23 19:59] LABS: Glucose, Whole Blood 110 mg/dL (60-115)
[2022-06-23 20:00] VITALS: BP 164/65; PULSE 70; RESP 18; TEMP 37; O2SAT 96
[2022-06-23] MEDS: Escitalopram Oxalate 20 MG TABLET PO (20:39)
[2022-06-23 23:47] VITALS: BP 130/58; PULSE 70; RESP 18; TEMP 37.5; O2SAT 97
[2022-06-24 04:00] VITALS: BP 167/71; PULSE 76; RESP 15; TEMP 36.8; O2SAT 96
[2022-06-24] MEDS: Omeprazole 40 MG CAPSULE.DR PO (05:55)
[2022-06-24 06:09] VITALS: BMI 35.6
[2022-06-24 06:38] LABS: Hemoglobin 9.6 g/dl (12.0-16.0); Mean Corpuscular Hemoglobin 31.7 pg (27.0-33.0); Platelet Count 63 X10*3/uL (160-400); Red Blood Count 3.03 X10*6/uL (4.20-5.50); Red Cell Distribution Width 16.5 % (11.0-16.0); White Blood Count 10.9 X10*3/uL (4.8-10.8)
[2022-06-24 07:25] LABS: Anion Gap 8 (12-20); Blood Urea Nitrogen 8 mg/dL (9-16); Carbon Dioxide 27 mmol/L (22-29); Chloride 109 mmol/L (96-108); Creatinine Clr Calc Pharmacy 68.9; Estimated Glomerular Filt Rate > 60; Glucose Fasting 90 mg/dL (60-99); Potassium 3.9 mmol/L (3.3-5.1); Sodium 140 mmol/L (135-145)
[2022-06-24] MEDS: Cholecalciferol (Vitamin D3) 25 MCG TABLET 50 MCG PO (07:50)
[2022-06-24] MEDS: carvediloL 3.125 MG TABLET PO (07:50)
[2022-06-24] MEDS: Atorvastatin Calcium 20 MG TABLET PO (07:51)
[2022-06-24] MEDS: 0.9 % Sodium Chloride Flush 3 ML SYRINGE IVFLUSH (07:51)
[2022-06-24] MEDS: Sucralfate Oral Suspension 1 GM/10 ML ORAL.SUSP PO ×2 (07:51→12:57)
[2022-06-24 07:57] VITALS: BP 142/70; PULSE 74; RESP 17; TEMP 37.1; O2SAT 97
[2022-06-24 07:57] LABS: Glucose, Whole Blood 86 mg/dL (60-115)
[2022-06-24 10:41] VITALS: BP 142/70; PULSE 74; O2SAT 97
--- NOTE | 2022-06-24 11:18 | P.DS_ITS ---
DS: Providers Provider Date of Service: 06/24/22 Date of admission: 06/09/22 15:20 Primary care physician: Sherry Lucas MD Consults: 06/09/22 15:40 Consult to Cardiology Routine Consulting Provider: Lex Burk Reason for consultation: New-onset CHF Has provider been notified: No 06/14/22 05:41 Consult to Gastroenterology Routine Consulting Provider: Amberly Aguilar Reason for consultation: hematemesis Has provider been notified: No DS: Summary Hospital Course Hospital Course: Chief Complaint: SOB, dyspnea Pt is a 72-year-old female with a PMH significant for asthma, COPD, restrictive lung disease, dku-irwlwqg-bquwjhvna diabetes, HTN, HLD, and cirrhosis who presen ts to the ED today for 2 weeks of worsening SOB, productive cough, and edema. During this time patient has had progressively difficult time with walking until today when she could barely walk to the bathroom without having to rest.? Patient also notes that she has had to sleep with more pillows behind her back.? Patient has had chronic lower leg edema but notes that it has grown much worse over the past few weeks and now includes her knees, thighs, and belly.? Patient also complains of cough, productive of thick yellow and dark brown phlegm. Patient also complains of right shoulder pain, particularly when breathing. In the ED patient was given multiple DuoNebs, Mag sulfate, and Solu-Medrol with some relief. Labs were significant for an MCV of 101.7, mild hypocalcemia of 8.1, and no leukocytosis. Chronic hyperbilirubinemia of 1.8, direct bilirubin of 0.8, AST 40, and alk phos of 142, all likely secondary to chirrosis.? BNP was elevated at 797, and chronic hypoalbuminemia at 2.4.? Chest x-ray showed increased central hilar markings questionable for pulmonary venous redistribution/mild pulmonary edema versus airways disease.? Of note patient had an echocardiogram on 05/06/2021 that showed an EF of 50% with diastolic dysfunction, mitral annular calcification, mitral and tricuspid valve regurgitation.? Patient be admitted the hospital for treatment for COPD and CHF. Hospital course: 72-year-old female with a PMH significant for asthma, COPD, restrictive lung disease, jcg-cuinwob-klbdqynnd diabetes, HTN, HLD, and cirrhosis who presents to the ED today for 2 weeks of worsening SOB, productive cough, and edema. Pt was admitted to the hospital for treatment of COPD and new onset CHF. Acute diarrhe, cause unclear, negative Cdif and now seems to have resolved and can take imodium PRN Acute CHF with preserved EF no shortness of breath, edema resolved, echo showed preserved EF with moderate diastolic dysfunction ? ? lasix? and spironolactone? on hold? due to over diuresis, resume after dc Hypernatremia now resolved COPD exacerbation, no acute infection nebs tobacco use disorder smoking 3-4 cigarettes a day strongly recommend to completely abstains from smoking acute blood loss anemia? with underlying ch marcocytic anemia: hx of cirrosis noted on ultrasound 05/17/2022 ?no recurrent hematemesis or black tarry stools noted. 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 completed octreotide 3 days,and IV Protonix , carafate, transfused another 2 units 06/19/22, hgb improved 6.8 to 10.3, now stable advanced diet non-insulin diabetes -- stable blood sugars, continue insulin sliding scale, metformin on hold Unspecified cirrhosis of liver: rule out portal vein thrombosis - us negative HTN--?resume home meds HLD--? resume statins obesity weight loss advised mood disorder lexapro ? ? Time Spent with Patient Time attestation: Total time managing care of this patient today ____ minutes. Discharge coordination time: Greater than 30 minutes Quality: Safe Use of Opioids Does Pt have an Active Cancer Diagnosis on the Problem List?: No Quality: Stroke Does the patient have a stroke diagnosis?: No Physical Exam Vital Signs: Vital Signs: Last Vital Signs Temp 98.8 F 06/24/22 07:57 Pulse 74 06/24/22 10:41 Resp 17 06/24/22 07:57 BP 142/70 H 06/24/22 10:41 Pulse Ox 97 06/24/22 10:41 O2 Del Method 06/24/22 07:57 O2 Flow Rate 2 06/16/22 07:52 BMI result Body Mass Index 35.6 DS: Data Data Completed and Pending Labs on day of discharge: Laboratory Results - last 24 hr 06/23/22 06/23/22 06/23/22 11:10 15:55 19:55 WBC RBC Hgb Hct MCV MCH MCHC RDW Plt Count MPV Absolute Nucleated RBC Nucleated RBC % (auto) Sodium Potassium Chloride Carbon Dioxide Anion Gap BUN Creatinine Estim Creat Clear Calc Estimated GFR POC Glucose 109 98 110 Fasting Glucose Calcium 06/24/22 06/24/22 06/24/22 05:54 05:54 07:48 WBC 10.9 H RBC 3.03 L Hgb 9.6 L Hct 30.0 L MCV 99.0 H MCH 31.7 MCHC 32.0 RDW 16.5 H Plt Count 63 L MPV Not Reportable Absolute Nucleated RBC 0.000 Nucleated RBC % (auto) 0.0 Sodium 140 Potassium 3.9 Chloride 109 H Carbon Dioxide 27 Anion Gap 8 L BUN 8 L D Creatinine 0.75 Estim Creat Clear Calc 68.9 Estimated GFR > 60 POC Glucose 86 Fasting Glucose 90 Calcium 7.0 L Discharge Plan Discharge Anticipated Discharge Date/Time: 06/24/22 14:17 Patient Disposition: Home Health Service Discharge Diagnosis: Heart failure Referrals: Julian DECKER [Outside] - 1 Week Sherry Lucas MD [Primary Care Provider] - 1 Week Discharge Medications: New omeprazole magnesium [Prilosec OTC] 20 mg tablet,delayed release (DR/EC) 20 mg PO DAILY Qty: 30 0RF amlodipine [Norvasc] 5 mg tablet 5 mg PO DAILY Qty: 30 0RF Continued metformin 1,000 mg tablet 1 tab PO BID cholecalciferol (vitamin D3) 50 mcg (2,000 unit) capsule 50 mcg PO DAILY atorvastatin [Lipitor] 20 mg tablet 20 mg PO DAILY trazodone 150 mg tablet 150 mg PO DAILY citalopram 40 mg tablet 40 mg PO DAILY Discontinued felodipine 10 mg tablet extended release 24 hr 10 mg PO DAILY Qty: 30 0RF spironolactone 25 mg tablet 25 mg PO DAILY Qty: 30 5RF clonidine HCl 0.2 mg tablet 1 tab PO BEDTIME hydrochlorothiazide 50 mg tablet 50 mg PO DAILY irbesartan 300 mg tablet 300 mg PO DAILY hydralazine 100 mg tablet 100 mg PO TID No Action carvedilol 3.125 mg tablet 6.25 mg PO BID 30 Days Qty: 120 0RF Rx Instructions: must administer with a meal/food psyllium Powder 1 tbsp PO DAILY Qty: 300 0RF Rx Instructions: mix into at least 8 oz of water or juice before administering Heplisav-B (PF) 20 mcg/0.5 mL syringe 20 mcg IM Q30D Qty: 1 0RF peg 3350-electrolytes [Golytely] 236-22.74-6.74 -5.86 gram recon soln 240 ml PO Q10M Qty: 4000 0RF Rx Instructions: as per split prep instructions, until fecal effluent is clear Discharge Orders: Discharge Order (Routine); Ordered 06/24/22 Ordered By: Toribio Nichols Diet: Diabetic diet Activity on Discharge: As tolerated Stand Alone Forms: Patient Portal Discharge page Care Plan Goals: controlled of heart failure Health Concerns: diabetes, cirrhosis Plan of Treatment: take all your medications as directed and follow up with your Doctor in a week Stop taking Irbersartan, Felodipine, Hydrochlorothiazide, and aldactone. Your blood pressure medicine are now: Coreg and Norvasc Assessment: as above Discharge Date/Time: 06/24/22 15:30
[2022-06-24 11:19] LABS: Glucose, Whole Blood 98 mg/dL (60-115)
[2022-06-24 11:20] VITALS: BP 140/78; PULSE 79; RESP 18; TEMP 36.8; O2SAT 97
--- NOTE | 2022-06-24 11:33 | W.MHC.F2F ---
Service Date Service Date: 06/24/22 Encounter Date of encounter: 06/24/22 Reasons for Services Signs and symptoms assessed: weakness,shortness of breath due to heart failure Reason for nursing home: CV/CP assess and/or care, medication management and teach disease management Reason for physical therapy: home safety and mobility, therapeutic exercises and gait/transfer training Homebound: Leaving the home is medically contraindicated at this time without the asist of a device and/or another person due th the listed conditions above and below. Reason homebound: shortness of breath with minimal effort Homebound supporting statement: Homebound due to shortness related to heart failure, weakness from hospitalization and thus needs the assistance of another person Certification: Based on the above findings, I certify that this patient is confined to the home and needs intermittent nursing home care, physical therapy and/or speech therapy, or continues to need occupational therapy. The patient is under my care, and I have initiated the establishment of the plan of care. The patient will be followed by a physician who will periodically review the plan of care. Time Spent With Patient Time: Total time managing care of this patient today ____ minutes.
--- NOTE | 2022-06-24 14:36 | MHC.CM.PN ---
Patient has been medically cleared for dc to home today with services. A referral was made to [facility] who has been made aware of today's dc. IMM addressed with Patient and her family at bedside and original was given to them and a copy has been placed on the chart.
== END 2022-06-24 15:30 | disposition home health service (06) | DRG 190 ==
LOC: HO.ED 12:09 → HO.EDOVER 15:38 → HO.S3 06-10 16:33 → HO.IMC 06-14 10:27
PROVIDERS: Anesthesiology; Hospitalist; Internal Medicine; Internal Medicine Gastroenterology; Physician Assistant; Admitting Provider Student in an Organized Health Care Education/Training Program; Emergency Provider Emergency Medicine; PCP Pediatrics; Visit Provider Internal Medicine
PROC: 0DJ08ZZ Inspection of Upper Intestinal Tract, Via Natural or Artificial Opening Endoscopic (ICD-10-PCS; CPT 43235; principal; 2022-06-14 13:00)
DX: J44.1 Chronic obstructive pulmonary disease with (acute) exacerbation (principal); I50.33 Acute on chronic diastolic (congestive) heart failure; I85.11 Secondary esophageal varices with bleeding; R29.0 Tetany; N17.9 Acute kidney failure, unspecified; D62 Acute posthemorrhagic anemia; E87.0 Hyperosmolality and hypernatremia; I11.0 Hypertensive heart disease with heart failure; E11.65 Type 2 diabetes mellitus with hyperglycemia; F17.210 Nicotine dependence, cigarettes, uncomplicated; K74.60 Unspecified cirrhosis of liver; I36.1 Nonrheumatic tricuspid (valve) insufficiency; I27.20 Pulmonary hypertension, unspecified; E66.9 Obesity, unspecified; Z68.35 Body mass index [BMI] 35.0-35.9, adult; I86.4 Gastric varices; Z71.6 Tobacco abuse counseling; E83.51 Hypocalcemia; F32.A Depression, unspecified; E78.5 Hyperlipidemia, unspecified; Z20.822 Contact with and (suspected) exposure to COVID-19; Z91.14 Patient's other noncompliance with medication regimen; Z88.5 Allergy status to narcotic agent; Z88.6 Allergy status to analgesic agent; Z79.84 Long term (current) use of oral hypoglycemic drugs; Z79.899 Other long term (current) drug therapy
CPT/HCPCS: 0241U; 36415; 70450; 71045; 71046; 80048; 80076; 82140; 82607; 82746; 82803; 82947; 83735; 83880; 83935; 84295; 84300; 84484; 85014; 85018; 85025; 85027; 85610; 86850; 86900; 86901; 86923; 87493; 87635; 93005; 93306; 93975; 94640; 97110; 97116; 97162; 97530; 99285; J0696; J1364; J1650; J1940; J2354; J2405; J2930; J3010; J3430; J3475; P9016; P9047

== ENCOUNTER → 2022-07-06 07:55 | Outpatient (BNVA) | payer OTHER, SELFPAY | PROVIDERS: PCP Pediatrics; Referring Provider Pediatrics; Visit Provider Internal Medicine | DX: K75.81 Nonalcoholic steatohepatitis (NASH) (principal); K74.60 Unspecified cirrhosis of liver; I85.00 Esophageal varices without bleeding; R19.7 Diarrhea, unspecified | CPT/HCPCS: 99212 ==

== ENCOUNTER 2022-07-08 09:34 | Outpatient (REF) | payer OTHER, SELFPAY ==
[2022-07-08 10:21] LABS: Hematocrit 35.1 % (37.0-47.0); Mean Corpuscular HGB Conc 31.3 g/dl (31.0-35.0); Mean Corpuscular Hemoglobin 30.4 pg (27.0-33.0); Mean Platelet Volume 13.2 fL (9.4-12.3); Platelet Count 116 X10*3/uL (160-400); Red Blood Count 3.62 X10*6/uL (4.20-5.50); Red Cell Distribution Width 15.7 % (11.0-16.0); White Blood Count 4.5 X10*3/uL (4.8-10.8)
[2022-07-08 10:28] LABS: INTERNATIONAL NORM RATIO 1.4 (0.9-1.1); Prothrombin Time 16.1 SEC (10.0-13.1)
[2022-07-08 11:50] LABS: Alanine Aminotransferase 15 U/L (0-31); Alkaline Phosphatase 109 U/L (39-117); Anion Gap 11 (12-20); Aspartate Amino Transferase 24 U/L (5-31); Blood Urea Nitrogen 5 mg/dL (9-16); Calcium 8.1 mg/dL (8.4-10.2); Carbon Dioxide 29 mmol/L (22-29); Chloride 106 mmol/L (96-108); Estimated Glomerular Filt Rate > 60; Glucose Random 79 mg/dL (60-115); Sodium 142 mmol/L (135-145); Total Protein 6.5 g/dL (6.5-8.0)
[2022-07-08 13:02] LABS: Albumin Level 2.4 g/dL (3.5-5.0)
[2022-07-08 13:26] LABS: Ferritin 93 ng/mL (10-250); TSH reflex Free T4 0.99 uIU/mL (0.32-4.0); Vitamin D 25-OH Total 22.6 ng/mL (>30)
[2022-07-09 11:58] LABS: CDiff Gene PCR NEGATIVE (Negative)
[2022-07-09 12:57] LABS: Adenovirus F 40/41 Not Detected (Not Detect.); Astrovirus Not Detected (Not Detect.); Campylobacter Not Detected (Not Detect.); Cryptosporidium Not Detected (Not Detect.); Cyclospora cayetanensis Not Detected (Not Detect.); E. coli EAEC Not Detected (Not Detect.); E. coli EPEC Not Detected (Not Detect.); E. coli ETEC Not Detected (Not Detect.); E. coli STEC Not Detected (Not Detect.); Entamoeba histolytica Not Detected (Not Detect.); Giardia lamblia Not Detected (Not Detect.); Norovirus GI/GII Not Detected (Not Detect.); Plesiomonas shigelloides Not Detected (Not Detect.); Rotavirus A Not Detected (Not Detect.); Salmonella Not Detected (Not Detect.); Sapovirus Not Detected (Not Detect.); Shigella sp./EIEC Not Detected (Not Detect.); Vibrio Not Detected (Not Detect.); Vibrio Cholerae Not Detected (Not Detect.); Yersinia enterocolitica Not Detected (Not Detect.)
== END 2022-07-08 09:35 | disposition home or self-care (01) ==
LOC: HO.LAB 09:34
PROVIDERS: PCP Pediatrics; Visit Provider Internal Medicine
DX: D64.9 Anemia, unspecified (principal); R19.7 Diarrhea, unspecified
CPT/HCPCS: 36415; 80053; 82306; 82728; 84443; 85027; 85610; 87493; 87507

== ENCOUNTER 2022-08-06 07:17 | Day surgery (SDC) | payer OTHER, SELFPAY ==
[2022-07-30 16:24] VITALS: BMI 32.1
[2022-08-06 07:32] VITALS: BP 117/67; PULSE 76; RESP 18; TEMP 36.4; O2SAT 96; BMI 30.7
--- NOTE | 2022-08-06 07:47 | P.CONAN_ITS ---
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 (Acute) Acute diarrhea (Acute) Asthma (Acute) Restrictive lung disease (Acute) Dyspnea on exertion (Acute) COPD (chronic obstructive pulmonary disease) (Acute) Smoking (Acute) Past Medical History Medical History (Updated 07/06/22 @ 09:52 by Gladys Reeder MD) Asthma Cirrhosis Congestive heart failure COPD (chronic obstructive pulmonary disease) COPD (chronic obstructive pulmonary disease) Dyspnea on exertion Nonrheumatic tricuspid (valve) insufficiency Pulmonary hypertension Restrictive lung disease Smoking Type 2 diabetes mellitus with unspecified complications Uncontrolled hypertension Family History Family History Mother HTN (hypertension) Diabetes Throat cancer Father Throat cancer Sister Blind Breast cancer Brother Blind Lung cancer Son Blind Daughter Lupus Father Throat cancer Family history of problems with anesthesia: No Surgical History Surgical History (Updated 07/30/22 @ 16:02 by Sharon Lee RN) H/O colonoscopy History of esophagogastroduodenoscopy (EGD) Hx of abdominoplasty History of Problems with Anesthesia: No Social History Social History Household Members: None Housing: Apartment Do you presently have visiting nurse or other home services: Yes ([employer] FOR 15 HOURS A WEEK) Alcohol intake: never Patient Tobacco Use Status: Former Tobacco user Quit Date: PT STATED 5 YEARS AGO Tobacco use type: Cigarette Cigarettes Per Day: 4 Years Smoked: 40 +/- Second Hand Smoke Exposure: No Advance Directives: No Advance Directives Information Provided: Yes service: No Current occupational status: retired Meds Allergies Allergy/AdvReac Type Severity Reaction Status Date / Time aspirin [ASPIRIN] Allergy Intermediate HIVES/ANXIE Verified 07/06/22 08:06 TY enalapril Allergy Unknown unknown Verified 07/06/22 08:06 verapamil Allergy Unknown unknown Verified 07/06/22 08:06 acetaminophen [From Percocet] AdvReac low blood Verified 07/06/22 08:06 pressure oxycodone [From Percocet] AdvReac low blood Verified 07/06/22 08:06 pressure Active Medications: Current Medications Lactated Ringer's (Lr) 1,000 mls @ 50 mls/hr IVCONT .Q20H ANGELINA Home Medications Medication Instructions Recorded Confirmed Last Taken Type atorvastatin 20 mg tablet (Lipitor) 20 mg PO DAILY 04/01/21 06/09/22 Unknown History cholecalciferol (vitamin D3) 50 50 mcg PO DAILY 04/01/21 06/09/22 Unknown History mcg (2,000 unit) capsule citalopram 40 mg tablet 40 mg PO DAILY 04/01/21 06/09/22 Unknown History trazodone 150 mg tablet 150 mg PO DAILY 04/01/21 06/09/22 Unknown History metformin 1,000 mg tablet 1 tab PO BID 06/09/22 06/09/22 Unknown History Exam Exam Date and Time: August 06, 2022 0747 Height,Weight and Vital Signs: Height 5 ft 2 in Weight 76.204 kg Last Vital Signs Temp 97.6 F 08/06/22 07:32 Pulse 76 08/06/22 07:32 Resp 18 08/06/22 07:32 BP 117/67 08/06/22 07:32 Pulse Ox 96 08/06/22 07:32 O2 Del Method 08/06/22 07:32 Airway Mallampati Class: II TM Dist: >3cm Neck ROM: Limited Loose/Missing/Broken Teeth: No Heart: RRR Lungs: CTA Assessment and Plan Assessment Anesthesia Assessment: Anesthesia Plan Discussed and Chart Reviewed Final Anesthetic Review Family History of Problems with Anesthesia: No History of Problems with Anesthesia: No ASA Class: IV Final Preanesthetic Review: No Changes in Pt Med Stat, Meds/Allgs Chart Reviewed, Consent Obtained/Reviewed and Anes Risks/Benef Reviewed Patient Risk: Intermediate Procedure Risk: Low Anesthetic Plan Anesthetic Plan: MAC: Disposition: Standard PACU
[2022-08-06 08:01] LABS: Glucose, Whole Blood 89 mg/dL (60-115)
[2022-08-06] MEDS: Lactated Ringers 1,000 ML 50 ML IVCONT (08:03)
--- NOTE | 2022-08-06 08:38 | MHC.SHP ---
Pre-Procedural Eval Section A Date of Service: 08/06/22 The History & Physical has been completed within 30 days and I have reviewed it.: Yes Section B Chief Complaint: Esophageal varices with bleeding,Diarrhea, Allergies: Allergies Allergy/AdvReac Type Severity Reaction Status Date / Time aspirin [ASPIRIN] Allergy Intermediate HIVES/ANXIE Verified 07/06/22 08:06 TY enalapril Allergy Unknown unknown Verified 07/06/22 08:06 verapamil Allergy Unknown unknown Verified 07/06/22 08:06 acetaminophen [From Percocet] AdvReac low blood Verified 07/06/22 08:06 pressure oxycodone [From Percocet] AdvReac low blood Verified 07/06/22 08:06 pressure Plan Diagnosis/Plan: Unchanged I have reviewed the history and physical and performed a pertinent physical examination on my patient. No changes have occurred unless specified. Time Spent With Patient Time: Total time managing care of this patient today ____ minutes.
--- NOTE | 2022-08-06 08:42 | P.OP_ITS ---
Operative Note Operative Note Date of Service: 08/06/22 Narrative: Procedure:?Esophagogastroduodenoscopy and Colonoscopy Indication:?Hx of varices, diarrhea, anemia Endoscopist:?Gladys Reeder MD Anesthesia Provider:?Dr Genoveva George Anesthesia type:?MAC Instrument:?Olympus GIF-H190, PCF-H190L EGD Procedure:?? The procedure, indications, preparation and potential complications were reviewed with the patient, who indicated understanding and gave written informed consent to proceed. A physical exam was performed. The endoscope was introduced through the mouth, and advanced to the proximal jejunum. The mucosa was carefully examined on slow withdrawal of the endoscope. The patient tolerated the procedure well. There were no immediate complications.? ? EGD Findings:? * Esophagus: Normal mucosa noted in the entire esophagus. The Z line was at 40 cm. Flat varices. * Stomach:?Diffuse congestion and erythema in mosaic pattern consistent with portal hypertensive gastropathy was noted in the whole stomach. Random gastric biopsies were taken to rule out H Pylori infection. A small AVM was seen in the antrum which was spontaneously oozing. This was ablated with APC with complete hemostasis. * Duodenum:? A 2 cm polyp was seen in the duodenal bulb. Cold forceps biopsies were taken. * Jejunum: Normal mucosa was noted to the extent visualised. Colonoscopy Procedure:? The patient was then turned for the colonoscopy. A digital rectal exam was performed which was normal. A distal attachment cap was affixed to the tip of the scope and the colonoscope was then inserted through the anus and advanced through the colon to the cecum at 75 cm. The appendiceal orifice and ileocecal valve was identified.? Mucosa was carefully examined under high definition white light as the instrument was slowly withdrawn in a retrograde panoramic fashion. Retroflexion was performed in rectum. The procedure was not difficult. There were no immediate obvious complications. The quality of the prep was BBPS: 2+3+3 = adequate Withdrawal time 11 minutes. Limitations: No limitations. Colonoscopy Findings: Mucosa: Normal mucosa in whole colon. Cold forceps biospies were taken from right and left side of the colon to rule out microscopic colitis. Protruding lesions: * Medium internal hemorrhoids without stigmata of recent bleeding. Excavated lesions: * Small diverticuli were noted in the left side of the colon. Impression:? 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 * Follow path results. * If duodenal polyp is an adenoma will need further eval with EUS to inform resection technique * No further CRC screening recommended due to age. Above has been reviewed with the patient.
[2022-08-06 09:25] VITALS: BP 117/63; PULSE 68; RESP 20; TEMP 37.1; O2SAT 99
[2022-08-06 09:40] VITALS: BP 138/59; PULSE 63; RESP 20; TEMP 36.7; O2SAT 96
== END 2022-08-06 10:09 | disposition home or self-care (01) ==
PROVIDERS: PCP Pediatrics; Visit Provider Internal Medicine
PROC: (CPT 45380; principal; 2022-08-06 08:20)
DX: R19.7 Diarrhea, unspecified (principal); D64.9 Anemia, unspecified; K57.30 Diverticulosis of large intestine without perforation or abscess without bleeding; K64.8 Other hemorrhoids; I85.01 Esophageal varices with bleeding; K31.811 Angiodysplasia of stomach and duodenum with bleeding; K31.7 Polyp of stomach and duodenum; K29.80 Duodenitis without bleeding; I27.20 Pulmonary hypertension, unspecified; I11.0 Hypertensive heart disease with heart failure; I36.1 Nonrheumatic tricuspid (valve) insufficiency; I50.30 Unspecified diastolic (congestive) heart failure; K74.60 Unspecified cirrhosis of liver; K76.6 Portal hypertension; J44.9 Chronic obstructive pulmonary disease, unspecified; E66.9 Obesity, unspecified; Z68.32 Body mass index [BMI] 32.0-32.9, adult; M17.0 Bilateral primary osteoarthritis of knee; E11.9 Type 2 diabetes mellitus without complications; Z79.84 Long term (current) use of oral hypoglycemic drugs; Z79.899 Other long term (current) drug therapy; Z88.8 Allergy status to other drugs, medicaments and biological substances; F17.210 Nicotine dependence, cigarettes, uncomplicated
CPT/HCPCS: 45380; 43239; 82947; 88305; 88342

== ENCOUNTER → 2022-08-26 09:07 | Outpatient (BNVA) | payer OTHER, SELFPAY | PROVIDERS: PCP Pediatrics; Visit Provider Internal Medicine | DX: K75.81 Nonalcoholic steatohepatitis (NASH) (principal); K74.60 Unspecified cirrhosis of liver; I85.00 Esophageal varices without bleeding | CPT/HCPCS: 99212 ==

== ENCOUNTER 2022-09-03 14:31 | Outpatient (REF) | payer OTHER, SELFPAY ==
[2022-09-03 15:16] LABS: Hematocrit 34.8 % (37.0-47.0); Hemoglobin 11.2 g/dl (12.0-16.0); Mean Corpuscular HGB Conc 32.2 g/dl (31.0-35.0); Mean Corpuscular Hemoglobin 30.3 pg (27.0-33.0); Mean Corpuscular Volume 94.1 fL (80.0-98.0); Mean Platelet Volume 12.4 fL (9.4-12.3); Platelet Count 117 X10*3/uL (160-400); Red Cell Distribution Width 18.2 % (11.0-16.0); White Blood Count 7.5 X10*3/uL (4.8-10.8)
[2022-09-03 15:22] LABS: INTERNATIONAL NORM RATIO 1.2 (0.9-1.1)
[2022-09-03 16:01] LABS: Alanine Aminotransferase 31 U/L (0-31); Albumin Level 2.4 g/dL (3.5-5.0); Alkaline Phosphatase 160 U/L (39-117); Anion Gap 16 (12-20); Aspartate Amino Transferase 44 U/L (5-31); Blood Urea Nitrogen 9 mg/dL (9-16); Carbon Dioxide 24 mmol/L (22-29); Chloride 106 mmol/L (96-108); Estimated Glomerular Filt Rate > 60; Glucose Random 83 mg/dL (60-115); Potassium 3.7 mmol/L (3.3-5.1); Sodium 142 mmol/L (135-145); Total Protein 6.5 g/dL (6.5-8.0)
== END 2022-09-03 14:32 | disposition home or self-care (01) ==
LOC: HO.LAB 14:31
PROVIDERS: PCP Pediatrics; Visit Provider Internal Medicine
DX: K74.60 Unspecified cirrhosis of liver (principal); K75.81 Nonalcoholic steatohepatitis (NASH)
CPT/HCPCS: 36415; 80053; 85027; 85610

== ENCOUNTER → 2022-09-07 10:01 | Outpatient (BNVA) | payer OTHER, SELFPAY | PROVIDERS: PCP Pediatrics; Referring Provider Pediatrics; Visit Provider Internal Medicine | DX: I50.32 Chronic diastolic (congestive) heart failure (principal); I50.812 Chronic right heart failure; I10 Essential (primary) hypertension; I49.3 Ventricular premature depolarization; I36.1 Nonrheumatic tricuspid (valve) insufficiency; I27.20 Pulmonary hypertension, unspecified; F17.210 Nicotine dependence, cigarettes, uncomplicated | CPT/HCPCS: 99212 ==

== ENCOUNTER → 2022-11-05 10:10 | Outpatient (BNVA) | payer OTHER, SELFPAY | PROVIDERS: PCP Pediatrics; Visit Provider Internal Medicine | DX: J44.9 Chronic obstructive pulmonary disease, unspecified (principal); J98.4 Other disorders of lung; R06.00 Dyspnea, unspecified | CPT/HCPCS: 99212 ==

== ENCOUNTER 2023-02-23 12:32 | Outpatient (REF) | payer OTHER, SELFPAY ==
[2023-02-23 15:44] LABS: Influenza A PCR NEGATIVE (Negative); Influenza B PCR NEGATIVE (Negative); Resp Syncy Virus RNA Qual PCR NEGATIVE (Negative); SARS COV2 PCR INHOUSE NEGATIVE (Negative)
== END 2023-02-23 12:33 | disposition home or self-care (01) ==
LOC: HO.CHCLDS 12:32
PROVIDERS: Visit Provider Family Medicine
DX: R05.1 Acute cough (principal); Z20.822 Contact with and (suspected) exposure to COVID-19
CPT/HCPCS: 0241U

== ENCOUNTER 2023-02-24 09:47 | Outpatient (AMB) | payer OTHER, SELFPAY ==
[2023-02-24 09:48] VITALS: BP 149/69; PULSE 80; BMI 28.2
--- NOTE | 2023-02-24 09:48 | A.OFFVIS_ITS ---
Intake Vital Signs 02/24/23 09:48 Height 5 ft 2 in Weight 154 lb 5.177 oz BMI 28.2 BP 149/69 H Blood Pressure Location Lt brachial Position Sitting Pulse 80 Pulse Source Pulse Oximeter Intake Visit Reasons: 6 month fu Intake Note: Pt presents today for a 6 month follow up. Pt states she is feeling well. Pt denies any nauseau or vomitting. She states she has diarrhea but very seldom. Pt denies any acid reflux and states the omeperazole is working well. Accompanied by: Son Allergies aspirin [ASPIRIN] Allergy (Intermediate, Verified 02/24/23 09:51) HIVES/ANXIETY enalapril Allergy (Unknown, Verified 02/24/23 09:51) unknown verapamil Allergy (Unknown, Verified 02/24/23 09:51) unknown acetaminophen [From Percocet] Adverse Reaction (Verified 02/24/23 09:51) low blood pressure oxycodone [From Percocet] Adverse Reaction (Verified 02/24/23 09:51) low blood pressure HPI HPI Comments History of Present Illness Details This is an 82-year-old female with past medical history of diabetes, resistant hypertension, obesity, diastolic heart failure, mild pulmonary hypertension, recent diagnosis of 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 Initial visit 03/30/22: Patient presents to the office accompanied by her son, who provides most of the history. Has been in her usual state of health. Does not have any specific abdominal complaints include abdominal pain, nausea, vomiting, changes in bowel habits, pruritus, increased abdominal distension or confusion spells. She has been able to maintain her previous activity levels despite arthritis in her knees. Walks 40-45 minutes every day. No changes in appetite or unintentional weight loss. Has been noticing red blotches on her skin especially upper chest and arms for the past couple of years. Patient does not have any history of alcohol use disorder. No family history of liver disease or cancer. No history of chronic hepatitis in 1st or second- degree relatives that she knows of. Takes meloxicam on and off for knee pain from osteoarthritis. She is also on metformin for diabetes. Most recent colonoscopy was in 2017, Dr. Mcgee-excellent prep, no polyps. Most recent imaging is CTA from 11/14/2021. Of note, this was not triple phased. Hospitalization 06/09-06/24/22: 06/14: Noted to have multiple episodes of coffee-ground emesis and tarry stool with drop in hemoglobin from 12-8. EGD: Gastroesophageal varices status post banding x5. 07/06/2022: Patient presents accompanied by her son. Reports having diarrhea that started 1-2 days after she was discharged. Describes the bowel movement is soft to lose which are brown, occurred 2-3 times every day. No abdominal pain, nausea, vomiting. Does note that she has a bit more bloated since the diarrhea. Does not seem to be related to what she eats. No fevers or chills. Continues on carvedilol 3.125 b.i.d. for both hypertension as well as variceal prophylaxis Blood pressure today in the 170s. Did not take her medications this morning. Weight today is 176#, down from 190# when she was admitted 2 weeks ago. Does not appear to be on any diuretic treatment at this time. 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 Duodenum, polyp, biopsy: Chronic inactive duodenitis; no neoplastic process identified. B. Stomach, random, biopsy: Antral-type and oxyntic mucosa with moderate chronic inactive inflammation; no Helicobacter organisms seen. C. Colon, right, biopsy: Colonic mucosa within normal limits; negative for microscopic colitis. D. Colon, left, biopsy: Colonic mucosa within normal limits; negative for microscopic colitis. 08/26/22: No gastrointestinal complaints today to include abdominal pain, distention, nausea, vomiting. Has good appetite. As mentioned in the previous note, diarrhea has resolved. She is recovering from an upper respiratory infection though. This started last week, and she had fever up to 101 for couple of days. On the mend now. Last imaging: Ultrasound liver April 2022: without any focal masses. Doppler May 2022: Patent portal and hepatic vasculature. 02/24/23: Pt here with her son. Reports no gastrointestinal complaints including abd pain, N,V, abd distention, breathing discomfort. Son does report a few days of lower extremity swelling while the pt was on Cruise earlier this month which resolved by itself once the cruise finished. US Abd still pending. Son had gotten a call from [employer] to book it but couldnt schedule it at that time and then forgot to call them up. [facility] Medical History Asthma Chronic diastolic (congestive) heart failure Chronic right heart failure Cirrhosis Congestive heart failure COPD (chronic obstructive pulmonary disease) COPD (chronic obstructive pulmonary disease) Dyspnea on exertion Nonrheumatic tricuspid (valve) insufficiency Pulmonary hypertension Restrictive lung disease Smoking Type 2 diabetes mellitus with unspecified complications Uncontrolled hypertension Surgical History H/O colonoscopy History of esophagogastroduodenoscopy (EGD) Hx of abdominoplasty Family History Mother HTN (hypertension) Diabetes Throat cancer Father Throat cancer Sister Blind Breast cancer Brother Blind Lung cancer Son Blind Daughter Lupus Father Throat cancer Social History Household Members: None Housing: Apartment Do you presently have visiting nurse or other home services: Yes ([employer]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) Alcohol intake: never Patient Tobacco Use Status: Former Tobacco user Quit Date: 2 months ago Tobacco use type: Cigarette Cigarettes Per Day: 4 Years Smoked: 40 +/- Second Hand Smoke Exposure: No service: No Current occupational status: retired Review of Systems Const All systems reviewed & are unremarkable except as noted in HPI and below Physical Exam Vital Signs: Last Vital Signs Pulse 80 02/24/23 09:48 BP 149/69 H 02/24/23 09:48 BMI result Body Mass Index 28.2 Gen appear: Non toxic appearing HEENT: no icterus, no cervical lymphadenopathy Chest: CTA CVS: S1/S2, regular Abd: soft, nontender, nondistended, no shifting dullness to percussion Psych: Stable affect, answering questions appropriately Neuro: A/Ox3 noted to move all extremities spontaneously, no asterixis Ext: R lower leg stasis changes with mild edema Assessment & Plan Assessment & Plan (1) 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 Complicated by portal hypertension with evidence of varices and PHG on endoscopy. Continues on Carvedilol 6.25mg BID. 1. Ascites/peripheral edema: No ascites on exam today and minimal peripheral edema. 2. Hepatic encephalopathy: No evidence based on history and exam today. 3. Gastroesophageal varices: s/p banding 05/2022. EGD 07/2022 showed flat varices. Continue Carvedilol 6.25mg BID. Next EGD due in 07/2023. 4. HCC screening: Overdue. Could not make the May appt and forgot to rebook. US liver re-ordered. 5. Vaccinations: Will check HBV serology to ensure adequate response to Heplisav. 6. Nutrition: Low salt diet to 2g Na. Advised good proteins (BCAA) such as eggs, milk, iraqi yogurt, fish, chicken etc; avoid long periods of fasting. 7. Avoid NSAIDs. Tylenol is okay up to 2g/day. 8. Transplant candidacy: Repeat MELD labs ordered. Follow up in 6 months. Orders: Orders US abdomen complete Today K74.60 - Unspecified cirrhosis of liver, K75.81 - Nonalcoholic steatohepatitis (ZULETA) Hepatitis B Surface Antibody Today K74.60 - Unspecified cirrhosis of liver, K75.81 - Nonalcoholic steatohepatitis (ZULETA) Hepatitis B Core Antibody Today K74.60 - Unspecified cirrhosis of liver, K75.81 - Nonalcoholic steatohepatitis (ZULETA) Hepatitis B Surface Antigen Today K74.60 - Unspecified cirrhosis of liver, K75.81 - Nonalcoholic steatohepatitis (ZULETA) Medications: Refilled carvedilol must administer with a meal/food 6.25 mg PO BID 30 days 60 tabs 2RF Coding Level of Care Code Est Pt Level 4 (96001) Diagnoses 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
== END 2023-02-24 10:21 | disposition home or self-care (01) ==
PROVIDERS: Visit Provider Internal Medicine
DX: K75.81 Nonalcoholic steatohepatitis (NASH) (principal); K74.60 Unspecified cirrhosis of liver; I85.00 Esophageal varices without bleeding
CPT/HCPCS: 99214

== ENCOUNTER → 2023-02-24 09:47 | Outpatient (BNVA) | payer OTHER, SELFPAY | PROVIDERS: Visit Provider Internal Medicine | DX: K75.81 Nonalcoholic steatohepatitis (NASH) (principal); K74.60 Unspecified cirrhosis of liver; I85.00 Esophageal varices without bleeding; Z79.899 Other long term (current) drug therapy | CPT/HCPCS: 99212 ==

== ENCOUNTER 2023-02-26 10:34 | Outpatient (REF) | payer OTHER, SELFPAY ==
[2023-02-26 11:50] LABS: Hemoglobin 11.6 g/dl (12.0-16.0); Mean Corpuscular HGB Conc 32.2 g/dl (31.0-35.0); Mean Corpuscular Hemoglobin 29.7 pg (27.0-33.0); Mean Corpuscular Volume 92.3 fL (80.0-98.0); Mean Platelet Volume 12.2 fL (9.4-12.3); Platelet Count 154 X10*3/uL (160-400); Red Cell Distribution Width 15.9 % (11.0-16.0); White Blood Count 9.3 X10*3/uL (4.8-10.8)
[2023-02-26 11:51] LABS: INTERNATIONAL NORM RATIO 1.2 (0.9-1.1)
[2023-02-26 12:33] LABS: Alanine Aminotransferase 17 U/L (0-31); Albumin Level 2.7 g/dL (3.5-5.0); Alkaline Phosphatase 115 U/L (39-117); Anion Gap 12 (12-20); Aspartate Amino Transferase 23 U/L (5-31); Bilirubin Total 0.5 mg/dL (0.0-1.0); Blood Urea Nitrogen 16 mg/dL (9-16); Calcium 8.9 mg/dL (8.4-10.2); Carbon Dioxide 26 mmol/L (22-29); Chloride 106 mmol/L (96-108); Estimated Glomerular Filt Rate > 60; Glucose Random 84 mg/dL (60-115); Sodium 140 mmol/L (135-145); Total Protein 7.3 g/dL (6.5-8.0)
[2023-02-27 14:36] LABS: HBc Num1 0.16 S/CO (0.00-0.79); HBsAGNum1 0.54 S/CO (0.00-0.99); Hepatitis B Core Antibody Nonreactive (Nonreactive); Hepatitis B Surface Antigen Negative (Negative); ~Hepatitis B Surface Antibody NONREACTIVE (Nonreactive)
== END 2023-02-26 10:35 | disposition home or self-care (01) ==
LOC: HO.LAB 10:34
PROVIDERS: Visit Provider Internal Medicine
DX: K74.60 Unspecified cirrhosis of liver (principal); K75.81 Nonalcoholic steatohepatitis (NASH)
CPT/HCPCS: 36415; 80053; 85027; 85610; 86704; 86706; 87340

== ENCOUNTER 2023-03-12 08:30 | Outpatient (REF) | payer OTHER, SELFPAY ==
--- NOTE | ~2023-03-12 | US_ITS ---
EXAMINATION: US ABDOMEN COMPLETE CLINICAL INFORMATION: Nonalcoholic steatohepatitis. COMPARISON: Ultrasound abdomen complete 05/01/2022 and 11/20/2015. CTA abdomen 08/08/2021. Renal Doppler ultrasound 06/18/2021. TECHNIQUE: Real-time imaging of the abdominal viscera. Limited visualization due to bowel gas. FINDINGS: PANCREAS: Imaged portion of pancreatic body appears heterogeneous. Limited visualization. ABDOMINAL AORTA: The proximal, mid, and distal segments are normal in caliber. INFERIOR VENA CAVA: Visualized portions are normal. LIVER: Heterogeneous hepatic echotexture with lobulated hepatic contour remains concerning for hepatocellular disease such as cirrhosis. Limited visualization. Scattered echogenic foci within the liver, largest measured 0.4 cm right hepatic lobe. CT scan of 08/08/2021 demonstrated coarse and punctate hepatic calcifications. GALLBLADDER: Multiple echogenic foci within the gallbladder, largest measured 0.5 x 0.4 x 0.5 cm may represent polyps and/or adherent gallstones. Gallbladder wall thickness of 0.4 cm. COMMON BILE DUCT: Normal in caliber measuring 0.3 cm in diameter. RIGHT KIDNEY: No hydronephrosis. No renal calculi. Limited visualization. The kidney measures 11.3 cm in maximum dimension. LEFT KIDNEY: No hydronephrosis. No renal calculi. Limited visualization. Left renal upper pole 0.7 x 0.6 x 0.6 cm cortical echogenic focus, possibly representing an angiomyolipoma, stable. The kidney measures 10.7 cm in maximum dimension. SPLEEN: Normal. The spleen measures 8.8 cm in maximum dimension. FREE FLUID: None. US/US abdomen complete IMPRESSION: 1. Multiple echogenic foci within the gallbladder, largest measured 0.5 cm may represent polyps and/or adherent gallstones. Gallbladder wall thickness of 0.4 cm. Correlation with clinical exam and follow up ultrasound in 12 months recommended. 2. Heterogeneous hepatic echotexture with lobulated hepatic contour remains concerning for hepatocellular disease such as cirrhosis. Limited visualization. 3. Scattered echogenic foci within the liver, largest measured 0.4 cm right hepatic lobe. CT scan of 08/08/2021 demonstrated coarse and punctate hepatic calcifications. 4. Left renal upper pole 0.7 cm cortical echogenic focus, possibly representing an angiomyolipoma, stable.
== END 2023-03-12 08:31 | disposition home or self-care (01) ==
LOC: HO.US 08:30
PROVIDERS: PCP Pediatrics; Visit Provider Internal Medicine
DX: K75.81 Nonalcoholic steatohepatitis (NASH) (principal); K74.60 Unspecified cirrhosis of liver
CPT/HCPCS: 76700

== ENCOUNTER 2023-05-13 11:09 | Outpatient (AMB) | payer OTHER, SELFPAY ==
[2023-05-13 11:28] VITALS: BP 130/62; PULSE 70; O2SAT 99; BMI 28.3
--- NOTE | 2023-05-13 11:28 | MHC.OFFVIS ---
Intake Vital Signs 05/13/23 11:28 Height 5 ft 2 in Weight 155 lb BMI 28.3 BP 130/62 Blood Pressure Location Lt brachial Position Sitting Pulse 70 Pulse Source Pulse Oximeter Pulse Oximetry (%) 99 Oxygen Delivery Method Room Air Intake Visit Reasons: COPD Intake Note: pt is here for follow up and states she is doing well only issue with the heat this summer on when on a cruise. please refill albuterol for prn use Auditing Manager Required: No Allergies aspirin [ASPIRIN] Allergy (Intermediate, Verified 05/13/23 11:51) HIVES/ANXIETY enalapril Allergy (Unknown, Verified 05/13/23 11:51) unknown verapamil Allergy (Unknown, Verified 05/13/23 11:51) unknown acetaminophen [From Percocet] Adverse Reaction (Verified 05/13/23 11:51) low blood pressure oxycodone [From Percocet] Adverse Reaction (Verified 05/13/23 11:51) low blood pressure Medication List - Last Reconciled 05/13/23 by Petrona Mercer MD albuterol sulfate 90 mcg/actuation 2 puffs inhalation Q6H PRN amlodipine (Norvasc) 5 mg PO DAILY atorvastatin (Lipitor) 20 mg PO DAILY biotin 5 mg PO DAILY carvedilol 6.25 mg PO BID 30 days cholecalciferol (vitamin D3) 50 mcg PO DAILY citalopram 40 mg PO DAILY food supplemt, lactose-reduced (Boost High Protein) 1 ea PO BID metformin 1,000 mg PO DAILY omeprazole magnesium (Prilosec OTC) 20 mg PO DAILY trazodone 150 mg PO DAILY Do you need a note to return to daycare/school/sports/work: No HPI COPD HPI Details THIS 73 YEARS OLD VERY PLEASANT FEMALE HAS CHRONIC COUGH, AND MILD RESTRICTIVE PULMONARY DISORDER. HER LAST PULMONARY FUNCTION TEST DID NOT SHOW ANY SIGNIFICANT OBSTRUCTIVE DISORDER. SHE HAS BEEN TREATED WITH ALBUTEROL INHALER TO BE USE P.R.N.. MOST OF THE TIME SHE HAS STAYED WELL. BUT WHEN SHE WAS ON THE CRUISE SHE HAD MUCH MORE FREQUENT COUGH, PROBABLY DUE TO HEAT AND HUMIDITY. SHE HAD TO USE ALBUTEROL QUITE OFF. NOW AT THIS TIME SHE HAS VERY LITTLE COUGH OR WHEEZING. [facility] Medical History (Updated 05/13/23 @ 11:56 by Petrona Mercer MD) Cough Chronic right heart failure Chronic diastolic (congestive) heart failure Pulmonary hypertension Nonrheumatic tricuspid (valve) insufficiency COPD (chronic obstructive pulmonary disease) Congestive heart failure Asthma Restrictive lung disease Dyspnea on exertion Cirrhosis COPD (chronic obstructive pulmonary disease) Smoking Type 2 diabetes mellitus with unspecified complications Uncontrolled hypertension Surgical History History of esophagogastroduodenoscopy (EGD) H/O colonoscopy Hx of abdominoplasty Family History Mother HTN (hypertension) Diabetes Throat cancer Father Throat cancer Sister Blind Breast cancer Brother Blind Lung cancer Son Blind Daughter Lupus Father Throat cancer Social History Household Members: None Housing: Apartment Do you presently have visiting nurse or other home services: Yes (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) Alcohol intake: never Patient Tobacco Use Status: Former Tobacco user Quit Date: 2 months ago Tobacco use type: Cigarette Cigarettes Per Day: 4 Years Smoked: 40 +/- Second Hand Smoke Exposure: No service: No Current occupational status: retired Review of Systems Const All systems reviewed & are unremarkable except as noted in HPI and below Eyes Reports no additional complaints ENT Reports no additional complaints Card Denies chest pain, Denies irregular heart rhythm and Denies leg edema Resp Reports as per HPI GI Reports no additional complaints Reports no additional complaints Musc Reports no additional complaints Skin/Breast Reports dry skin Neuro Reports no additional complaints Psych Reports no additional complaints Physical Exam Vital Signs: Last Vital Signs Pulse 70 05/13/23 11:28 BP 130/62 05/13/23 11:28 Pulse Ox 99 05/13/23 11:28 Oxygen Delivery Method Room Air 05/13/23 11:28 BMI result Body Mass Index 28.3 Const General: healthy appearing, comfortable, no acute distress, alert and awake Orientation/consciousness: patient oriented x3 HEENT Head: Yes normal to inspection General nose exam: No nasal polyps present and No nasal discharge present Face and sinus: Yes sinuses nontender Mouth: oropharynx normal Throat: Yes posterior oropharynx normal Eyes General: appearance normal, both eyes and all related structures Neck Neck: Yes normal visual inspection, Yes no lymphadenopathy, Yes trachea midline and Yes no JVD Thyroid: Thyroid normal Chest Chest palpation & inspection: normal inspection of the chest, normal palpation of entire chest wall and no tenderness Resp Other: Percussion note is resonant, breath sounds are somewhat diminished over the basilar areas. No crepitations, or wheezes are heard. Cardio Palpation: normal PMI Rate: regular rate Rhythm: regular rhythm Heart sounds: no gallops and no murmurs Peripheral pulses: Peripheral pulses 2+ throughout GI Palpation (GI): Soft to palpation, nontender, No hepatosplenomegaly present and no masses Auscultation: normal bowel sounds Back/Spine/Pelvis Thoracic/Lumbar Spine: thoracic and lumbar spine normal to inspection Skin General skin exam: no rashes or lesions noted and dry skin Neuro General: patient oriented x3 and no focal motor deficits Cranial nerves: Yes CN's II-XII intact bilaterally Extrem General: Yes normal to inspection, Yes no clubbing, cyanosis or edema and Yes no calf tenderness Psych Speech and movement: Normal speech and movement present Assessment & Plan Assessment & Plan (1) Asthma: Comment: MILD AND OCCASIONAL COUGH AND WHEEZE, TX: ALBUTEROL HFA 2 PUFFS Q 4-6 HOURS ONLY P.R.N. Code(s): J45.909 - Unspecified asthma, uncomplicated (2) Restrictive lung disease: Comment: PULMONARY FUNCTION TEST HAS SHOWN MILD TO MODERATE DEGREE OF RESTRICTIVE PULMONARY DISORDER PATIENT IS ADVISED TO DO DEEP BREATHING EXERCISES ,10 TIMES EVERY 2 HOURS W/A AFTER SIGNIFICANT WEIGHT LOSS I THINK HER RESTRICTIVE PATTERN IS ALSO MUCH IMPROVED. Code(s): J98.4 - Other disorders of lung (3) Cough: Comment: SHE HAS MILD INTERMITTENT COUGH SECONDARY TO REACTIVE AIRWAYS/ASTHMA VARIANT. TX : NEEDS TO USE ALBUTEROL HFA 1 OR 2 PUFFS Q 6 HOURS P.R.N.. PRESCRIPTION RENEWED. Code(s): R05.9 - Cough, unspecified Medications: New albuterol sulfate 90 mcg/actuation 2 puffs inhalation Q6H PRN 8.5 grams 3RF shortness of breath or wheezing 30 days J45.909 - Unspecified asthma, uncomplicated, R05.9 - Cough, unspecified Coding Level of Care Code Est Pt Level 3 (42748) Diagnoses Asthma J45.909 Restrictive lung disease J98.4 Cough R05.9
== END 2023-05-13 11:50 | disposition home or self-care (01) ==
PROVIDERS: PCP Pediatrics; Visit Provider Internal Medicine
DX: J45.909 Unspecified asthma, uncomplicated (principal); J98.4 Other disorders of lung; R05.9 Cough, unspecified
CPT/HCPCS: 99213

== ENCOUNTER → 2023-05-13 11:09 | Outpatient (BNVA) | payer OTHER, SELFPAY | PROVIDERS: PCP Pediatrics; Visit Provider Internal Medicine | DX: J45.909 Unspecified asthma, uncomplicated (principal); J98.4 Other disorders of lung; R05.9 Cough, unspecified | CPT/HCPCS: 99212 ==

== ENCOUNTER → 2023-08-25 10:55 | Outpatient (REF) | payer OTHER, SELFPAY ==
--- NOTE | 2023-08-25 11:00 | CA_ITS ---
Transthoracic Echocardiogram Patient (Last, First, Middle): Lauren Arias, Gender: Female Date of : 1950 Age: 73 Procedure Date: 08/25/2023 Procedure Type: Transthoracic Echocardiogram Location: OP Height: 157.48 cm Weight: 70.31 kg BSA: 1.72 m2 Heart Rate: 68 bpm BP: 138 / 64 mmHg Video Rental Clerk: SB Referring MD: Lex Burk MD Symptoms: I36.1 - Nonrheumatic tricuspid (valve) insufficiency Study Quality: Adequate ECG Rhythm: Frequent ventricular premature beats Conclusions: - The left ventricular systolic function is normal. The calculated ejection fraction is 60% by biplane method. - There is severe septal asymmetric hypertrophy. - Moderate biatrial enlargement. - There is mild calcification of the aortic valve. - There is mild mitral annular calcification. - No obvious valvular pathology seen on this study. Findings Left Ventricle Normal left ventricular cavity size. The left ventricular systolic function is normal. The calculated ejection fraction is 60% by biplane method. There is no evidence of regional wall motion abnormalities. Evidence suggests grade I (mild) diastolic dysfunction. There is severe septal asymmetric hypertrophy. LV peak GLS -13.8%. Right Ventricle Normal right ventricular cavity size. There is mildly decreased right ventricular systolic function. Atria Moderate biatrial enlargement. Aortic Valve There is mild calcification of the aortic valve. There is no aortic valve stenosis. There is no aortic valve regurgitation. Mitral Valve There is mild mitral annular calcification. There is trace mitral valve regurgitation. There is no mitral valve stenosis. Pulmonic Valve The pulmonic valve is likely normal. Tricuspid Valve Normal tricuspid valve structure. There is mild tricuspid valve regurgitation. There is no evidence of pulmonary hypertension. Great Vessels The asc aorta is normal in size. Venous The inferior vena cava is normal in size and collapses less than 50% with inspiration. Pericardium/Pleural There is no evidence of pericardial effusion. Prior Study Comparison No significant change compared to prior study dated: 06/10/2022. Recommendations, Care & Conclusions No obvious valvular pathology seen on this study. Measurements 2D Linear Measurements IVSd: 1.59 0.6-0.9/0.6-1.0 cm LVIDd: 4.24 3.9-5.3/4.2-5.9 cm LVIDd Index: 2.47 2.4-3.2/2.2-3.1 cm/m2 LVIDs: 3.18 2.0-3.6 cm LVPWd: 0.99 0.7-1.1 cm Ao Root: 2.60 2.1-3.5 cm LA Diam: 4.00 2.7-3.8/3.0-4.0 cm LAIDs Index: 2.33 1.5-2.3 cm/m2 LV Mass: 250.34 67-162/88-224 g LV Mass Index: 145.55 43-95/49-115 g/m2 LVOT Diam: 2.00 3.0+(-)1.3 cm 2D Systolic Function EF 4C: 56.90 >55% EF 2C: 62.40 >55% EF BiP: 60.40 >55% Mitral Valve MV VTI: 0.36 MV Pk Vik: 1.12 MV Mn Vik: 0.75 MV Pk Grad: 5.00 MV Mn Grad: 2.00 MV Pk E: 0.91 MV PK A: 0.95 MV Decel Time: 301.00 E/A: 1.00 E'Lateral: 3.69 E'Medial: 3.69 E/E' Med: 24.60 E/E' Lat: 24.60 PHT: 88.00 MVA PHT: 2.50 MVA Continuity: 2.10 Decel [place]: 3.01 Aortic Valve AoV Pk Vik: 1.46 AoV Pk Grad: 9.00 BRENDA: 2.38 LVOT LVOT Pk Vik: 1.11 LVOT Mn Vik: 0.77 LVOT VTI: 0.24 LVOT Pk Grad: 5.00 LVOT Mn Grad: 3.00 LVOT Diam: 2.00 LVOT Area: 3.14 Diastolic Function MV Pk E: 0.91 MV Pk A: 0.95 E/A: 1.00 E'Medial: 3.69 E/E' Med: 24.60 E' Laterial: 3.69 E/E' Lat: 24.60 Right Ventricle TAPSE (mm): 19.10 TVS' Vik: 8.50 Tricuspid Valve TR Pk Vik: 2.74 TR Pk Grad: 30.00 RA Press: 8.00 RVSP: 38.00 Great Vessels Aorta Ao Root-2D: 2.60 2.0-3.7 cm Ao Asc: 2.90 2.1-3.4 cm Pulmonary Veins Pulm Vein S/D 1.60 Pulmonary Valve PV Pk Vik: 0.86 Peak PV Grad: 3.00 Updated in Other Vendor System with Status of Final Lex Burk MD electronically signed on 08/27/2023 8:32:18 AM with status of Final
== END ==
LOC: HO.CARD 10:55
PROVIDERS: PCP Pediatrics; Visit Provider Internal Medicine
DX: I36.1 Nonrheumatic tricuspid (valve) insufficiency (principal)
CPT/HCPCS: 93306

== ENCOUNTER → 2023-08-25 11:00 | Outpatient (BNV) | payer OTHER, SELFPAY | PROVIDERS: PCP Pediatrics; Visit Provider Internal Medicine | DX: I36.1 Nonrheumatic tricuspid (valve) insufficiency (principal); I34.81 Nonrheumatic mitral (valve) annulus calcification | CPT/HCPCS: 93306 ==

== ENCOUNTER 2023-08-30 09:00 | Outpatient (AMB) | payer OTHER, SELFPAY ==
--- NOTE | 2023-08-30 09:18 | A.OFFVIS_ITS ---
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 Required: No Accompanied by: Son Allergies aspirin [ASPIRIN] Allergy (Intermediate, Verified 08/30/23 09:20) HIVES/ANXIETY enalapril Allergy (Unknown, Verified 08/30/23 09:20) unknown verapamil Allergy (Unknown, Verified 08/30/23 09:20) unknown acetaminophen [From Percocet] Adverse Reaction (Verified 08/30/23 09:20) low blood pressure oxycodone [From Percocet] Adverse Reaction (Verified 08/30/23 09:20) low blood pressure Medication List - Last Reconciled 08/30/23 by Lex Burk MD albuterol sulfate 90 mcg/actuation 2 puffs inhalation Q6H PRN 30 days amlodipine (Norvasc) 5 mg PO DAILY atorvastatin (Lipitor) 20 mg PO DAILY biotin 5 mg PO DAILY carvedilol 6.25 mg PO BID 30 days cholecalciferol (vitamin D3) 50 mcg PO DAILY citalopram 40 mg PO DAILY food supplemt, lactose-reduced (Boost High Protein) 1 ea PO BID metformin 1,000 mg PO DAILY omeprazole magnesium (Prilosec OTC) 20 mg PO DAILY trazodone 150 mg PO DAILY HPI HPI Comments History of Present Illness Details Lauren returns for follow up of hypertension. Overall, feeling good. No complaints like angina or shortness of breath or in fact anything else from cardiac. States she is doing well. [facility] Medical History (Updated 05/13/23 @ 11:56 by Petrona Mercer MD) Cough Chronic right heart failure Chronic diastolic (congestive) heart failure Pulmonary hypertension Nonrheumatic tricuspid (valve) insufficiency COPD (chronic obstructive pulmonary disease) Congestive heart failure Asthma Restrictive lung disease Dyspnea on exertion Cirrhosis COPD (chronic obstructive pulmonary disease) Smoking Type 2 diabetes mellitus with unspecified complications Uncontrolled hypertension Surgical History History of esophagogastroduodenoscopy (EGD) H/O colonoscopy Hx of abdominoplasty Family History Mother HTN (hypertension) Diabetes Throat cancer Father Throat cancer Sister Blind Breast cancer Brother Blind Lung cancer Son Blind Daughter Lupus Father Throat cancer Social History (Updated 08/30/23 @ 09:21 by Daysi Urias) Household Members: None Housing: Apartment Do you presently have visiting nurse or other home services: Yes ([employer] WORK[employer] FOR 15 HOURS A WEEK) Alcohol intake: never Patient Tobacco Use Status: Current someday Tobacco user Tobacco use type: Cigarette Cigarettes Per Day: 1 Years Smoked: 40 +/- Second Hand Smoke Exposure: No service: No Current occupational status: retired Review of Systems Const Denies weakness ENT Denies dizziness Card Denies chest pain, Denies chest pain with activity, Denies syncope, Denies rapid heart rate, Denies pedal edema, Denies edema, Denies leg edema, Denies lightheadedness, Denies palpitations, Denies dyspnea, Denies dyspnea on exertion and Denies orthopnea Resp Denies cough, Denies dyspnea and Denies dyspnea on exertion GI Denies hematochezia and Denies change in stool character Musc Denies abnormal gait, Denies muscle cramps, Denies muscle weakness, Denies numbness, Denies radiating pain into limb and Denies tingling Neuro Denies abnormal gait, Denies dizziness, Denies syncope, Denies numbness, Denies tingling and Denies weakness Endo Denies palpitations Physical Exam Vital Signs: Last Vital Signs Pulse 64 08/30/23 09:20 BP 146/70 H 08/30/23 09:20 BMI result Body Mass Index 27.1 Const General: comfortable and no acute distress Orientation/consciousness: patient oriented x3 HEENT Other: Unremarkable Head: Yes normal to inspection Neck Neck: Yes normal visual inspection Chest Chest palpation & inspection: normal inspection of the chest Resp Other: few crackles Cardio Palpation: normal PMI Heart sounds: S1 normal heart sound present, S2 normal heart sound present, no gallops, no murmurs and no rubs GI Palpation (GI): Soft to palpation Back/Spine/Pelvis Other: unremarkable Skin General skin exam: no rashes or lesions noted Neuro General: patient oriented x3 Extrem Other: Trace edema General: Yes normal to inspection Psych Mental Status: mental status grossly normal Office Procedures EKG Details: EKG with sinus rhythm at 64/Min; minimal criteria for LVH; nonspecific ST-[place] [id number], Complete Assessment & Plan Assessment & Plan (1) Chronic diastolic (congestive) heart failure: Code(s): I50.32 - Chronic diastolic (congestive) heart failure (2) Chronic right heart failure: Code(s): I50.812 - Chronic right heart failure (3) Essential hypertension: Code(s): I10 - Essential (primary) hypertension (4) Nonrheumatic tricuspid (valve) insufficiency: Code(s): I36.1 - Nonrheumatic tricuspid (valve) insufficiency (5) Pulmonary hypertension: Code(s): I27.20 - Pulmonary hypertension, unspecified (6) Smoking: Code(s): F17.200 - Nicotine dependence, unspecified, uncomplicated Plan Cardiac studies reviewed. In the most recent echocardiogram, LVEF 60%. Severe septal hypertrophy. Moderate biatrial enlargement. No significant valvular findings. In the previous studies, she had mild mitral regurgitation and moderate to severe tricuspid regurgitation with moderate pulmonary hypertension. Hence overall, valvular findings as well as pulmonary hypertension seems improved. Myocardial perfusion imaging in the past with normal perfusion. There was a question of renal artery stenosis on ultrasound, but CTA is not showing any clear evidence of the same. Clinically, she does not have any evidence of volume overload. In fact her list does not even have any diuretics. She states she has not taken them recently. For hypertension, current meds listed include carvedilol, amlodipine. In the past, she was also on irbesartan/spironolactone. Borderline blood pressure today. No specific changes made at this time. Smoking cessation. Follow-up in 1 year. Discussed with family who came for appointment. They will call us with any ongoing concerns. Coding Level of Care Code Est Pt Level 4 (69871) Diagnoses Chronic diastolic (congestive) heart failure I50.32 Chronic right heart failure I50.812 Essential hypertension I10 Nonrheumatic tricuspid (valve) insufficiency I36.1 Pulmonary hypertension I27.20 Smoking F17.200 CPT Codes EKG - CPT: 41950-[id number], Complete ([id number])
[2023-08-30 09:20] VITALS: BP 146/70; PULSE 64; BMI 27.1
== END 2023-08-30 09:52 | disposition home or self-care (01) ==
PROVIDERS: PCP Pediatrics; Visit Provider Internal Medicine
DX: I50.32 Chronic diastolic (congestive) heart failure (principal); I50.812 Chronic right heart failure; I10 Essential (primary) hypertension; I36.1 Nonrheumatic tricuspid (valve) insufficiency; I27.20 Pulmonary hypertension, unspecified; F17.200 Nicotine dependence, unspecified, uncomplicated
CPT/HCPCS: 93010; 99214

== ENCOUNTER → 2023-08-30 09:00 | Outpatient (BNVA) | payer OTHER, SELFPAY | PROVIDERS: Visit Provider Internal Medicine | DX: I11.0 Hypertensive heart disease with heart failure (principal); I50.32 Chronic diastolic (congestive) heart failure; I50.812 Chronic right heart failure; I36.1 Nonrheumatic tricuspid (valve) insufficiency; I27.20 Pulmonary hypertension, unspecified; F17.210 Nicotine dependence, cigarettes, uncomplicated | CPT/HCPCS: 93005; 99212 ==

== ENCOUNTER 2023-09-22 07:45 | Outpatient (REF) | payer OTHER, SELFPAY ==
--- NOTE | ~2023-09-22 | US_ITS ---
EXAMINATION: US ABDOMEN COMPLETE CLINICAL INFORMATION: Unspecified cirrhosis of liver. COMPARISON: Ultrasound abdomen complete 03/12/2023 and 05/01/2022. CT abdomen 08/08/2021. TECHNIQUE: Real-time imaging of the abdominal viscera. FINDINGS: PANCREAS: Normal. ABDOMINAL AORTA: The proximal, mid, and distal segments are normal in caliber. INFERIOR VENA CAVA: Visualized portions are normal. LIVER: The liver is normal in size. Heterogeneous parenchyma with increased echogenicity. Slightly nodular contour . Echogenic focus in the right lobe, corresponding with the calcification seen on the prior CT abdomen 08/08/2021. No focal hepatic lesion. There is no intrahepatic biliary duct dilatation seen. GALLBLADDER: Multiple echogenic foci in the gallbladder, adjacent to the gallbladder wall, larger measuring 5 mm, may reflect polyps and/or gallstones. No gallbladder wall thickening or pericholecystic fluid. COMMON BILE DUCT: Normal in caliber measuring 0.2 cm in diameter. RIGHT KIDNEY: Normal. No hydronephrosis. No renal calculi or focal parenchymal lesions. The kidney measures 12.5 cm in maximum dimension. LEFT KIDNEY: Normal. No hydronephrosis. The prior study of 03/12/2023 demonstrated an echogenic lesion in the upper pole measuring 0.7 cm. This has not been identified in today's ultrasound.. The kidney measures 12.5 cm in maximum dimension. SPLEEN: Normal. The spleen measures 10.3 cm in maximum dimension. FREE FLUID: None. US/US abdomen complete IMPRESSION: 1. Cirrhotic liver. No focal liver lesion seen by ultrasound. 2. Left renal upper pole echogenic lesion, seen on prior ultrasound of 03/12/2023, has not been demonstrated on today's study. Attention on follow up imaging. 3. Stable echogenic foci, larger measuring 0.5 cm, may reflect gallbladder polyps and/or adherent gallstones.
== END 2023-09-22 07:46 | disposition home or self-care (01) ==
LOC: HO.US 07:45
PROVIDERS: PCP Pediatrics; Visit Provider Internal Medicine
DX: K74.60 Unspecified cirrhosis of liver (principal); K82.4 Cholesterolosis of gallbladder
CPT/HCPCS: 76700

== ENCOUNTER 2023-11-11 10:44 | Outpatient (AMB) | payer OTHER, SELFPAY ==
[2023-11-11 11:11] VITALS: BP 140/72; PULSE 67; O2SAT 97; BMI 27.6
--- NOTE | 2023-11-11 11:11 | A.OFFVIS_ITS ---
Vital Signs 11/11/23 11:11 Height 5 ft 2 in Weight 151 lb 0.266 oz BMI 27.6 BP 140/72 H Blood Pressure Location Lt brachial Position Sitting Pulse 67 Pulse Source Pulse Oximeter Pulse Oximetry (%) 97 Oxygen Delivery Method Room Air Intake Visit Reasons: COPD Intake Note: pt is here for follow up and feels good, doing deep breathing exercised during the day. Unemployment Inspector Required: No Allergies aspirin [ASPIRIN] Allergy (Intermediate, Verified 11/11/23 11:30) HIVES/ANXIETY enalapril Allergy (Unknown, Verified 11/11/23 11:30) unknown verapamil Allergy (Unknown, Verified 11/11/23 11:30) unknown acetaminophen [From Percocet] Adverse Reaction (Verified 11/11/23 11:30) low blood pressure oxycodone [From Percocet] Adverse Reaction (Verified 11/11/23 11:30) low blood pressure Medication List - Last Reconciled 11/11/23 by Petrona Mercer MD albuterol sulfate 90 mcg/actuation 2 puffs inhalation Q6H PRN 30 days amlodipine (Norvasc) 5 mg PO DAILY atorvastatin (Lipitor) 20 mg PO DAILY biotin 5 mg PO DAILY carvedilol 6.25 mg PO BID 30 days cholecalciferol (vitamin D3) 50 mcg PO DAILY citalopram 40 mg PO DAILY food supplemt, lactose-reduced (Boost High Protein) 1 ea PO BID metformin 1,000 mg PO DAILY omeprazole magnesium (Prilosec OTC) 20 mg PO DAILY trazodone 150 mg PO DAILY Do you need a note to return to daycare/school/sports/work: No HPI HPI COPD: Details: 73 YEARS OLD FEMALE IS HERE FOR 6 MONTHS FOLLOW-UP. SHE HAS MILD INTERMITTENT COUGH MOSTLY DUE TO OUTSIDE ALLERGIES. NOW SINCE THE START OF SPRING HER ALLERGY. PROBLEM HAS GOTTEN LITTLE BIT WORSE LONG SHE USES ALBUTEROL JUST 1 INHALATION TWICE A DAY HER COUGH STAYS UNDER CONTROL. SHE DOES NOT NEED TO USE ANY LONG-ACTING BRONCHODILATOR. HER SMOKING IS DOWN AT 3 CIGARETTES A DAY AND SHE COULD NOT QUIT BEYOND THAT. OTHERWISE HER CONDITION HAS REMAINED STABLE. [facility] Medical History Cirrhosis Cough Chronic right heart failure Chronic diastolic (congestive) heart failure Pulmonary hypertension Nonrheumatic tricuspid (valve) insufficiency COPD (chronic obstructive pulmonary disease) Congestive heart failure Asthma Restrictive lung disease Dyspnea on exertion COPD (chronic obstructive pulmonary disease) Smoking Type 2 diabetes mellitus with unspecified complications Uncontrolled hypertension Surgical History History of esophagogastroduodenoscopy (EGD) H/O colonoscopy Hx of abdominoplasty Family History Mother HTN (hypertension) Diabetes Throat cancer Father Throat cancer Sister Blind Breast cancer Brother Blind Lung cancer Son Blind Daughter Lupus Father Throat cancer Social History Household Members: None Housing: Apartment Do you presently have visiting nurse or other home services: Yes ([employer]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) Alcohol intake: never Patient Tobacco Use Status: Current someday Tobacco user Tobacco use type: Cigarette Cigarettes Per Day: 1 Years Smoked: 40 +/- Second Hand Smoke Exposure: No service: No Current occupational status: retired Review of Systems Const All systems reviewed & are unremarkable except as noted in HPI and below Eyes Reports no additional complaints ENT Reports no additional complaints Card Denies chest pain, Denies irregular heart rhythm and Denies leg edema Resp Reports as per HPI GI Reports no additional complaints Reports no additional complaints Musc Reports no additional complaints Skin/Breast Reports dry skin Neuro Reports no additional complaints Psych Reports no additional complaints Physical Exam Vital Signs: Last Vital Signs Pulse 67 11/11/23 11:11 BP 140/72 H 11/11/23 11:11 Pulse Ox 97 11/11/23 11:11 Oxygen Delivery Method Room Air 11/11/23 11:11 BMI result Body Mass Index 27.6 Const General: healthy appearing, comfortable, no acute distress, alert and awake Orientation/consciousness: patient oriented x3 HEENT Head: Yes normal to inspection General nose exam: No nasal polyps present and No nasal discharge present Face and sinus: Yes sinuses nontender Mouth: oropharynx normal Throat: Yes posterior oropharynx normal Eyes General: appearance normal, both eyes and all related structures Neck Neck: Yes normal visual inspection, Yes no lymphadenopathy, Yes trachea midline and Yes no JVD Thyroid: Thyroid normal Chest Chest palpation & inspection: normal inspection of the chest, normal palpation of entire chest wall and no tenderness Resp Other: Percussion note is resonant, breath sounds are somewhat diminished over the basilar areas. No crepitations, or wheezes are heard. Cardio Palpation: normal PMI Rate: regular rate Rhythm: regular rhythm Heart sounds: no gallops and no murmurs Peripheral pulses: Peripheral pulses 2+ throughout GI Palpation (GI): Soft to palpation, nontender, No hepatosplenomegaly present and no masses Auscultation: normal bowel sounds Back/Spine/Pelvis Thoracic/Lumbar Spine: thoracic and lumbar spine normal to inspection Skin General skin exam: no rashes or lesions noted and dry skin Neuro General: patient oriented x3 and no focal motor deficits Cranial nerves: Yes CN's II-XII intact bilaterally Extrem General: Yes normal to inspection, Yes no clubbing, cyanosis or edema and Yes no calf tenderness Psych Speech and movement: Normal speech and movement present Assessment & Plan Assessment & Plan (1) Asthma: Comment: MILD AND OCCASIONAL COUGH AND WHEEZE, Code(s): J45.909 - Unspecified asthma, uncomplicated Category: Medical Plan: [place]: ALBUTEROL HFA 2 PUFFS Q 4-6 HOURS ONLY P.R.N. (2) Restrictive lung disease: Comment: PULMONARY FUNCTION TEST HAS SHOWN MILD TO MODERATE DEGREE OF RESTRICTIVE PULMONARY DISORDER Code(s): J98.4 - Other disorders of lung Category: Medical Plan: PATIENT IS ADVISED TO DO DEEP BREATHING EXERCISES ,10 TIMES EVERY 2 HOURS W/A (3) Smoking: Comment: SHE SMOKES 3 CIGARETTES A DAY. HAS TRIED HER BEST BUT CAN NOT GO BELOW THAT NUMBER. Code(s): F17.200 - Nicotine dependence, unspecified, uncomplicated Category: Social Hx Plan: I EXPLAINED TO HER THAT SOME OF THE COUGH IS DUE TO ONGOING SMOKING. SHE SHOULD TRY TO QUIT COMPLETELY. (4) Cough: Comment: SHE HAS MILD INTERMITTENT COUGH SECONDARY TO REACTIVE AIRWAYS/ASTHMA VARIANT, AND ALSO DUE TO SMOKING Code(s): R05.9 - Cough, unspecified Category: Medical Plan: MAY USE ALBUTEROL HFA, 1 PUFF TWICE A DAY, OR Q 6 HOURS P.R.N. FOR SUSTAINED BOUTS OF COUGH. Coding Level of Care Code Est Pt Level 3 (65356) Diagnoses Asthma J45.909 Restrictive lung disease J98.4 Smoking F17.200 Cough R05.9
== END 2023-11-11 11:35 | disposition home or self-care (01) ==
PROVIDERS: PCP Pediatrics; Visit Provider Internal Medicine
DX: J45.909 Unspecified asthma, uncomplicated (principal); J98.4 Other disorders of lung; F17.200 Nicotine dependence, unspecified, uncomplicated; R05.9 Cough, unspecified
CPT/HCPCS: 99213

== ENCOUNTER → 2023-11-11 10:44 | Outpatient (BNVA) | payer OTHER, SELFPAY | PROVIDERS: PCP Pediatrics; Visit Provider Internal Medicine | DX: J45.909 Unspecified asthma, uncomplicated (principal); J98.4 Other disorders of lung; R05.9 Cough, unspecified; F17.210 Nicotine dependence, cigarettes, uncomplicated | CPT/HCPCS: 99212 ==

== ENCOUNTER 2024-03-23 08:00 | Outpatient (REF) | payer OTHER, SELFPAY ==
--- NOTE | ~2024-03-23 | US_ITS ---
EXAMINATION: US ABDOMEN COMPLETE CLINICAL INFORMATION: Unspecified cirrhosis of liver. COMPARISON: Ultrasound abdomen complete 09/22/2023 and 03/12/2023. CTA abdomen 08/08/2021. TECHNIQUE: Real-time imaging of the abdominal viscera. FINDINGS: PANCREAS: Normal. ABDOMINAL AORTA: The proximal, mid, and distal segments are normal in caliber. INFERIOR VENA CAVA: Visualized portions are normal. LIVER: The liver is abnormal with heterogeneous slightly increased echogenicity and a markedly lobulated border. There is a shadowing calcification in the right lobe of the liver measuring 1.3 cm. No liver mass. There is no intrahepatic biliary duct dilatation seen. GALLBLADDER: The gallbladder is physiologically distended. A few mobile gallstones are present. No evidence of gallbladder wall thickening or pericholecystic fluid. COMMON BILE DUCT: Normal in caliber measuring 0.29 cm in diameter. RIGHT KIDNEY: There is a multiseptated complex cyst or a cluster of small cysts measuring 1.8 x 1.2 x 1.0 cm. This was not seen on the two most prior recent ultrasound exams but can be appreciated on the most recent CT angiogram of the abdomen (5:25) and measured about the same size. No solid masses. No hydronephrosis or renal calculi. The kidney measures 11.1 cm in maximum dimension. LEFT KIDNEY: There is an echogenic 6 mm cortical mass in the upper pole consistent with a small benign angiomyolipoma. No hydronephrosis or renal calculi. The kidney measures 11.7 cm in maximum dimension. SPLEEN: Normal. The spleen measures 10.1 cm in maximum dimension. FREE FLUID: None. US/US abdomen complete IMPRESSION: 1. Cirrhotic-appearing liver without evidence of a mass. 2. Cholelithiasis without evidence of cholecystitis. 3. Complex right renal cyst. This was not seen on prior ultrasound studies but likely correlates with the abnormality seen on the 08/08/2021 CT angiogram. Follow-up ultrasound in 1 year is recommended to document stability. 4. Small benign left renal angiomyolipoma. This needs no additional imaging or followup. Electronically signed by: Luis Bryant MD 05/11/2024 01:11 PM [facility]
== END 2024-03-23 08:01 | disposition home or self-care (01) ==
LOC: HO.US 08:00
PROVIDERS: PCP Pediatrics; Visit Provider Internal Medicine
DX: K74.60 Unspecified cirrhosis of liver (principal)
CPT/HCPCS: 76700

== ENCOUNTER 2024-07-17 08:40 | Outpatient (REF) | payer OTHER, SELFPAY ==
[2024-07-17 10:08] LABS: Hematocrit 42.9 % (37.0-47.0); Mean Corpuscular HGB Conc 32.6 g/dl (31.0-35.0); Mean Corpuscular Volume 95.1 fL (80.0-98.0); Platelet Count 101 X10*3/uL (160-400); Red Blood Count 4.51 X10*6/uL (4.20-5.50); Red Cell Distribution Width 15.5 % (11.0-16.0); White Blood Count 5.9 X10*3/uL (4.8-10.8)
[2024-07-17 10:32] LABS: Prothrombin Time 12.2 SEC (10.9-12.4)
[2024-07-17 10:46] LABS: Alanine Aminotransferase 25 U/L (0-31); Albumin Level 3.2 g/dL (3.5-5.0); Alkaline Phosphatase 180 U/L (39-117); Anion Gap 7 (12-20); Aspartate Amino Transferase 39 U/L (5-31); Bilirubin Total 0.9 mg/dL (0.0-1.0); Blood Urea Nitrogen 13 mg/dL (9-16); Calcium 8.4 mg/dL (8.4-10.2); Carbon Dioxide 31 mmol/L (22-29); Chloride 108 mmol/L (96-108); Estimated Glomerular Filt Rate > 60; Glucose Random 101 mg/dL (60-115); Potassium 4.2 mmol/L (3.3-5.1); Sodium 142 mmol/L (135-145); Total Protein 8.2 g/dL (6.5-8.0)
[2024-07-17 10:59] LABS: HBS Num1 0.13 mIU/mL (0-7.99); HBsAGNum1 0.33 S/CO (0.00-0.99); Hepatitis B Surface Antigen Negative (Negative); ~Hepatitis B Surface Antibody NONREACTIVE (Nonreactive)
== END 2024-07-17 08:41 | disposition home or self-care (01) ==
LOC: HO.LAB 08:40
PROVIDERS: PCP Pediatrics; Visit Provider Internal Medicine
DX: K74.60 Unspecified cirrhosis of liver (principal); K75.81 Nonalcoholic steatohepatitis (NASH); I85.00 Esophageal varices without bleeding; N28.1 Cyst of kidney, acquired
CPT/HCPCS: 36415; 80053; 85027; 85610; 86706; 87340; 99212

== ENCOUNTER → 2024-07-21 10:17 | Outpatient (REF) | payer OTHER, SELFPAY ==
--- NOTE | 2024-07-21 10:23 | ECG_ITS ---
Test Reason : systolic hypertension Blood Pressure : */* mmHG Vent. Rate : 64 BPM Atrial Rate : 64 BPM P-R Int : 206 ms QRS Dur : 88 ms QT Int : 450 ms P-R-T Axes : 55 23 80 degrees QTcB Int : 464 ms Normal sinus rhythm Nonspecific T wave abnormality Abnormal ECG When compared with ECG of 09-Jun-2022 10:16, Premature ventricular complexes are no longer Present Premature atrial complexes are no longer Present ST no longer depressed in Lateral leads Referred By: Sherry Lucas Electronically Signed By: MARLA HAYWARD MD
== END ==
LOC: HO.CARD 10:17
PROVIDERS: PCP Pediatrics; Visit Provider Pediatrics
DX: Z01.818 Encounter for other preprocedural examination (principal); I10 Essential (primary) hypertension
CPT/HCPCS: 93005

== ENCOUNTER → 2024-07-21 10:23 | Outpatient (BNV) | payer OTHER, SELFPAY | PROVIDERS: PCP Pediatrics; Visit Provider Internal Medicine Cardiovascular Disease | DX: R94.31 Abnormal electrocardiogram [ECG] [EKG] (principal) | CPT/HCPCS: 93010 ==

== ENCOUNTER 2024-08-30 08:31 | Outpatient (AMB) | payer OTHER, SELFPAY ==
--- NOTE | 2024-08-30 08:49 | A.OFFVIS_ITS ---
Vital Signs 08/30/24 08:51 Height 5 ft 2 in Weight 160 lb 14.999 oz BMI 29.4 BP 120/78 Blood Pressure Location Lt brachial Position Sitting Pulse 66 Intake Visit Reasons: 1 yr f/up Intake Note: 1 year follow-up with ekg Evaporator Operator Molasses Required: Yes Evaporator Operator Molasses Services: Evaporator Operator Molasses Offered & Declined Allergies aspirin [ASPIRIN] Allergy (Intermediate, Verified 07/17/24 08:52) HIVES/ANXIETY enalapril Allergy (Unknown, Verified 07/17/24 08:52) unknown verapamil Allergy (Unknown, Verified 07/17/24 08:52) unknown acetaminophen [From Percocet] Adverse Reaction (Verified 07/17/24 08:52) low blood pressure oxycodone [From Percocet] Adverse Reaction (Verified 07/17/24 08:52) low blood pressure Medication List - Last Reconciled 08/30/24 by Lex Burk MD albuterol sulfate 90 mcg/actuation 2 puffs inhalation Q6H PRN 30 days amlodipine (Norvasc) 5 mg PO DAILY atorvastatin (Lipitor) 20 mg PO DAILY biotin 5 mg PO DAILY carvedilol 6.25 mg PO BID 30 days cholecalciferol (vitamin D3) 50 mcg PO DAILY citalopram 40 mg PO DAILY food supplemt, lactose-reduced (Boost High Protein) 1 ea PO BID lidocaine-prilocaine 2.5-2.5 % topical DAILY metformin 500 mg PO BID omeprazole 20 mg PO DAILY trazodone 150 mg PO DAILY HPI Comments Details: Lauren returns for follow up of hypertension. She is accompanied by her son. According to them, she is feeling very good. Has not had any issues like angina or shortness of breath or palpitations or in fact anything cardiac sounding. She is getting along fine. [facility] Medical History (Updated 07/17/24 @ 11:17 by Gladys Reeder MD) Cirrhosis Cough Chronic right heart failure Chronic diastolic (congestive) heart failure Pulmonary hypertension Nonrheumatic tricuspid (valve) insufficiency COPD (chronic obstructive pulmonary disease) Congestive heart failure Asthma Restrictive lung disease Dyspnea on exertion COPD (chronic obstructive pulmonary disease) Smoking Type 2 diabetes mellitus with unspecified complications Uncontrolled hypertension Surgical History (Updated 07/17/24 @ 08:52 by JUAN Major) Hx of cataract surgery History of esophagogastroduodenoscopy (EGD) H/O colonoscopy Hx of abdominoplasty Family History Mother HTN (hypertension) Diabetes Throat cancer Father Throat cancer Sister Blind Breast cancer Brother Blind Lung cancer Son Blind Daughter Lupus Father Throat cancer Social History Household Members: None Housing: Apartment Do you presently have visiting nurse or other home services: Yes (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) Alcohol intake: never Patient Tobacco Use Status: Current someday Tobacco user Tobacco use type: Cigarette Cigarettes Per Day: 1 Years Smoked: 40 +/- Second Hand Smoke Exposure: No service: No Current occupational status: retired Review of Systems Const Denies chills, Denies fatigue, Denies fever(s), Denies frequent falls, Denies weakness, Denies weight gain and Denies weight loss ENT Denies dizziness Card Denies chest pain, Denies leg edema, Denies lightheadedness, Denies palpitations, Denies dyspnea, Denies dyspnea on exertion, Denies orthopnea and Denies other (loss of consciousness) Resp Denies cough, Denies dyspnea and Denies dyspnea on exertion GI Denies hematochezia and Denies change in stool character Musc Denies abnormal gait, Denies muscle weakness, Denies numbness, Denies radiating pain into limb and Denies tingling Neuro Denies abnormal gait, Denies dizziness, Denies frequent falls, Denies numbness, Denies tingling and Denies weakness Endo Denies fatigue and Denies palpitations Physical Exam Vital Signs: Last Vital Signs Pulse 66 08/30/24 08:51 BP 120/78 08/30/24 08:51 BMI result Body Mass Index 29.4 Const General: comfortable and no acute distress Orientation/consciousness: patient oriented x3 HEENT Other: Unremarkable Head: Yes normal to inspection Neck Neck: Yes normal visual inspection Chest Chest palpation & inspection: normal inspection of the chest Resp Auscultation: clear to auscultation bilaterally Cardio Palpation: normal PMI Heart sounds: S1 normal heart sound present, S2 normal heart sound present, no gallops, no murmurs and no rubs GI Palpation (GI): Soft to palpation Back/Spine/Pelvis Other: unremarkable Skin General skin exam: no rashes or lesions noted Neuro General: patient oriented x3 Extrem General: Yes normal to inspection Psych Mental Status: mental status grossly normal Office Procedures EKG Details: EKG with underlying sinus rhythm at 66/Min; nonspecific ST-T changes; [place] [id number], Complete Assessment & Plan Assessment & Plan (1) Essential hypertension: Code(s): I10 - Essential (primary) hypertension Category: Medical (2) Chronic diastolic (congestive) heart failure: Code(s): I50.32 - Chronic diastolic (congestive) heart failure Category: Medical (3) Chronic right heart failure: Code(s): I50.812 - Chronic right heart failure Category: Medical (4) Nonrheumatic tricuspid (valve) insufficiency: Code(s): I36.1 - Nonrheumatic tricuspid (valve) insufficiency Category: Medical (5) Pulmonary hypertension: Code(s): I27.20 - Pulmonary hypertension, unspecified Category: Medical (6) Smoking: Comment: SHE SMOKES 3 CIGARETTES A DAY. HAS TRIED HER BEST BUT CAN NOT GO BELOW THAT NUMBER. Code(s): F17.200 - Nicotine dependence, unspecified, uncomplicated Category: Social Hx Plan Cardiac studies reviewed. In the last echocardiogram 2023, LVEF 60%. Severe septal hypertrophy. Moderate biatrial enlargement. No significant valvular findings. In the previous study, there was moderate to severe tricuspid regurgitation moderate pulmonary hypertension. Hence they seem improved. Myocardial perfusion imaging in the past with normal perfusion. There was a question of renal artery stenosis on ultrasound, but CTA is not showing any clear evidence of the same. Clinically, she does not have any symptoms or signs of congestive heart failure. Not on regular diuretics. For blood pressure, seems up and down. Today's blood pressure is completely normal but a prior blood pressure was high. Current meds includes carvedilol/amlodipine. Has been on irbesartan/spironolactone in the past. No changes made today but she can continue to monitor pressures at home and bring it up with next visit or discussed with PCP. If able, stopped smoking completely. It seems she smokes a few cigarettes. Discussed with son who came for appointment. To call us with ongoing concerns. Follow-up in one year. Coding Level of Care Code Est Pt Level 4 (03255) Complex EM visit Add On G2211 Diagnoses Essential hypertension I10 Chronic diastolic (congestive) heart failure I50.32 Chronic right heart failure I50.812 Nonrheumatic tricuspid (valve) insufficiency I36.1 Pulmonary hypertension I27.20 Smoking F17.200 CPT Codes EKG - CPT: 59611-[id number], Complete ([id number])
[2024-08-30 08:51] VITALS: BP 120/78; PULSE 66; BMI 29.4
== END 2024-08-30 09:20 | disposition home or self-care (01) ==
PROVIDERS: PCP Pediatrics; Visit Provider Internal Medicine
DX: I10 Essential (primary) hypertension (principal); I50.32 Chronic diastolic (congestive) heart failure; I50.812 Chronic right heart failure; I36.1 Nonrheumatic tricuspid (valve) insufficiency; I27.20 Pulmonary hypertension, unspecified; F17.200 Nicotine dependence, unspecified, uncomplicated
CPT/HCPCS: 93010; 99214; G2211

== ENCOUNTER → 2024-08-30 08:31 | Outpatient (BNVA) | payer OTHER, SELFPAY | PROVIDERS: PCP Pediatrics; Visit Provider Internal Medicine | DX: I11.0 Hypertensive heart disease with heart failure (principal); I50.32 Chronic diastolic (congestive) heart failure; I50.812 Chronic right heart failure; I36.1 Nonrheumatic tricuspid (valve) insufficiency; I27.20 Pulmonary hypertension, unspecified; F17.210 Nicotine dependence, cigarettes, uncomplicated | CPT/HCPCS: 93005; 99212 ==

== ENCOUNTER 2024-10-31 10:42 | Outpatient (AMB) | payer OTHER, SELFPAY ==
--- NOTE | 2024-10-31 10:46 | MHC.OFFVIS ---
Vital Signs 10/31/24 10:47 Height 5 ft 2 in Weight 164 lb 3.91 oz BMI 30.0 BP 128/60 Blood Pressure Location Lt brachial Position Sitting Pulse 69 Pulse Source Pulse Oximeter Pulse Oximetry (%) 96 Oxygen Delivery Method Room Air Intake Visit Reasons: copd Intake Note: pt is here for follow up and states she is coughing a lot and has a lot of phelgm, she needs refill on albuterol HFA Plaster Caster Required: No Allergies aspirin [ASPIRIN] Allergy (Intermediate, Verified 10/31/24 10:54) HIVES/ANXIETY enalapril Allergy (Unknown, Verified 10/31/24 10:54) unknown verapamil Allergy (Unknown, Verified 10/31/24 10:54) unknown acetaminophen [From Percocet] Adverse Reaction (Verified 10/31/24 10:54) low blood pressure oxycodone [From Percocet] Adverse Reaction (Verified 10/31/24 10:54) low blood pressure Medication List - Last Reconciled 10/31/24 by Petrona Mercer MD albuterol sulfate 90 mcg/actuation 2 puffs inhalation Q6H PRN 30 days amlodipine (Norvasc) 5 mg PO DAILY atorvastatin (Lipitor) 20 mg PO DAILY biotin 5 mg PO DAILY carvedilol 6.25 mg PO BID 30 days cholecalciferol (vitamin D3) 50 mcg PO DAILY citalopram 40 mg PO DAILY food supplemt, lactose-reduced (Boost High Protein) 1 ea PO BID lidocaine-prilocaine 2.5-2.5 % topical DAILY metformin 500 mg PO BID omeprazole 20 mg PO DAILY trazodone 150 mg PO DAILY Do you need a note to return to daycare/school/sports/work: No HPI HPI copd: Details: This 74 years old Turkish-speaking female comes after 1 year for follow-up, she is accompanied by her son who is helping. In conversation She has been relatively stable over the year but now since about a month ago she is having increased bouts of cough and some wheezing. She also has been out of albuterol, and according to the son when she does use albuterol a did not help much. She has had no respiratory infection. And still smokes 1-3 cigarettes per day. She is sitting comfortably and I did not hear her cough at all. [facility] Medical History Cirrhosis Cough Chronic right heart failure Chronic diastolic (congestive) heart failure Pulmonary hypertension Nonrheumatic tricuspid (valve) insufficiency COPD (chronic obstructive pulmonary disease) Congestive heart failure Asthma Restrictive lung disease Dyspnea on exertion COPD (chronic obstructive pulmonary disease) Smoking Type 2 diabetes mellitus with unspecified complications Uncontrolled hypertension Surgical History Hx of cataract surgery History of esophagogastroduodenoscopy (EGD) H/O colonoscopy Hx of abdominoplasty Family History Mother HTN (hypertension) Diabetes Throat cancer Father Throat cancer Sister Blind Breast cancer Brother Blind Lung cancer Son Blind Daughter Lupus Father Throat cancer Social History Household Members: None Housing: Apartment Do you presently have visiting nurse or other home services: Yes (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) Alcohol intake: never Patient Tobacco Use Status: Current someday Tobacco user Tobacco use type: Cigarette Cigarettes Per Day: 1 Years Smoked: 40 +/- Second Hand Smoke Exposure: No service: No Current occupational status: retired Review of Systems Const All systems reviewed & are unremarkable except as noted in HPI and below Eyes Reports no additional complaints ENT Reports no additional complaints Card Denies chest pain, Denies irregular heart rhythm and Denies leg edema Resp Reports as per HPI GI Reports no additional complaints Reports no additional complaints Musc Reports no additional complaints Skin/Breast Reports dry skin Neuro Reports no additional complaints Psych Reports no additional complaints Physical Exam Vital Signs: Last Vital Signs Pulse 69 10/31/24 10:47 BP 128/60 10/31/24 10:47 Pulse Ox 96 10/31/24 10:47 Oxygen Delivery Method Room Air 10/31/24 10:47 BMI result Body Mass Index 30.0 Const General: healthy appearing, comfortable, no acute distress, alert and awake Orientation/consciousness: patient oriented x3 HEENT Head: Yes normal to inspection General nose exam: No nasal polyps present and No nasal discharge present Face and sinus: Yes sinuses nontender Mouth: oropharynx normal Throat: Yes posterior oropharynx normal Eyes General: appearance normal, both eyes and all related structures Neck Neck: Yes normal visual inspection, Yes no lymphadenopathy, Yes trachea midline and Yes no JVD Thyroid: Thyroid normal Chest Chest palpation & inspection: normal inspection of the chest, normal palpation of entire chest wall and no tenderness Resp Other: Percussion note is resonant, breath sounds are somewhat diminished over the basilar areas. No crepitations, or wheezes are heard. Cardio Palpation: normal PMI Rate: regular rate Rhythm: regular rhythm Heart sounds: no gallops and no murmurs Peripheral pulses: Peripheral pulses 2+ throughout GI Palpation (GI): Soft to palpation, nontender, No hepatosplenomegaly present and no masses Auscultation: normal bowel sounds Back/Spine/Pelvis Thoracic/Lumbar Spine: thoracic and lumbar spine normal to inspection Skin General skin exam: no rashes or lesions noted and dry skin Neuro General: patient oriented x3 and no focal motor deficits Cranial nerves: Yes CN's II-XII intact bilaterally Extrem General: Yes normal to inspection, Yes no clubbing, cyanosis or edema and Yes no calf tenderness Psych Speech and movement: Normal speech and movement present Results Reviewed Results Reviewed: SPIROMETRY FVC=49 % FEV1= 43 % FEF 25-75= 29 % Assessment & Plan Assessment & Plan (1) Asthma: Comment: MILD WITH OCCASIONAL COUGH AND WHEEZE, GETS WORSE IN SPRING MONTHS ( ? OF ALLERGIES ) SHE HAS BEEN DOING WELL BUT NOW FOR THE PAST 1 MONTH COMPLAINS OF INCREASED COUGH. SPIROMETRY SHOWS THAT HER OBSTRUCTIVE COMPONENT HAS INCREASED COMPARED TO THE LAST PFT IN 2021 Code(s): J45.909 - Unspecified asthma, uncomplicated Category: Medical Plan: I THINK SHE NEEDS TO HAVE LABA/LAMA AGENT, AND ACCORDING TO HER INSURANCE FORMULARY SYMBICORT 100-4.5 2 PUFFS B.I.D. IS PRESCRIBED. SHE WILL USE ALBUTEROL HFA 1 PUFF Q 6 HOURS P.R.N., AND NOT MORE THAN ONCE OR TWICE A DAY. (2) Restrictive lung disease: Comment: PULMONARY FUNCTION TEST HAS SHOWN MILD TO MODERATE DEGREE OF RESTRICTIVE PULMONARY DISORDER. SHE IS NOT OVERWEIGHT . THESE RESULTS MAY BE BECAUSE OF. POOR EFFORT. Code(s): J98.4 - Other disorders of lung Category: Medical Plan: ADVISE THAT SHE SHOULD TRY TO DO DEEP BREATHING EXERCISES 3 TIMES A DAY. (3) Smoking: Comment: SHE SMOKES 1-3 CIGARETTES A DAY. HAS TRIED HER BEST BUT CAN NOT GO BELOW THAT NUMBER. Code(s): F17.200 - Nicotine dependence, unspecified, uncomplicated Category: Social Hx Plan: AGAIN EXPLAINED TO HER THAT SHE SHOULD QUIT COMPLETELY. SHE PROMISES THAT SHE WILL KEEP IT TO ONLY 1 CIGARETTES A DAY Coding Level of Care Code Est Pt Level 3 (70996) Diagnoses Asthma J45.909 Restrictive lung disease J98.4 Smoking F17.200
[2024-10-31 10:47] VITALS: BP 128/60; PULSE 69; O2SAT 96
== END 2024-10-31 11:15 | disposition home or self-care (01) ==
LOC: HO.HPS 10:42
PROVIDERS: PCP Pediatrics; Visit Provider Internal Medicine
DX: J45.909 Unspecified asthma, uncomplicated (principal); J98.4 Other disorders of lung; F17.200 Nicotine dependence, unspecified, uncomplicated
CPT/HCPCS: 94010; 99213

== ENCOUNTER → 2024-10-31 10:42 | Outpatient (BNVA) | payer OTHER, SELFPAY | PROVIDERS: PCP Pediatrics; Visit Provider Internal Medicine | DX: J44.9 Chronic obstructive pulmonary disease, unspecified (principal); J98.4 Other disorders of lung; F17.210 Nicotine dependence, cigarettes, uncomplicated | CPT/HCPCS: 94010; 99212 ==

== ENCOUNTER 2025-01-17 09:14 | Outpatient (REF) | payer OTHER, SELFPAY ==
--- OUTSIDE RECORDS SUMMARY | 2025-01-17 09:46 | XMS_ITS | Patient Health Record ---
Author Organization [facility] Address [address] [place] [address] Care Team Providers Care Automotive Parts Counter Assistant Name Role Phone Sherry Lucas MD Primary Care Provider Eric Perdoom Unavailable [phone] Allergies Allergen (clinical drug ingredient) Drug/Non Drug Allergy documented on EMR Reaction Allergy Type Onset Date Status Unknown Drug Allergy Active Reason For Referral No Information Medications Medication SIG (Take, Route, Frequency, Duration) Notes Start Date End Date Status metFORMIN HCl 1000 MG 1 tablet with meal s Orally Twice a day Active Felodipine ER 10 MG 1 tablet Orally Once a day Active Irbesartan 300 MG 1 tablet Orally Once a day Active Lipitor 20 MG 1 tablet Orally Once a day Active hydrALAZINE HCl 50 MG 1 tablet with food Orally twice a day Active hydroCHLOROthiazide 50 MG 1 tablet in morning Orally Three times a Week 11/17/2016 Active traZODone HCl 100 MG 1 tablet at bedtime Orally Once a day Active Citalopram Hydrobromide 20 MG 1 tablet O rally Once a day Active MiraLax (colon prep) 8.3 oun ce ((238) grams mixed with Gatorade or Crystal Light orally begin at 5:00 p.m. the day before the procedure for 1 day 11/17/2016 Active ProAir HFA 108 (90 Base) MCG/ACT 2 puffs as needed Inhalation every 4 hrs Active Dulcolax (colon prep) 5 MG take at 3:00 p.m and 7:00p.m. Orally two tablets twice a day for one day for 1 day 11/17/2016 Active Social History Tobacco Use: Social History Observation Description Date Details (start date - stop date) Current Smoker NA - NA Tobacco Use/Smoking Question Answer Notes Patient is a current smoker How often do you smoke cigarettes? every day How many cigarettes a day do you smoke? 5 or les s Alcohol Screen Question Answer Notes Did you have a drink containing alcohol in the p ast year? No Points 0 Interpretation Negative Section Notes: Smoker 3-4 cigs QD; no sig a lcohol Problems Problem Type SNOMED Code ICD Code Onset Dates Problem Status W/U Status Risk Notes Problem 506644994 Encounter for screening for malignant neoplasm of colon (Z12.11) Active confirmed Problem 603567204 Preprocedural examination (Z01.818) Active confirmed Plan Of Treatment Future Test Test Name Order Date COLONOSCOPY 11/17/2016 Insurance Providers Payer Name Payer Address Payer Phone Subscriber Number Group Number Insured Name Patient Relationship to Insured Coverage Start Date Coverage End Date [facility] [address] [place] [address] [id number] EZE MON Self - patient is the insured Medical (General) History Medical History History ICD Code Neg. screening colonoscopy except for diverticulosis and internal hemorrhoids Hyperlipidemia Hypertension Depression Asthma NIDDM Denies OR,CVA,renal disease Surgical History Surgery Date(Month/Year) Panniculectomy and abdominoplasty 2011
--- OUTSIDE RECORDS SUMMARY | 2025-01-17 09:46 | XMS_ITS | Clinical Summary ---
Author Organization [facility] Address [address] [place] [address] Phone Care Team Providers Care Crosscutter Name Role Phone Rosalinda Lucas MD Primary Care Provider [phone] Social History Tobacco Use Types Packs/Day Years Used Date Smoking Tobacco: Never Assessed Comments Unknown Sex and Gender Information Value Date Recorded Sex Assigned at Female 01/05/2025 10:54 AM EDT Legal Sex Female 2:34 PM EST Gender Identity Female 01/05/2025 10:54 AM EDT Sexual Orientation Straight 01/12/2025 10 :38 AM EDT Plan of Treatment Upcoming Encounters Date Type Department Care Team (Late st Contact Info) Description 01/17/2025 11:15 AM EDT Appointment [facility] [address] [address] Health Maintenance Due Date Last Done Comments DTaP,Tdap,and Td Vaccines (1 - Tdap) 1968 Pneumococcal Vaccine: 50+ Years (1 of 1 - PCV) 1999 Zoster Vaccines (1 of 2) 1999 Colorectal Cancer Screening: Colonoscopy 05/27/2022 Falls Risk Assessment 05/27/2022 Hepatitis C Screening 05/27/2022 Osteoporosis Screening (Bone Density Screening) 05/27/2022 Social Influencers of Health Screening 05/27/2022 COVID-19 Vaccine (1 - 2023- season) 2024 RSV Immunization Adult Patients (1 - 1-dose 75+ series) 2024 Depression Screening 06/28/2024 Influenza Vaccine (#1) 2025 Breast Cancer Screening Discontinued 09/06/19, 09/02/2022, 07/21/2021, Additional history exists HIB Vaccines Aged Out No longer eligi ble based on patient's age to complete this topic HPV Vaccines Aged Out No longer eligi ble based on patient's age to complete this topic Hepatitis A Vaccines Aged Out No long er eligible based on patient's age to complete this topic Hepatitis B Vaccines Aged Out No long er eligible based on patient's age to complete this topic IPV Vaccines Aged Out No longer eligi ble based on patient's age to complete this topic MMR Vaccines Aged Out No longer eligi ble based on patient's age to complete this topic Meningococcal ACWY Vaccine Aged Out N o longer eligible based on patient's age to complete this topic Meningococcal B Vaccine Aged Out No l onger eligible based on patient's age to complete this topic RSV Immunization Patients Under 20 months Aged Out No longer eligible based on patient's age to complete this topic Varicella Vaccines Aged Out No longer eligible based on patient's age to complete this topic Procedures Procedure Name Priority Date/Time Associated Diagnosis Comments [facility] Routine 09/06/2023 3:48 PM EDT Encounter for screening mammogram for malignant neoplasm of breast from Last 3 Months or Most Recently Relevant to Health Maintenance Results * [facility] (09/06/2023 3:48 PM EDT) Anatomical Region Laterality Modality Mammography 09/06/2023 10:3 4 AM EDT Narrative 09/06/2023 3:[address] [facility] Diagnostic Imaging Department [address] [place], [place] [id number] Patient: LAUREN HOUSTONO.B./Age/Sex: 1950 - 73 - F Unit#: [id number] Location/Status: SPDIMAM/REG CLI Mnemonic/Ordering Site: DIGSC/SPMAM Ordering Physician: ROSALINDA LUCAS [facility] Screening Digital - 09/06/23 - 1047 Report Status:Signed EXAM: [facility] Screening Digital EXAM DATE AND TIME: 09/06/2023 10:48 AM HISTORY: Screening. Right breast biopsy in 2000, pathology benign. COMPARISON: 09/02/22, 07/21/21, 07/17/20, 07/13/19 TECHNIQUE: Bilateral digital breast tomosynthesis was performed in the CC and MLO projections. Computer aided detection with NextUser 3D 3.1 was employed. TISSUE DENSITY: b. There are scattered areas of fibroglandular density. FINDINGS: A small group of microcalcifications in the upper outer right breast, posterior depth, remains unchanged, considered benign. A 6 mm circumscribed nodule in the anterior 6:00 position of the right breast and a circumscribed 9 mm nodule in the anterior 3:00 position of the left breast also remain stable, considered benign. Few coarse, benign calcifications are again seen bilaterally. No suspicious masses or areas of architectural distortion are seen. The skin and vascularity are unremarkable. IMPRESSION: Stable mammographic appearance of the breasts. No evidence of malignancy is seen. A negative mammogram in the presence of a clinically suspicious palpable abnormality does not preclude the possibility of malignancy or alter the indications for biopsy. BI-RADS: Category 2: Benign RECOMMENDATION(S): 1: Routine screening mammogram BILATERAL in 1 year. Dictating Physician: MARISA SAAVEDRA MD Electronically Signed by: MARISA SAAVEDRA MD Dic Date/Time: 09/06/23 1545 Sign date/Time: 09/06/23 1548 Procedure Note Marisa Saavedra MD - 02/14/[address] [facility] Diagnostic Imaging Department [address] [place] [address] Patient: LAUREN HOUSTON /Age/Sex: 1950 - 73 - F Unit#: [id number] Location/Status: SPDIMAM/REG CLI Mnemonic/Ordering Site: [facility] Ordering Physician: ROSALINDA LUCAS [facility] Screening Digital - 09/06/23 - 1047 Report Status:Signed EXAM: [facility] Screening Digital EXAM DATE AND TIME: 09/06/2023 10:48 AM HISTORY: Screening. Right breast biopsy in 2000, pathology benign. COMPARISON: 09/02/22, 07/21/21, 07/17/20, 07/13/19 TECHNIQUE: Bilateral digital breast tomosynthesis was performed in the CCand MLO projections. Computer aided detection with NextUser 3D 3.1was employed. TISSUE DENSITY: b. There are scattered areas of fibroglandular density. FINDINGS: A small group of microcalcifications in the upper outer right breast,posterior depth, remains unchanged, considered benign. A 6 mm circumscribed nodulein the anterior 6:00 position of the right breast and a circumscribed 9 mm nodulein the anterior 3:00 position of the left breast also remain stable,considered benign. Few coarse, benign calcifications are again seen bilaterally. No suspicious masses or areas of architectural distortion are seen. Theskin and vascularity are unremarkable. IMPRESSION: Stable mammographic appearance of the breasts. No evidence of malignancyis seen. A negative mammogram in the presence of a clinically suspicious palpable abnormality does not preclude the possibility of malignancy or alter the indications for biopsy. BI-RADS: Category 2: Benign RECOMMENDATION(S): 1: Routine screening mammogram BILATERAL in 1 year. Dictating Physician: MARISA SAAVEDRA MD Electronically Signed by: MARISA SAAVEDRA MD Dic Date/Time: 09/06/23 1545 Sign date/Time: 09/06/23 1548 Rosalinda Lucas MD IMG BI PROCEDURES Final Resul t from Last 3 Months or Most Recently Relevant to Health Maintenance Insurance [facility] Member Subscriber Plan / Payer (Ef fective 2015-Present) Name:Josh Ariasa Relation to Subscriber:Spouse Name:YAA HOUSTONLAUREN Subscriber ID:[id number] Date of :1950 Address: [address] [place] [id number] Payer ID:[id number] Group ID:[id number] Type:Not on file Address: [place] [address] [address] [id number] MEDICAID - [place] Care Teams Crosscutter Relationship Specialty Start Date End Date Rosalinda Lucas MD [address] [place] [address] PCP - General Internal Medicine 01/12/25
[2025-01-17 14:27] LABS: Hematocrit 41.6 % (37.0-47.0); Hemoglobin 13.6 g/dl (12.0-16.0); Imm Gran Abs Auto 0.01 X10*3/uL (0.00-0.03); Imm Gran Pct Auto 0.2 % (0.0-0.4); Lymphocytes Absolute Auto 1.7 X10*3/uL (1.2-4.9); Mean Corpuscular HGB Conc 32.7 g/dl (31.0-35.0); Mean Corpuscular Hemoglobin 31.1 pg (27.0-33.0); Mean Corpuscular Volume 95.0 fL (80.0-98.0); NRBC Abs Auto 0.000 X10*3/uL (0.0-0.012); NRBC Pct Auto 0.0 /100WBC (0.0-0.2); Red Blood Count 4.38 X10*6/uL (4.20-5.50)
[2025-01-17 14:28] LABS: Platelet Count 102 X10*3/uL (160-400); White Blood Count 6.0 X10*3/uL (4.8-10.8)
[2025-01-17 14:38] LABS: Alanine Aminotransferase 16 U/L (0-31); Albumin Level 2.8 g/dL (3.5-5.0); Alkaline Phosphatase 170 U/L (39-117); Aspartate Amino Transferase 39 U/L (5-31); Cholesterol 118 mg/dL (<200); HDL Cholesterol 36 mg/dL (>40); Total Protein 7.7 g/dL (6.5-8.0); Triglycerides 132 mg/dL (<150)
[2025-01-17 14:49] LABS: Microalbum/Creatinine Ratio Ur 755.0 ug/mg cr (<30)
[2025-01-17 15:09] LABS: Folate 12.8 ng/mL (> or = 4.0); Vitamin B12 1238 pg/mL (200-900)
== END 2025-01-17 09:15 | disposition home or self-care (01) ==
LOC: HO.CHCLDS 09:14
PROVIDERS: Visit Provider Pediatrics
DX: Z12.31 Encounter for screening mammogram for malignant neoplasm of breast (principal); I10 Essential (primary) hypertension; K75.81 Nonalcoholic steatohepatitis (NASH); K74.60 Unspecified cirrhosis of liver; J98.4 Other disorders of lung; F17.200 Nicotine dependence, unspecified, uncomplicated; F32.A Depression, unspecified; E11.9 Type 2 diabetes mellitus without complications; Z79.4 Long term (current) use of insulin
CPT/HCPCS: 36415; 80061; 80076; 82043; 82306; 82570; 82607; 82746; 84443; 85025

== ENCOUNTER 2025-01-22 09:36 | Outpatient (AMB) | payer OTHER, SELFPAY ==
[2025-01-22 10:29] VITALS: BP 122/82; PULSE 64; O2SAT 95
--- NOTE | 2025-01-22 10:29 | MHC.OFFVIS ---
Vital Signs 01/22/25 10:29 Height 5 ft 2 in Weight 164 lb 3.91 oz BMI 30.0 BP 122/82 Blood Pressure Location Lt brachial Position Sitting Pulse 64 Pulse Source Pulse Oximeter Pulse Oximetry (%) 95 Oxygen Delivery Method Room Air Intake Visit Reasons: COPD Intake Note: pt is here for follow up and is feeling way better, rugs are gone. Allergies aspirin (ASPIRIN) Allergy (Intermediate, Verified 01/22/25 10:43) HIVES/ANXIETY enalapril Allergy (Unknown, Verified 01/22/25 10:43) unknown verapamil Allergy (Unknown, Verified 01/22/25 10:43) unknown acetaminophen (From Percocet) Adverse Reaction (Verified 01/22/25 10:43) low blood pressure oxycodone (From Percocet) Adverse Reaction (Verified 01/22/25 10:43) low blood pressure Medication List - Last Reconciled 01/22/25 by Petrona Mercer MD albuterol sulfate 90 mcg/actuation 2 puffs inhalation Q6H PRN 30 days amlodipine (Norvasc) 5 mg PO DAILY atorvastatin (Lipitor) 20 mg PO DAILY biotin 5 mg PO DAILY budesonide-formoterol 160-4.5 mcg/actuation (Symbicort) 2 puffs inhalation BID 30 days carvedilol 6.25 mg PO BID 30 days cholecalciferol (vitamin D3) 50 mcg PO DAILY citalopram 40 mg PO DAILY food supplemt, lactose-reduced (Boost High Protein) 1 ea PO BID lidocaine-prilocaine 2.5-2.5 % topical DAILY metformin 500 mg PO BID omeprazole 20 mg PO DAILY trazodone 150 mg PO DAILY Do you need a note to return to daycare/school/sports/work: No HPI HPI COPD: Details: 74 years old very pleasant, [place]ander-speaking female comes for follow-up after 3 months. Since her last visit she is using Symbicort 2 puffs b.i.d. regularly. The old rugs from the apartment have been removed. She feels much better. Has less cough and nasal stuffiness. Has much less need to use the albuterol. [facility] Medical History Cirrhosis Cough Chronic right heart failure Chronic diastolic (congestive) heart failure Pulmonary hypertension Nonrheumatic tricuspid (valve) insufficiency COPD (chronic obstructive pulmonary disease) Congestive heart failure Asthma Restrictive lung disease Dyspnea on exertion COPD (chronic obstructive pulmonary disease) Smoking Type 2 diabetes mellitus with unspecified complications Uncontrolled hypertension Surgical History Hx of cataract surgery History of esophagogastroduodenoscopy (EGD) H/O colonoscopy Hx of abdominoplasty Family History Mother HTN (hypertension) Diabetes Throat cancer Father Throat cancer Sister Blind Breast cancer Brother Blind Lung cancer Son Blind Daughter Lupus Father Throat cancer Social History Household Members: None Housing: Apartment Do you presently have visiting nurse or other home services: Yes ([facility] [employer] FOR 15 HOURS A WEEK) Alcohol intake: never Patient Tobacco Use Status: Current someday Tobacco user Tobacco use type: Cigarette Cigarettes Per Day: 1 Years Smoked: 40 +/- Second Hand Smoke Exposure: No service: No Current occupational status: retired Review of Systems Const All systems reviewed & are unremarkable except as noted in HPI and below Eyes Reports no additional complaints ENT Reports no additional complaints Card Denies chest pain, Denies irregular heart rhythm and Denies leg edema Resp Reports as per HPI GI Reports no additional complaints Reports no additional complaints Musc Reports no additional complaints Skin/Breast Reports dry skin Neuro Reports no additional complaints Psych Reports no additional complaints Physical Exam Vital Signs: Last Vital Signs Pulse 64 01/22/25 10:29 BP 122/82 01/22/25 10:29 Pulse Ox 95 01/22/25 10:29 Oxygen Delivery Method Room Air 01/22/25 10:29 BMI result Body Mass Index 30.0 Const General: healthy appearing, comfortable, no acute distress, alert and awake Orientation/consciousness: patient oriented x3 HEENT Head: Yes normal to inspection General nose exam: No nasal polyps present and No nasal discharge present Face and sinus: Yes sinuses nontender Mouth: oropharynx normal Throat: Yes posterior oropharynx normal Eyes General: appearance normal, both eyes and all related structures Neck Neck: Yes normal visual inspection, Yes no lymphadenopathy, Yes trachea midline and Yes no JVD Thyroid: Thyroid normal Chest Chest palpation & inspection: normal inspection of the chest, normal palpation of entire chest wall and no tenderness Resp Other: Percussion note is resonant, breath sounds are somewhat diminished over the basilar areas. No crepitations, or wheezes are heard. Cardio Palpation: normal PMI Rate: regular rate Rhythm: regular rhythm Heart sounds: no gallops and no murmurs Peripheral pulses: Peripheral pulses 2+ throughout GI Palpation (GI): Soft to palpation, nontender, No hepatosplenomegaly present and no masses Auscultation: normal bowel sounds Back/Spine/Pelvis Thoracic/Lumbar Spine: thoracic and lumbar spine normal to inspection Skin General skin exam: no rashes or lesions noted and dry skin Neuro General: patient oriented x3 and no focal motor deficits Cranial nerves: Yes CN's II-XII intact bilaterally Extrem General: Yes normal to inspection, Yes no clubbing, cyanosis or edema and Yes no calf tenderness Psych Speech and movement: Normal speech and movement present Assessment & Plan Assessment & Plan (1) Smoking: Comment: SHE SMOKES 1-3 CIGARETTES A DAY. HAS TRIED HER BEST BUT CAN NOT GO BELOW THAT NUMBER. Code(s): F17.200 - Nicotine dependence, unspecified, uncomplicated Category: Social Hx Plan: Again discussed about smoking and encouraged to quit completely. (2) COPD (chronic obstructive pulmonary disease): Comment: Chronic cough and mild shortness of breath on exertion is indicated of obstructive/restrictive pulmonary disorder. PULMONARY FUNCTION TEST SHOWED RESTRICTIVE DISORDER BUT NO SIGNIFICANT OBSTRUCTIVE DISORDER. Her pulmonary function test showed restrictive lung disorder but no obstructive. However with the addition of Symbicort she feels much better. Code(s): J44.9 - Chronic obstructive pulmonary disease, unspecified Category: Medical Plan: Continue using Symbicort 160-4.52 puffs b.i.d.. Albuterol HFA 2 puffs Q 6 hours p.r.n. (3) Restrictive lung disease: Comment: PULMONARY FUNCTION TEST HAS SHOWN MILD TO MODERATE DEGREE OF RESTRICTIVE PULMONARY DISORDER. SHE IS NOT OVERWEIGHT . THESE RESULTS MAY BE BECAUSE OF POOR EFFORT. Code(s): J98.4 - Other disorders of lung Category: Medical Plan: Still encouraged to do deep breathing exercises 2 or 3 times a day (4) Cough: Comment: SHE HAS MILD INTERMITTENT COUGH SECONDARY TO REACTIVE AIRWAYS/ASTHMA VARIANT, AND ALSO DUE TO SMOKING SINCE LAST VISIT, WITH THE USE OF SYMBICORT, THE COUGH IS MUCH LESS. Code(s): R05.9 - Cough, unspecified Category: Medical Plan: TO FURTHER REDUCE THE COUGH SHE HAS TO QUIT SMOKING COMPLETELY, WHICH SHE IS UNABLE TO DO. ANYWAY COUGH IS NOT BOTHERSOME AT THIS TIME Coding Level of Care Code Est Pt Level 3 (60873) Diagnoses Smoking F17.200 COPD (chronic obstructive pulmonary disease) J44.9 Restrictive lung disease J98.4 Cough R05.9
--- OUTSIDE RECORDS SUMMARY | 2025-01-22 10:29 | XMS_ITS | Encounter Summary ---
Author Organization [employer] Address [address] [facility] [facility] [address] 7 [place] [address] Care Team Providers Care Director Executive Communications Name Role Phone Sherry Lucas MD Primary Care Provider [phone] Reason for Visit * Reason Onset Date Comments Med Refill 01/18/2025 Encounter Details Date Type Department Care Team ([facility] st Contact Info) Description 01/18/2025 Refill [facility] [address], [place] [id number] Sherry Lucas MD [address] [place] [address] Osteoarthritis of patellofemoral joints of both knees Social History Tobacco Use Types Packs/Day Years Used Date Smoking Tobacco: Every Day Cigarettes Passive Smoke Exposure: Past Smokeless Tobacco: Never Alcohol Use Standard Drinks/Week Comments Never 0 (1 standard drink = 0.6 oz pur e alcohol) Depression Answer Date Recorded Patient Health Questionnaire-9 Score 3 08/05/2023 Patient Health Questionnaire-9 Score 3 08/05/2023 Last PHQ-9: Questionnaire Data Not on file 0 08/05/2023 Housing Stability Answer Date Recorded What is your housing situation today? I have keisha angelina 08/05/[address] you li ve. Do you have problems with any of the following? None of the above 08/05/2023 Food Insecurity Answer Date Recorded Within the past 12 months, y ou worried that your food would run out before you got money to buy more: Never True 08/05/2023 Within the past 12 months,th e food you bought just didn't last and you didn't have enough money to get more: Never True 01/2024 Transportation Answer Date Recorded In the past 12 months, has l ack of transportation kept you from medical appts, meetings, work or from getting things needed for daily living? No 08/05/2023 Utilities Answer Date Recorded In the past 12 months, has t he electric, gas, oil or water company threatened to shut off services in your home? No 08/05/2023 Depression Answer Date Recorded Patient Health Questionnaire-2 Score 2 08/05/2023 Comments Unknown Sex and Gender Information Value Date Recorded Sex Assigned at Female 04/27/2022 10:14 AM EDT Legal Sex Female 10:14 AM EDT Gender Identity Female 04/27/2022 10:14 AM EDT Sexual Orientation Straight 11/26/2023 3: 18 PM EDT documented as of this encounter Miscellaneous Notes * Telephone Encounter - Meche Liu RN - 01/18/2025 4:13 PM EDT Fax received from E[facility] requesting refill for Vitamin D. Medication queued and sent to provider. documented in this encounter Plan of Treatment Upcoming Encounters Date Type Department Care Team (Late st Contact Info) Description 04/04/2025 10:15 AM EDT Office Visit [facility] [address] [place] [address] Sherry Lucas MD [address] [place] [address] documented as of this encounter Visit Diagnoses Diagnosis Osteoarthritis of patellofemoral joints of both knees documented in this encounter Additional Health Concerns Assessment Noted Time PHQ-9 Depression Total Score: 3 08/05/19 24 11:04 AM EST documented as of this encounter Care Teams Director Executive Communications Relationship Specialty Start Date End Date Sherry Lucas MD [address] [place] [address] PCP - General Family Medicine 06/28/18 documented as of this encounter
--- OUTSIDE RECORDS SUMMARY | 2025-01-22 10:29 | XMS_ITS | Patient Health Record ---
Author Organization [facility] Address [address] [place] [address] Care Team Providers Care Review Consultant Name Role Phone Sherry Lucas MD Primary Care Provider Eric Perdomo Unavailable [phone] Allergies Allergen (clinical drug ingredient) Drug/Non Drug [...] Problem Status W/U Status Risk Notes Problem [id number] Encounter for screening for malignant neoplasm of colon (Z12.11) Active confirmed Problem [id number] Preprocedural examination (Z01.818) Active confirmed Plan Of Treatment Future Test Test Name Order Date COLONOSCOPY 11/17/2016 Insurance Providers Payer Name Payer Address Payer Phone Subscriber Number Group Number Insured Name Patient Relationship to Insured Coverage Start Date Coverage End Date [facility] [address] [place] [address] [id number] [id number] MON Self - patient is the insured Medical (General) History Medical History History ICD Code Neg. screening colonoscopy except for diverticulosis and internal hemorrhoids Hyperlipidemia Hypertension Depression Asthma NIDDM Denies MA,CVA,renal disease Surgical History Surgery Date(Month/Year) Panniculectomy and abdominoplasty 2011
== END 2025-01-22 10:48 | disposition home or self-care (01) ==
LOC: HO.HPS 09:38
PROVIDERS: PCP Pediatrics; Visit Provider Internal Medicine
DX: F17.200 Nicotine dependence, unspecified, uncomplicated (principal); J44.9 Chronic obstructive pulmonary disease, unspecified; J98.4 Other disorders of lung; R05.9 Cough, unspecified
CPT/HCPCS: 99213

== ENCOUNTER → 2025-01-22 09:36 | Outpatient (BNVA) | payer OTHER, SELFPAY | PROVIDERS: PCP Pediatrics; Visit Provider Internal Medicine | DX: J98.4 Other disorders of lung (principal); J44.9 Chronic obstructive pulmonary disease, unspecified; F17.210 Nicotine dependence, cigarettes, uncomplicated; R05.8 Other specified cough; Z71.6 Tobacco abuse counseling | CPT/HCPCS: 99212 ==

== ENCOUNTER 2025-03-20 10:15 | Day surgery (SDC) | payer OTHER, SELFPAY ==
--- OUTSIDE RECORDS SUMMARY | 2025-02-08 14:00 | XMS_ITS | Clinical Summary ---
Author Organization [employer] Address [address] [facility] [address] [place] [address] Care Team Providers Care Director Metabolism Name Role Phone Sherry Lucas MD Primary Care Provider [phone] Allergies Active Allergy Reactions Criticality Noted Date Comments Aspirin Hives 11/20/2011 Enalapril 11/20/2011 Verapamil 11/20/2011 Other reaction(s): pedel edema Medications Alcohol Swabs (Alcohol Prep) 70 % pads Use 2 times a day 022 Active Colloidal Oatmeal (Eucerin Eczema Relief) 1 % cream apply bid to all skin Active omega-3 (Fish Oil) 1000 MG capsule Take 1 capsule by mouth 2 times daily. 021 Active PEG [id number]-Na Cl-NaSulf (PEG-3350/Electro lytes) 236 g reconstituted solution 023 Active GNP Natural Fiber 48.57 % powder 023 Active Ventolin HFA 108 (90 Base) MCG/ACT inhaler Inhale 1 puff every 6 (six) hours if needed for wheezing. 18 g 3 023 Active ammonium lactate (Lac-Hydrin) 12 % lotion Apply topically daily 396 g 11 024 Active metFORMIN (Glucophage) 500 MG tablet Take 1 tablet (500 mg) by mouth with breakfast and with evening meal. 60 tablet 11 024 2024 Active glucose blood (FREESTYLE LITE) test stripIndications: Type 2 diabetes mellitus without complication, with long-term current use of insulin ([facility]) USE TO TEST BLOOD SUGAR TWICE A DAY 100 each 024 Active erythromycin (Romycin) 5 MG/GM ophthalmic ointment 025 Active ketorolac (Acular) 0.5 % ophthalmic solution 024 Active citalopram (CeleXA) 40 MG tabletIndications :Depressive disorder TAKE 1/2 TABLET BY MOUTH EVERY MORNING 30 tablet 3 025 Active traZODone (Desyrel) 150 MG tabletIndications :Depressive disorder,Primary hypertension TAKE 1 TABLET BY MOUTH AT BEDTIME 30 tablet 025 Active carvedilol (Coreg) 6.25 MG tablet TAKE 1 TABLET BY MOUTH TWICE DAILY WITH MEALS 60 tablet 025 Active lidocaine-priloca ine (Emla) 2.5-2.5 % cream APPLY 1 APPLICATION TOPICALLY TWICE DAILY NEEDED 30 g 3 025 Active amLODIPine (Norvasc) 5 MG tabletIndications :Primary hypertension,Anxi ety TAKE 1 TABLET BY MOUTH EVERY DAY 30 tablet 025 Active atorvastatin (Lipitor) 20 MG tablet TAKE 1 TABLET BY MOUTH AT BEDTIME 30 tablet 025 Active omeprazole (PriLOSEC) [address] capsuleIndication s:Primary hypertension,Anxi ety TAKE 1 CAPSULE BY MOUTH EVERY DAY 30 capsule 025 Active albuterol (2.5 MG/3ML) 0.083% nebulizer solutionIndicatio ns:Restrictive lung disease Take 3 mL (2.5 mg) by nebulization every 6 (six) hours if needed for wheezing or shortness of breath. 75 mL 1 025 Active cholecalciferol VITAMIN D (Vitamin D-3) 50 MCG (1999) capsuleIndication s:Osteoarthritis of patellofemoral joints of both knees Take 1 capsule orally daily 30 capsule 025 Active cholecalciferol VITAMIN D (Vitamin D-3) 50 MCG (1999) capsule Take 1 capsule orally daily 30 capsule 024 2024 Discontinued(R eorder (will not trigger notification to Pharmacy)) Active Problems Problem Noted Date Diagnosed Date Restrictive lung disease 02/23/2023 Liver cirrhosis secondary to ZULETA 02/23/2023 Thrombocytopenia 02/23/2023 PAD (peripheral artery disease) 02/23/2023 Chronic stasis dermatitis of right lower extremi ty 02/23/2023 Abscess of vulva 07/08/2022 Calcification of lung 02/24/2019 Osteoarthritis of patellofemoral joints of both knees 07/27/2018 Systolic essential hypertension 07/23/2015 Asthma 12/12/2013 Type 2 diabetes mellitus without complication Anxiety 08/01/2012 Depressive disorder 11/20/2011 Hypercholesterolemia 11/20/2011 Hypertension 11/20/2011 Obesity 11/20/2011 Tobacco dependence syndrome 11/20/2011 Encounters Date Type Department Care Team Description 01/29/2025 Results Follow-Up [facility] [address] [place] [address] Sherry Lucas MD BI Mammogram Screening Tomosynthesis Bilateral, POCT Glucose, POCT HGB A1C, Additional followed-up results: 7 01/18/2025 Refill [facility] [address] [place] [address] Sherry Lucas MD Osteoarthritis of patellofemoral joints of both knees 01/04/2025 1:15 PM EDT Office Visit [facility] [address] [place] [address] Sherry Lucas MD Systolic essential hypertension (Primary Dx); Liver cirrhosis secondary to ZULETA (CMS/HCC); Restrictive lung disease; Tobacco dependence syndrome; Breast cancer screening by mammogram; Type 2 diabetes mellitus without complication, with long-term current use of insulin (CMS/HCC); Dietary counseling; Exercise counseling; Hypercholesterolemia 01/04/2025 Travel 12/27/2024 Patient Outreach [facility] [address] [place] [address] Sherry Lucas MD Pre-visit Planning (Pre visit planning LVM ) 12/22/2024 Refill [facility] [address] [place] [address] Sherry Lucas MD Primary hypertension; Anxiety 12/12/2024 Refill [facility] [address] [place] [address] Sherry Lucas MD 11/21/2024 Travel from Last 3 Months Immunizations Immunization Administration Dates Next Due Influenza High-dose Quadriva lent Preservative Free 03/29/2022,2021,03/14/2020 Influenza Quadrivalent Adjuvanted 03/24/2023 Influenza injectable quadriv alent IIV4 with preservative 03/31/2018,03/12/2016 Influenza injectable quadriv alent preservative free 04/15/2015 Influenza, High Dose Seasona l, Preservative Free 03/07/2024,04/07/2017 Influenza, IIV3, injectable 04/06/2014 Influenza, Split (incl. jessi fied surface antigen) 03/20/2013,03/02/2012 Moderna Covid-19 Vaccine 12+ 09/13/2020,08/16/19 21 Pfizer Covid-19 Vaccine 12+ 08/05/2023, Pfizer Covid-19 Vaccine 12+ Bivalent 05/26/2022 Pneumococcal Conjugate PCV 13 04/15/2015 Pneumococcal Polysaccharide PPSV23 03/31/2018 RSV Bivalent 01/04/2025 Tdap 03/12/2016 Zoster, Recombinant 04/26/2019,02/24/2019 Zoster, live 08/02/2012 Family History Medical History Relation Name Comments Lupus Daughter Throat cancer Father Diabetes Mother Hypertension Mother Blindness Sister Lung cancer Sister Relation Name Status Comments Daughter Father Mother Sister Social History Tobacco Use Types Packs/Day Years Used Date Smoking Tobacco: Every Day Cigarettes Passive Smoke Exposure: Past Smokeless Tobacco: Never Tobacco Cessation:Ready to Q uit: Not Asked; Counseling Given: Not Answered Alcohol Use Standard Drinks/Week Comments Never 0 (1 standard drink = 0.6 oz pur e alcohol) Depression Answer Date Recorded Patient Health Questionnaire-9 Score 3 08/05/2023 Patient Health Questionnaire-9 Score 3 08/05/2023 Last PHQ-9: Questionnaire Data Not on file 0 08/05/2023 Housing Stability Answer Date Recorded What is your housing situation today? I have keisha alfaro 08/05/[address] you li [...] Orientation Straight 11/26/2023 3: 18 PM EDT Last Filed Vital Signs Vital Sign Reading Time Taken Comments Blood Pressure 159/74 01/04/2025 1:10 PM EDT Pulse 72 01/04/2025 1:10 PM EDT Temperature 36.6 C (97.9 F) 01/04/2025 1:10 PM EDT Respiratory Rate 20 01/04/2025 1:10 PM EDT Oxygen Saturation 96% 04/25/2024 10:05 AM EDT Inhaled Oxygen Concentration - - Weight 73.5 kg (162 lb) 01/04/2025 1:10 PM EDT Height 157.5 cm (5' 2 ) 01/04/2025 1:10 PM EDT Body Mass Index 29.63 01/04/2025 1:10 PM EDT Plan of Treatment Upcoming Encounters Date Type Department Care Team (Late st Contact Info) Description 04/04/2025 10:15 AM EDT Office Visit [facility] [address] [place] [address] Sherry Lucas MD [address] [place] [address] Health Maintenance Due Date Last Done Comments CT Colonography 1949 FIT DNA/Cologuard 1949 FIT 1949 FOBT 1949 Sigmoidoscopy 1949 Derm Melanoma Skin Check 1949 Eye Exam 1959 Alcohol/Substance Use Screening 1961 Hepatitis A Vaccines (1 of 2 - Risk 2-dose series) 1968 Hepatitis B Vaccines (1 of 3 - Risk 3-dose series) 2009 COVID-19 Vaccine ( season) 2024 08/05/2023, 05/26/2022, 05/12/2021, Additional history exists Depression Screening 08/05/2024 08/05/2023, 08/05/19 Diabetes: Foot Exam 08/05/2024 08/05/2023, 08/05/2023, 08/05/2023, Additional history exists SDOH Screening 08/05/2024 08/05/2023 Influenza Vaccine (#1) 2025 , 03/24/2023, 03/29/2022, Additional history exists Diabetes: Hemoglobin A1C 07/07/2025 025, 07/21/2024, 03/20/2024, Additional history exists Tobacco Screening 01/04/2026 01/04/2025 Diabetes: Urine Protein Screening 01/17/2026 01/17/2025, 02/21/2021, 07/05/2019 Lipid Panel 01/17/2026 01/17/2025, 05/0 09/2022, 02/21/2021, Additional history exists DTaP/Tdap/Td Vaccines (2 - Td or Tdap) 03/12/2026 03/12/2016 Colonoscopy 02/18/2027 02/18/2017 Colorectal Cancer Screening 02/18/2027 Pneumococcal Vaccine: 50+ Years Completed 03/31/2018, 04/15/2015 Zoster Vaccines Completed 04/26/2019, 01/28, 08/02/2012 Hepatitis C Screening Completed 03/30/2022 RSV Patients and Patients Aged 60 years or older Completed 01/04/2025 HIB Vaccines Aged Out No longer eligi [...] patient's age to complete this topic Meningococcal Vaccine Aged Out No lorenzo karel eligible based on patient's age to complete this topic RSV under 20 months Aged Out No longe r eligible based on patient's age to complete this topic Rotavirus Vaccines Aged Out No longer eligible based on patient's age to complete this topic Procedures Procedure Name Priority Date/Time Associated Diagnosis Comments ALBUMIN, RANDOM URINE W/CREATININE Routine 01/17/2025 9:20 AM EDT Type 2 diabetes mellitus without complication, with long-term current use of insulin (CMS/HCC) HEPATIC FUNCTION PANEL Routine 9:16 AM EDT Systolic essential hypertension Liver cirrhosis secondary to ZULETA (CMS/HCC) Restrictive lung disease Tobacco dependence syndrome Breast cancer screening by mammogram Type 2 diabetes mellitus without complication, with long-term current use of insulin (CMS/HCC) CBC WITH AUTO DIFFERENTIAL Routine 01/17/2025 9:16 AM EDT Systolic essential hypertension Liver cirrhosis secondary to ZULETA (CMS/HCC) Restrictive lung disease Tobacco dependence syndrome Breast cancer screening by mammogram Type 2 diabetes mellitus without complication, with long-term current use of insulin (CMS/HCC) VITAMIN D,25-OH,TOTAL,IA Routine 01/17/2025 9:16 AM EDT Systolic essential hypertension Liver cirrhosis secondary to ZULETA (CMS/HCC) Restrictive lung disease Tobacco dependence syndrome Breast cancer screening by mammogram Type 2 diabetes mellitus without complication, with long-term current use of insulin (CMS/HCC) VITAMIN B12/FOLATE, SERUM PANEL Routine 01/17/2025 9:16 AM EDT Systolic essential hypertension Liver cirrhosis secondary to ZULETA (CMS/HCC) Restrictive lung disease Tobacco dependence syndrome Breast cancer screening by mammogram Type 2 diabetes mellitus without complication, with long-term current use of insulin (CMS/HCC) TSH W/REFLEX TO FT4 Routine 01/17/2025 9 :16 AM EDT Systolic essential hypertension Liver cirrhosis secondary to ZULETA (CMS/HCC) Restrictive lung disease Tobacco dependence syndrome Breast cancer screening by mammogram Type 2 diabetes mellitus without complication, with long-term current use of insulin (CMS/HCC) LIPID PANEL, STANDARD Routine 01/17/2025 9:16 AM EDT Systolic essential hypertension Liver cirrhosis secondary to ZULETA (CMS/HCC) Restrictive lung disease Tobacco dependence syndrome Breast cancer screening by mammogram Type 2 diabetes mellitus without complication, with long-term current use of insulin (CMS/HCC) BI MAMMOGRAM SCREENING TOMOSYNTHESIS BILATERAL Routine 01/17/2025 Breast cancer screening by mammogram POCT GLYCATED HEMOGLOBIN, TOTAL Routine 01/04/2025 1:25 PM EDT Type 2 diabetes mellitus without complication, with long-term current use of insulin (CMS/HCC) POCT GLUCOSE Routine 01/04/2025 1:25 PM EDT Type 2 diabetes mellitus without complication, with long-term current use of insulin (CMS/HCC) HP LINK DIABETIC FOOT EXAM Routine 02/23/2023 ZZZ HISTORICAL HEPATITIS B SURFACE ANTIBODY Routine 03/30/2022 11:38 AM EDT HM COLONOSCOPY Routine 02/18/2017 from Last 3 Months or Most Recently Relevant to Health Maintenance Results * (ABNORMAL) Albumin, Random Urine W/Creatinine (01/17/2025 9:20 AM EDT) Creatinine, Urine 195.09 mg/dL [facility] Microalbumin Urine 1,473.0 mg/L [facility] Microalbum Creatinine Ratio Ur 755.0(H) <30 ug/mg cr [facility] Comment:Albumin/Creatinine R atio Reference Ranges: Normal: < 30 ug/mg creatinine Microalbuminuria: 30 - 300 ug/mg creatinineClinical Albuminuria: > 300 ug/mg creatinine Urine (Urine, Random) 01/17/2025 9:20 AM EDT 01/17/2025 2:09 PM EDT us Sherry Lucas MD LAB URINE ORDERABLES Final Re sult [facility] [address] [place] [phone] * (ABNORMAL) Vitamin D, 25-Hydroxy, Total, Immunoassay (01/17/2025 9:16 AM EDT) Vitamin D 25-OH Total 7.1(L) >30 ng/mL [facility] Comment: Health Based Reference Values*< 20 ng/mL Rhezpvhax79-53 ng/mL Insufficient> 30 ng/mL Sufficient*Elder OLMEDO. N Engl J Med. 2007;357:266-280There is no well-established upper level of normal vitamin Dlevels. Some laboratories use 50 ng/mL as an upper limit ofnormal. However, toxicity is patient-dependent and may occurat any level. Careful correlation with the patient'spresentation is necessary and, if there is concern forvitamin D toxicity, treatment should be consideredirrespective of the serum level.Care must be taken in interpreting Vitamin D results fromdifferent laboratories and methodologies. Published datademonstrated that results from patients undergoinghemodialysis may show a negative bias when tested withvarious automated 25-OH vitamin D assays when compared toLC-MS/MS.When testing samples from patients whose predominant form ofVitamin D is Vitamin D2, such as patients receiving VitaminD2 supplementation, results that are subtherapeutic shouldbe confirmed with another method such as LC-MS/MS. Blood Venous blood specimen / Unknown 01/17/2025 9:16 AM EDT 01/17/2025 2:13 PM EDT us Sherry Lucas MD LAB BLOOD ORDERABLES Final Re sult [facility] [address] [place] [phone] * (ABNORMAL) Vitamin B12/Folate, Serum Panel (01/17/2025 9:16 AM EDT) Vitamin B12 1,238(H) 200 - 900 pg/mL [facility] Comment:NORMAL 200-900 PG/ML INDETERMINATE 160-199 PG/ML DEFICIENT < 160 PG/ML Folate 12.8 > or = 4.0 ng/mL [facility] Comment:Reference Values:> o r = 4.0 ng/mL< 4.0 ng/mL suggests folate deficiency Methotrexate, aminopterin and folinic acid(leucovorin) are chemotherapeutic agents whose molecularstructures are similar to folate; therefore, the Architectfolate assay cannot be used for patients using these drugs. Blood Venous blood specimen / Unknown 01/17/2025 9:16 AM EDT 01/17/2025 2:13 PM EDT us Sherry Lucas MD LAB BLOOD ORDERABLES Final Re sult Performing Organization Address [facility] de Phone Number [facility] [address] [place] [phone] * TSH W/Reflex to FT4 (01/17/2025 9:16 AM EDT) TSH reflex Free T4 1.40 0.32 - 4.0 uIU/mL [facility] Blood Venous blood specimen / Unknown 01/17/2025 9:16 AM EDT 01/17/2025 2:13 PM EDT Sherry Lucas MD LAB BLOOD ORDERABLES Final Re sult Performing Organization Address [facility] Co de Phone Number [facility] [address] [place] [phone] * (ABNORMAL) CBC auto differential (01/17/2025 9:16 AM EDT) White Blood Count 6.0 4.8 - 10.8 X10*3/uL [facility] Red Blood Count 4.38 4.20 - 5.50 X10*6/uL [facility] Hemoglobin 13.6 12.0 - 16.0 g/dl [facility] Hematocrit 41.6 37.0 - 47.0 % [facility] Mean Corpuscular Volume 95.0 80.0 - 98.0 fL [facility] Mean Corpuscular Hemoglobin 31.1 27.0 - 33.0 pg [facility] Mean Corpuscular HGB Conc 32.7 31.0 - 35.0 g/dl [facility] Red Cell Distribution Width 15.1 11.0 - 16.0 % [facility] Platelet Count 102(L) 160 - 400 X10*3/uL [facility] Mean Platelet Volume 14.0(H) 9.4 - 12.3 fL [facility] Neutrophils Percent Auto 56.3 45 - 73 % [facility] Imm Gran Pct Auto 0.2 0.0 - 0.4 % [facility] Lymphocytes Percent Auto 27.7 20 - 40 % [facility] Monocytes Percent Auto 11.1(H) 2 - 11 % [facility] Eosinophils Percent Auto 3.9 0 - 4 % [facility] Basophils Percent Auto 0.8 0 - 2 % [facility] NRBC Pct Auto 0.0 0.0 - 0.2 /100WBC [facility] Neutrophils Absolute Auto 3.4 2.0 - 8.3 x10*3/uL [facility] Imm Gran Abs Auto 0.01 0.00 - 0.03 X10*3/uL [facility] Lymphocytes Absolute Auto 1.7 1.2 - 4.9 X10*3/uL [facility] Monocytes Absolute Auto 0.7 0.1 - 1.2 X10*3/uL [facility] Eosinophils Absolute Auto 0.2 0.0 - 0.4 X10*3/uL [facility] Basophils Absolute Auto 0.1 0.0 - 0.2 X10*3/uL [facility] NRBC Abs Auto 0.000 0.0 - 0.012 X10*3/uL [facility] Blood Venous blood specimen / Unknown 01/17/2025 9:16 AM EDT 01/17/2025 2:13 PM EDT us Sherry Lucas MD LAB BLOOD ORDERABLES Edited R esult - Final Performing Organization Address [facility] Co de Phone Number [facility] [address] [place] [phone] * (ABNORMAL) Hepatic Function Panel (01/17/2025 9:16 AM EDT) Bilirubin, Total 1.0 0.0 - 1.0 mg/dL [facility] Bilirubin, Direct 0.5 0.0 - 0.5 mg/dL [facility] Aspartate Amino Transferase 39(H) 5 - 31 U/L [facility] Alanine Aminotransferase 16 0 - 31 U/L [facility] Total Protein 7.7 6.5 - 8.0 g/dL [facility] Albumin Level 2.8(L) 3.5 - 5.0 g/dL [facility] Alkaline Phosphatase 170(H) 39 - 117 U/L [facility] Blood Venous blood specimen / Unknown 01/17/2025 9:16 AM EDT 01/17/2025 2:13 PM EDT us Sherry Lucas MD LAB BLOOD ORDERABLES Final Re sult Performing Organization Address [facility] Co de Phone Number [facility] [address] [place] [phone] * (ABNORMAL) Lipid Panel, Standard (01/17/2025 9:16 AM EDT) Triglycerides 132 <150 mg/dL [facility] Comment:Desirable Triglyceri de: less than 150 mg/dLBorderline High Triglyceride 150-199 mg/dLHigh Triglyceride: 200-499 mg/dLVery High Triglyceride: greater than or equal to 5OO mg/dL Cholesterol 118 <200 mg/dL [facility] Comment:Desirable Cholestero l: less than 200 mg/dLBorderline High Cholesterol: 200-239 mg/dLHigh Cholesterol: greater than 239 mg/dL LDL Cholesterol Calculated 56 <100 mg/dL [facility] Comment:Desirable LDL: less than 100 mg/dLNear Optimal/Above Optimal LDL: 110- 129 mg/dLBorderline High LDL: 130-159 mg/dLHigh LDL: 160-189 mg/dLVery High LDL: greater than or equal to 190 mg/dL HDL Cholesterol 36(L) >40 mg/dL [facility] Comment:Desirable HDL: great er than 40 mg/dL Note: This HDL assay may give artificially low results in patients with liver disease. Blood Venous blood specimen / Unknown 01/17/2025 9:16 AM EDT 01/17/2025 2:13 PM EDT Result Elida Lucas MD LAB BLOOD ORDERABLES Final Re sult [facility] [address] [place] [phone] * BI Mammogram Screening Tomosynthesis Bilateral (01/17/2025) Anatomical Region Laterality Modality Breast Bilateral Mammography us Sherry Lucas MD IMG BI PROCEDURES Final Resul t * (ABNORMAL) POCT HGB A1C (01/04/2025 1:25 PM EDT) Hemoglobin A1C 6.1(A) 4.0 - 5.7 % Blood 01/04/2025 1:25 PM EDT us Sherry Lucas MD POINT OF CARE TEST ENTER/EDIT ORDERABLES Final Result * (ABNORMAL) POCT Glucose (01/04/2025 1:25 PM EDT) Glucose Blood, POC 284(A) 60 - 200 mg/dL Blood Capillary blood specimen / Unknown 01/04/2025 1:25 PM EDT Result Elida Lucas MD POINT OF CARE TEST ENTER/EDIT ORDERABLES Final Result * (ABNORMAL) HP Diabetic Foot Exam (02/23/2023) Melba Welch MD HEALTH MAINTENANCE Final Resu lt * HEPATITIS B SURFACE ANTIBODY (03/30/2022 11:38 AM EDT) Hepatitis B Surface Antibody NONREACTIVE Nonreactive [facility] Comment:Nonreactive: < 8.00 mIU/mL Hepatitis B Surface Antigen Negative Negative [facility] Hepatitis B Core Antibody Nonreactive Nonreactive [facility] Hepatitis C Antibody Nonreactive Nonreactive [facility] Comment: Antibodies to HCV not detected; does not exclude early acute HCV infection. 03/30/2022 11:3 8 AM EDT Historical Provider HISTORICAL/NON ORDERABLE LABS Final Result [facility] * Hm Colonoscopy (02/18/2017) Colonoscopy Normal Normal Narrative Suni Seay - 02/18/2017 Recommended 10 year follow up Historical Provider HEALTH MAINTENANCE Final Result from Last 3 Months or Most Recently Relevant to Health Maintenance Insurance [facility] [employer] (O D-SNP) RAMAN TRUJILLO [id number] Care Teams Director Metabolism Relationship Specialty Start Date End Date Sherry Lucas MD [address] [place] [phone] PCP - General Family Medicine 06/28/18
--- OUTSIDE RECORDS SUMMARY | 2025-02-08 14:01 | XMS_ITS | Patient Health Record ---
Author Organization [facility] Address [address] [place] [address] Care Team Providers Care Reproductive Healthcare Assistant Name Role Phone Sherry Lucas MD Primary Care Provider Eric Perdomo Unavailable [phone] Allergies Allergen (clinical drug ingredient) Drug/Non Drug [...] Problem Status W/U Status Risk Notes Problem [id number] Encounter for screening for malignant neoplasm of colon (Z12.11) Active confirmed Problem [id number] Preprocedural examination (Z01.818) Active confirmed Plan Of Treatment Future Test Test Name Order Date COLONOSCOPY 11/17/2016 Insurance Providers Payer Name Payer Address Payer Phone Subscriber Number Group Number Insured Name Patient Relationship to Insured Coverage Start Date Coverage End Date [facility] [address] [place] [address] [id number] EZE MON Self - patient is the insured Medical (General) History Medical History History ICD Code Neg. screening colonoscopy except for diverticulosis and internal hemorrhoids Hyperlipidemia Hypertension Depression Asthma NIDDM Denies PA,CVA,renal disease Surgical History Surgery Date(Month/Year) Panniculectomy and abdominoplasty 2011
--- OUTSIDE RECORDS SUMMARY | 2025-02-08 14:01 | XMS_ITS | Clinical Summary ---
Author Organization [facility] Address [address] [place] [id number] Phone Care Team Providers Care [employer] Trimmer [employer] Name Role Phone Sherry Lucas MD Primary Care Provider [phone] Encounters Date Type Department Care Team Description 01/17/2025 10:16 AM EDT - 01/17/2025 11:59 PM EDT [facility]counter [facility] at [address] [id number] Encounter for screening mammogram for malignant neoplasm of breast Discharge Disposition: Home or Self Care from Last 3 Months Surgical History Surgery Date Site/Laterality Comments STEREOTACTIC CORE BIOPSY 06/28/2000 - 06/27/2001 Right Family History Medical History Relation Name Comments Breast cancer Sister Relation Name Status Comments Sister Social History Tobacco Use Types Packs/Day Years Used Date Smoking Tobacco: Never Assessed Comments No Sex and Gender Information Value Date Recorded Sex Assigned at Female 01/05/2025 10:54 AM EDT Legal Sex Female 2:34 PM EST Gender Identity Female 01/05/2025 10:54 AM EDT Sexual Orientation Straight 01/12/2025 10 :38 AM EDT Obstetrics History Plan of Treatment Health Maintenance Due Date Last Done Comments Diabetes: Annual GFR (Glomerular Filtration Rate) 1950 Diabetes: Annual Foot Exam 1959 Diabetes: Annual Retina Eye Exam 1959 Hepatitis A Vaccines (1 of 2 - Risk 2-dose series) 1968 Hepatitis B Vaccines (1 of 3 - Risk 3-dose series) 2009 Colorectal Cancer Screening: Colonoscopy 05/27/2022 Falls Risk Assessment 05/27/2022 Hepatitis C Screening 05/27/2022 Osteoporosis Screening (Bone Density Screening) 05/27/2022 Social Influencers of Health Screening 05/27/2022 COVID-19 Vaccine ( season) 2024 08/05/2023, 05/26/2022, 05/12/2021, Additional history exists Depression Screening 06/28/2024 Diabetes: Annual Urine Albumin-Creatinine Ratio (uACR) 01/18/2025 Hypertension/CHF/CAD Annual BMP Blood Test 01/18/2025 Influenza Vaccine (#1) 2025 , 03/24/2023, 03/29/2022, Additional history exists Diabetes: Blood Sugar Control Test (HGBA1C) 07/07/2025 01/04/2025 DTaP,Tdap,and Td Vaccines (2 - Td or Tdap) 03/12/2026 03/12/2016 Cholesterol Screening (Lipid Panel) 10/30/2027 10/29/2022 Pneumococcal Vaccine: 50+ Years Completed 03/31/2018, 04/15/2015 Zoster Vaccines Completed 04/26/2019, 01/28, 08/02/2012 RSV Immunization Adult Patients Completed 01/04/2025 Breast Cancer Screening Discontinued 01/18/20, 09/06/2023, 09/02/2022, Additional history exists HIB Vaccines Aged Out [...] Procedure Name Priority Date/Time Associated Diagnosis Comments MG MAMMO DIGITAL SCREENING W RODOLFO BILAT Routine 01/17/2025 10:49 AM EDT Encounter for screening mammogram for malignant neoplasm of breast from Last 3 Months Results * MG Mammo Digital Screening w Rodolfo bilat (01/17/2025 10:49 AM EDT) Anatomical Region Laterality Modality Breast Bilateral Mammography 01/17/2025 5:47 PM EDT Impressions 01/17/2025 5:55 PM EDT No mammographic evidence of malignancy. No suspicious interval change. A negative mammogram in the presence of a clinically suspicious palpable abnormality does not preclude the possibility of malignancy or alter the indications for biopsy. ASSESSMENT: BI-RADS 2: BENIGN RECOMMENDATION(S): 1: Routine screening mammogram BILATERAL in 1 year. [facility]amm[facility] location[facility] at [address], [address] -------- FINAL REPORT -------- Dictated By: Terrence Georges Dictated Date: 01/17/2025 17:47 ET Assigned Physician: Terrence Georges Reviewed and Electronically Signed By: Terrence Georges Signed Date: 01/17/2025 17:55 ET Workstation ID: [id number] Transcribed By: Self Edit Transcribed Date: 01/17/2025 17:47 ET Narrative 01/17/2025 5:55 PM EDT EXAM: SCREENING MAMMOGRAPHY, BILATERAL HISTORY: SCREENING. Family history of breast cancer, sister COMPARISON: 09/06/23, 09/02/22, 07/21/21, 07/17/20 TECHNIQUE: Synthesized CC and MLO projections of each breast. Tomosynthesis of each breast in the CC and MLO projections. ADDITIONAL IMAGING: None Computer-aided detection was employed with the iCAD [employer] AI 3-D. TISSUE DENSITY: There are scattered areas of fibroglandular density. (BI-RADS category B) FINDINGS: RIGHT BREAST: No suspicious mass. No suspicious calcification. No distortion. No suspicious change in some calcifications with an adjacent biopsy site marker in the upper outer right breast. LEFT BREAST: No suspicious mass. No suspicious calcification. No distortion. No additional suspicious left breast findings Procedure Note Terrence Georges MD - 01/17/2025 EXAM: SCREENING MAMMOGRAPHY, BILATERAL HISTORY: SCREENING. Family history of breast cancer, sister COMPARISON: 09/06/23, 09/02/22, 07/21/21, 07/17/20 TECHNIQUE: Synthesized CC and MLO projections of each breast.Tomosynthesis of each breast in the CC and MLO projections. ADDITIONAL IMAGING: None Computer-aided detection was employed with the iCAD [employer] AI 3-D. TISSUE DENSITY: There are scattered areas of fibroglandular density.(BI-RADS category B) FINDINGS: RIGHT BREAST: No suspicious mass. No suspicious calcification. No distortion. Nosuspicious change in some calcifications with an adjacent biopsy sitemarker in the upper outer right breast. LEFT BREAST: No suspicious mass. No suspicious calcification. No distortion. Noadditional suspicious left breast findings IMPRESSION: No mammographic evidence of malignancy. No suspicious interval change. A negative mammogram in the presence of a clinically suspicious palpableabnormality does not preclude the possibility of malignancy or alter theindications for biopsy. ASSESSMENT: BI-RADS 2: BENIGN RECOMMENDATION(S): 1: Routine screening mammogram BILATERAL in 1 year. [facility]amm[facility] location: [facility] at [address], [address] -------- FINAL REPORT -------- Dictated By: Terrence Georges Dictated Date: 01/17/2025 17:47 ET Assigned Physician: Terrence Georges Reviewed and Electronically Signed By: Terrence Georges Signed Date: 01/17/2025 17:55 ET Workstation ID: [id number] Transcribed By: Self Edit Transcribed Date: 01/17/2025 17:47 ET us Sherry Lucas MD IMG BI PROCEDURES Final Resul t from Last 3 Months Insurance [facility] Member Subscriber Plan / Payer (Ef fective 2015-Present) Name:Lauren Arias Relation to Subscriber:Spouse Name:LAUREN ARIAS Subscriber ID:[id number] Date of :1950 Address: [address] [place] [address] Payer ID:[id number] Group ID:[id number] Type:Not on file Address: [address] [place] [id number] MEDICA[place] - [place] Care Teams [employer] Tr[employer] Relationship Specialty Start Date End Date Sherry Lucas MD [address] [place] [phone] PCP - General Internal Medicine 01/12/25
--- NOTE | 2025-03-19 09:24 | HO.ANESPROP2 ---
Documented by User: Ayana Siegel NP 03/19/25 09:36 HPI - Anesthesia Eval Consult details Narrative: 75yo F for Upper Endoscopy Cirrhosis - hx portal htn, variceal bleeding - on carvedilol COPD/Active smoker: [place] [facility]. Stable at baseline 12/2024 office visit CHF, Pulmo htn: [place] [facility]. 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 (Acute) Acute diarrhea (Acute) Asthma (Acute) Restrictive lung disease (Acute) Dyspnea on exertion (Acute) COPD (chronic obstructive pulmonary disease) (Acute) Smoking (Acute) Past Medical History Medical History Cirrhosis Cough Chronic right heart failure Chronic diastolic (congestive) heart failure Pulmonary hypertension Nonrheumatic tricuspid (valve) insufficiency COPD (chronic obstructive pulmonary disease) Congestive heart failure Asthma Restrictive lung disease Dyspnea on exertion COPD (chronic obstructive pulmonary disease) Smoking Type 2 diabetes mellitus with unspecified complications Uncontrolled hypertension Family History Family History Mother HTN (hypertension) Diabetes Throat cancer Father Throat cancer Sister Blind Breast cancer Brother Blind Lung cancer Son Blind Daughter Lupus Father Throat cancer Family history of problems with anesthesia: No Surgical History Surgical History Hx of cataract surgery History of esophagogastroduodenoscopy (EGD) H/O colonoscopy Hx of abdominoplasty History of Problems with Anesthesia: No Social History Social History Household Members: None Housing: Apartment Do you presently have visiting nurse or other home services: Yes ([employer] FOR 15 HOURS A WEEK) Alcohol intake: never Patient Tobacco Use Status: Current everyday Tobacco user Tobacco use type: Cigarette Cigarettes Per Day: 5 Years Smoked: 40 +/- Second Hand Smoke Exposure: No Use of substances other than those prescribed or required for medical reasons: No Are you DNR?: No Advance Directives: No Advance Directives Information Provided: Yes Patient : No : No Poor oral hygiene: No service: No Current occupational status: retired Meds Allergies Allergy/AdvReac Type Severity Reaction Status Date / Time aspirin (ASPIRIN) Allergy Intermediate HIVES/ANXIE Verified 01/22/25 10:43 TY enalapril AdvReac Mild unknown Verified 03/20/25 10:54 verapamil AdvReac Mild unknown Verified 03/20/25 10:54 oxycodone (From Percocet) AdvReac low blood Verified 01/22/25 10:43 pressure Home Medications ?Medication ?Instructions ?Recorded ?Confirmed ?Last Taken ?Type atorvastatin 20 mg tablet (Lipitor) 20 mg PO DAILY 04/01/21 01/22/25 Unknown History cholecalciferol (vitamin D3) 50 50 mcg PO DAILY 04/01/21 01/22/25 Unknown History mcg (2,000 unit) capsule citalopram 40 mg tablet 40 mg PO DAILY 04/01/21 01/22/25 Unknown History trazodone 150 mg tablet 150 mg PO DAILY 04/01/21 01/22/25 Unknown History biotin 5 mg capsule 5 mg PO DAILY 11/05/22 01/22/25 Unknown History lidocaine-prilocaine 2.5 %-2.5 % topical DAILY 07/17/24 01/22/25 Unknown History topical cream metformin 500 mg tablet 500 mg PO BID 07/17/24 01/22/25 Unknown History omeprazole 20 mg capsule,delayed 20 mg PO DAILY 07/17/24 01/22/25 Unknown History release Exam Narrative Narrative: EKG 08/2024 EKG Details: EKG with underlying sinus rhythm at 66/Min; nonspecific ST-T changes; normal NM and corrected QT. Per 08/2024 cardiac visit note: In the last echocardiogram 2023, LVEF 60%. Severe septal hypertrophy. Moderate biatrial enlargement. No significant valvular findings. In the previous study, there was moderate to severe tricuspid regurgitation moderate pulmonary hypertension. Hence they seem improved. Myocardial perfusion imaging in the past with normal perfusion. There was a question of renal artery stenosis on ultrasound, but CTA is not showing any clear evidence of the same. US abdomen complete 2023 IMPRESSION: 1. Cirrhotic-appearing liver without evidence of a mass. 2. Cholelithiasis without evidence of cholecystitis. 3. Complex right renal cyst. This was not seen on prior ultrasound studies but likely correlates with the abnormality seen on the 08/08/2021 CT angiogram. Follow-up ultrasound in 1 year is recommended to document stability. 4. Small benign left renal angiomyolipoma. This needs no additional imaging or followup. Assessment and Plan Assessment Anesthesia Assessment: Chart Reviewed Final Anesthetic Review Family History of Problems with Anesthesia: No History of Problems with Anesthesia: No Documented by User: Kalpesh Washington MD 03/20/25 12:28 [facility] Past Medical History Medical History Cirrhosis Cough Chronic right heart failure Chronic diastolic (congestive) heart failure Pulmonary hypertension Nonrheumatic tricuspid (valve) insufficiency COPD (chronic obstructive pulmonary disease) Congestive heart failure Asthma Restrictive lung disease Dyspnea on exertion COPD (chronic obstructive pulmonary disease) Smoking Type 2 diabetes mellitus with unspecified complications Uncontrolled hypertension Family History Family History Mother HTN (hypertension) Diabetes Throat cancer Father Throat cancer Sister Blind Breast cancer Brother Blind Lung cancer Son Blind Daughter Lupus Father Throat cancer Surgical History Surgical History Hx of cataract surgery History of esophagogastroduodenoscopy (EGD) H/O colonoscopy Hx of abdominoplasty Social History Social History Household Members: None Housing: Apartment Do you presently have visiting nurse or other home services: Yes ([employer] FOR 15 HOURS A WEEK) Alcohol intake: never Patient Tobacco Use Status: Current everyday Tobacco user Tobacco use type: Cigarette Cigarettes Per Day: 5 Years Smoked: 40 +/- Second Hand Smoke Exposure: No Use of substances other than those prescribed or required for medical reasons: No Are you DNR?: No Advance Directives: No Advance Directives Information Provided: Yes Patient : No : No Poor oral hygiene: No service: No Current occupational status: retired Meds Allergies Allergy/AdvReac Type Severity Reaction Status Date / Time aspirin (ASPIRIN) Allergy Intermediate HIVES/ANXIE Verified 01/22/25 10:43 TY enalapril AdvReac Mild unknown Verified 03/20/25 10:54 verapamil AdvReac Mild unknown Verified 03/20/25 10:54 oxycodone (From Percocet) AdvReac low blood Verified 01/22/25 10:43 pressure Home Medications ?Medication ?Instructions ?Recorded ?Confirmed ?Last Taken ?Type atorvastatin 20 mg tablet (Lipitor) 20 mg PO DAILY 04/01/21 01/22/25 Unknown History cholecalciferol (vitamin D3) 50 50 mcg PO DAILY 04/01/21 01/22/25 Unknown History mcg (2,000 unit) capsule citalopram 40 mg tablet 40 mg PO DAILY 04/01/21 01/22/25 Unknown History trazodone 150 mg tablet 150 mg PO DAILY 04/01/21 01/22/25 Unknown History biotin 5 mg capsule 5 mg PO DAILY 11/05/22 01/22/25 Unknown History lidocaine-prilocaine 2.5 %-2.5 % topical DAILY 07/17/24 01/22/25 Unknown History topical cream metformin 500 mg tablet 500 mg PO BID 07/17/24 01/22/25 Unknown History omeprazole 20 mg capsule,delayed 20 mg PO DAILY 07/17/24 01/22/25 Unknown History release Exam Airway Mallampati Class: II TM Dist: >3cm Loose/Missing/Broken Teeth: Yes Assessment and Plan Assessment Anesthesia Assessment: Anesthesia Plan Discussed Final Anesthetic Review NPO: Yes ASA Class: III Final Preanesthetic Review: No Changes in Pt Med Stat, Meds/Allgs Chart Reviewed, Consent Obtained/Reviewed and Anes Risks/Benef Reviewed Patient Risk: Intermediate Procedure Risk: Low Anesthetic Plan Anesthetic Plan: MAC: Disposition: Standard PACU
[2025-03-20 10:41] VITALS: BMI 30.4
[2025-03-20 10:44] VITALS: BP 158/66; PULSE 62; RESP 16; TEMP 36.6; O2SAT 95
[2025-03-20] MEDS: Lactated Ringers 1,000 ML 50 ML IVCONT (11:15)
--- NOTE | 2025-03-20 11:47 | MHC.SHP ---
Pre-Procedural Eval Section A - 24 Hr Update-Section A only Date of Service: 03/20/25 Section B - Complete if H&P > 30 days Chief Complaint: Esophageal varices without bleeding Details of Present Illness: trictive lung disease Dyspnea on exertion COPD (chronic obstructive pulmonary disease) Smoking Type 2 diabetes mellitus with unspecified complications Uncontrolled hypertension Surgical History (Updated 07/17/24 @ 08:52 by JUAN Major) Hx of cataract surgery History of esophagogastroduodenoscopy (EGD) H/O colonoscopy Hx of abdominoplasty Present Medications: see Short Stay Collaborative assessment Allergies: Allergies Allergy/AdvReac Type Severity Reaction Status Date / Time aspirin (ASPIRIN) Allergy Intermediate HIVES/ANXIE Verified 01/22/25 10:43 TY enalapril AdvReac Mild unknown Verified 03/20/25 10:54 verapamil AdvReac Mild unknown Verified 03/20/25 10:54 oxycodone (From Percocet) AdvReac low blood Verified 01/22/25 10:43 pressure Review of Systems Review of Systems Comment: Ten point ROS negative Exam Exam Comment: Gen appear: No acute distress HEENT: no icterus Chest: No overt resp distress Abd: soft, nontender, nondistended Psych: Stable affect, answering questions appropriately Neuro: A/Ox3 noted to move all extremities spontaneously Ext: no peripheral edema Plan Diagnosis/Plan: Unchanged I have reviewed the history and physical and performed a pertinent physical examination on my patient. No changes have occurred unless specified. Time Spent With Patient Time: Total time managing care of this patient today ____ minutes.
--- NOTE | 2025-03-20 12:37 | P.OP_ITS ---
Operative Note Operative Note Date of Service: 03/20/25 Narrative: Procedure: Esophagogastroduodenoscopy Endoscopist: Gladys Reeder MD Indication: Cirrhosis, varices Anesthesia Provider: Daryl Neri CRNA Anesthesia Type: MAC ?? EGD Procedure:?? The procedure, indications, preparation and potential complications were reviewed with the patient, who indicated understanding and gave written informed consent to proceed. A physical exam was performed. The endoscope was introduced through the mouth, and advanced to the second part of duodenum. The mucosa was carefully examined on slow withdrawal of the endoscope. The patient tolerated the procedure well. There were no immediate complications.? ? EGD Findings:? * Esophagus:? Normal mucosa noted in the entire esophagus. The Z line was at 38 cm. Flat varices noted in lower third of the esophagus. * Stomach:? Diffuse congestion and erythema in mosaic pattern consistent with portal hypertensive gastropathy was noted in the whole stomach. Retroflexion was from the cardia that showed ? fundal varix vs nodule. * Duodenum:? 2 cm polyp was noted again in the duodenal bulb. Hot snare polypectomy was performed. The polyp was completely removed and retrieved. Polypectomy defect was closed with resolution 360 clip. Remaining mucosa was with lymphangiectasia to the extent examined. ? EGD Impressions:? * Flat varices * ?? Cardia nodule vs varix * Portal hypertensive gastropathy * duodenal polyp (hot snare, endoclip) ?? Recommendations:?? * Follow path results. Our office will call or send a letter with results within 7-10 days. * Continue PPI therapy. * Add carafate 10 ml TID x 14 days to help mitigate post-polypectomy bleeding. * Pt is overdue for imaging, due to question of fundal varix will elect for triple phased CT Above has been reviewed with the patient.
[2025-03-20 12:38] VITALS: BP 109/65; PULSE 61; RESP 16; TEMP 36.3; O2SAT 95
[2025-03-20 12:53] VITALS: BP 144/77; PULSE 68; RESP 16; O2SAT 97
[2025-03-20 13:08] VITALS: BP 148/76; PULSE 66; RESP 16; O2SAT 100
[2025-03-20 13:23] VITALS: BP 156/80; PULSE 63; RESP 16; TEMP 36.2; O2SAT 95
== END 2025-03-20 14:23 | disposition home or self-care (01) ==
PROVIDERS: Visit Provider Internal Medicine
PROC: 0DJ08ZZ Inspection of Upper Intestinal Tract, Via Natural or Artificial Opening Endoscopic (ICD-10-PCS; CPT 43235; principal; 2025-03-20 11:50)
DX: I85.00 Esophageal varices without bleeding (principal); K31.7 Polyp of stomach and duodenum; K75.81 Nonalcoholic steatohepatitis (NASH); K74.60 Unspecified cirrhosis of liver; N28.1 Cyst of kidney, acquired; K76.6 Portal hypertension; I11.0 Hypertensive heart disease with heart failure; I50.32 Chronic diastolic (congestive) heart failure; I1A.0 Resistant hypertension; I27.20 Pulmonary hypertension, unspecified; E11.9 Type 2 diabetes mellitus without complications; J44.9 Chronic obstructive pulmonary disease, unspecified; E66.9 Obesity, unspecified; Z68.28 Body mass index [BMI] 28.0-28.9, adult; Z79.84 Long term (current) use of oral hypoglycemic drugs; Z79.899 Other long term (current) drug therapy; Z88.6 Allergy status to analgesic agent; Z88.5 Allergy status to narcotic agent; Z88.8 Allergy status to other drugs, medicaments and biological substances; Z98.890 Other specified postprocedural states; F17.210 Nicotine dependence, cigarettes, uncomplicated
CPT/HCPCS: 43251; 36415; 80048; 82947; 85027; 85610; 88305; 88313; J2704

== ENCOUNTER → 2025-03-20 10:15 | Outpatient (BNV) | payer OTHER, SELFPAY | PROVIDERS: Visit Provider Internal Medicine | DX: I85.00 Esophageal varices without bleeding (principal); K76.6 Portal hypertension; K31.7 Polyp of stomach and duodenum | CPT/HCPCS: 43251 ==

== ENCOUNTER 2025-04-11 08:17 | Outpatient (REF) | payer OTHER, SELFPAY ==
--- NOTE | ~2025-04-11 | CT_ITS ---
EXAMINATION: CT ABDOMEN WITHOUT THEN WITH IV CONTRAST HISTORY: I86.4 - Gastric varices COMPARISON: Comparison is made with the prior examination dated 08/08/2021. TECHNIQUE: CT scan of the abdomen was performed before and after the intravenous administration of 85 mL Omnipaque 350. Post contrast images were obtained in the arterial and portal venous phases. Coronal and sagittal reformatted images were generated and reviewed. Oral contrast material was not administered per department protocol. This CT exam was performed with one or more of the following dose reduction techniques: automated exposure control, adjustment of the mA and/or kV according to patient size, use of iterative reconstruction technique. DLP: 791 mGy-cm ABDOMEN: LOWER CHEST: There is airspace opacity in the right middle lobe consistent with atelectasis or pneumonia. There is no pleural effusion. CARDIOVASCULATURE: The heart is mildly enlarged. There is no pericardial effusion. LIVER: The liver is shrunken and demonstrates a nodular contour, consistent with cirrhosis. There are multiple scattered calcifications within the liver. No abnormal enhancement is seen. The hepatic and portal veins are patent. GALLBLADDER / BILE DUCTS: There is cholelithiasis. There is no intra or extrahepatic biliary ductal dilatation. SPLEEN: The spleen is top normal in size. No focal splenic lesion is identified. PANCREAS: The pancreas is unremarkable in appearance. ADRENAL GLANDS: Within normal limits. KIDNEYS/RETROPERITONEUM: No renal calculi are identified. There is no hydronephrosis. Again seen is a 1.4 cm somewhat ill-defined hypodensity at the upper pole of the right kidney. This was previously characterized as a multiseptated complex cyst or cluster of cysts on abdominal ultrasound 03/24/2024. LYMPH NODES: There are multiple subcentimeter retrocrural and celiac axis lymph nodes which are more notable for number than size. VASCULATURE: The abdominal aorta demonstrates atherosclerotic calcification, but is normal in caliber. Multiple gastric varices are identified region of the fundus. MESENTERY/PERITONEUM: No free fluid. No masses. There is no free intraperitoneal gas. STOMACH: The stomach is collapsed, limiting evaluation. SMALL BOWEL: The visualized small bowel is normal in caliber. COLON: The visualized portion of the colon is unremarkable. BONES / SOFT TISSUES: There is grade II spondylolisthesis of L5 on S1. CT/CT abdomen wo/w IV con IMPRESSION: 1. Airspace opacity in the right middle lobe, consistent with atelectasis or pneumonia. 2. Cirrhosis of the liver with multiple gastric varices in the region of the fundus. Borderline splenomegaly. No enhancing liver mass is identified. MRI is more sensitive for the detection of liver lesions. 3. Cholelithiasis. 4. 1.4 cm somewhat ill-defined hypodensity at at the upper pole of the right kidney, previously characterized as a multiseptated complex cyst or cluster of cysts on abdominal ultrasound. Follow-up is recommended. Electronically signed by: Eric Howell MD 04/11/2025 09:26 AM EDT
[2025-04-11] MEDS: iohexoL 350 MG/ML 100 ML INFUS..BTL IV (09:12)
== END 2025-04-11 08:18 | disposition home or self-care (01) ==
LOC: HO.CT 08:17
PROVIDERS: Visit Provider Internal Medicine
DX: I86.4 Gastric varices (principal); K75.81 Nonalcoholic steatohepatitis (NASH); K74.60 Unspecified cirrhosis of liver
CPT/HCPCS: 74170; Q9967

== ENCOUNTER → 2025-04-11 08:19 | Outpatient (BNV) | payer OTHER, SELFPAY | PROVIDERS: Visit Provider Radiology Diagnostic Radiology | DX: K74.60 Unspecified cirrhosis of liver (principal); K80.70 Calculus of gallbladder and bile duct without cholecystitis without obstruction; I86.4 Gastric varices | CPT/HCPCS: 74170 ==

== ENCOUNTER 2025-04-16 13:11 | Outpatient (AMB) | payer OTHER, SELFPAY ==
--- NOTE | 2025-04-16 13:20 | A.OFFVIS_ITS ---
Vital Signs 04/16/25 13:22 Height 5 ft 4 in Weight 165 lb 5.547 oz BMI 28.4 BP 130/59 L Blood Pressure Location Lt brachial Position Sitting Pulse 69 Intake Visit Reasons: s/p EGD Intake Note: Lauren presents in the office as a follow up for her EGD. CC: Just here as a follow up as they got a phone call with results. 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 Initial visit 03/30/22: Patient presents to the office accompanied by her son, who provides most of the history. Has been in her usual state of health. Does not have any specific abdominal complaints include abdominal pain, nausea, vomiting, changes in bowel habits, pruritus, increased abdominal distension or confusion spells. She has been able to maintain her previous activity levels despite arthritis in her knees. Walks 40-45 minutes every day. No changes in appetite or unintentional weight loss. Has been noticing red blotches on her skin especially upper chest and arms for the past couple of years. Patient does not have any history of alcohol use disorder. No family history of liver disease or cancer. No history of chronic hepatitis in 1st or second- degree relatives that she knows of. Takes meloxicam on and off for knee pain from osteoarthritis. She is also on metformin for diabetes. Most recent colonoscopy was in 2017, Dr. Mcgee- prep, no polyps. Most recent imaging is CTA from 11/14/2021. Of note, this was not triple phased. Hospitalization 06/09-06/24/22: 18: Noted to have multiple episodes of coffee-ground emesis and tarry stool with drop in hemoglobin from 12-8. EGD: Gastroesophageal varices status post banding x5. 07/06/2022: Patient presents accompanied by her son. Reports having diarrhea that started 1-2 days after she was discharged. Describes the bowel movement is soft to lose which are brown, occurred 2-3 times every day. No abdominal pain, nausea, vomiting. Does note that she has a bit more bloated since the diarrhea. Does not seem to be related to what she eats. No fevers or chills. Continues on carvedilol 3.125 b.i.d. for both hypertension as well as variceal prophylaxis Blood pressure today in the 170s. Did not take her medications this morning. Weight today is 176#, down from 190# when she was admitted 2 weeks ago. Does not appear to be on any diuretic treatment at this time. 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 Duodenum, polyp, biopsy: Chronic inactive duodenitis; no neoplastic process identified. B. Stomach, random, biopsy: Antral-type and oxyntic mucosa with moderate chronic inactive inflammation; no Helicobacter organisms seen. C. Colon, right, biopsy: Colonic mucosa within normal limits; negative for microscopic colitis. D. Colon, left, biopsy: Colonic mucosa within normal limits; negative for microscopic colitis. 08/26/22: No gastrointestinal complaints today to include abdominal pain, distention, nausea, vomiting. Has good appetite. As mentioned in the previous note, diarrhea has resolved. She is recovering from an upper respiratory infection though. This started last week, and she had fever up to 101 for couple of days. On the mend now. Last imaging: Ultrasound liver April 2022: without any focal masses. Doppler May 2022: Patent portal and hepatic vasculature. 02/24/23: Pt here with her son. Reports no gastrointestinal complaints including abd pain, N,V, abd distention, breathing discomfort. Son does report a few days of lower extremity swelling while the pt was on [place] earlier this month which resolved by itself once the cruise finished. US Abd still pending. Son had gotten a call from [facility] to book it but couldnt schedule it at that time and then forgot to call them up. 07/17/24: Here with her son. Lost to follow-up through 2023. Reports no issues including abdominal pain, nausea, vomiting, abdominal distention. Appetite has been good. Weight stable. Had swelling in her legs when she was visiting the [facility], that has now resolved. Also following salt restricted diet. Ultrasound 03/23/2024: No focal liver mass. Has a right renal cyst. Reviewed to discuss further imaging with PCP. Due for upper endoscopy for variceal surveillance. Continues on carvedilol 6.25 mg b.i.d. HBV s Ab neg, reports getting HBV shot through her pharmacy last year but unsure if completed the series. 02/2025: EGD * Flat varices * ?? Cardia nodule vs varix * Portal hypertensive gastropathy * duodenal polyp (hot snare, endoclip) Path: Duodenum, polypectomy: Duodenal tissue with chronic active inflammation, Robb gland hyperplasia, surface hyperplastic changes and prominent submucosal adipose tissue; no atypia identified. Comment: The submucosal adipose tissue may represent a lipoma CT abd 03/2025: 1. Airspace opacity in the right middle lobe, consistent with atelectasis or pneumonia. 2. Cirrhosis of the liver with multiple gastric varices in the region of the fundus. Borderline splenomegaly. No enhancing liver mass is identified. MRI is more sensitive for the detection of liver lesions. 3. Cholelithiasis. 4. 1.4 cm somewhat ill-defined hypodensity at at the upper pole of the right kidney, previously characterized as a multiseptated complex cyst or cluster of cysts on abdominal ultrasound. Follow-up is recommended. 03/2025: Here for follow up. Accompanied by her son. Maged DASILVA present for interpretation. REsults of EGD and CT abd/pel reviewed. Pt aware to discuss surveillance imaging vs urology referral with PCP. Otherwise no abd pain, N,V. PFSH Medical History Cirrhosis Cough Chronic right heart failure Chronic diastolic (congestive) heart failure Pulmonary hypertension Nonrheumatic tricuspid (valve) insufficiency COPD (chronic obstructive pulmonary disease) Congestive heart failure Asthma Restrictive lung disease Dyspnea on exertion COPD (chronic obstructive pulmonary disease) Smoking Type 2 diabetes mellitus with unspecified complications Uncontrolled hypertension Surgical History Hx of cataract surgery History of esophagogastroduodenoscopy (EGD) H/O colonoscopy Hx of abdominoplasty Family History Mother HTN (hypertension) Diabetes Throat cancer Father Throat cancer Sister Blind Breast cancer Brother Blind Lung cancer Son Blind Daughter Lupus Father Throat cancer Social History Household Members: None Housing: Apartment Do you presently have visiting nurse or other home services: Yes (HEREDITARY [employer] PROGRAM COORDINATOR FOR 15 HOURS A WEEK) Alcohol intake: never Patient Tobacco Use Status: Current everyday Tobacco user Tobacco use type: Cigarette Cigarettes Per Day: 5 Years Smoked: 40 +/- Second Hand Smoke Exposure: No service: No Current occupational status: retired Review of Systems Const All systems reviewed & are unremarkable except as noted in HPI and below Physical Exam Exam Exam: No apparent distress Nonicteric Abdomen soft, nondistended Alert and oriented x3, normal gait Vital Signs: Last Vital Signs Pulse 69 04/16/25 13:22 BP 130/59 L 04/16/25 13:22 BMI result Body Mass Index 28.4 Assessment & Plan Assessment & Plan (1) Liver cirrhosis secondary to ZULETA: Code(s): K75.81 - Nonalcoholic steatohepatitis (ZULETA); K74.60 - Unspecified cirrhosis of liver Category: Medical (2) Varices, esophageal: Code(s): I85.00 - Esophageal varices without bleeding Category: Medical (3) Cyst, kidney, acquired: Code(s): N28.1 - Cyst of kidney, acquired Category: Medical (4) Cirrhosis: Code(s): K74.60 - Unspecified cirrhosis of liver Category: Medical Plan MELD-Na 7 Cirrhosis likely secondary to NAFLD/ZULETA cirrhosis in the setting of metabolic factors. Complicated by portal hypertension with evidence of varices and PHG on endoscopy. Continues on Carvedilol 6.25mg BID. 1. Ascites/peripheral edema: No ascites on exam today 2. Hepatic encephalopathy: No evidence based on history and exam today. 3. Gastroesophageal varices: s/p banding 05/2022. EGD 02/2025 showed flat varices and fundal varices. Continue Carvedilol 6.25mg BID. Next EGD due fall 2025 4. HCC screening: Next US due September 2025. Reminder set. 5. Vaccinations: Reports getting HBV vaccine 2024. 6. Nutrition: Low salt diet to 2g Na. Advised good proteins (BCAA) such as eggs, milk, zambian yogurt, fish, chicken etc; avoid long periods of fasting. 7. Avoid NSAIDs. Tylenol is okay up to 2g/day. 8. Transplant candidacy: Compensated disease with low MELD + advance age - therefore no indication at this time. 9. MELD labs to be done before next appt. Renal cyst: Complex cyst vs mass noted on RIGHT kidney. Urology referral requested. Notification sent to PCP. CRC screening: No polyps on colo 2022. Further screening deferred due to age. Follow up 6 months Orders: Orders Complete Blood Count no Diff 6 Months K74.60 - Unspecified cirrhosis of liver Comprehensive Met. Panel 6 Months K74.60 - Unspecified cirrhosis of liver Prothrombin Time INR 6 Months K74.60 - Unspecified cirrhosis of liver US abdomen complete 6 Months K74.60 - Unspecified cirrhosis of liver Referrals Urology Referral N28.1 - Cyst of kidney, acquired Medications: Refilled carvedilol must administer with a meal/food 6.25 mg PO BID 60 tabs 2RF 30 days Discontinued sucralfate (Carafate) Discontinued Reason: Patient Completed Course 10 mL PO TID 14 days 420 mL 0RF Coding Level of Care Code Est Pt Level 5 (59758) Complex EM visit Add On G2211 Diagnoses 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 Cyst, kidney, acquired N28.1 Cirrhosis K74.60
[2025-04-16 13:22] VITALS: BP 130/59; PULSE 69; BMI 28.4
== END 2025-04-16 13:52 | disposition home or self-care (01) ==
LOC: HO.HGI 13:12
PROVIDERS: PCP Pediatrics; Visit Provider Internal Medicine
DX: K74.60 Unspecified cirrhosis of liver (principal); I85.00 Esophageal varices without bleeding; K75.81 Nonalcoholic steatohepatitis (NASH); N28.1 Cyst of kidney, acquired
CPT/HCPCS: 99214; G2211

== ENCOUNTER → 2025-04-16 13:11 | Outpatient (BNVA) | payer OTHER, SELFPAY | PROVIDERS: PCP Pediatrics; Visit Provider Internal Medicine | DX: N28.1 Cyst of kidney, acquired (principal); K74.60 Unspecified cirrhosis of liver; K75.81 Nonalcoholic steatohepatitis (NASH); I85.00 Esophageal varices without bleeding | CPT/HCPCS: 99212 ==

== ENCOUNTER 2025-06-14 08:55 | Outpatient (AMB) | payer OTHER, SELFPAY ==
--- NOTE | 2025-06-14 09:07 | A.OFFVIS_ITS ---
Vital Signs 06/14/25 09:08 Height 5 ft 4 in Weight 171 lb 15.369 oz BMI 29.5 BP 130/70 Blood Pressure Location Lt brachial Position Sitting Pulse 68 Pulse Source Pulse Oximeter Pulse Oximetry (%) 95 Oxygen Delivery Method Room Air Intake Visit Reasons: COPD Intake Note: pt is here for follow up and states she still has the cough with phlegm and production. Bindery Machine Setter Required: No Scale And Skip Car Operator: Scale And Skip Car Operator offered & declined Allergies aspirin (ASPIRIN) Allergy (Intermediate, Verified 06/14/25 09:19) HIVES/ANXIETY enalapril Adverse Reaction (Mild, Verified 06/14/25 09:19) unknown verapamil Adverse Reaction (Mild, Verified 06/14/25 09:19) unknown oxycodone (From Percocet) Adverse Reaction (Verified 06/14/25 09:19) low blood pressure Medication List - Last Reconciled 06/14/25 by Petrona Mercer MD albuterol sulfate 90 mcg/actuation 2 puffs inhalation Q6H PRN 30 days amlodipine (Norvasc) 5 mg PO DAILY atorvastatin (Lipitor) 20 mg PO DAILY biotin 5 mg PO DAILY budesonide-formoterol 160-4.5 mcg/actuation (Symbicort) 2 puffs inhalation BID 30 days carvedilol 6.25 mg PO BID 30 days cholecalciferol (vitamin D3) 50 mcg PO DAILY citalopram 40 mg PO DAILY food supplemt, lactose-reduced (Boost High Protein) 1 ea PO BID lidocaine-prilocaine 2.5-2.5 % topical DAILY metformin 500 mg PO BID omeprazole 20 mg PO DAILY trazodone 150 mg PO DAILY Do you need a note to return to daycare/school/sports/work: No HPI HPI COPD: Details: This 75 years old female comes for follow-up after 4 months. Main complaint is increased frequency of bouts of cough , in the last few months. This is not related to any acute respiratory infection, but she has increased the number of cigarettes to 5 or 6 a day. She denies any wheezing or shortness of breath when she walks. Continues to use Symbicort 2 puffs b.i.d. and uses albuterol p.r.n. [facility] Medical History Cirrhosis Cough Chronic right heart failure Chronic diastolic (congestive) heart failure Pulmonary hypertension Nonrheumatic tricuspid (valve) insufficiency COPD (chronic obstructive pulmonary disease) Congestive heart failure Asthma Restrictive lung disease Dyspnea on exertion COPD (chronic obstructive pulmonary disease) Smoking Type 2 diabetes mellitus with unspecified complications Uncontrolled hypertension Surgical History Hx of cataract surgery History of esophagogastroduodenoscopy (EGD) H/O colonoscopy Hx of abdominoplasty Family History Mother HTN (hypertension) Diabetes Throat cancer Father Throat cancer Sister Blind Breast cancer Brother Blind Lung cancer Son Blind Daughter Lupus Father Throat cancer Social History Household Members: None Housing: Apartment Do you presently have visiting nurse or other home services: Yes (HEALTH CARE COORDINATOR FOR 15 HOURS A WEEK) Alcohol intake: never Patient Tobacco Use Status: Current everyday Tobacco user Tobacco use type: Cigarette Cigarettes Per Day: 5 Years Smoked: 40 +/- Second Hand Smoke Exposure: No service: No Current occupational status: retired Review of Systems Const All systems reviewed & are unremarkable except as noted in HPI and below Eyes Reports no additional complaints ENT Reports no additional complaints Card Denies chest pain, Denies irregular heart rhythm and Denies leg edema Resp Reports as per HPI GI Reports no additional complaints Reports no additional complaints Musc Reports no additional complaints Skin/Breast Reports dry skin Neuro Reports no additional complaints Psych Reports no additional complaints Physical Exam Vital Signs: Last Vital Signs Pulse 68 06/14/25 09:08 BP 130/70 06/14/25 09:08 Pulse Ox 95 06/14/25 09:08 Oxygen Delivery Method Room Air 06/14/25 09:08 BMI result Body Mass Index 29.5 Const General: healthy appearing, comfortable, no acute distress, alert and awake Orientation/consciousness: patient oriented x3 HEENT Head: Yes normal to inspection General nose exam: No nasal polyps present and No nasal discharge present Face and sinus: Yes sinuses nontender Mouth: oropharynx normal Throat: Yes posterior oropharynx normal Eyes General: appearance normal, both eyes and all related structures Neck Neck: Yes normal visual inspection, Yes no lymphadenopathy, Yes trachea midline and Yes no JVD Thyroid: Thyroid normal Chest Chest palpation & inspection: normal inspection of the chest, normal palpation of entire chest wall and no tenderness Resp Other: Percussion note is resonant, breath sounds are somewhat diminished over the basilar areas. No crepitations, or wheezes are heard. Cardio Palpation: normal PMI Rate: regular rate Rhythm: regular rhythm Heart sounds: no gallops and no murmurs Peripheral pulses: Peripheral pulses 2+ throughout GI Palpation (GI): Soft to palpation, nontender, No hepatosplenomegaly present and no masses Auscultation: normal bowel sounds Back/Spine/Pelvis Thoracic/Lumbar Spine: thoracic and lumbar spine normal to inspection Skin General skin exam: no rashes or lesions noted and dry skin Neuro General: patient oriented x3 and no focal motor deficits Cranial nerves: Yes CN's II-XII intact bilaterally Extrem General: Yes normal to inspection, Yes no clubbing, cyanosis or edema and Yes no calf tenderness Psych Speech and movement: Normal speech and movement present Assessment & Plan Assessment & Plan (1) Smoking: Comment: SHE CONTINUES TO SMOKE. HAS INCREASED TO ABOUT 6 CIGARETTES A DAY. HAS TRIED HER BEST BUT CAN NOT GO BELOW THAT NUMBER. Code(s): F17.200 - Nicotine dependence, unspecified, uncomplicated Category: Social Hx Plan: I TOLD HER THAT THE INCREASE IN THE AMOUNT OF COUGH IS PROPORTIONATE TO INCREASE IN THE NUMBER OF CIGARETTES. SHE MUST QUIT SMOKING OR AT LEAST CUT DOWN TO NO MORE THAN 2 CIGARETTES A DAY. (2) COPD (chronic obstructive pulmonary disease): Comment: Chronic cough and mild shortness of breath on exertion is indicated of obstructive/restrictive pulmonary disorder. PULMONARY FUNCTION TEST SHOWED RESTRICTIVE DISORDER BUT NO SIGNIFICANT OBSTRUCTIVE DISORDER. HOWEVER SHE CONTINUE TO HAVE COUGH DUE TO REACTIVE AIRWAYS AND WITH THE USE OF SYMBICORT IT WAS MUCH IMPROVED. Code(s): J44.9 - Chronic obstructive pulmonary disease, unspecified Category: Medical Plan: CONTINUE TO USE SYMBICORT 160-4.52 PUFFS B.I.D., AND ALBUTEROL HFA 2 PUFFS Q 6 HOURS P.R.N. FOR WHEEZING OR PERSISTENT BOUTS OF COUGH. (3) Restrictive lung disease: Comment: PULMONARY FUNCTION TEST HAS SHOWN MILD TO MODERATE DEGREE OF RESTRICTIVE PULMONARY DISORDER. SHE IS NOT OVERWEIGHT . THESE RESULTS MAY BE BECAUSE OF POOR EFFORT. Code(s): J98.4 - Other disorders of lung Category: Medical Plan: ADVISED TO DO DEEP BREATHING EXERCISES ABOUT 3 TIMES A DAY (4) Cough: Comment: SHE HAS MILD INTERMITTENT COUGH SECONDARY TO REACTIVE AIRWAYS/ASTHMA VARIANT, AND ALSO DUE TO SMOKING WITH THE USE OF SYMBICORT, THE COUGH IS MUCH LESS. BUT NOW WITH INCREASED NUMBER OF CIGARETTES THE COUGH IS ALSO WORSE. Code(s): R05.9 - Cough, unspecified Category: Medical Plan: I TOLD HER THAT SHE HAS TO QUIT SMOKING OR CUT IT DOWN TO NO MORE THAN 2 CIGARETTES A DAY. MAY USE ROBITUSSIN 2 TSP T.I.D. FOR COUGH Coding Level of Care Code Est Pt Level 3 (46996) Diagnoses Smoking F17.200 COPD (chronic obstructive pulmonary disease) J44.9 Restrictive lung disease J98.4 Cough R05.9
[2025-06-14 09:08] VITALS: BP 130/70; PULSE 68; O2SAT 95; BMI 29.5
== END 2025-06-14 09:28 | disposition home or self-care (01) ==
LOC: HO.HPS 08:55
PROVIDERS: PCP Pediatrics; Visit Provider Internal Medicine
DX: F17.200 Nicotine dependence, unspecified, uncomplicated (principal); J44.9 Chronic obstructive pulmonary disease, unspecified; J98.4 Other disorders of lung; R05.9 Cough, unspecified
CPT/HCPCS: 99213